=== PATIENT | male | born 1940 | race American Indian/Alaskan Native ===

== ENCOUNTER → 2016-08-19 | Day surgery (SDC) | payer OTHER ==
[2016-07-29 12:37] VITALS: Ht 162.6 cm; Wt 56.8 kg
[~2016-08-19] VITALS: Ht 162.6 cm; Wt 56.8 kg
[~2016-08-19] MED LIST: 500ML BSS 0.3ML EPI 1:1000PF IRRIG ONE; ACETAMINOPHEN 325 MG TAB PO PRN; AMLO-114 PO; AMVISC PLUS 0.8ML SYRINGE INT OCU ONE; ASPI81TA28 PO; ATOR-22 PO; ATROPINE SULFATE 0.1 MG/ML 5ML SYR IV PRN; BSS FLUSH ONE; CARV3.122 PO; EpHEDrine SULFATE INJ 50 MG/ML AMP IV PRN; EpINEphrine INJ 1MG/ML AMP 1 MG/ML AMP ONE; GLIM2TAB2 PO; LACTATED RINGER'S 1000ML 500 ML IV SCH; LIDOCAINE 3.5% OPH GEL PER APPLICATION CHARGE ONE; LIDOCAINE HCL 1% MPF 2 ML VIAL ONE; LOSA100T2 PO; METF-841 PO; MIDAZOLAM HCL 1 MG/ML 2ML VIAL ONE; MULT-506 PO; OCUCOAT 1 ML SOLN IO ONE; PHENYLEPHRINE HCL 10% OP SOLN PER DROP CHARGE OPL SCH; POVIDONE-IODINE OP SOLN 30 ML BTL ONE; PROPARACAINE 0.5% OP SOLN PER DROP CHARGE OPL SCH; SITA50TA3 PO; TAMS0.4C38 PO; TOBRAMYCIN/DEXAMETHASONE OPH OINT PER APPLN CHARGE ONE
[2016-08-19] MEDS: PHENYLEPHRINE HCL 2.5% OP SOLN PER DROP CHARGE OPL SCH ×2 (06:39→06:47)
[2016-08-19] MEDS: TROPICAMIDE 1% OP SOLN PER DROP CHARGE OPL SCH ×2 (06:40→06:48)
[2016-08-19] MEDS: CYCLOPENTOLATE HCL 1% OP SOLN PER DROP CHARGE OPL SCH ×2 (06:41→06:49)
[2016-08-19] MEDS: KETOROLAC 0.5% OP SOLN PER DROP CHARGE OPL SCH ×2 (06:42→06:50)
[2016-08-19] MEDS: GATIFLOXACIN OP SOLN PER DROP CHARGE OPL SCH ×2 (06:43→06:53)
--- NOTE | 2016-08-19 06:55 | History & Physical Bridge - SC ---
H&P Re-Evaluation Bridge Note: I have examined the patient, reviewed the History & Physical and in the interval since the performance of the History & Physical I have noted the following changes of clinical significance: No changes noted
--- NOTE | 2016-08-19 07:22 | Discharge Instructions-SurgCtr ---
Discharge Instructions Date of Service August 19, 2016. Visit Reason for Visit: Cataract Left Eye Discharge Discharge Diagnosis / Problem: cataract Discharge Goals Goal(s): Improve function Medications Stopped Medications Name(s): Metformin stopped for 3 days Activity Recommendations Activity Limitations: per Instructions/Follow-up section Anesthesia . Post Anesthesia Instructions: If you have had General Anesthesia or IV Sedation: * Do not drive today. * Resume driving when surgeon permits. * Do not make important decisions or sign legal documents today. * Call surgeon for: 1. Temperature elevations greater than 101 degrees F. 2. Uncontrollable pain. 3. Excessive bleeding. 4. Persistent nausea and vomiting. 5. Medication intolerance (nausea, vomiting or rash). * For nausea and vomiting use only clear liquids such as: tea, soda, bouillon until nausea subsides, then gradually increase diet as tolerated. * If you have any concerns or questions, call your surgeon's office. If physician is unavailable and it is an emergency, call 911 or go to the nearest emergency room. . Instructions / Follow-Up Instructions / Follow-Up ACTIVITY RECOMMENDATIONS: * No strenuous lifting, jogging or running for 4 days * No swimming or yard work for 1 week. * Limited bending is permitted, such as putting on shoes. RETURN TO SCHOOL/WORK: No work until seen by physician in office. MEDICATIONS: Resume previous medications unless instructed otherwise by your surgeon. This includes eye drops for glaucoma. Zymaxid/Gatifloxacin (sandoval cap) - one drop every 2 hours until bedtime Nevanac/Ilevro/Prolensa/Ketorolac (loera cap) - one drop every 4 hours until bedtime Prednisolone (white/pink cap, SHAKE WELL) - one drop every 2 hours until bedtime Starting tomorrow - all 3 drops every 4 hours until seen in the office Optive drops - as needed for discomfort SPECIAL CARE INSTRUCTIONS: * Wear eyeshield when sleeping, for four nights. * You may wear your own glasses or sunglasses while awake. * You may read or watch TV * You may shower and wash your face, but be gentle around the eye and pat dry. * Blurry vision and mild irritation are normal. * Call office if pain is more severe or vision becomes dark at . FOLLOW UP VISIT: Follow-up with Dr Sanderson tomorrow. Diet Recommendations Home Diet: resume previous diet Procedures Procedures Performed: Left Cataract Phacoemulsification With Intraocular Lens Implant Pending Studies Studies pending at discharge: no Medical Emergencies . Who to Call and When: Medical Emergencies: If at any time you feel your situation is an emergency, please call 911 immediately. . Non-Emergent Contact Non-Emergency issues call your: Rv Detailer . . "Provider Documentation" section prepared by Charli Sanderson. .
--- NOTE | 2016-08-19 07:23 | [facility] Operative Report ---
Operative Report Date of Service August 19, 2016. Operative Report 1. PREOPERATIVE DIAGNOSIS: Cataract of the left eye. 2. POSTOPERATIVE DIAGNOSIS: Same. 3. PROCEDURE: Phacoemulsification with intraocular lens implantation of the left eye. SURGEON: Dr. Charli Sanderson. ANESTHESIA: Topical Lidocaine gel, 1% Non- Preserved intracameral Lidocaine, and monitored intravenous sedation. INDICATIONS FOR THE PROCEDURE: The patient is a 75 - year-old male with a history of cataract of the left eye causing significant visual impairment. The details of the proposed procedure were explained to the patient who asked appropriate questions and following discussion of all risks, benefits and alternatives agreed to have the procedure done. 4. OPERATION AND FINDINGS: DESCRIPTION OF PROCEDURE: After informed consent was obtained, the patient was brought to the Operating Room at the [facility]. The patient was placed in a supine position and then the left eye was prepped and draped in the usual sterile fashion for intraocular surgery. A drop of topical Lidocaine gel was placed in the operative eye. A wire lid speculum was then placed in the fornices. A corneal paracentesis was then created temporally. The Non-Preserved Lidocaine was then instilled into the anterior chamber. The anterior chamber was then pressurized with viscoelastic. A 2.0 mm clear corneal incision was then created temporally. A cystotome was inserted into the anterior chamber and used to create a tear in the anterior lens capsule. This capsular tear was then used to create a small flap and the flap was dragged in a counterclockwise direction in order to create a continuous curvilinear capsulorrhexis. Hydrodissection was accomplished with balanced salt solution. Phacoemulsification of the lens nucleus was then performed in a standard [id number] technique. The phaco time was 38 seconds with an average power of 18 %. The remaining cortical material was removed using irrigation aspiration. The capsular bag was then filled with viscoelastic. A [employer]ch [employer] Lomb MI60L +22.0 diopters lens was then loaded into the injector and injected into the capsular bag. The remaining viscoelastic was removed with the irrigation aspiration handpiece. The wound was hydrated and then checked and found to be watertight. The intraocular pressure was checked and found to be adequate. The wire lid speculum was removed and the patient's face was cleaned and dried. TobraDex ointment was placed in the inferior fornix. The patient was discharged to the Recovery Room having tolerated the procedure well. There were no complications. The patient will be seen tomorrow in the office for follow-up. I attest to the content of the Intraoperative Record and any orders documented therein. Any exceptions are noted below.
[2016-08-19 07:25] VITALS: TEMP 36.3
[2016-08-19 07:48] VITALS: BP 152/75; PULSE 81; O2SAT 98
--- NOTE | 2016-08-19 07:49 | Anesthesia Progress Nt - [facility] ---
Anesthesia Post Op Note Date & Time August 19, 2016 at 07:49 Vital Signs Pain Intensity: 0 Vital Signs Past 12 Hours Date Time Temp Pulse Resp B/P Pulse Ox O2 Delivery O2 Flow Rate FiO2 08/19/16 07:25 36.3 77 16 149/71 100 Room Air 08/19/16 06:26 36.5 78 16 146/68 100 Room Air Notes Mental Status: alert / awake / arousable, participated in evaluation Pt Amnestic to Procedure: Yes Nausea / Vomiting: adequately controlled Pain: adequately controlled Airway Patency, RR, SpO2: stable & adequate BP & HR: stable & adequate Hydration State: stable & adequate Anesthetic Complications: no major complications apparent
== END | disposition home or self-care (01) ==
LOC: X.SURG 06:03
PROVIDERS: ATTEND Ophthalmology
DX: H26.9 Unspecified cataract (principal); I10 Essential (primary) hypertension; I25.10 Atherosclerotic heart disease of native coronary artery without angina pectoris; Z95.1 Presence of aortocoronary bypass graft; E78.5 Hyperlipidemia, unspecified; E11.36 Type 2 diabetes mellitus with diabetic cataract; E03.9 Hypothyroidism, unspecified; Z79.82 Long term (current) use of aspirin; Z86.73 Personal history of transient ischemic attack (TIA), and cerebral infarction without residual deficits; Z88.2 Allergy status to sulfonamides; Z87.891 Personal history of nicotine dependence; Z68.21 Body mass index [BMI] 21.0-21.9, adult; Z83.3 Family history of diabetes mellitus; Z82.49 Family history of ischemic heart disease and other diseases of the circulatory system; Z82.0 Family history of epilepsy and other diseases of the nervous system

== ENCOUNTER 2018-10-25 14:05 | Inpatient (IN) ==
--- NOTE | 2018-10-25 15:16 | XRay Report ---
XR chest 1V portable HISTORY: weakness COMPARISON: Chest 01/07/2018. FINDINGS: The lungs are clear. The heart is normal in size. No pleural effusions. No pneumothorax. Po ststernotomy changes. IMPRESSION: No acute process. Electronically signed by: Elier Lao M.D. 10/25/2018 3:14 PM
[2018-10-25 15:30] LABS: Basophils # (auto) 0.02 K/uL (0-0.2); Basophils % (auto) 0.3 %; Eosinophils % (auto) 2.9 %; Hematocrit (blood only) 22.3 % (42-52); Hemoglobin 7.2 g/dL (14.0-18.0); Immature Granulocytes # (auto) 0.04 K/uL (0.00-0.02); Immature Granulocytes % (auto) 0.6 %; Lymphocytes # (auto) 1.47 K/uL (1.2-3.4); Lymphocytes % (auto) 21.2 %; Mean Corpuscular Hgb Conc 32.3 g/dL (32-36); Mean Corpuscular Volume 87.5 fL (80-100); Mean Platelet Volume 9.4 fL (7.4-10.4); Monocytes # (auto) 0.47 K/uL (0.11-0.59); Monocytes % (auto) 6.8 %; Neutrophils # (auto) 4.73 K/uL (1.4-6.5); Neutrophils % (auto) 68.2 %; Nucleated RBC # (auto) 0.04 K/uL (0-0); Nucleated RBC % (auto) 0.6 %; Platelet Count 284 K/uL (130-400); RDW Coefficient of Variation 19.2 % (11.5-14.5); RDW Standard Deviation 49.1 fL (36.4-46.3); Red Blood Count 2.55 M/uL (4.7-6.1); White Blood Count 6.93 K/uL (4.8-10.8)
[2018-10-25 15:38] LABS: Appearance Urine Cloudy (Clear); Bilirubin Urine Negative (Negative); Blood Urine Negative (Negative); Color Urine Yellow; Glucose Urine UA 3+ (Negative); Ketones Urine Negative (Negative); Leukocyte Esterase Urine Negative (Negative); Nitrite Urine Negative (Negative); Protein Urine Negative (Negative); Specific Gravity Urine 1.013 (1.000-1.030); Urobilinogen Urine Negative (Negative)
[2018-10-25] MEDS ORDERED: SODIUM CHLORIDE 0.9% 250 ML IV PRN ×2 (15:41→19:02)
[2018-10-25 15:53] LABS: Albumin Level 3.9 gm/dl (3.4-5.0); BUN Creatinine Ratio 21.4 (10-20); Calcium 9.5 mg/dl (8.5-10.1); Creatinine Clr Calc Pharmacy 42.8 ml/min; Est GFR (African American) 75.6; Est GFR (Non-African American) 65.2; Magnesium 2.9 mg/dl (1.8-2.4); Potassium 4.1 mmol/L (3.5-5.1)
[2018-10-25 15:54] LABS: Bacteria Urine Negative (Negative); Epithelial Cell Urine 0-5 /lpf (0-5); RBC Urine 0-4 /hpf (0-4); WBC Urine 0-5 /hpf (0-5)
[2018-10-25 16:03] LABS: Albumin Globulin Ratio 1.2 (0.9-2); Bilirubin,Total 0.3 mg/dl (0.2-1); Globulin 3.2 gm/dl (2.5-4.0); Total Protein 7.1 gm/dl (6.4-8.2); Troponin I 0.042 ng/ml (0-0.045)
--- NOTE | 2018-10-25 16:11 | Emergency Department Note ---
Entered by Narda Knapp acting as a scribe for History of Present Illness General Chief complaint: Weakness Stated complaint: WEAKNESS Source: family (son) History of Present Illness Provider complaint: weakness Onset (ago): day(s) 2 Location: left and right Severity: similar to prior episodes Quality: + other (weakness) Associated symptoms: + other (Positive tarry stools, Negative rectal bleeding ); no chest pain and no shortness of breath The patient is a 78 year old male who presents to the Emergency Room with comp laints of weakness that started three days ago. The patient states that he has been feeling weak for the past three days. The patient's son expresses that he is feeling weak in his legs and is unable to go up and down his stairs. The patient reports eating and drinking fine. The patient reports that he is unable to walk these past couple of days. The patient denies syncope, shortness of breath, chest pain or bloody stools. The patient reports taking iron pill supplements. The patient's son reports that this is similar to an incident that happened in January. The patient's son states that in January the patient collapsed at home and when he went to the ER he had a hemoglobin of 4.6. The patient's son reports that at that time the patient received 2-3 units of blood and iron supplements. The patient's son reports that at that time the patient had a colonscopy, scopes and other lab work done however they were unable to determine the cause of why the patient's hemoglobin was low because there was no signs of internal bleeding. The patient's son reports that hours ago they went to [facility] and had blood work done and found that the patient's hemoglobin was 8. The patient's son reports that the patient has traveled to [facility] in the middle april and came back in mid August. Home Medications Home Medications Medication Instructions Recorded Confirmed Type Januvia 100 mg PO QAM 01/07/18 10/25/18 History atorvastatin 20 mg PO QAM 01/07/18 10/25/18 History carbidopa-levodopa [Sinemet] 1 tab PO TID 01/07/18 10/25/18 History carbidopa-levodopa [Sinemet] 1.5 tab PO TID 01/07/18 10/25/18 History carvedilol 6.25 mg PO HS 01/07/18 10/25/18 History carvedilol 12.5 mg PO QAM 01/07/18 10/25/18 History glimepiride 1 mg PO BID 01/07/18 10/25/18 History losartan 25 mg PO QAM 01/07/18 10/25/18 History metformin 1,000 mg PO BID 01/07/18 10/25/18 History multivitamin 1 tab PO QAM 01/07/18 10/25/18 History tamsulosin [Flomax] 0.4 mg PO QAM 01/07/18 10/25/18 History aspirin 81 mg PO QAM 10/25/18 10/25/18 History cholecalciferol (vitamin D3) 2,000 unit PO QAM 10/25/18 10/25/18 History [Vitamin D3] empagliflozin 10 mg PO QAM 10/25/18 10/25/18 History ferrous sulfate 134 mg PO DAILY 10/25/18 10/25/18 History nitroglycerin 0.3 mg SUBLINGUAL QAM PRN 10/25/18 10/25/18 History Allergies Allergy/AdvReac Type Severity Reaction Status Date / Time Sulfa (Sulfonamide Allergy Unknown BLISTERS Verified 10/25/18 14:56 Antibiotics) AND RASH Past Med/Surg History Medical History CARISSA (iron deficiency anemia) (Chronic) Diabetes mellitus, type II (Chronic) CAD (coronary artery disease) (Chronic) GA / demand ischemia related to severe anemia Vascular parkinsonism (Chronic) Hypothyroidism (Chronic) Hypertension (Chronic) Dyslipidemia (Chronic) Surgical History S/P CABG x 3 (Chronic) 2002 Family History Other Cancer Diabetes Heart disease Social History Preferred Language: Maltese Communication Ability: Effective Hat Band Attacher Required: No Beliefs That Will Affect Care: None Current Living Situation: Spouse Feels Safe at Home: Yes Smoking Status: Current every day smoker Tobacco Type: smokeless tobacco ; Hx Alcohol Use: No Hx Substance Use: No Review of Systems See HPI for pertinent positives & negatives. and A total of 10 systems reviewed and were otherwise negative Physical Exam Vital Signs Vital Signs - 24 hr 10/25/18 14:17 10/25/18 15:14 10/25/18 15:18 Temperature 36.5 C Temperature Source Oral Sepsis Recent Fever Within 48 Hours No Sepsis New/Unexplained Change in Mental Status No Sepsis Action Taken by Nursing No Action Required Pulse Rate 86 83 89 Pulse Rate from SpO2 Sensor 83 84 Pulse Rhythm Regular Pulse Strength Normal Respiratory Rate 20 15 20 Respiratory Effort / Characteristics Non-Labored Spontaneous Respiratory Depth Normal Respiratory Pattern Regular Blood Pressure 133/73 118/59 L Blood Pressure Mean 93 78 Blood Pressure Position Sitting Pulse Oximetry 100 100 99 Oxygen Delivery Method Room Air 10/25/18 15:30 10/25/18 16:00 10/25/18 16:30 Temperature Temperature Source Sepsis Recent Fever Within 48 Hours Sepsis New/Unexplained Change in Mental Status Sepsis Action Taken by Nursing Pulse Rate 81 82 88 Pulse Rate from SpO2 Sensor 82 87 Pulse Rhythm Pulse Strength Respiratory Rate 13 18 22 Respiratory Effort / Characteristics Respiratory Depth Respiratory Pattern Blood Pressure 127/50 L 147/62 H Blood Pressure Mean 75 90 Blood Pressure Position Pulse Oximetry 99 99 Oxygen Delivery Method 10/25/18 16:44 10/25/18 17:00 10/25/18 17:02 Temperature 36.5 C 36.5 C Temperature Source Oral Oral Sepsis Recent Fever Within 48 Hours Sepsis New/Unexplained Change in Mental Status Sepsis Action Taken by Nursing Pulse Rate 80 84 85 Pulse Rate from SpO2 Sensor 83 Pulse Rhythm Pulse Strength Respiratory Rate 20 17 21 Respiratory Effort / Characteristics Respiratory Depth Respiratory Pattern Blood Pressure 147/62 H 143/52 H 143/52 H Blood Pressure Mean 90 82 82 Blood Pressure Position Pulse Oximetry 99 100 98 Oxygen Delivery Method 10/25/18 17:17 10/25/18 17:20 10/25/18 17:30 Temperature 36.8 C Temperature Source Oral Sepsis Recent Fever Within 48 Hours Sepsis New/Unexplained Change in Mental Status Sepsis Action Taken by Nursing Pulse Rate 83 84 80 Pulse Rate from SpO2 Sensor 83 82 Pulse Rhythm Pulse Strength Respiratory Rate 18 17 21 Respiratory Effort / Characteristics Respiratory Depth Respiratory Pattern Blood Pressure 142/60 H 142/60 H 157/65 H Blood Pressure Mean 87 87 95 Blood Pressure Position Pulse Oximetry 100 100 Oxygen Delivery Method 10/25/18 17:47 Temperature 36.6 C Temperature Source Oral Sepsis Recent Fever Within 48 Hours Sepsis New/Unexplained Change in Mental Status Sepsis Action Taken by Nursing Pulse Rate 81 Pulse Rate from SpO2 Sensor Pulse Rhythm Pulse Strength Respiratory Rate 18 Respiratory Effort / Characteristics Respiratory Depth Respiratory Pattern Blood Pressure 157/65 H Blood Pressure Mean 95 Blood Pressure Position Pulse Oximetry 99 Oxygen Delivery Method GENERAL: Awake, alert, fatigue-appearing HENT: Normocephalic, atraumatic. EYES: Normal conjunctiva. Sclera non-icteric. NECK: Supple. No nuchal rigidity. RESPIRATORY: Clear to auscultation. No wheezes. Normal respiratory effort. CARDIAC: Normal rate. Normal rhythm. Extremities warm and well perfused. GI: Soft, non-distended. No tenderness to palpation. No rebound or guarding. No masses. RECTAL: Nurse ice delivery driver present melanotic hemoccult. Positive stool MUSCULOSKELETAL: Atraumatic. Chest examination reveals no tenderness LOWER EXTREMITIES: Calves are equal size bilaterally and non-tender. No edema NEURO: Normal sensorium. No sensory or motor deficits noted. No facial droop. SKIN: Warm and dry. No rash or jaundice noted. Course 1424: Past medical records reviewed. The patient was evaluated in room . A complete history and physical exam was performed. 1610: I reassessed and updated the patient. I am waiting for a call from [employer] for a placement. 1620: I reviewed the patient's case with Dr. Ericka Chery PA-C. She will eval uate the patient for further management. Consultations Consultation #1: I reviewed the patient's case with Dr. Ericka Chery PA-C. She will evaluate the patient for further management. Time: 16:20 Medical Decision Making Differential Diagnosis Differential includes acute coronary syndrome, myocardial infarction, CVA, TIA, anemia, infection, pneumonia, UTI, pyelonephritis, poor nutrition, dehydration, electrolyte disturbance,hypoglycemia. Medical Records Attestation: I reviewed the patient's medical records. Home Medications Current Medication List: was personally reviewed by me Laboratory Data Attestation: I reviewed the patient's lab results. Result diagrams: 10/25/18 14:47 10/25/18 14:47 Lab Results 10/25/18 10/25/18 10/25/18 Range/Units 14:47 14:47 14:47 WBC 6.93 (4.8-10.8) K/uL RBC 2.55 L (4.7-6.1) M/uL Hgb 7.2 L (14.0-18.0) g/dL Hct 22.3 L (42-52) % MCV 87.5 (80-100) fL MCH 28.2 (25-34) pg MCHC 32.3 (32-36) g/dL RDW Std Deviation 49.1 H (36.4-46.3) fL RDW Coeff of Melissa 19.2 H (11.5-14.5) % Plt Count 284 (130-400) K/uL MPV 9.4 (7.4-10.4) fL Immature Gran % (Auto) 0.6 % Neut % (Auto) 68.2 % Lymph % (Auto) 21.2 % [place] % (Auto) 6.8 % Eos % (Auto) 2.9 % Baso % (Auto) 0.3 % Immature Gran # (Auto) 0.04 H (0.00-0.02) K/uL Neut # (Auto) 4.73 (1.4-6.5) K/uL Lymph # (Auto) 1.47 (1.2-3.4) K/uL [place] # (Auto) 0.47 (0.11-0.59) K/uL Eos # (Auto) 0.20 (0-0.5) K/uL Baso # (Auto) 0.02 (0-0.2) K/uL Absolute Nucleated RBC 0.04 H (0-0) K/uL Nucleated RBC % (auto) 0.6 % Spherocytes 1+ PT 10.0 (9.0-12.0) Seconds INR 1.0 (0.9-1.1) Sodium 139 (136-145) mmol/L Potassium 4.1 (3.5-5.1) mmol/L Chloride 101 (98-107) mmol/L Carbon Dioxide 26 (21-32) mmol/L Anion Gap 12.0 H (3-11) BUN 23 H (7-18) mg/dl Creatinine 1.07 (0.6-1.4) mg/dl Est Cr Clr Drug Dosing 42.8 ml/min Est GFR ( Amer) 75.6 Est GFR (Non-Af Amer) 65.2 BUN/Creatinine Ratio 21.4 H (10-20) Glucose 183 H (70-99) mg/dl Calcium 9.5 (8.5-10.1) mg/dl Magnesium 2.9 H (1.8-2.4) mg/dl Total Bilirubin 0.3 (0.2-1) mg/dl AST 15 (15-37) U/L ALT 19 (12-78) U/L Alkaline Phosphatase 67 (45-117) U/L Troponin I 0.042 (0-0.045) ng/ml Total Protein 7.1 (6.4-8.2) gm/dl Albumin 3.9 (3.4-5.0) gm/dl Globulin 3.2 (2.5-4.0) gm/dl Albumin/Globulin Ratio 1.2 (0.9-2) TSH 1.270 (0.300-4.500) uIu/ml Urine Color Urine Appearance (Clear) Urine pH (4.5-7.5) Ur Specific [place] (1.000-1.030) Urine Protein (Negative) Urine Glucose (UA) (Negative) Urine Ketones (Negative) Urine Blood (Negative) Urine Nitrite (Negative) Urine Bilirubin (Negative) Urine Urobilinogen (Negative) Ur Leukocyte Esterase (Negative) Urine RBC (0-4) /hpf Urine WBC (0-5) /hpf Ur Epithelial Cells (0-5) /lpf Urine Bacteria (Negative) Blood Type Antibody Screen Crossmatch 10/25/18 10/25/18 Range/Units 14:47 15:20 WBC (4.8-10.8) K/uL RBC (4.7-6.1) M/uL Hgb (14.0-18.0) g/dL Hct (42-52) % MCV (80-100) fL MCH (25-34) pg MCHC (32-36) g/dL RDW Std Deviation (36.4-46.3) fL RDW Coeff of Melissa (11.5-14.5) % Plt Count (130-400) K/uL MPV (7.4-10.4) fL Immature Gran % (Auto) % Neut % (Auto) % Lymph % (Auto) % [place] % (Auto) % Eos % (Auto) % Baso % (Auto) % Immature Gran # (Auto) (0.00-0.02) K/uL Neut # (Auto) (1.4-6.5) K/uL Lymph # (Auto) (1.2-3.4) K/uL [place] # (Auto) (0.11-0.59) K/uL Eos # (Auto) (0-0.5) K/uL Baso # (Auto) (0-0.2) K/uL Absolute Nucleated RBC (0-0) K/uL Nucleated RBC % (auto) % Spherocytes PT (9.0-12.0) Seconds INR (0.9-1.1) Sodium (136-145) mmol/L Potassium (3.5-5.1) mmol/L Chloride (98-107) mmol/L Carbon Dioxide (21-32) mmol/L Anion Gap (3-11) BUN (7-18) mg/dl Creatinine (0.6-1.4) mg/dl Est Cr Clr Drug Dosing ml/min Est GFR ( Amer) Est GFR (Non-Af Amer) BUN/Creatinine Ratio (10-20) Glucose (70-99) mg/dl Calcium (8.5-10.1) mg/dl Magnesium (1.8-2.4) mg/dl Total Bilirubin (0.2-1) mg/dl AST (15-37) U/L ALT (12-78) U/L Alkaline Phosphatase (45-117) U/L Troponin I (0-0.045) ng/ml Total Protein (6.4-8.2) gm/dl Albumin (3.4-5.0) gm/dl Globulin (2.5-4.0) gm/dl Albumin/Globulin Ratio (0.9-2) TSH (0.300-4.500) uIu/ml Urine Color Yellow Urine Appearance Cloudy A (Clear) Urine pH 7.0 (4.5-7.5) Ur Specific [place] 1.013 (1.000-1.030) Urine Protein Negative (Negative) Urine Glucose (UA) 3+ H (Negative) Urine Ketones Negative (Negative) Urine Blood Negative (Negative) Urine Nitrite Negative (Negative) Urine Bilirubin Negative (Negative) Urine Urobilinogen Negative (Negative) Ur Leukocyte Esterase Negative (Negative) Urine RBC 0-4 (0-4) /hpf Urine WBC 0-5 (0-5) /hpf Ur Epithelial Cells 0-5 (0-5) /lpf Urine Bacteria Negative (Negative) Blood Type O Positive Antibody Screen NEGATIVE Crossmatch See Detail Imaging Data Radiologist's Impression: Radiology results as stated below per my review and the radiologist's interpretation: XR chest 1V portable HISTORY: weakness COMPARISON: Chest 01/07/2018. FINDINGS: The lungs are clear. The heart is normal in size. No pleural effusions. No pneumothorax. Poststernotomy changes. IMPRESSION: No acute process. Electronically signed by: Elier Lao M.D. 10/25/2018 3:14 PM ECG Data Attestation: I personally reviewed and interpreted this ECG as follows: Indication: weakness Rate (beats per minute): 93 Rhythm: normal sinus Findings: no PVC, no ST depression and no ST elevation Blood Pressure Blood Pressure Findings: Normal blood pressure MDM Narrative Patient is an 78-year-old gentleman with a history of iron deficiency and GI bleed and anemia as well as CAD hypertension, and diabetes presenting to the emergency department today with a complaint of weakness. Was admitted in December of last year with severe anemia secondary to GI bleed thought to be more likely lower in nature. Evidently had outpatient blood work showing a hemoglo bin of 7.3 and was referred here. Weakness is begun over the past 2 weeks, worse 3 days. Repeat labs including EKG and troponin as well as type and screen were sent. Trop detectable but not elevated. Rectal exam performed. This does show melanotic and Hemoccult positive stools. Does take some iron supplementations at times and denies any blood in his stool but occasional black stools. Hemoglobin was last greater than 12 in August. Denies any significant abdominal pain or fevers. No trauma or syncope reported. Patient reports significant fatigue when trying to walk which for the past 3 days has been able to do his normal daily walk. Given this concern for occult GI bleed again. Given prior work-up lower suspicion this is upper more likely lower. Patient was consented for blood. Given the symptomatic nature he is having an hemoglobin repeat here 7.2 I did order 1 unit of packed red blood cells. Given his new low anemia and symptoms discussed with the [facility] hospitalist for admission. Doubt this represents acute diverticulitis or upper GI bleed. Not having any significant abdominal symptoms. Impression & Plan GI bleed, Weakness, Acute blood loss anemia Critical Care Time Critical Care Time: Yes Total Critical Care Time: 32 Discharge Plan Visit Data Chief Complaint: Weakness Stated Complaint: WEAKNESS ED Provider: Bret Strickland Discharge Problem: GI bleed, Weakness, Acute blood loss anemia Patient Disposition: Being Evaluated by Hospitalist Forms Stand Alone Forms: My [facility] Prescriptions Prescriptions: No Action atorvastatin 20 mg Tablet 20 mg PO QAM RF: 0 glimepiride 1 mg Tablet 1 mg PO BID RF: 0 tamsulosin [Flomax] 0.4 mg Capsule 0.4 mg PO QAM RF: 0 metformin 1,000 mg Tablet 1,000 mg PO BID RF: 0 carbidopa-levodopa [Sinemet] 25-100 mg Tablet 1.5 tab PO TID RF: 0 carbidopa-levodopa [Sinemet] 25-100 mg Tablet 1 tab PO TID RF: 0 Januvia 100 mg Tablet 100 mg PO QAM RF: 0 losartan 25 mg Tablet 25 mg PO QAM RF: 0 multivitamin Tablet 1 tab PO QAM RF: 0 carvedilol 6.25 mg Tablet 6.25 mg PO HS RF: 0 carvedilol 6.25 mg Tablet 12.5 mg PO QAM RF: 0 nitroglycerin 0.3 mg Tablet, Sublingual 0.3 mg sublingual QAM PRN (Reason: chest pain) RF: 0 aspirin 81 mg Tablet,Chewable 81 mg PO QAM RF: 0 cholecalciferol (vitamin D3) [Vitamin D3] 2,000 unit Tablet 2,000 unit PO QAM RF: 0 empagliflozin 10 mg Tablet 10 mg PO QAM RF: 0 ferrous sulfate 134 mg (27 mg iron) Tablet 134 mg PO DAILY RF: 0 Referrals Referrals: Marianela Contreras MD [Primary Care Provider] - Discharge Problem: GI bleed Qualifiers: GI bleed type/associated pathology: unspecified gastrointestinal hemorrhage type Qualified Code(s): K92.2 - Gastrointestinal hemorrhage, unspecified The scribe's documentation has been prepared under my direction and personally reviewed by me in its entirety. I confirm that the note above accurately reflects all work, treatment, procedures, and medical decision making performed by me.
[2018-10-25 16:35] LABS: Spherocytes 1+
--- NOTE | 2018-10-25 17:41 | History & Physical Report ---
Date of Service October 25, 2018 Assessment & Plan (1) Acute blood loss anemia: (2) GI bleed: This is an 78yo M with a PMH of CARISSA, DM II, CAD (s/p CABG), HTN, HLD, vascular parkinsonism and other medical problems listed below who presents with generalized weakness x 4 days and was found to have symptomatic anemia requiring transfusion of prbc. -Hemoglobin 7.2 initially. Type and cross, consented, receiving 1 of 2 units PRBCs -Heme positive rectal exam, history of intermittent melanotic stools -Will monitor H&H every 6 hours, IV Protonix 40 mg BID, routine GI consult, clears for now with NPO after midnight -GI work-up in Dec 2017 with EGD and colonoscopy with H pylori gastritis and small non-bleeding superficial ulcer in rectum. Video capsule endoscopy done as an outpatient without any evidence of bleeding -Holding baby aspirin (3) CARISSA (iron deficiency anemia): Diagnosis of severe CARISSA during December 2017 admission with hemoglobin 4.7 -Underwent heme-onc work-up with normal reticulocyte count, haptoglobin, SPEP -Received IV iron x 2 and transitioned to ferrous sulfate 325 mg TID but patient has only been taking 100 mg daily due to constipation -Check ferritin lab in the morning, consider giving IV iron (4) Generalized weakness: In setting of symptomatic anemia, expect improvement with blood transfusion -PT/OT evaluation and conditioning (5) Diabetes mellitus, type II: A1c 7.9 in August 2018 -Hold home agents -SSI while in-patient -BSG AC HS (6) Hypertension: Normotensive -Continue carvedilol, losartan (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 Cobb -Continue Flomax. Bladder scan PRN DVT Ppx: SCDs in setting of possible GI bleed Code status: FULL per discussion with patient PCP: Ben Dispo: Admitted to telemetry. Discharge planning ordered. Patient seen in collaboration with Dr. St. Please see addendum. History of Present Illness Chief Complaint: generalized weakness Primary Care Provider: Marianela Contreras MD This is an 78yo M with a PMH of CARISSA, DM II, CAD (s/p CABG), HTN, HLD, vascular parkinsonism and other medical problems listed below who presents with generalized weakness x 4 days. Patient was in normal state of health until , when he noticed generalized weakness with any type of ambulation and has been more sedentary for the past few days. Noted lightheadedness and some dizziness yesterday. Has had occasional dark stool but denies any bright red blood per rectum, hematemesis or epistaxis. Has history of profound symptomatic anemia in December 2017 when he presented with hemoglobin 4.7. During admission, received 3 units PRBCs as well as IV Venofer. EGD and colonoscopy performed at that time revealed esophagitis as well as small superficial ulcer in rectum that was nonbleeding. Video capsule endoscopy done as an outpatient without any evidence of bleeding. Pathology report with chronic gastritis and H. pylori infection, which was treated. Colonic polyp revealed tubular adenoma. Was also evaluated in heme onc clinic upon discharge with normal reticulocyte count, haptoglobin and SPEP. Received IV iron once as an outpatient and was then recommended to take ferrous sulfate 325 TID. Patient was experiencing constipation, so he has now been taking ferrous sulfate 100 mg. Currently, patient endorsing generalized weakness. Denies any fever, chills, lightheadedness, visual changes, chest pain, palpitations, shortness of breath, nausea, vomiting, abdominal pain, dysuria, diarrhea or constipation. Takes baby aspirin daily due to history of CAD. No NSAID use. Chews tobacco daily. Allergies Allergy/AdvReac Type Severity Reaction Status Date / Time Sulfa (Sulfonamide Allergy Unknown BLISTERS Verified 10/25/18 14:56 Antibiotics) AND RASH Home Medications Home Medications Medication Instructions Recorded Confirmed Type Januvia 100 mg PO QAM 01/07/18 10/25/18 History atorvastatin 20 mg PO QAM 01/07/18 10/25/18 History carbidopa-levodopa [Sinemet] 1 tab PO TID 01/07/18 10/25/18 History carbidopa-levodopa [Sinemet] 1.5 tab PO TID 01/07/18 10/25/18 History carvedilol 6.25 mg PO HS 01/07/18 10/25/18 History carvedilol 12.5 mg PO QAM 01/07/18 10/25/18 History glimepiride 1 mg PO BID 01/07/18 10/25/18 History losartan 25 mg PO QAM 01/07/18 10/25/18 History metformin 1,000 mg PO BID 01/07/18 10/25/18 History multivitamin 1 tab PO QAM 01/07/18 10/25/18 History tamsulosin [Flomax] 0.4 mg PO QAM 01/07/18 10/25/18 History aspirin 81 mg PO QAM 10/25/18 10/25/18 History cholecalciferol (vitamin D3) 2,000 unit PO QAM 10/25/18 10/25/18 History [Vitamin D3] empagliflozin 10 mg PO QAM 10/25/18 10/25/18 History ferrous sulfate 134 mg PO DAILY 10/25/18 10/25/18 History nitroglycerin 0.3 mg SUBLINGUAL QAM PRN 10/25/18 10/25/18 History Past Med/Surg History Medical History CARISSA (iron deficiency anemia) (Chronic) Diabetes mellitus, type II (Chronic) CAD (coronary artery disease) (Chronic) [place] / demand ischemia related to severe anemia Vascular parkinsonism (Chronic) Hypothyroidism (Chronic) Hypertension (Chronic) Dyslipidemia (Chronic) Surgical History S/P CABG x 3 (Chronic) 2003 Family History Other Cancer Diabetes Heart disease Social History Preferred Language: Monegasque Communication Ability: Effective Investigative Writer Required: No Beliefs That Will Affect Care: None Current Living Situation: Family Other Information That Helps Us Care for You: No Feels Safe at Home: Yes Safety Concerns: Feels Safe At This Time Smoking Status: Former smoker Tobacco Type: smokeless tobacco ; Do You Dip or Chew Tobacco: Yes (Occasional.) ; Hx Alcohol Use: No Hx Substance Use: No Review of Systems Review of Systems: At least ten systems reviewed and negative except as noted in the HPI. Physical Exam Physical Exam: General Appearance: WD/WN, no apparent distress, pale Head: normocephalic, atraumatic Eyes: normal inspection, PERRL, EOMI ENT: hearing grossly normal, pharynx normal (dry mucous membranes) Neck: supple, no JVD, no adenopathy Respiratory/Chest: lungs clear to auscultation. No wheezes, rales or rhonci. No respiratory distress or accessory muscle use Cardiovascular: regular rate, rhythm, no murmur, normal peripheral pulses Abdomen/GI: normal bowel sounds, soft, non-tender to palpation Extremities/Musculoskelatal: normal inspection, no calf tenderness, normal capillary refill, no pedal edema Neurologic/Psych: alert, normal mood/affect, oriented x 3 Skin: pale, warm/dry Results & Data Vital Signs (Past 12 Hours) Vital Signs Temp Pulse Resp BP Pulse Ox 10/25/18 17:17 36.8 C 83 18 142/60 H 100 10/25/18 17:02 36.5 C 85 21 143/52 H 98 10/25/18 16:44 36.5 C 80 20 147/62 H 99 10/25/18 16:00 82 18 127/50 L 99 10/25/18 15:30 81 13 10/25/18 15:18 89 20 99 10/25/18 15:14 83 15 118/59 L 100 10/25/18 14:17 36.5 C 86 20 133/73 100 Laboratory Results Short CBC 10/25/18 Range/Units 14:47 WBC 6.93 (4.8-10.8) K/uL Hgb 7.2 L (14.0-18.0) g/dL Hct 22.3 L (42-52) % Plt Count 284 (130-400) K/uL BMP 10/25/18 14:47 Sodium 139 Potassium 4.1 Chloride 101 Carbon Dioxide 26 BUN 23 H Creatinine 1.07 Glucose 183 H Calcium 9.5 Cardiac Enzymes 10/25/18 Range/Units 14:47 Troponin I 0.042 (0-0.045) ng/ml Liver Function 10/25/18 Range/Units 14:47 Total Bilirubin 0.3 (0.2-1) mg/dl AST 15 (15-37) U/L ALT 19 (12-78) U/L Alkaline Phosphatase 67 (45-117) U/L Albumin 3.9 (3.4-5.0) gm/dl Urine 10/25/18 Range/Units 15:20 Urine Color Yellow Urine Appearance Cloudy A (Clear) Urine pH 7.0 (4.5-7.5) Ur Specific [place] 1.013 (1.000-1.030) Urine Protein Negative (Negative) Urine Glucose (UA) 3+ H (Negative) Diagnostic Findings CXR: IMPRESSION: No acute process. Supervising Physician Co-Signing Physician Notes Patient is an 78-year-old male with history of iron deficiency anemia, GI bleed, diabetes, coronary artery disease, vascular Parkinson's and other problems presents with history of worsening generalized weakness since 4 days duration. Reports transient dizziness yesterday. Also states having dark-colored stools intermittently but currently is on iron supplements. Patient is on aspirin for coronary artery disease. Denies any use of NSAIDs. Please review HPI for complete details of presentation. On exam patient is thin, normocephalic atraumatic, lungs are clear to auscultation, S1-S2, no murmur, abdomen soft n ontender, grossly no focal neurological deficits, no pedal edema. Patient is admitted for management of symptomatic anemia, GI bleed. Hemoglobin noted to be 7.2. He has history of blood transfusions in the past. Hold aspirin for now. Agree with PRBC transfusion, monitor H&H, IV Protonix. N.p.o. after midnight. GI consulted. Check ferritin and consider IV Venofer if needed. Patient currently not taking prescribed dose of iron supplementation secondary to constipation issues. I personally reviewed the record. Patient is interviewed and examined at bedside. Patient's care is coordinated with Ericka Chery PA-C. Please refer to the documentation above for details of patient's presentation and for discussion of other issues.
[2018-10-25] MEDS ORDERED: CARBOHYDRATES FOR HYPOGLYCEMIA PO PRN (19:02)
[2018-10-25] MEDS ORDERED: GLUCAGON FOR INJ 1 MG VIAL SQ PRN (19:02)
[2018-10-25] MEDS ORDERED: GLUCOSE 10 TABS/TUBE PO PRN (19:02)
[2018-10-25] MEDS ORDERED: GLUCOSE 40% GEL 15 GM TUBE PO PRN (19:02)
[2018-10-25] MEDS ORDERED: SODIUM CHLORIDE 0.9% 1000ML 1,000 ML IV SCH (19:02)
[2018-10-25] MEDS ORDERED: DEXTROSE 50% 50 ML SYRINGE IV PRN (19:02)
[2018-10-25] MEDS: CARBIDOPA/LEVODOPA 25/100MG TAB PO SCH (20:01)
[2018-10-25] MEDS: INSULIN ASPART 100 UNITS/ML 3 ML PEN SC SCH (20:02)
[2018-10-25] MEDS ORDERED: FUROSEMIDE 20 MG in SYRINGE 0 ML IV SCH (21:00)
[2018-10-25] MEDS ORDERED: CARVEDILOL 6.25 MG TAB PO SCH (21:00)
[2018-10-25] MEDS ORDERED: CARBIDOPA/LEVODOPA 25/100MG TAB PO SCH (21:00)
[2018-10-25] MEDS ORDERED: PNEUMOCOCCAL POLYSACCHARIDES 25 MCG/0.5 ML VIAL/SYR IM ONE (21:15)
[2018-10-25] MEDS ORDERED: PNEUMOCOCCAL ADMINISTRATION CHARGE ONE (21:15)
[2018-10-25] MEDS: PANTOprazole 40 MG in SYRINGE 0 ML IV SCH (22:52)
[2018-10-26 00:20] LABS: Hematocrit (blood only) 29.6 % (42-52); Hemoglobin 9.9 g/dL (14.0-18.0)
[2018-10-26 07:37] LABS: Hematocrit (blood only) 30.8 % (42-52); Hemoglobin 10.3 g/dL (14.0-18.0); Mean Corpuscular Hgb Conc 33.4 g/dL (32-36); Mean Platelet Volume 9.5 fL (7.4-10.4); Platelet Count 235 K/uL (130-400); RDW Standard Deviation 48.6 fL (36.4-46.3); Red Blood Count 3.54 M/uL (4.7-6.1); White Blood Count 7.08 K/uL (4.8-10.8)
[2018-10-26 08:17] LABS: Albumin Level 3.5 gm/dl (3.4-5.0); BUN Creatinine Ratio 21.3 (10-20); Calcium 8.6 mg/dl (8.5-10.1); Creatinine Clr Calc Pharmacy 49.1 ml/min; Est GFR (African American) 94.5; Est GFR (Non-African American) 81.5; Potassium 3.7 mmol/L (3.5-5.1)
[2018-10-26] MEDS: INSULIN ASPART 100 UNITS/ML 3 ML PEN SC SCH ×3 (08:21→17:23)
[2018-10-26 08:22] LABS: Albumin Globulin Ratio 1.1 (0.9-2); Bilirubin,Total 0.4 mg/dl (0.2-1); Ferritin 17.1 ng/ml (8-388); Globulin 3.1 gm/dl (2.5-4.0); Total Protein 6.6 gm/dl (6.4-8.2)
[2018-10-26] MEDS: CARBIDOPA/LEVODOPA 25/100MG TAB PO SCH ×2 (08:25→16:37)
[2018-10-26] MEDS ORDERED: CARVEDILOL 6.25 MG TAB PO SCH (09:00)
[2018-10-26] MEDS ORDERED: LOSARTAN POTASSIUM 25 MG TAB PO SCH (09:00)
[2018-10-26] MEDS ORDERED: MULTIVITAMIN TAB PO SCH (09:00)
[2018-10-26] MEDS ORDERED: ATORVASTATIN 20 MG TAB PO SCH (09:00)
[2018-10-26] MEDS ORDERED: CARVEDILOL 12.5 MG TAB PO SCH (09:00)
[2018-10-26] MEDS ORDERED: CHOLECALCIFEROL 1,000 UNITS TAB PO SCH (09:00)
[2018-10-26] MEDS ORDERED: TAMSULOSIN HCL 0.4 MG CAP PO SCH (09:00)
--- NOTE | 2018-10-26 09:10 | Gastrointestinal Consultation ---
Date of Consultation October 26, 2018 Assessment & Plan (1) CARISSA (iron deficiency anemia): (2) Melena: Pt is a 78 y/o male seen for symptomatic anemia and melena x 4-5 days. Though no BMs since admitted. He has hx of iron deficiency anemia, is vegetarian. He was taking a lower than recommended dose of iron due to GI set. Hx of esophagitis, gastritis, Hpylori infection, treated, seen at last EGD. + superficial rectal ulcer, non bleeding, at last Colonoscopy. Unremarkable VCE. - Monitor H/H and transfuse prn - PPI IV BID - Check iron profile - Discussed w pt and son (Anuel) possible repeat endoscopic eval given the stool changes suggestive of melena. They are agreeable to start with repeat EGD eval. Pls keep NPO and will plan for EGD today. Can get repeat bx to check for Hpylori eradication during EGD as well. - Eventually may need repeat iron infusion and f/u w Heme/Onc Attg add: I interviewed and examined pt, reviewed chart and labs. Plan EGD today, can consider csocpy if EGD neg. History of Present Illness Reason for Consultation: Symptomatic anemia Requesting Physician: Dr. Jose Hilton Attending Physician: Dr. Anne Lane History of Present Illness Pt is a 78 y/o male w PMHx of DM II, CAD s/p CABG, HTN, hyperlipidemia, vascular Parkinsons, iron deficiency anemia who presented to ED w c/o generalized weakness and fatigue. He also noticed black sticky stools for last 4-5 days. Denies any associated abd pain, n/v, light headedness/dizziness, CP, SOB. Upon evaluation, noted to be anemic w Hgb of 7.2. He was thus admitted for anemia eval and management. Overnigth given 2U PRBC, Hgb up to 10.3 this AM. He was previously admitted December 2017 for profound anemia w Hgb of 4.7. Had EGD/Colonoscopy, VCE eval. EGD showed signs of esophagitis, gastritis, Hpylori positive but reportedly treated. Colonoscopy showed non bleeding rectal ulcer and tubular adenoma polyp. VCE w/o signs of small bowel bleed. He was given iron infusion by Heme/Onc last Fall. Was supposed to be maintained on oral iron. However was getting GI upset with the Ferrous Sulfate 325mg and started to take a lower dose of 100mg daily he obtained from [facility]. He denies any uses of NSAIDs, anticoagulants. He is on ASA 81mg daily. Allergies Allergy/AdvReac Type Severity Reaction Status Date / Time Sulfa (Sulfonamide Allergy Unknown BLISTERS Verified 10/25/18 14:56 Antibiotics) AND RASH Home Medications Home Medications Medication Instructions Recorded Confirmed Type Januvia 100 mg PO QAM 01/07/18 10/25/18 History atorvastatin 20 mg PO QAM 01/07/18 10/25/18 History carbidopa-levodopa [Sinemet] 1 tab PO TID 01/07/18 10/25/18 History carbidopa-levodopa [Sinemet] 1.5 tab PO TID 01/07/18 10/25/18 History carvedilol 6.25 mg PO HS 01/07/18 10/25/18 History carvedilol 12.5 mg PO QAM 01/07/18 10/25/18 History glimepiride 1 mg PO BID 01/07/18 10/25/18 History losartan 25 mg PO QAM 01/07/18 10/25/18 History metformin 1,000 mg PO BID 01/07/18 10/25/18 History multivitamin 1 tab PO QAM 01/07/18 10/25/18 History tamsulosin [Flomax] 0.4 mg PO QAM 01/07/18 10/25/18 History aspirin 81 mg PO QAM 10/25/18 10/25/18 History cholecalciferol (vitamin D3) 2,000 unit PO QAM 10/25/18 10/25/18 History [Vitamin D3] empagliflozin 10 mg PO QAM 10/25/18 10/25/18 History ferrous sulfate 134 mg PO DAILY 10/25/18 10/25/18 History nitroglycerin 0.3 mg SUBLINGUAL QAM PRN 10/25/18 10/25/18 History Patient History Medical History CARISSA (iron deficiency anemia) (Chronic) Diabetes mellitus, type II (Chronic) CAD (coronary artery disease) (Chronic) [place] / demand ischemia related to severe anemia Vascular parkinsonism (Chronic) Hypothyroidism (Chronic) Hypertension (Chronic) Dyslipidemia (Chronic) Surgical History S/P CABG x 3 (Chronic) 2003 Family History Other Cancer Diabetes Heart disease Social History Preferred Language: Arabic Communication Ability: Effective Director Print Required: No Beliefs That Will Affect Care: None Current Living Situation: Family Other Information That Helps Us Care for You: No Feels Safe at Home: Yes Safety Concerns: Feels Safe At This Time Smoking Status: Former smoker Tobacco Type: smokeless tobacco ; Do You Dip or Chew Tobacco: Yes (Occasional.) ; Hx Alcohol Use: No Hx Substance Use: No Review of Systems Review of Systems: All systems reviewed & are unremarkable except as noted in HPI & below Physical Exam Constitutional: + thin, well groomed, cooperative and comfortable Eyes: PERRL, conjunctivae normal, anicteric sclerae ENMT: external ear and nose normal, oropharynx normal Respiratory: normal respiratory effort, lungs clear to auscultation Cardiovascular: RRR, no murmur, no edema Gastrointestinal (Abdomen): normal bowel sounds, soft, nontender, no hepato splenomegaly Skin: no rashes, warm and dry no jaundice no hematomas Neurologic: Motor/Sensory: no asterixis Psychiatric: A+Ox3, euthymic affect Lymphatic: no lymphedema Results & Data Vital Signs (Past 12 Hours) Vital Signs Temp Pulse Pulse Resp BP BP Pulse Ox 10/26/18 07:17 36.5 C 79 18 117/59 L 97 10/26/18 03:53 36.4 C L 79 16 123/67 96 10/26/18 00:00 82 10/25/18 22:37 36.9 C 83 16 110/64 94 10/25/18 21:58 36.9 C 85 16 117/64 96 10/25/18 21:30 81 16 116/64 97
[2018-10-26] MEDS: PANTOprazole 40 MG in SYRINGE 0 ML IV SCH (09:31)
[2018-10-26 10:36] LABS: Iron 20 mcg/dl (35-175); Transferrin 242 mg/dl (200-360); Transferrin Percent Saturation 6 % (20-50)
--- NOTE | 2018-10-26 11:43 | Hospitalist Progress Note ---
Date of Service October 26, 2018 Assessment & Plan (1) Acute blood loss anemia: (2) GI bleed: Per admitting service notes: This is an 78yo M with a PMH of CARISSA, DM II, CAD (s/p CABG), HTN, HLD, vascular parkinsonism and other medical problems listed below who presents with generalized weakness x 4 days and was found to have symptomatic anemia requiring transfusion of prbc. -Hemoglobin 7.2 initially. Type and cross, consented, receiving 1 of 2 units PRBCs -Heme positive rectal exam, history of intermittent melanotic stools -GI work-up in Dec 2017 with EGD and colonoscopy with H pylori gastritis and small non-bleeding superficial ulcer in rectum. Video capsule endoscopy done as an outpatient without any evidence of bleeding -Holding baby aspirin -Patient received 2 units of packed RBCs Hemoglobin improved from 7.2-10.8 Feels improved today as well EGD performed today: Noted erythema in the duodenal area, is performed; no bleeding source identified Discussed with GI Dr. Lane Repeat hemoglobin tomorrow Also discussed with Dr. Contreras, recommend IV Venofer 1 dose while admitted Continue to monitor on telemetry unit (3) CARISSA (iron deficiency anemia): Per admitting service notes: Diagnosis of severe CARISSA during December 2017 admission with hemoglobin 4.7 -Underwent heme-onc work-up with normal reticulocyte count, haptoglobin, SPEP -Received IV iron x 2 and transitioned to ferrous sulfate 325 mg TID but patient has only been taking 100 mg daily due to constipation -1 dose of IV Venofer given after discussion with Dr. 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 Cobb -Continue Flomax. Bladder scan PRN DVT Ppx: SCDs in setting of possible GI bleed Code status: FULL per discussion with patient PCP: Ben Disposition Anticipate discharge to home tomorrow when medically stable and cleared by GI Follow-up with PCP, GI, heme-onc Subjective Follow-up for anemia, possible GI bleed Seen sitting up in bedside chair, doing sudoku Patient is comfortable, not in distress Denies shortness of breath, chest pain, dizziness, palpitations No bowel movements today, no abdominal pain, no nausea Denies other symptoms Review of Systems Review of Systems: All systems reviewed & are unremarkable except as noted in HPI & below Physical Exam Physical Exam: General- oriented x 3, not in distress, speaks in sentences with no effort or accessory muscle use Head- atraumatic Eyes- PERRL, EOMI, anicteric ENT- oropharynx clear Neck- supple, no JVD, no adenopathy, no thyromegaly; carotids +2/2, no bruits appreciated Lungs- clear to auscultation bilaterally, no rales/wheezes Heart- normal rate, regular rhythm; no murmur, no gallop, no rub appreciated Abdomen- normal bowel sounds, nondistended, soft, nontender, no masses or hepatosplenomegaly Extremities- no pretibial edema, no calf tenderness; peripheral pulses intact Neuro- alert, oriented x 3; CN 2-12 grossly intact; motor 5/5 bilaterally;sensation 100% on all extremities; no other gross focal neurologic deficits Skin- warm & dry Results & Data Vital Signs (Past 12 Hours) Vital Signs Temp Pulse Pulse Resp BP Pulse Ox 10/26/18 11:13 36.3 C L 57 L 18 109/59 L 95 10/26/18 07:17 36.5 C 79 18 117/59 L 97 10/26/18 07:15 66 10/26/18 03:53 36.4 C L 79 16 123/67 96 10/26/18 00:00 82
[2018-10-26] MEDS ORDERED: IRON SUCROSE 300 MG in SODIUM CHLORIDE 0.9% 250 ML IV SCH (13:00)
--- NOTE | 2018-10-26 14:37 | Anesthesiology Consultation ---
Date of Service October 26, 2018 Assessment & Plan (1) Encounter for pre-operative examination: Chart Review Chart Review: Acceptable Risk for Surgery and Patient NOT seen in Pre Admission Testing Consults Requested none History Surgery Operation Date: 10/26/18 10:30 Proposed Procedures p Esophagogastroduodenoscopy Dr [address]ingo [address] Height/Weight Height: 5 ft 5 in Weight: 51.3 kg Allergies Allergy/AdvReac Type Severity Reaction Status Date / Time Sulfa (Sulfonamide Allergy Unknown BLISTERS Verified 10/25/18 14:56 Antibiotics) AND RASH Medications Home Medications Medication Instructions Recorded Confirmed Last Taken Januvia 100 mg PO QAM 01/07/18 10/25/18 10/25/18 atorvastatin 20 mg PO QAM 01/07/18 10/25/18 10/25/18 carbidopa-levodopa [Sinemet] 1 tab PO TID 01/07/18 10/25/18 10/25/18 carbidopa-levodopa [Sinemet] 1.5 tab PO TID 01/07/18 10/25/18 10/25/18 carvedilol 6.25 mg PO HS 01/07/18 10/25/18 10/24/18 carvedilol 12.5 mg PO QAM 01/07/18 10/25/18 10/25/18 glimepiride 1 mg PO BID 01/07/18 10/25/18 10/25/18 losartan 25 mg PO QAM 01/07/18 10/25/18 10/25/18 metformin 1,000 mg PO BID 01/07/18 10/25/18 10/25/18 multivitamin 1 tab PO QAM 01/07/18 10/25/18 10/25/18 tamsulosin [Flomax] 0.4 mg PO QAM 01/07/18 10/25/18 10/25/18 aspirin 81 mg PO QAM 10/25/18 10/25/18 10/25/18 cholecalciferol (vitamin D3) 2,000 unit PO QAM 10/25/18 10/25/18 10/25/18 [Vitamin D3] empagliflozin 10 mg PO QAM 10/25/18 10/25/18 10/25/18 ferrous sulfate 134 mg PO DAILY 10/25/18 10/25/18 Unknown nitroglycerin 0.3 mg SUBLINGUAL QAM PRN 10/25/18 10/25/18 Unknown Active Medications Generic Name Dose Route Start Last Admin Trade Name Ector PRN Reason Stop Dose Admin Atorvastatin Calcium 20 mg 10/26/18 09:00 10/26/18 08:24 Lipitor PO 11/25/18 08:59 20 mg QAM KAYLA Administration Carbidopa/Levodopa 1.5 tab 10/25/18 21:00 10/26/18 08:25 Sinemet 25/100 Mg PO 11/24/18 20:59 1.5 tab TID KAYLA Administration Carvedilol 6.25 mg 10/25/18 21:00 10/25/18 20:01 Coreg PO 11/24/18 20:59 6.25 mg HS KAYLA Administration Carvedilol 12.5 mg 10/26/18 09:00 10/26/18 08:24 Coreg PO 11/25/18 08:59 12.5 mg QAM KAYLA Administration Pantoprazole Sodium 40 mg/ 10 mls @ 5 mls/min 10/25/18 21:00 10/26/18 09:31 Syringe IV 11/24/18 20:59 5 mls/min BID@0900,2100 KAYLA Administration Sodium Chloride 1,000 mls @ 50 mls/hr 10/25/18 19:02 10/25/18 23:30 Nss 1000ml IV 10/26/18 15:01 0 mls/hr .Q20H KAYLA Infusion Iron Sucrose 300 mg/ Sodium 265 mls @ 176.667 mls/hr 10/26/18 13:00 10/26/18 13:01 Chloride IV 10/26/18 15:00 176.7 mls/hr TODAY@1300 KAYLA Administration Insulin Aspart 0 units 10/25/18 21:00 10/26/18 12:23 Novolog Flexpen SC 11/24/18 20:59 Not Given ACHS KAYLA Losartan Potassium 25 mg 10/26/18 09:00 10/26/18 08:24 Cozaar PO 11/25/18 08:59 25 mg QAM KAYLA Administration Multivitamins 1 tab 10/26/18 09:00 10/26/18 08:24 Multivitamin Tab PO 11/25/18 08:59 1 tab QAM KAYLA Administration Tamsulosin HCl 0.4 mg 10/26/18 09:00 10/26/18 08:24 Flomax PO 11/25/18 08:59 0.4 mg QAM KAYLA Administration Vitamin D 2,000 units 10/26/18 09:00 10/26/18 08:24 Vitamin D3 PO 11/25/18 08:59 2,000 units QAM KAYLA Administration NPO Date Last Intake of Fluids: 10/26/18 Time Last Intake of Fluids: 12:30 Last Intake of Fluids Comment: sip of water Date Last Intake of Solids: 10/25/18 Time Last Intake of Solids: 23:30 Past Medical History Medical History CARISSA (iron deficiency anemia) (Chronic) Diabetes mellitus, type II (Chronic) CAD (coronary artery disease) (Chronic) [place] / demand ischemia related to severe anemia Vascular parkinsonism (Chronic) Hypothyroidism (Chronic) Hypertension (Chronic) Dyslipidemia (Chronic) Past Family History Family History Other Cancer Diabetes Heart disease Past Surgical History Surgical History S/P CABG x 3 (Chronic) 2002 Social History Smoking Status: Former smoker tobacco type: smokeless tobacco Do You Dip or Chew Tobacco: Yes (Occasional.) Hx Alcohol Use: No alcohol intake frequency: a few times a month Hx Substance Use: No substance use type: does not use Physical Exam Vital Signs Last Vital Signs Temp 36.4 C L 10/26/18 14:18 Pulse 65 10/26/18 14:18 Resp 18 10/26/18 14:18 BP 148/57 H 10/26/18 14:18 Pulse Ox 97 10/26/18 14:18 Testing Laboratory Results 10/26/18 07:19 10/26/18 07:19 PT 10.0 Seconds (9.0-12.0) 10/25/18 14:47 INR 1.0 (0.9-1.1) 10/25/18 14:47 Urine Color Yellow 10/25/18 15:20 Urine Appearance Cloudy (Clear) A 10/25/18 15:20 Urine pH 7.0 (4.5-7.5) 10/25/18 15:20 Ur Specific [place] 1.013 (1.000-1.030) 10/25/18 15:20 Urine Protein Negative (Negative) 10/25/18 15:20 Urine Glucose (UA) 3+ (Negative) H 10/25/18 15:20 Urine Ketones Negative (Negative) 10/25/18 15:20 Urine Nitrite Negative (Negative) 10/25/18 15:20 Ur Leukocyte Esterase Negative (Negative) 10/25/18 15:20 Urine RBC 0-4 /hpf (0-4) 10/25/18 15:20 Urine WBC 0-5 /hpf (0-5) 10/25/18 15:20 Ur Epithelial Cells 0-5 /lpf (0-5) 10/25/18 15:20 Blood Type O Positive 10/25/18 14:47 Antibody Screen NEGATIVE 10/25/18 14:47 10/26/18 10/26/18 11:58 07:27 POC Glucose 126 H 105 H
[2018-10-26] MEDS ORDERED: PROPOFOL IV EMULSION 10 MG/ML 20 ML VIAL IV ONE (15:09)
[2018-10-26] MEDS ORDERED: LIDOCAINE HCL 2% 2 ML VIAL/AMP(20MG/ML) INFIL ONE (15:09)
--- NOTE | 2018-10-26 15:42 | GI REPORT ---
Patient Name: Davy Hines Procedure Date: 10/26/2018 3:13 PM Date of : 1940 Admit Type: Inpatient Age: 78 Gender: Male Attending MD: Anne Lane MD Procedure: Upper GI endoscopy Providers: Anne Lane MD Referring MD: Jose Hilton Indications: Iron deficiency anemia Medicines: See the Anesthesia note for documentation of the administered medications Complications: No immediate complications. Estimated Blood Loss: Estimated blood loss: none. Procedure: Pre-Anesthesia Assessment: - ASA Grade Assessment: III - A patient with severe systemic disease. After obtaining informed consent, the endoscope was passed under direct vision. Throughout the procedure, the patient's blood pressure, pulse, and oxygen saturations were monitored continuously. The Scope was introduced through the mouth, and advanced to the second part of duodenum. The upper GI endoscopy was accomplished without difficulty. The patient tolerated the procedure well. Findings: The GE junction was at 37 cm. There was a moderate ring at the GE junction. The esophagus was otherwise normal. The stomach was normal, without any source of bleeding. Random biopsies done. There was patchy erythema in the duodenal bulb. The duodenum was otherwise normal. Random biopsies done. A TTS dilator was passed through the scope. Dilation with a 15-16.5-18 mm balloon dilator was performed to 18 mm at the gastroesophageal junction. There was an adequate tear which was extended with biopsy forceps. Impression: . Recommendation: - Discharge patient to floor. Adv diet, consider IV iron, diet as tolerated. Ok for d/c if hgb stable in morning. Ej Tucker MD 10/26/2018 3:41:38 PM This report has been signed electronically. Note Initiated On: 10/26/2018 3:13 PM Number of Addenda: 0 I attest to the content of the Intraoperative Record and orders documented therein, exceptions below {[id number]}
[2018-10-26] MEDS ORDERED: ePHEDrine sulfate 50 MG/ML AMP ONE (15:43)
--- NOTE | 2018-10-26 15:47 | Anesthesiology Progress Note ---
Date of Service October 26, 2018 Anesthesia Post Procedure Vital Signs Vital Signs: Temp Pulse Pulse Resp BP BP BP 10/26/18 14:18 36.4 C L 65 18 148/57 H 10/26/18 11:13 36.3 C L 57 L 18 109/59 L 10/26/18 07:17 36.5 C 79 18 117/59 L 10/26/18 07:15 66 10/26/18 03:53 36.4 C L 79 16 123/67 10/26/18 00:00 82 10/25/18 22:37 36.9 C 83 16 110/64 10/25/18 21:58 36.9 C 85 16 117/64 10/25/18 21:30 81 16 116/64 10/25/18 20:57 82 16 136/66 10/25/18 20:28 80 16 132/69 10/25/18 20:12 90 16 157/67 H 10/25/18 19:52 36.5 C 85 16 138/69 10/25/18 19:20 87 10/25/18 19:16 36.7 C 88 20 149/67 H 10/25/18 18:00 82 18 138/53 L 10/25/18 17:47 36.6 C 81 18 157/65 H 10/25/18 17:30 80 21 157/65 H 10/25/18 17:20 84 17 142/60 H 10/25/18 17:17 36.8 C 83 18 142/60 H 10/25/18 17:02 36.5 C 85 21 143/52 H 10/25/18 17:00 84 17 143/52 H 10/25/18 16:44 36.5 C 80 20 147/62 H 10/25/18 16:30 88 22 147/62 H 10/25/18 16:00 82 18 127/50 L Pulse Ox 10/26/18 14:18 97 10/26/18 11:13 95 10/26/18 07:17 97 10/26/18 07:15 10/26/18 03:53 96 10/26/18 00:00 10/25/18 22:37 94 10/25/18 21:58 96 10/25/18 21:30 97 10/25/18 20:57 98 10/25/18 20:28 98 10/25/18 20:12 98 10/25/18 19:52 100 10/25/18 19:20 10/25/18 19:16 99 10/25/18 18:00 100 10/25/18 17:47 99 10/25/18 17:30 10/25/18 17:20 100 10/25/18 17:17 100 10/25/18 17:02 98 10/25/18 17:00 100 10/25/18 16:44 99 10/25/18 16:30 99 10/25/18 16:00 99 Transfer of Care Handoff Completed per policy Notes Mental Status: alert / awake / arousable Patient Amnestic to Procedure: Yes Nausea / Vomiting: adequately controlled Pain: adequately controlled Airway Patency, RR, SpO2: stable & adequate BP & HR: stable & adequate Hydration State: stable & adequate Anesthetic Complications: no major complications apparent
[2018-10-26 17:12] LABS: Hematocrit (blood only) 32.8 % (42-52); Hemoglobin 10.8 g/dL (14.0-18.0)
--- NOTE | 2018-10-26 19:05 | Discharge Summary ---
Date of Service October 26, 2018 Admission HPI Per Admitting Provider This is an 78yo M with a PMH of CARISSA, DM II, CAD (s/p CABG), HTN, HLD, vascular parkinsonism and other medical problems listed below who presents with generalized weakness x 4 days. Patient was in normal state of health until , when he noticed generalized weakness with any type of ambulation and has been more sedentary for the past few days. Noted lightheadedness and some dizziness yesterday. Has had occasional dark stool but denies any bright red blood per rectum, hematemesis or epistaxis. Has history of profound symptomatic anemia in December 2017 when he presented with hemoglobin 4.7. During admission, received 3 units PRBCs as well as IV Venofer. EGD and colonoscopy performed at that time revealed esophagitis as well as small superficial ulcer in rectum that was nonbleeding. Video capsule endoscopy done as an outpatient without any evidence of bleeding. Pathology report with chronic gastritis and H. pylori infection, which was treated. Colonic polyp revealed tubular adenoma. Was also evaluated in heme onc clinic upon discharge with normal reticulocyte count, haptoglobin and SPEP. Received IV iron once as an outpatient and was then recommended to take ferrous sulfate 325 TID. Patient was experiencing constipation, so he has now been taking ferrous sulfate 100 mg. Currently, patient endorsing generalized weakness. Denies any fever, chills, lightheadedness, visual changes, chest pain, palpitations, shortness of breath, nausea, vomiting, abdominal pain, dysuria, diarrhea or constipation. Takes baby aspirin daily due to history of CAD. No NSAID use. Chews tobacco daily. Admission Exam Per Admitting Provider General Appearance: WD/WN, no apparent distress, pale Head: normocephalic, atraumatic Eyes: normal inspection, PERRL, EOMI ENT: hearing grossly normal, pharynx normal (dry mucous membranes) Neck: supple, no JVD, no adenopathy Respiratory/Chest: lungs clear to auscultation. No wheezes, rales or rhonci. No respiratory distress or accessory muscle use Cardiovascular: regular rate, rhythm, no murmur, normal peripheral pulses Abdomen/GI: normal bowel sounds, soft, non-tender to palpation Extremities/Musculoskelatal: normal inspection, no calf tenderness, normal capillary refill, no pedal edema Neurologic/Psych: alert, normal mood/affect, oriented x 3 Skin: pale, warm/dry Principal Diagnosis ANEMIA, IRON DEFICIENCY Discharge Exam General- oriented x 3, not in distress, speaks in sentences with no effort or accessory muscle use Head- atraumatic Eyes- PERRL, EOMI, anicteric ENT- oropharynx clear Neck- supple, no JVD, no adenopathy, no thyromegaly; carotids +2/2, no bruits appreciated Lungs- clear to auscultation bilaterally, no rales/wheezes Heart- normal rate, regular rhythm; no murmur, no gallop, no rub appreciated Abdomen- normal bowel sounds, nondistended, soft, nontender, no masses or hepatosplenomegaly Extremities- no pretibial edema, no calf tenderness; peripheral pulses intact Neuro- alert, oriented x 3; CN 2-12 grossly intact; motor 5/5 b ilaterally;sensation 100% on all extremities; no other gross focal neurologic deficits Skin- warm & dry Discharge Data Allergies Allergy/AdvReac Type Severity Reaction Status Date / Time Sulfa (Sulfonamide Allergy Unknown BLISTERS Verified 10/25/18 14:56 Antibiotics) AND RASH Consultations 10/25/18 16:21 ED Decision to Admit Stat 10/25/18 19:02 Consult Case Management - Discharge Planning Routine 10/26/18 08:00 Consult Gastroenterology Routine Procedures Performed Operation Date: 10/26/18 10:30 Actual ProceduresFindings: The GE junction was at 37 cm. There was a moderate ring at the GE junction. The esophagus was otherwise normal. The stomach was normal, without any source of bleeding. Random biopsies done. There was patchy erythema in the duodenal bulb. The duodenum was otherwise normal. Random biopsies done. A TTS dilator was passed through the scope. Dilation with a 15-16.5-18 mm balloon dilator was performed to 18 mm at the gastroesophageal junction. There was an adequate tear which was extended with biopsy forceps. Impression: . Recommendation: - Discharge patient to floor. Adv diet, consider IV iron, diet as tolerated. Ok for d/c if hgb stable in morning. p EGD Dilatation - [facility] [place] [facility] Course (1) Acute blood loss anemia: (2) GI bleed: Per admitting service notes: This is an 78yo M with a PMH of CARISSA, DM II, CAD (s/p CABG), HTN, HLD, vascular parkinsonism and other medical problems listed below who presents with generalized weakness x 4 days and was found to have symptomatic anemia requiring transfusion of prbc. -Hemoglobin 7.2 initially. Type and cross, consented, receiving 1 of 2 units PRBCs -Heme positive rectal exam, history of intermittent melanotic stools -GI work-up in Dec 2017 with EGD and colonoscopy with H pylori gastritis and small non-bleeding superficial ulcer in rectum. Video capsule endoscopy done as an outpatient without any evidence of bleeding -Holding baby aspirin -Patient received 2 units of packed RBCs Hemoglobin improved from 7.2--> 10.8 Feels improved overall EGD performed: Noted erythema in the duodenal area, is performed; no bleeding source identified Discussed with GI Dr. Lane cleared for d/c repeat CBC on Thursday, HOLD Aspirin for now, ff up with PCP within 1 week, ff up with GI and Hematology as scheduled (3) CARISSA (iron deficiency anemia): Per admitting service notes: Diagnosis of severe CARISSA during December 2017 admission with hemoglobin 4.7 -Underwent heme-onc work-up with normal reticulocyte count, haptoglobin, SPEP -Received IV iron x 2 and transitioned to ferrous sulfate 325 mg TID but patient has only been taking 100 mg daily due to constipation -1 dose of IV Venofer given after discussion with Dr. 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 Cobb -Continue Flomax. Bladder scan PRN Disposition discharge to home Follow-up with PCP in 1 week - scheduling office closed- will call patient Follow-up GI, heme-onc as scheduled Total Time Total Time Spent Total Time Spent (In Minutes): 45 minutes Discharge Plan Discharge Items Patient Disposition: Home - Self-Care Reason For Visit: SYMPTOMATIC ANEMIA Discharge Diagnosis: SYMPTOMATIC ANEMIA Discharge Goals: Diagnostic testing and Therapeutic intervention Activity: As commented below Activity Comment: Resume activity gradually as tolerated, no heavy exertion Lifting: Wait until after follow-up appointment Exercise/Sports: Wait until after follow-up appointment Driving/Machine Use Comment: No driving Non-emergency contact: Primary Care Provider Call non-emergency contact if: you have any medication questions, your symptoms worsen and you have a fever Follow-up/Referrals: Marianela Contreras MD [Primary Care Provider] - Diet: Heart Healthy Other Ambulatory Orders: Complete Blood Count with Diff (Routine) Timeframe: 20181029 Location: Determined by Patient Ordered By: Jose Condon Provider Instructions: Please have CBC drawn on Thursday, October 29, 2018 at [facility]. Please hold aspirin for now. Please contact primary care physician or Dr. Orestes Contreras to determine whether aspirin can be resumed based on CBC result. Call primary care physician or return to the ER immediately if with blood in the stools, black stools, weakness, shortness of breath, chest pain, abdominal pain. Please follow-up with Dr. Marianela Contreras within 1 week. Follow-up with GI clinic and hematology clinic as scheduled. Prescriptions: New pantoprazole 40 mg Tablet,Delayed Release (Dr/Ec) 40 mg PO DAILY 30 Days Qty: 30 RF: 0 Continued atorvastatin 20 mg Tablet 20 mg PO QAM RF: 0 glimepiride 1 mg Tablet 1 mg PO BID RF: 0 tamsulosin [Flomax] 0.4 mg Capsule 0.4 mg PO QAM RF: 0 metformin 1,000 mg Tablet 1,000 mg PO BID RF: 0 carbidopa-levodopa [Sinemet] 25-100 mg Tablet 1.5 tab PO TID RF: 0 carbidopa-levodopa [Sinemet] 25-100 mg Tablet 1 tab PO TID RF: 0 Januvia 100 mg Tablet 100 mg PO QAM RF: 0 losartan 25 mg Tablet 25 mg PO QAM RF: 0 multivitamin Tablet 1 tab PO QAM RF: 0 carvedilol 6.25 mg Tablet 6.25 mg PO HS RF: 0 carvedilol 6.25 mg Tablet 12.5 mg PO QAM RF: 0 nitroglycerin 0.3 mg Tablet, Sublingual 0.3 mg sublingual QAM PRN (Reason: chest pain) RF: 0 cholecalciferol (vitamin D3) [Vitamin D3] 2,000 unit Tablet 2,000 unit PO QAM RF: 0 empagliflozin 10 mg Tablet 10 mg PO QAM RF: 0 ferrous sulfate 134 mg (27 mg iron) Tablet 134 mg PO DAILY RF: 0 Discontinued aspirin 81 mg Tablet,Chewable 81 mg PO QAM RF: 0 Stand-Alone Forms: [facility]/Other Patient Handouts: Anemia, Endoscopy Upper GI Discharge Orders: Discharge Order (Routine); Ordered 10/26/18 Ordered By: Jose Hilton Admission Data Admit Date/Time: 10/25/18 17:16 Attending Provider: Jose Hilton Admit Provider: Abdulkadir St Primary Care Provider: Marianela Contreras Other Providers: Anne Lane Satish K. Service: Telemetry Other Interventions: Discharge Summary Assessment (RN) Last Done: 10/26/18 18:44 DC Date/Time DO NOT enter until pt leaves facility: 10/26/18 19:07
[2018-10-26] MEDS ORDERED: PANTOprazole 40 MG TAB PO SCH (21:00)
== END 2018-10-26 19:07 | disposition home or self-care (01) | DRG 378 ==
LOC: ED 14:05 → 2S 17:16

== ENCOUNTER 2020-06-05 16:55 | Inpatient (IN) ==
--- NOTE | 2020-06-05 17:24 | Emergency Department Note ---
History of Present Illness General Chief complaint: Abnormal Labs/Diagnostic Testing Stated complaint: LOW HEMOGLOBIN LEVELS Time Seen by Provider: 06/05/20 17:09 Source: patient and family Limitations: language barrier History of Present Illness Provider complaint: Weakness Onset (ago): week(s) Location: upper extremity, lower extremity, left and right Severity: severe Quality: + other (Generalized weakness) Exacerbated By: + other (Trying to climb stairs) Associated symptoms: + weakness; no chest pain, no cough, no fever/chills, no n ausea/vomiting and no shortness of breath It is worseThifito is an 79-year-old male with a history of anemia presenting with generalized weakness starting 7 to 8 days ago. He states that he feels weak all over. He when he tries to exert himself. He states he cannot climb the stairs anymore. He has trouble now even just standing up. He was seen by his doctor today who did blood work and told him that his hemoglobin dropped to 6.7. His last hemoglobin was 13.2 in January. He denies any rectal bleeding or melanotic stools. He has had transfusions in the past for anemia. No cause of his anemia has been found despite GI work-up. He denies any headache, chest pain, abdominal pain or urinary symptoms. He denies any fever or cough or cold symptoms. Home Medications Medication Instructions Recorded Confirmed Type Januvia 100 mg PO QAM 01/07/18 06/05/20 History atorvastatin 20 mg PO QAM 01/07/18 06/05/20 History carbidopa-levodopa [Sinemet] 1.5 tab PO TID 01/07/18 06/05/20 History carvedilol 6.25 mg PO BID 01/07/18 06/05/20 History losartan 25 mg PO QAM 01/07/18 06/05/20 History metformin 1,000 mg PO BIDM 01/07/18 06/05/20 History multivitamin 1 tab PO QAM 01/07/18 06/05/20 History cholecalciferol (vitamin D3) 2,000 unit PO QAM 10/25/18 06/05/20 History [Vitamin D3] nitroglycerin 0.3 mg SUBLINGUAL QAM PRN 10/25/18 06/05/20 History empagliflozin [Jardiance] 25 mg PO DAILY 06/05/20 06/05/20 History ferrous sulfate 325 mg PO DAILY 06/05/20 06/05/20 History hydrochlorothiazide 12.5 mg PO DAILY PRN 06/05/20 06/05/20 History trazodone 25 mg PO HS 06/05/20 06/05/20 History Allergies Allergy/AdvReac Type Severity Reaction Status Date / Time Sulfa (Sulfonamide Allergy Unknown BLISTERS Verified 06/05/20 19:05 Antibiotics) AND RASH Past Med/Surg History Medical History (Updated 06/05/20 @ 19:26 by Cory Mantilla MD) CAD (coronary artery disease) [place] / demand ischemia related to severe anemia Diabetes mellitus, type II Dyslipidemia Hypertension Hypothyroidism CARISSA (iron deficiency anemia) Vascular parkinsonism Surgical History S/P CABG x 3 2002 Family History Other Cancer Diabetes Heart disease Social History Smoking Status: Former smoker Hx Alcohol Use: No Hx Substance Use: No Preferred Language: Wolof Communication Ability: Effective Driveway Sealer Required: No Beliefs That Will Affect Care: None Current Living Situation: Family Feels Safe at Home: Yes Assistive Devices: None Review of Systems See HPI for pertinent positives & negatives. and A total of 10 systems reviewed and were otherwise negative Physical Exam Vital Signs Vital Signs - 24 hr 06/05/20 17:04 06/05/20 17:30 06/05/20 17:46 Temperature 35.9 C L Temperature Source Temporal Artery Scan Pulse Rate 82 92 H Pulse Rate [Apical] 92 H Pulse Rhythm Regular Pulse Rhythm [Apical] Regular Pulse Strength [Apical] Normal Respiratory Rate 19 14 14 Respiratory Effort / Characteristics Non-Labored Non-Labored Spontaneous Respiratory Depth Normal Normal Respiratory Pattern Regular Blood Pressure 149/78 H Blood Pressure [Left Arm] 114/49 L Blood Pressure Mean 101 Blood Pressure Mean [Left Arm] 70 Blood Pressure Position Pulse Oximetry 95 99 99 Oxygen Delivery Method Room Air Room Air Room Air Sepsis Recent Fever Within 48 Hours No Sepsis New/Unexplained Change in Mental Status No Sepsis Action Taken by Nursing No Action Required 06/05/20 19:29 06/05/20 19:46 06/05/20 20:01 Temperature 36.6 C 36.6 C 36.5 C Temperature Source Oral Oral Oral Pulse Rate 95 H 74 80 Pulse Rate [Apical] Pulse Rhythm Pulse Rhythm [Apical] Pulse Strength [Apical] Respiratory Rate 18 18 18 Respiratory Effort / Characteristics Respiratory Depth Respiratory Pattern Blood Pressure 113/64 153/52 H 155/54 H Blood Pressure [Left Arm] Blood Pressure Mean 80 85 87 Blood Pressure Mean [Left Arm] Blood Pressure Position Lying Lying Lying Pulse Oximetry 96 99 97 Oxygen Delivery Method Sepsis Recent Fever Within 48 Hours Sepsis New/Unexplained Change in Mental Status Sepsis Action Taken by Nursing 06/05/20 20:17 Temperature 36.5 C Temperature Source Oral Pulse Rate 94 H Pulse Rate [Apical] Pulse Rhythm Pulse Rhythm [Apical] Pulse Strength [Apical] Respiratory Rate 18 Respiratory Effort / Characteristics Respiratory Depth Respiratory Pattern Blood Pressure 138/67 Blood Pressure [Left Arm] Blood Pressure Mean 90 Blood Pressure Mean [Left Arm] Blood Pressure Position Pulse Oximetry 97 Oxygen Delivery Method Sepsis Recent Fever Within 48 Hours Sepsis New/Unexplained Change in Mental Status Sepsis Action Taken by Nursing Constitutional: Vital signs reviewed. Eyes: Pupils are equal round reactive to light. Conjunctiva are noninjected. ENT: Pharynx is clear without erythema or exudate. Mucous membranes are moist. Neck supple without meningeal signs. Respiratory: Clear to auscultation bilaterally. Breath sounds are equal bilaterally. Cardiovascular: Regular rate and rhythm. No rubs or gallops. GI: Soft, nondistended and nontender. Bowel sounds are present. Musculoskeletal: No peripheral edema. No lower extremity tenderness. Integumentary: No cyanosis. or jaundice. Neurological: The patient is awake and alert. Very hard of hearing. Psychiatric: Normal affect. Not anxious appearing. Critical Care Time Critical Care Time: Yes Total Critical Care Time: 35 I have personally spent approximately 35 minutes of critical care time in the direct management of this patient. This includes bedside care, interpretation of diagnostic studies, and testing, discussion with consultants, patient, and family members, and other required patient management activities. These minutes are in excess of all separately billable procedures. Medical Decision Making Differential Diagnosis Iron deficiency anemia, anemia of chronic disease, GI bleed, AVM, diverticulosis Medical Records Attestation: I reviewed the patient's medical records. I did perform a limited focused review of portions of the patient's old chart on the electronic medical record. The patient was admitted in October 2018 for severe anemia. He had endoscopy, colonoscopy and video swallow study which showed a small ulcer in the rectum which was nonbleeding and some esophagitis. Home Medications Current Medication List: was personally reviewed by me Laboratory Data Attestation: I reviewed the patient's lab results. Result diagrams: 06/05/20 17:39 06/05/20 17:39 Lab Results 06/05/20 06/05/20 06/05/20 Range/Units 17:39 17:39 17:39 WBC 11.64 H (4.8-10.8) K/uL RBC 2.41 L (4.7-6.1) M/uL Hgb 6.7 L* (14.0-18.0) g/dL Hct 20.3 L* (42-52) % MCV 84.2 (80-100) fL MCH 27.8 (25-34) pg MCHC 33.0 (32-36) g/dL RDW Std Deviation 44.6 (36.4-46.3) fL RDW Coeff of Melissa 16.2 H (11.5-14.5) % Plt Count 317 (130-400) K/uL MPV 9.4 (7.4-10.4) fL Immature Gran % (Auto) 0.3 % Neut % (Auto) 82.9 % Lymph % (Auto) 11.2 % [place] % (Auto) 5.0 % Eos % (Auto) 0.4 % Baso % (Auto) 0.2 % Neut # (Auto) 9.65 H (1.4-6.5) K/uL Lymph # (Auto) 1.30 (1.2-3.4) K/uL [place] # (Auto) 0.58 (0.11-0.59) K/uL Eos # (Auto) 0.05 (0-0.5) K/uL Baso # (Auto) 0.02 (0-0.2) K/uL Immature Gran # (Auto) 0.04 H (0.00-0.02) K/uL Polychromasia 1+ PT (9.0-12.0) Seconds INR (0.9-1.1) APTT (21.0-31.0) Seconds PTT Ratio Sodium 135 L (136-145) mmol/L Potassium 4.7 (3.5-5.1) mmol/L Chloride 101 (98-107) mmol/L Carbon Dioxide 20 L (21-32) mmol/L Anion Gap 14.0 H (3-11) BUN 36 H (7-18) mg/dl Creatinine 1.09 (0.6-1.4) mg/dl Est Cr Clr Drug Dosing 40.1 ml/min Est GFR ( Amer) 73.4 Est GFR (Non-Af Amer) 63.3 BUN/Creatinine Ratio 32.9 H (10-20) Glucose 211 H (70-99) mg/dl Calcium 9.1 (8.5-10.1) mg/dl Magnesium (1.8-2.4) mg/dl Total Bilirubin 0.2 (0.2-1) mg/dl AST 18 (15-37) U/L ALT 15 (12-78) U/L Alkaline Phosphatase 62 (45-117) U/L Troponin I 0.443 H* (0-0.045) ng/ml Total Protein 6.9 (6.4-8.2) gm/dl Albumin 3.7 (3.4-5.0) gm/dl Globulin 3.2 (2.5-4.0) gm/dl Albumin/Globulin Ratio 1.2 (0.9-2) Urine Color Urine Appearance (Clear) Urine pH (4.5-7.5) Ur Specific Mercer (1.000-1.030) Urine Protein (Negative) Urine Glucose (UA) (Negative) Urine Ketones (Negative) Urine Blood (Negative) Urine Nitrite (Negative) Urine Bilirubin (Negative) Urine Urobilinogen (Negative) Ur Leukocyte Esterase (Negative) COVID-19 Eval Order SARS-CoV-2, RNA, NAAT (NEGATIVE) Blood Type O Positive Antibody Screen NEGATIVE Crossmatch See Detail 06/05/20 06/05/20 06/05/20 Range/Units 17:39 17:39 17:39 WBC (4.8-10.8) K/uL RBC (4.7-6.1) M/uL Hgb (14.0-18.0) g/dL Hct (42-52) % MCV (80-100) fL MCH (25-34) pg MCHC (32-36) g/dL RDW Std Deviation (36.4-46.3) fL RDW Coeff of Melissa (11.5-14.5) % Plt Count (130-400) K/uL MPV (7.4-10.4) fL Immature Gran % (Auto) % Neut % (Auto) % Lymph % (Auto) % [place] % (Auto) % Eos % (Auto) % Baso % (Auto) % Neut # (Auto) (1.4-6.5) K/uL Lymph # (Auto) (1.2-3.4) K/uL [place] # (Auto) (0.11-0.59) K/uL Eos # (Auto) (0-0.5) K/uL Baso # (Auto) (0-0.2) K/uL Immature Gran # (Auto) (0.00-0.02) K/uL Polychromasia PT 10.3 (9.0-12.0) Seconds INR 1.0 (0.9-1.1) APTT 23.7 (21.0-31.0) Seconds PTT Ratio 0.9 Sodium (136-145) mmol/L Potassium (3.5-5.1) mmol/L Chloride (98-107) mmol/L Carbon Dioxide (21-32) mmol/L Anion Gap (3-11) BUN (7-18) mg/dl Creatinine (0.6-1.4) mg/dl Est Cr Clr Drug Dosing ml/min Est GFR ( Amer) Est GFR (Non-Af Amer) BUN/Creatinine Ratio (10-20) Glucose (70-99) mg/dl Calcium (8.5-10.1) mg/dl Magnesium 2.0 (1.8-2.4) mg/dl Total Bilirubin (0.2-1) mg/dl AST (15-37) U/L ALT (12-78) U/L Alkaline Phosphatase (45-117) U/L Troponin I (0-0.045) ng/ml Total Protein (6.4-8.2) gm/dl Albumin (3.4-5.0) gm/dl Globulin (2.5-4.0) gm/dl Albumin/Globulin Ratio (0.9-2) Urine Color Urine Appearance (Clear) Urine pH (4.5-7.5) Ur Specific Mercer (1.000-1.030) Urine Protein (Negative) Urine Glucose (UA) (Negative) Urine Ketones (Negative) Urine Blood (Negative) Urine Nitrite (Negative) Urine Bilirubin (Negative) Urine Urobilinogen (Negative) Ur Leukocyte Esterase (Negative) COVID-19 Eval Order SARS-CoV-2, RNA, NAAT (NEGATIVE) Blood Type Antibody Screen Crossmatch 06/05/20 06/05/20 06/05/20 Range/Units 18:05 18:05 18:50 WBC (4.8-10.8) K/uL RBC (4.7-6.1) M/uL Hgb (14.0-18.0) g/dL Hct (42-52) % MCV (80-100) fL MCH (25-34) pg MCHC (32-36) g/dL RDW Std Deviation (36.4-46.3) fL RDW Coeff of Melissa (11.5-14.5) % Plt Count (130-400) K/uL MPV (7.4-10.4) fL Immature Gran % (Auto) % Neut % (Auto) % Lymph % (Auto) % [place] % (Auto) % Eos % (Auto) % Baso % (Auto) % Neut # (Auto) (1.4-6.5) K/uL Lymph # (Auto) (1.2-3.4) K/uL [place] # (Auto) (0.11-0.59) K/uL Eos # (Auto) (0-0.5) K/uL Baso # (Auto) (0-0.2) K/uL Immature Gran # (Auto) (0.00-0.02) K/uL Polychromasia PT (9.0-12.0) Seconds INR (0.9-1.1) APTT (21.0-31.0) Seconds PTT Ratio Sodium (136-145) mmol/L Potassium (3.5-5.1) mmol/L Chloride (98-107) mmol/L Carbon Dioxide (21-32) mmol/L Anion Gap (3-11) BUN (7-18) mg/dl Creatinine (0.6-1.4) mg/dl Est Cr Clr Drug Dosing ml/min Est GFR ( Amer) Est GFR (Non-Af Amer) BUN/Creatinine Ratio (10-20) Glucose (70-99) mg/dl Calcium (8.5-10.1) mg/dl Magnesium (1.8-2.4) mg/dl Total Bilirubin (0.2-1) mg/dl AST (15-37) U/L ALT (12-78) U/L Alkaline Phosphatase (45-117) U/L Troponin I (0-0.045) ng/ml Total Protein (6.4-8.2) gm/dl Albumin (3.4-5.0) gm/dl Globulin (2.5-4.0) gm/dl Albumin/Globulin Ratio (0.9-2) Urine Color Yellow Urine Appearance Clear (Clear) Urine pH 5.0 (4.5-7.5) Ur Specific Mercer 1.021 (1.000-1.030) Urine Protein Negative (Negative) Urine Glucose (UA) 3+ H (Negative) Urine Ketones 1+ H (Negative) Urine Blood Negative (Negative) Urine Nitrite Negative (Negative) Urine Bilirubin Negative (Negative) Urine Urobilinogen Negative (Negative) Ur Leukocyte Esterase Negative (Negative) COVID-19 Eval Order Covid19 [facility] SARS-CoV-2, RNA, NAAT NEGATIVE (NEGATIVE) Blood Type Antibody Screen Crossmatch Imaging Data Radiologist's Impression: XR chest 1V portable CLINICAL HISTORY: weakness COMPARISON STUDY: Chest radiograph October 25, 2018 per FINDINGS: Median sternotomy wires are noted. Lung volumes are normal. Lungs are clear. There is no pneumothorax or pleural effusion. Cardiac size is normal. Mediastinal contours are normal. There is no evidence for pulmonary edema. IMPRESSION: No acute cardiopulmonary findings. No change in appearance of the chest. ACT 112: Negative or not required by law. Electronically signed by: Raimundo Avina M.D. 06/05/2020 6:28 PM Dictated: 06/05/201826 Transcribed: 06/05/201826 ECG Data Attestation: I personally reviewed and interpreted this ECG as follows: Indication: + weakness Rate (beats per minute): 98 Rhythm: + normal sinus ECG Weidman: + Normal ECG ST segments: + Nonspecific ST abnormalities ECG Findings: no PVCs Comparison ECG Date: from (October 25, 2018) Change: no significant change MDM Narrative I did evaluate the patient as noted above. I did obtain history from the patient as well as his son. The patient is very hard of hearing and has difficulty hearing me even with his hearing aids on. His son was asking him the same questions in his own language and he seemed to understand the questions better. He is presenting with generalized weakness for slightly over a week. He was found to have a hemoglobin of 6.7 today. He was sent here for transfusion and admission. I did obtain informed consent for blood transfusion. I did order 2 units of packed RBCs to be transfused in the ED. IV access was established. I did place an order for continuous cardiac monitoring. The monitor showed normal sinus rhythm at a rate of 98 bpm. I did order and personally review the patient's 12-lead EKG as described above. He has non specific findings which appear to be unchanged from his prior EKG. I did order and personally reviewed the images of the patient's chest x-ray as described above. Chest x-ray is unremarkable. I did order and review the patient's blood work as noted in the electronic medical record. White count is 11.6. Hemoglobin is 6.7. Platelet count is within normal limits. CO2 is 20. Creatinine is 1.01. Troponin is slightly elevated 0.443. I did discuss the test results with patient and his son. Covid testing is negative. Gastroenterology did come to see the patient and will perform EGD tomorrow morning. I did discuss case with the hospitalist and counseling case manager. Impression & Plan Acute blood loss anemia, Generalized weakness, Elevated troponin Discharge Plan Visit Data Chief Complaint: Abnormal Labs/Diagnostic Testing Stated Complaint: LOW HEMOGLOBIN LEVELS ED Provider: Cory Mantilla Discharge Problem: Acute blood loss anemia, Generalized weakness, Elevated troponin Forms Stand Alone Forms: My [facility] Prescriptions Prescriptions: No Action atorvastatin 20 mg Tablet 20 mg PO QAM RF: 0 metformin 1,000 mg Tablet 1,000 mg PO BIDM RF: 0 carbidopa-levodopa [Sinemet] 25-100 mg Tablet 1.5 tab PO TID RF: 0 Januvia 100 mg Tablet 100 mg PO QAM RF: 0 losartan 25 mg Tablet 25 mg PO QAM RF: 0 multivitamin Tablet 1 tab PO QAM RF: 0 carvedilol 6.25 mg Tablet 6.25 mg PO BID RF: 0 nitroglycerin 0.3 mg Tablet, Sublingual 0.3 mg sublingual QAM PRN (Reason: chest pain) RF: 0 cholecalciferol (vitamin D3) [Vitamin D3] 2,000 unit Tablet 2,000 unit PO QAM RF: 0 trazodone 50 mg Tablet 25 mg PO HS RF: 0 ferrous sulfate 325 mg (65 mg iron) Tablet 325 mg PO DAILY RF: 0 hydrochlorothiazide 12.5 mg capsule 12.5 mg PO DAILY PRN (Reason: IF NEEDED) RF: 0 Jardiance 25 mg Tablet 25 mg PO DAILY RF: 0 Referrals Referrals: Marianela Contreras MD [Primary Care Provider] -
[2020-06-05] MEDS ORDERED: SODIUM CHLORIDE 0.9% 250 ML IV PRN ×2 (17:27→21:59)
[2020-06-05 18:00] LABS: Hematocrit (blood only) 20.3 % (42-52); Hemoglobin 6.7 g/dL (14.0-18.0); Mean Corpuscular Hemoglobin 27.8 pg (25-34); Mean Corpuscular Volume 84.2 fL (80-100); Mean Platelet Volume 9.4 fL (7.4-10.4); Platelet Count 317 K/uL (130-400); RDW Coefficient of Variation 16.2 % (11.5-14.5); RDW Standard Deviation 44.6 fL (36.4-46.3); Red Blood Count 2.41 M/uL (4.7-6.1); White Blood Count 11.64 K/uL (4.8-10.8)
--- NOTE | 2020-06-05 18:06 | Gastrointestinal Consultation ---
Date of Consultation June 05, 2020 Assessment & Plan (1) Acute blood loss anemia: Will plan for EGD tomorrow by . Recommend IV BID PPI, IV fluid, blood transfusions. Present on Admission?: Yes Supervising Physician Co-Signing Physician Notes Attg add: I interviewed and examined pt, reviewed chart and labs. Pt with sypmtomatic anemia, s/p EGD + csocpy + VCE in 2018 and EGD in 2019 for CARISSA. Plan to repeat EGD/enteroscopy today. History of Present Illness Reason for Consultation: anemia Requesting Physician: [facility] Attending Physician: [facility] History of Present Illness Mr. Hines is an 79 yr old male pt of Dr. Marianela Contreras with a hx of CAD post CABG in 2002, DM-2, Vascular Parkinsonianism, HTN. He lives with his . He has been progressively more tired, poor appetite, poor exercise tolerance for 8 days. He fell last week which is unusual for him. He was seen by Dr. Pressley in Gastroenterology today and advised to present to the ED for anemia with tentative plan for EGD tomorrow. On arrival, Hb 6.7, BUN is 19, CT is pending. He denies any abd pain or black BMs. Exam w/o any abdominal distention or tenderness. He is mildly hypotensive and HR is 92 (on a beta arturo), but otherwise hemodynamically stable. Most recent EGD in 2019 for CARISSA w/o any evidence of bleeding but with a ring at the GE junction and gastritis. He also underwent EGD and colonoscopy in 2018 with Grade A esophagitis, two polyps, internal hemorrhoids. VCDE at that time w/o any findings. Allergies Allergy/AdvReac Type Severity Reaction Status Date / Time Sulfa (Sulfonamide Allergy Unknown BLISTERS Verified 06/05/20 19:05 Antibiotics) AND RASH Home Medications Medication Instructions Recorded Confirmed Type Januvia 100 mg PO QAM 01/07/18 06/05/20 History atorvastatin 20 mg PO QAM 01/07/18 06/05/20 History carbidopa-levodopa [Sinemet] 1.5 tab PO TID 01/07/18 06/05/20 History carvedilol 6.25 mg PO BID 01/07/18 06/05/20 History losartan 25 mg PO QAM 01/07/18 06/05/20 History metformin 1,000 mg PO BIDM 01/07/18 06/05/20 History multivitamin 1 tab PO QAM 01/07/18 06/05/20 History cholecalciferol (vitamin D3) 2,000 unit PO QAM 10/25/18 06/05/20 History [Vitamin D3] nitroglycerin 0.3 mg SUBLINGUAL QAM PRN 10/25/18 06/05/20 History empagliflozin [Jardiance] 25 mg PO DAILY 06/05/20 06/05/20 History ferrous sulfate 325 mg PO DAILY 06/05/20 06/05/20 History hydrochlorothiazide 12.5 mg PO DAILY PRN 06/05/20 06/05/20 History trazodone 25 mg PO HS 06/05/20 06/05/20 History Patient History Medical History CAD (coronary artery disease) [place] / demand ischemia related to severe anemia Diabetes mellitus, type II Dyslipidemia Hypertension Hypothyroidism CARISSA (iron deficiency anemia) Vascular parkinsonism Surgical History S/P CABG x 3 2002 Family History Other Cancer Diabetes Heart disease Social History Smoking Status: Former smoker Hx Alcohol Use: No Hx Substance Use: No Preferred Language: Kyrgyz Communication Ability: Effective Crane Operator Required: No Beliefs That Will Affect Care: None Current Living Situation: Spouse Other Information That Helps Us Care for You: No Feels Safe at Home: Yes Safety Concerns: Feels Safe At This Time Assistive Devices: None Review of Systems Review of Systems: ROS: Gen: + weakness, a fall last week No fevers or weight loss Eyes: No eye redness, or pain, no recent vision changes Resp: No SOB, no cough Cardio: No palpitations/irregular beats, no chest pain GI: No abdominal pain, + one episode of nausea/vomiting this week which is unusual for him. : Denies pain on urination Skin: No jaundice, itching or new rashes Physical Exam Constitutional: WD/WN, vitals as above Eyes: PERRL, conjunctivae normal, anicteric sclerae ENMT: external ear and nose normal, oropharynx normal Neck: trachea midline, no thyromegaly Respiratory: normal respiratory effort, lungs clear to auscultation Cardiovascular: Rate/Rhythm: regular rate and regular rhythm Extremities: + edema (mild, left lower legg) Gastrointestinal (Abdomen): normal bowel sounds, soft, nontender, no hepatosplenomegaly Musculoskeletal: no cyanosis or clubbing, extremities motor strength 5/5 Skin: no rashes, warm and dry scabs on knees Results & Data ([facility]) Vital Signs (Past 12 Hours) Vital Signs Temp Pulse Pulse Resp BP BP Pulse Ox 06/05/20 17:46 92 H 14 99 06/05/20 17:30 92 H 14 114/49 L 99 06/05/20 17:04 35.9 C L 82 19 149/78 H 95 Laboratory Results WBC 11.6, Hb 6.7, Hct 20 , Plts 317
[2020-06-05 18:07] LABS: Prothrombin Time 10.3 Seconds (9.0-12.0)
[2020-06-05 18:22] LABS: Albumin Level 3.7 gm/dl (3.4-5.0); BUN Creatinine Ratio 32.9 (10-20); Calcium 9.1 mg/dl (8.5-10.1); Creatinine Clr Calc Pharmacy 40.1 ml/min; Est GFR (African American) 73.4; Est GFR (Non-African American) 63.3; Potassium 4.7 mmol/L (3.5-5.1)
[2020-06-05 18:29] LABS: Basophils # (auto) 0.02 K/uL (0-0.2); Basophils % (auto) 0.2 %; Eosinophils # (auto) 0.05 K/uL (0-0.5); Eosinophils % (auto) 0.4 %; Immature Granulocytes # (auto) 0.04 K/uL (0.00-0.02); Immature Granulocytes % (auto) 0.3 %; Lymphocytes % (auto) 11.2 %; Monocytes # (auto) 0.58 K/uL (0.11-0.59); Neutrophils # (auto) 9.65 K/uL (1.4-6.5); Neutrophils % (auto) 82.9 %; Polychromasia 1+
--- NOTE | 2020-06-05 18:29 | XRay Report ---
XR chest 1V portable CLINICAL HISTORY: weakness COMPARISON STUDY: Chest radiograph October 25, 2018 per FINDINGS: Median sternotomy wires are noted. Lung volumes are normal. Lungs are clear. There is no pn eumothorax or pleural effusion. Cardiac size is normal. Mediastinal contours are normal. There is no evidence for pulmonary edema. IMPRESSION: No acute cardiopulmonary findings. No change in appearance of the chest. ACT 112: Negative or not required by law. Electronically signed by: Raimundo Avina M.D. 06/05/2020 6:28 PM
[2020-06-05 18:40] LABS: Albumin Globulin Ratio 1.2 (0.9-2); Bilirubin,Total 0.2 mg/dl (0.2-1); Globulin 3.2 gm/dl (2.5-4.0); Total Protein 6.9 gm/dl (6.4-8.2); Troponin I 0.443 ng/ml (0-0.045)
[2020-06-05 19:32] LABS: Appearance Urine Clear (Clear); Bilirubin Urine Negative (Negative); Blood Urine Negative (Negative); Color Urine Yellow; Glucose Urine UA 3+ (Negative); Ketones Urine 1+ (Negative); Leukocyte Esterase Urine Negative (Negative); Nitrite Urine Negative (Negative); Protein Urine Negative (Negative); Specific Gravity Urine 1.021 (1.000-1.030); Urobilinogen Urine Negative (Negative)
[2020-06-05] MEDS ORDERED: SODIUM CHLORIDE 0.9% 500 ML IV ONE (19:55)
[2020-06-05 20:04] LABS: Partial Thromboplastin Ratio 0.9; Partial Thromboplastin Time 23.7 Seconds (21.0-31.0)
--- NOTE | 2020-06-05 20:26 | History & Physical Report ---
Date of Service June 05, 2020 Assessment & Plan (1) Symptomatic anemia: Hemoglobin drop from baseline Rule out recurrent UGI B History H. 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 ) Follow troponin, Cardiology consult if with progression (Patient known to Dr. Mckeon as per patient family.) Basal insulin, ISS BG goal [id number], carb count coverage from patient eating DVT prophylaxis. SCDs RE possible UGI B Full code as per son. Patient son requesting updates from providers. Mr. Anuel Hines, contact #[phone]. Text document was generated using [employer] voice recognition software. It may contain grammatical or spelling errors. Kindly contact undersigned for clarification of any documentation item in question. . History of Present Illness Chief Complaint: Anemia Primary Care Provider: Marianela Contreras MD History obtained from patient, family, and records. History somewhat limited from patient secondary to mild hearing impairment. 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 pylori as per records, past tobacco abuse. Last confinement October 2018 for UGI B, iron deficiency anemia. Patient presented with hemoglobin of 7.2. EGD showed patchy erythema duodenal bulb. 1 week history of generalized weakness a little imbalance and loss of appetite. Patient without abdominal pain as per son although patient constipated which is unusual for patient. Patient denies black/bloody stools. No chest pain, no S OB, no cough symptoms Patient seen at PCP's office. Outpatient hemoglobin noted to be 6.7. MCV 85.1 Serum iron 50 TIBC 274 Transferrin saturation percent 18 Reticulocyte percent 6.19, absolute reticulocyte 144.2, immature reticulocyte fraction 48.9 Patient directed to ER by PCP. 1 unit packed RBC transfused at the ER. Medical History as above Surgical History : CABG, orthopedic procedure leg Family History : Breast cancer, DM, heart disease Personal/Social history : Past tobacco abuse, occasional EtOH intake, retired businessman, lives with Allergies Allergy/AdvReac Type Severity Reaction Status Date / Time Sulfa (Sulfonamide Allergy Unknown BLISTERS Verified 06/05/20 19:05 Antibiotics) AND RASH Home Medications Medication Instructions Recorded Confirmed Type Januvia 100 mg PO QAM 01/07/18 06/05/20 History atorvastatin 20 mg PO QAM 01/07/18 06/05/20 History carbidopa-levodopa [Sinemet] 1.5 tab PO TID 01/07/18 06/05/20 History carvedilol 6.25 mg PO BID 01/07/18 06/05/20 History losartan 25 mg PO QAM 01/07/18 06/05/20 History metformin 1,000 mg PO BIDM 01/07/18 06/05/20 History multivitamin 1 tab PO QAM 01/07/18 06/05/20 History cholecalciferol (vitamin D3) 2,000 unit PO QAM 10/25/18 06/05/20 History [Vitamin D3] nitroglycerin 0.3 mg SUBLINGUAL QAM PRN 10/25/18 06/05/20 History empagliflozin [Jardiance] 25 mg PO DAILY 06/05/20 06/05/20 History ferrous sulfate 325 mg PO DAILY 06/05/20 06/05/20 History hydrochlorothiazide 12.5 mg PO DAILY PRN 06/05/20 06/05/20 History trazodone 25 mg PO HS 06/05/20 06/05/20 History Past Med/Surg History Medical History (Updated 06/05/20 @ 21:34 by Andi Vernon MD) CAD (coronary artery disease) [place] / demand ischemia related to severe anemia Diabetes mellitus, type II Dyslipidemia Hypertension Hypothyroidism CARISSA (iron deficiency anemia) Vascular parkinsonism Surgical History S/P CABG x 3 2002 Family History Other Cancer Diabetes Heart disease Social History Smoking Status: Former smoker Hx Alcohol Use: No Hx Substance Use: No Preferred Language: [place] Islander Communication Ability: Effective Personnel Generalist Manager Required: No Beliefs That Will Affect Care: None Current Living Situation: Spouse Other Information That Helps Us Care for You: No Feels Safe at Home: Yes Safety Concerns: Feels Safe At This Time Assistive Devices: None Review of Systems Review of Systems: As per HPI, all 10 systems reviewed, all other ROS negative Physical Exam Physical Exam: GENERAL: Comfortable, pleasant, mild hearing impairment, no respiratory distress SKIN: Pallor, warm HEENT: Pale palpebral conjunctivae, no ptosis, dry buccal mucosa NECK : Supple, no tenderness CHEST : Decreased breath sounds, no tenderness HEART : RRR, systolic murmur loudest on the left sternal border ABDOMEN: Some distention, nontender EXTREMITIES : No LE swelling/tenderness, no other conspicuous deformities noted NEUROLOGIC : Coherent, no facial asymmetry, mild hearing impairment, no other gross focality Results & Data Results & Data ([facility]) Vital Signs (Past 12 Hours) Vital Signs Temp Pulse Pulse Resp BP BP Pulse Ox 06/05/20 20:17 36.5 C 94 H 18 138/67 97 06/05/20 20:01 36.5 C 80 18 155/54 H 97 06/05/20 19:46 36.6 C 74 18 153/52 H 99 06/05/20 19:29 36.6 C 95 H 18 113/64 96 06/05/20 17:46 92 H 14 99 06/05/20 17:30 92 H 14 114/49 L 99 06/05/20 17:04 35.9 C L 82 19 149/78 H 95 Laboratory Results Laboratory Results WBC 11.64 K/uL (4.8-10.8) H 06/05/20 17:39 RBC 2.41 M/uL (4.7-6.1) L 06/05/20 17:39 Hgb 6.7 g/dL (14.0-18.0) L* 06/05/20 17:39 Hct 20.3 % (42-52) L* 06/05/20 17:39 MCV 84.2 fL (80-100) 06/05/20 17:39 MCH 27.8 pg (25-34) 06/05/20 17:39 MCHC 33.0 g/dL (32-36) 06/05/20 17:39 RDW Std Deviation 44.6 fL (36.4-46.3) 06/05/20 17:39 RDW Coeff of Melissa 16.2 % (11.5-14.5) H 06/05/20 17:39 Plt Count 317 K/uL (130-400) 06/05/20 17:39 MPV 9.4 fL (7.4-10.4) 06/05/20 17:39 Immature Gran % (Auto) 0.3 % 06/05/20 17:39 Neut % (Auto) 82.9 % 06/05/20 17:39 Lymph % (Auto) 11.2 % 06/05/20 17:39 [place] % (Auto) 5.0 % 06/05/20 17:39 Eos % (Auto) 0.4 % 06/05/20 17:39 Baso % (Auto) 0.2 % 06/05/20 17:39 Neut # (Auto) 9.65 K/uL (1.4-6.5) H 06/05/20 17:39 Lymph # (Auto) 1.30 K/uL (1.2-3.4) 06/05/20 17:39 [place] # (Auto) 0.58 K/uL (0.11-0.59) 06/05/20 17:39 Eos # (Auto) 0.05 K/uL (0-0.5) 06/05/20 17:39 Baso # (Auto) 0.02 K/uL (0-0.2) 06/05/20 17:39 Immature Gran # (Auto) 0.04 K/uL (0.00-0.02) H 06/05/20 17:39 Polychromasia 1+ 06/05/20 17:39 PT 10.3 Seconds (9.0-12.0) 06/05/20 17:39 INR 1.0 (0.9-1.1) 06/05/20 17:39 APTT 23.7 Seconds (21.0-31.0) 06/05/20 17:39 PTT Ratio 0.9 06/05/20 17:39 Sodium 135 mmol/L (136-145) L 06/05/20 17:39 Potassium 4.7 mmol/L (3.5-5.1) 06/05/20 17:39 Chloride 101 mmol/L (98-107) 06/05/20 17:39 Carbon Dioxide 20 mmol/L (21-32) L 06/05/20 17:39 Anion Gap 14.0 (3-11) H 06/05/20 17:39 BUN 36 mg/dl (7-18) H 06/05/20 17:39 Creatinine 1.09 mg/dl (0.6-1.4) 06/05/20 17:39 Est Cr Clr Drug Dosing 40.1 ml/min 06/05/20 17:39 Est GFR ( Amer) 73.4 06/05/20 17:39 Est GFR (Non-Af Amer) 63.3 06/05/20 17:39 BUN/Creatinine Ratio 32.9 (10-20) H 06/05/20 17:39 Glucose 211 mg/dl (70-99) H 06/05/20 17:39 Calcium 9.1 mg/dl (8.5-10.1) 06/05/20 17:39 Magnesium 2.0 mg/dl (1.8-2.4) 06/05/20 17:39 Total Bilirubin 0.2 mg/dl (0.2-1) 06/05/20 17:39 AST 18 U/L (15-37) 06/05/20 17:39 ALT 15 U/L (12-78) 06/05/20 17:39 Alkaline Phosphatase 62 U/L (45-117) 06/05/20 17:39 Troponin I 0.443 ng/ml (0-0.045) H* 06/05/20 17:39 Total Protein 6.9 gm/dl (6.4-8.2) 06/05/20 17:39 Albumin 3.7 gm/dl (3.4-5.0) 06/05/20 17:39 Globulin 3.2 gm/dl (2.5-4.0) 06/05/20 17:39 Albumin/Globulin Ratio 1.2 (0.9-2) 06/05/20 17:39 Urine Color Yellow 06/05/20 18:50 Urine Appearance Clear (Clear) 06/05/20 18:50 Urine pH 5.0 (4.5-7.5) 06/05/20 18:50 Ur Specific [place] 1.021 (1.000-1.030) 06/05/20 18:50 Urine Protein Negative (Negative) 06/05/20 18:50 Urine Glucose (UA) 3+ (Negative) H 06/05/20 18:50 Urine Ketones 1+ (Negative) H 06/05/20 18:50 Urine Blood Negative (Negative) 06/05/20 18:50 Urine Nitrite Negative (Negative) 06/05/20 18:50 Urine Bilirubin Negative (Negative) 06/05/20 18:50 Urine Urobilinogen Negative (Negative) 06/05/20 18:50 Ur Leukocyte Esterase Negative (Negative) 06/05/20 18:50 COVID-19 Eval Order Covid19 [facility] 06/05/20 18:05 SARS-CoV-2, RNA, NAAT NEGATIVE (NEGATIVE) 06/05/20 18:05 Blood Type O Positive 06/05/20 17:39 Antibody Screen NEGATIVE 06/05/20 17:39 Crossmatch See Detail 06/05/20 17:39 Diagnostic Findings Chest x-ray : No acute cardiopulmonary findings. No change in appearance of the chest. EKG as per my interpretation : Rate 100, NSR, normal axis, ST depression lateral leads
[2020-06-05] MEDS ORDERED: GLUCAGON FOR INJ 1 MG VIAL SQ PRN (21:59)
[2020-06-05] MEDS ORDERED: PROMETHAZINE HCL 6.25 MG in SODIUM CHLORIDE 0.9% 50 ML IV PRN (21:59)
[2020-06-05] MEDS ORDERED: DEXTROSE 50% 50 ML SYRINGE IV PRN (21:59)
[2020-06-05] MEDS ORDERED: GLUCOSE 10 TABS/TUBE PO PRN (21:59)
[2020-06-05] MEDS ORDERED: oxyCODONE HCL IR 5 MG TAB (IMMEDIATE RELEASE) PO PRN (21:59)
[2020-06-05] MEDS ORDERED: CARBOHYDRATES FOR HYPOGLYCEMIA PO PRN (21:59)
[2020-06-05] MEDS ORDERED: GLUCOSE 40% GEL 15 GM TUBE PO PRN (21:59)
[2020-06-05] MEDS ORDERED: ACETAMINOPHEN 325 MG TAB PO PRN (21:59)
[2020-06-05] MEDS ORDERED: POLYETHYLENE (MIRALAX) 17 GM PACK PO PRN (21:59)
[2020-06-05] MEDS: PANTOprazole 40 MG in DEXTROSE 5% 100 ML IV SCH (22:31)
[2020-06-05] MEDS: carvediloL 6.25 MG TAB PO SCH (22:38)
[2020-06-05] MEDS: CARBIDOPA/LEVODOPA 25/100MG TAB PO SCH (22:38)
[2020-06-05] MEDS: traZODone HCL 50 MG TAB PO SCH (22:39)
[2020-06-05] MEDS: DOCUSATE SODIUM/SENNA 50/8.6MG TAB PO SCH (22:40)
[2020-06-05] MEDS: INSULIN ASPART 100 UNITS/ML 3 ML PEN SC SCH (22:43)
[2020-06-06] MEDS ORDERED: SODIUM CHLORIDE 0.9% 1000ML 1,000 ML IV SCH
[2020-06-06] MEDS ORDERED: SODIUM CHLORIDE 0.9% 250 ML IV PRN (00:16)
[2020-06-06] MEDS: PANTOprazole 40 MG in DEXTROSE 5% 100 ML IV SCH ×3 (02:42→12:55)
[2020-06-06 07:19] LABS: Basophils # (auto) 0.01 K/uL (0-0.2); Basophils % (auto) 0.1 %; Eosinophils # (auto) 0.08 K/uL (0-0.5); Eosinophils % (auto) 1.1 %; Hematocrit (blood only) 37.1 % (42-52); Hemoglobin 12.4 g/dL (14.0-18.0); Immature Granulocytes # (auto) 0.04 K/uL (0.00-0.02); Immature Granulocytes % (auto) 0.5 %; Lymphocytes # (auto) 0.99 K/uL (1.2-3.4); Lymphocytes % (auto) 13.2 %; Mean Corpuscular Hemoglobin 29.2 pg (25-34); Mean Corpuscular Hgb Conc 33.4 g/dL (32-36); Mean Corpuscular Volume 87.5 fL (80-100); Mean Platelet Volume 9.6 fL (7.4-10.4); Monocytes # (auto) 0.49 K/uL (0.11-0.59); Monocytes % (auto) 6.5 %; Neutrophils # (auto) 5.89 K/uL (1.4-6.5); Neutrophils % (auto) 78.6 %; Platelet Count 245 K/uL (130-400); RDW Coefficient of Variation 15.9 % (11.5-14.5); Red Blood Count 4.24 M/uL (4.7-6.1)
[2020-06-06 07:34] LABS: Calcium 8.4 mg/dl (8.5-10.1); Creatinine Clr Calc Pharmacy 52.7 ml/min; Est GFR (African American) 95.6; Est GFR (Non-African American) 82.5; Potassium 3.3 mmol/L (3.5-5.1); Troponin I 0.981 ng/ml (0-0.045)
--- NOTE | 2020-06-06 07:42 | Communication Note ---
Date of Service: June 06, 2020 79 yo Male admitted with symptomatic anemia ; Possible recurrent GI Bleed hx of previous admissions in 2018 and 2019 with similar scenario had EGD and coloncopy presented with weakness and fatigue HB 6.7 received 3 units of PRBC GI consulted, input appreciated -concern for possible GI bleed Upper vs lower pt in kept NPO, IV protonix gtt scheduled for EGD today elevated troponin : Demand Ischemia e/b +troponin in setting of acute blood loss anemia Troponin 0.443, ECG showed nonspecific T-wave changes when compared to previous. no complain of chest pain or SOB possible cardiac stress due to anemia /demand ischemia correction of anemia : s/p 3 units of PRBC tx , HB improved > 12 will need copyright expert in tele Michaela Schultz MD
[2020-06-06] MEDS: INSULIN ASPART 100 UNITS/ML 3 ML PEN SC SCH ×4 (07:47→21:50)
[2020-06-06] MEDS: CARBIDOPA/LEVODOPA 25/100MG TAB PO SCH ×3 (09:05→20:35)
[2020-06-06] MEDS: ATORVASTATIN 20 MG TAB PO SCH (09:07)
[2020-06-06] MEDS: carvediloL 6.25 MG TAB PO SCH ×2 (09:07→20:36)
[2020-06-06] MEDS: MULTIVITAMIN TAB PO SCH (09:07)
[2020-06-06] MEDS: DOCUSATE SODIUM/SENNA 50/8.6MG TAB PO SCH (09:07)
[2020-06-06] MEDS: LOSARTAN POTASSIUM 25 MG TAB PO SCH (09:08)
--- NOTE | 2020-06-06 10:14 | Anesthesiology Consultation ---
Date of Service June 06, 2020 Assessment & Plan (1) Encounter for pre-operative examination: Chart Review Chart Review: Pending: Refer to Additional Notes / Consult section (await cardiology input prior to procedure due to troponin increase, ECG changes, history) Consults Requested cardiac History Surgery Operation Date: 06/06/20 16:15 Proposed Procedures p Esophagogastroduodenoscopy Dr Dennison - Anne Lane MD Height/Weight Height: 5 ft 5 in Weight: 53.4 kg Allergies Allergy/AdvReac Type Severity Reaction Status Date / Time Sulfa (Sulfonamide Allergy Unknown BLISTERS Verified 06/05/20 19:05 Antibiotics) AND RASH Medications Home Medications Medication Instructions Recorded Confirmed Last Taken Januvia 100 mg PO QAM 01/07/18 06/05/20 06/05/20 atorvastatin 20 mg PO QAM 01/07/18 06/05/20 06/05/20 carbidopa-levodopa [Sinemet] 1.5 tab PO TID 01/07/18 06/05/20 06/05/20 08:00 carvedilol 6.25 mg PO BID 01/07/18 06/05/20 06/05/20 08:00 losartan 25 mg PO QAM 01/07/18 06/05/20 06/05/20 metformin 1,000 mg PO BIDM 01/07/18 06/05/20 06/05/20 08:00 multivitamin 1 tab PO QAM 01/07/18 06/05/20 06/05/20 cholecalciferol (vitamin D3) 2,000 unit PO QAM 10/25/18 06/05/20 06/05/20 [Vitamin D3] nitroglycerin 0.3 mg SUBLINGUAL QAM PRN 10/25/18 06/05/20 Unknown empagliflozin [Jardiance] 25 mg PO DAILY 06/05/20 06/05/20 06/05/20 ferrous sulfate 325 mg PO DAILY 06/05/20 06/05/20 06/05/20 hydrochlorothiazide 12.5 mg PO DAILY PRN 06/05/20 06/05/20 Unknown trazodone 25 mg PO HS 06/05/20 06/05/20 06/04/20 Active Medications Generic Name Dose Route Start Last Admin Trade Name Freq PRN Reason Stop Dose Admin Atorvastatin Calcium 20 mg 06/06/20 09:00 06/06/20 09:07 Atorvastatin 20 Mg Tab PO 07/06/20 08:59 20 mg QAM KAYLA Administration Carbidopa/Levodopa 1.5 tab 06/05/20 21:59 06/06/20 09:05 Carbidopa/Levodopa 25/100mg Tab PO 07/05/20 21:58 1.5 tab TID KAYLA Administration Carvedilol 6.25 mg 06/05/20 21:59 06/06/20 09:07 Carvedilol 6.25 Mg Tab PO 07/05/20 21:58 6.25 mg BID KAYLA Administration Pantoprazole Sodium 40 mg/ 100 mls @ 20 mls/hr 06/05/20 20:37 06/06/20 07:46 Dextrose IV 07/05/20 20:36 8 mg/hr Q5H KAYLA 20 mls/hr Administration 8 MG/HR Sodium Chloride 1,000 mls @ 50 mls/hr 06/06/20 00:00 06/06/20 05:00 Nss 1000ml IV 07/06/20 00:00 50 mls/hr .Q20H KAYLA Administration Insulin Aspart 0 units 06/05/20 21:59 06/06/20 07:47 Insulin Aspart 100 Units/Ml 3 Ml Pen SC 07/05/20 21:58 Not Given ACHS KAYLA Losartan Potassium 25 mg 06/06/20 09:00 06/06/20 09:08 Losartan Potassium 25 Mg Tab PO 07/06/20 08:59 25 mg QAM KAYLA Administration Multivitamins 1 tab 06/06/20 09:00 06/06/20 09:07 Multivitamin Tab PO 07/06/20 08:59 1 tab QAM KAYLA Administration Senna/Docusate Sodium 1 tab 06/05/20 21:59 06/06/20 09:07 Docusate Sodium/Senna 50/8.6mg Tab PO 07/05/20 21:58 1 tab QAM KAYLA Administration Trazodone HCl 25 mg 06/05/20 21:59 06/05/20 22:39 Trazodone Hcl 50 Mg Tab PO 07/05/20 21:58 25 mg HS KAYLA Administration Past Medical History Medical History (Updated 06/06/20 @ 10:16 by Too Corral MD) CAD (coronary artery disease) [place] / demand ischemia related to severe anemia Diabetes mellitus, type II Dyslipidemia Hypertension Hypothyroidism CARISSA (iron deficiency anemia) Vascular parkinsonism Past Family History Family History Other Cancer Diabetes Heart disease Past Surgical History Surgical History S/P CABG x 3 2002 Social History Smoking Status: Former smoker tobacco type: smokeless tobacco Hx Alcohol Use: No alcohol intake frequency: a few times a month Hx Substance Use: No substance use type: does not use Physical Exam Vital Signs Last Vital Signs Temp 36.6 C 06/06/20 05:16 Pulse 86 06/06/20 07:22 Resp 18 06/06/20 07:14 BP 140/59 L 06/06/20 07:14 Pulse Ox 95 06/06/20 07:14 Testing Laboratory Results 06/06/20 06:29 06/06/20 06:29 PT 10.3 Seconds (9.0-12.0) 06/05/20 17:39 INR 1.0 (0.9-1.1) 06/05/20 17:39 APTT 23.7 Seconds (21.0-31.0) 06/05/20 17:39 Urine Color Yellow 06/05/20 18:50 Urine Appearance Clear (Clear) 06/05/20 18:50 Urine pH 5.0 (4.5-7.5) 06/05/20 18:50 Ur Specific [place] 1.021 (1.000-1.030) 06/05/20 18:50 Urine Protein Negative (Negative) 06/05/20 18:50 Urine Glucose (UA) 3+ (Negative) H 06/05/20 18:50 Urine Ketones 1+ (Negative) H 06/05/20 18:50 Urine Nitrite Negative (Negative) 06/05/20 18:50 Ur Leukocyte Esterase Negative (Negative) 06/05/20 18:50 Blood Type O Positive 06/05/20 17:39 Antibody Screen NEGATIVE 06/05/20 17:39 06/06/20 06/06/20 06/05/20 07:32 03:50 22:43 POC Glucose 134 H 124 H 147 H Laboratory Tests 06/05/20 06/06/20 17:39 06:29 Troponin I 0.443 H* 0.981 H* Echocardiogram Date: 01/08/18 EF: 55-60% LV Function: normal Other Findings: + diastolic dysfunction Valvular Disease: + no significant valvular disease
--- NOTE | 2020-06-06 10:54 | Cardiology Consultation ---
Date of Consultation June 06, 2020 Assessment & Plan (1) Encounter for pre-operative examination: Patient is an 79-year-old male with underlying coronary artery disease who presents with profound anemia with elevated troponins consistent with demand based ischemia. EKGs normalized with transfusion. Currently and in past without cardiac complaint notes no anginal symptoms or congestive heart failure. No contraindications to proceeding with endoscopy is planned today Ultimate goal to continue prehospital medical regimen (2) Elevated troponin: Secondary to demand ischemia (3) CARISSA (iron deficiency anemia): Iron studies are not not severely depleted on current lab work (4) S/P CABG x 3: (5) CAD (coronary artery disease): History of Present Illness Reason for Consultation: Preoperative cardiovascular evaluation, elevated troponins, demand based anemia. Requesting Physician: Dr. Corral Attending Physician: Michaela Schultz MD History of Present Illness Patient is an 79-year-old male referred for evaluation of elevated troponins in the setting of profound anemia. His underlying medical history is notable for 1. Ischemic heart disease diagnosed 2002 with severe three-vessel stenosis. 2. Status post coronary bypass grafting, NORMAN graft to LAD, saphenous vein graft to the obtuse marginal, ramus intermedius and a saphenous vein graft to the posterior descending artery. 3. Class 1-2 angina pectoris. 4. Hypertension, controlled. 5. Dyslipidemia. 6. Type 2 diabetes mellitus. 7. Parkinsonism. 8. Internal carotid artery disease. Asymptomatic CINTHIA stenosis. < 50% LICA stenosis 9. Tobacco dependency, smokeless. 10. Anemia, iron deficiency Patient presents this admission having seen primary care physician yesterday complained of marked weakness and fatigue difficulty ambulating. Blood work demonstrated profound anemia and patient was referred for hospitalization. Since arrival he was received packed red cell transfusions with stabilization of hemoglobin. Troponins were elevated on admission and since admission. EKGs initially with nonspecific ST segment changes but EKG on exam today normal. Patient denies any chest pains or shortness of breath. Notes only complaint leg weakness. Notes no fevers chills unexplained infections. Not aware of any overt bleeding. Appetites been generally good though weight trending lower. Notes difficulty with ambulation at times. But no cardiac symptoms. No tachypalpitations syncope or near syncope. Patient with similar hospitalization 2018 with iron deficiency anemia and elevated troponins secondary to demand ischemia Allergies Allergy/AdvReac Type Severity Reaction Status Date / Time Sulfa (Sulfonamide Allergy Unknown BLISTERS Verified 06/05/20 19:05 Antibiotics) AND RASH Home Medications Medication Instructions Recorded Confirmed Type Januvia 100 mg PO QAM 01/07/18 06/05/20 History atorvastatin 20 mg PO QAM 01/07/18 06/05/20 History carbidopa-levodopa [Sinemet] 1.5 tab PO TID 01/07/18 06/05/20 History carvedilol 6.25 mg PO BID 01/07/18 06/05/20 History losartan 25 mg PO QAM 01/07/18 06/05/20 History metformin 1,000 mg PO BIDM 01/07/18 06/05/20 History multivitamin 1 tab PO QAM 01/07/18 06/05/20 History cholecalciferol (vitamin D3) 2,000 unit PO QAM 10/25/18 06/05/20 History [Vitamin D3] nitroglycerin 0.3 mg SUBLINGUAL QAM PRN 10/25/18 06/05/20 History empagliflozin [Jardiance] 25 mg PO DAILY 06/05/20 06/05/20 History ferrous sulfate 325 mg PO DAILY 06/05/20 06/05/20 History hydrochlorothiazide 12.5 mg PO DAILY PRN 06/05/20 06/05/20 History trazodone 25 mg PO HS 06/05/20 06/05/20 History Patient History Medical History CAD (coronary artery disease) CT / demand ischemia related to severe anemia Diabetes mellitus, type II Dyslipidemia Hypertension Hypothyroidism CARISSA (iron deficiency anemia) Vascular parkinsonism Surgical History S/P CABG x 3 2002 Family History Other Cancer Diabetes Heart disease Social History Smoking Status: Former smoker Hx Alcohol Use: No Hx Substance Use: No Preferred Language: Icelandic Communication Ability: Effective [employer] Required: No Beliefs That Will Affect Care: None Current Living Situation: Spouse Other Information That Helps Us Care for You: No Feels Safe at Home: Yes Safety Concerns: Feels Safe At This Time Assistive Devices: None Review of Systems Review of Systems: All systems reviewed & are unremarkable except as noted in HPI & below Physical Exam Constitutional: WD/WN, vitals as above + thin; no acute distress Eyes: PERRL, conjunctivae normal, anicteric sclerae ENMT: external ear and nose normal, oropharynx normal Neck: trachea midline, no thyromegaly Respiratory: normal respiratory effort, lungs clear to auscultation Cardiovascular: Rate/Rhythm: regular rate and regular rhythm Heart Sounds: normal S1 and normal S2; no gallop and no murmur Palpation: normal PMI Vessels: normal carotid upstroke and radial pulses present; no JVD and no carotid bruit Extremities: no edema Gastrointestinal (Abdomen): normal bowel sounds, soft, nontender, no hepatosplenomegaly Musculoskeletal: no cyanosis or clubbing, extremities motor strength 5/5 Skin: no rashes, warm and dry Neurologic: PERRL, EOMI, accommodation nl, no face palsy, no dysarthria Gait: + shuffling gait Psychiatric: A+Ox3, euthymic affect Results & Data ([facility]) Vital Signs (Past 12 Hours) Vital Signs Temp Pulse Pulse Resp BP BP Pulse Ox 06/06/20 07:22 86 06/06/20 07:14 101 H 18 140/59 L 95 06/06/20 05:16 36.6 C 87 18 122/56 L 100 06/06/20 03:40 36.6 C 80 18 120/58 L 98 06/06/20 03:15 36.7 C 80 18 100/52 L 98 06/06/20 03:10 36.9 C 78 20 106/57 L 06/06/20 02:55 36.6 C 76 16 107/59 L 98 06/06/20 02:36 36.6 C 81 18 105/69 99 06/06/20 02:18 36.6 C 76 18 105/57 L 98 06/06/20 01:55 36.7 C 77 20 95/58 L 99 06/06/20 01:18 98 H 06/06/20 00:55 36.6 C 88 18 104/59 L 98 06/06/20 00:30 36.6 C 84 18 104/45 L 100 06/06/20 00:15 37 C 85 18 101/49 L 100 06/05/20 23:51 36.9 C 89 18 109/58 L 94 06/05/20 23:24 36.6 C 93 H 18 125/67 100 Laboratory Results Laboratory Results - last 24 hr 06/05/20 06/05/20 06/05/20 17:39 17:39 17:39 WBC 11.64 H RBC 2.41 L Hgb 6.7 L* Hct 20.3 L* MCV 84.2 MCH 27.8 MCHC 33.0 RDW Std Deviation 44.6 RDW Coeff of Melissa 16.2 H Plt Count 317 MPV 9.4 Immature Gran % (Auto) 0.3 Neut % (Auto) 82.9 Lymph % (Auto) 11.2 [place] % (Auto) 5.0 Eos % (Auto) 0.4 Baso % (Auto) 0.2 Neut # (Auto) 9.65 H Lymph # (Auto) 1.30 [place] # (Auto) 0.58 Eos # (Auto) 0.05 Baso # (Auto) 0.02 Immature Gran # (Auto) 0.04 H Polychromasia 1+ PT INR APTT PTT Ratio Sodium 135 L Potassium 4.7 Chloride 101 Carbon Dioxide 20 L Anion Gap 14.0 H BUN 36 H Creatinine 1.09 Est Cr Clr Drug Dosing 40.1 Est GFR ( Amer) 73.4 Est GFR (Non-Af Amer) 63.3 BUN/Creatinine Ratio 32.9 H Glucose 211 H POC Glucose Calcium 9.1 Magnesium Total Bilirubin 0.2 AST 18 ALT 15 Alkaline Phosphatase 62 Troponin I 0.443 H* Total Protein 6.9 Albumin 3.7 Globulin 3.2 Albumin/Globulin Ratio 1.2 Urine Color Urine Appearance Urine pH Ur Specific [place] Urine Protein Urine Glucose (UA) Urine Ketones Urine Blood Urine Nitrite Urine Bilirubin Urine Urobilinogen Ur Leukocyte Esterase COVID-19 Eval Order SARS-CoV-2, RNA, NAAT Blood Type O Positive Antibody Screen NEGATIVE Crossmatch See Detail 06/05/20 06/05/20 06/05/20 17:39 17:39 17:39 WBC RBC Hgb Hct MCV MCH MCHC RDW Std Deviation RDW Coeff of Melissa Plt Count MPV Immature Gran % (Auto) Neut % (Auto) Lymph % (Auto) [place] % (Auto) Eos % (Auto) Baso % (Auto) Neut # (Auto) Lymph # (Auto) [place] # (Auto) Eos # (Auto) Baso # (Auto) Immature Gran # (Auto) Polychromasia PT 10.3 INR 1.0 APTT 23.7 PTT Ratio 0.9 Sodium Potassium Chloride Carbon Dioxide Anion Gap BUN Creatinine Est Cr Clr Drug Dosing Est GFR ( Amer) Est GFR (Non-Af Amer) BUN/Creatinine Ratio Glucose POC Glucose Calcium Magnesium 2.0 Total Bilirubin AST ALT Alkaline Phosphatase Troponin I Total Protein Albumin Globulin Albumin/Globulin Ratio Urine Color Urine Appearance Urine pH Ur Specific [place] Urine Protein Urine Glucose (UA) Urine Ketones Urine Blood Urine Nitrite Urine Bilirubin Urine Urobilinogen Ur Leukocyte Esterase COVID-19 Eval Order SARS-CoV-2, RNA, NAAT Blood Type Antibody Screen Crossmatch 06/05/20 06/05/20 06/05/20 18:05 18:05 18:50 WBC RBC Hgb Hct MCV MCH MCHC RDW Std Deviation RDW Coeff of Melissa Plt Count MPV Immature Gran % (Auto) Neut % (Auto) Lymph % (Auto) [place] % (Auto) Eos % (Auto) Baso % (Auto) Neut # (Auto) Lymph # (Auto) [place] # (Auto) Eos # (Auto) Baso # (Auto) Immature Gran # (Auto) Polychromasia PT INR APTT PTT Ratio Sodium Potassium Chloride Carbon Dioxide Anion Gap BUN Creatinine Est Cr Clr Drug Dosing Est GFR ( Amer) Est GFR (Non-Af Amer) BUN/Creatinine Ratio Glucose POC Glucose Calcium Magnesium Total Bilirubin AST ALT Alkaline Phosphatase Troponin I Total Protein Albumin Globulin Albumin/Globulin Ratio Urine Color Yellow Urine Appearance Clear Urine pH 5.0 Ur Specific [place] 1.021 Urine Protein Negative Urine Glucose (UA) 3+ H Urine Ketones 1+ H Urine Blood Negative Urine Nitrite Negative Urine Bilirubin Negative Urine Urobilinogen Negative Ur Leukocyte Esterase Negative COVID-19 Eval [facility] SARS-CoV-2, RNA, NAAT NEGATIVE Blood Type Antibody Screen Crossmatch 06/05/20 06/06/20 06/06/20 22:43 03:50 06:29 WBC RBC Hgb Hct MCV MCH MCHC RDW Std Deviation RDW Coeff of Melissa Plt Count MPV Immature Gran % (Auto) Neut % (Auto) Lymph % (Auto) [place] % (Auto) Eos % (Auto) Baso % (Auto) Neut # (Auto) Lymph # (Auto) [place] # (Auto) Eos # (Auto) Baso # (Auto) Immature Gran # (Auto) Polychromasia PT INR APTT PTT Ratio Sodium 140 Potassium 3.3 L D Chloride 108 H Carbon Dioxide 24 Anion Gap 8.0 BUN 26 H Creatinine 0.83 Est Cr Clr Drug Dosing 52.7 Est GFR ( Amer) 95.6 Est GFR (Non-Af Amer) 82.5 BUN/Creatinine Ratio 31.0 H Glucose 138 H POC Glucose 147 H 124 H Calcium 8.4 L Magnesium Total Bilirubin AST ALT Alkaline Phosphatase Troponin I 0.981 H* Total Protein Albumin Globulin Albumin/Globulin Ratio Urine Color Urine Appearance Urine pH Ur Specific [place] Urine Protein Urine Glucose (UA) Urine Ketones Urine Blood Urine Nitrite Urine Bilirubin Urine Urobilinogen Ur Leukocyte Esterase COVID-19 Eval Order SARS-CoV-2, RNA, NAAT Blood Type Antibody Screen Crossmatch 06/06/20 06/06/20 06/06/20 06:29 07:32 11:31 WBC 7.50 RBC 4.24 L Hgb 12.4 L D Hct 37.1 L MCV 87.5 MCH 29.2 MCHC 33.4 RDW Std Deviation 49.0 H RDW Coeff of Melissa 15.9 H Plt Count 245 MPV 9.6 Immature Gran % (Auto) 0.5 Neut % (Auto) 78.6 Lymph % (Auto) 13.2 [place] % (Auto) 6.5 Eos % (Auto) 1.1 Baso % (Auto) 0.1 Neut # (Auto) 5.89 Lymph # (Auto) 0.99 L [place] # (Auto) 0.49 Eos # (Auto) 0.08 Baso # (Auto) 0.01 Immature Gran # (Auto) 0.04 H Polychromasia PT INR APTT PTT Ratio Sodium Potassium Chloride Carbon Dioxide Anion Gap BUN Creatinine Est Cr Clr Drug Dosing Est GFR ( Amer) Est GFR (Non-Af Amer) BUN/Creatinine Ratio Glucose POC Glucose 134 H 126 H Calcium Magnesium Total Bilirubin AST ALT Alkaline Phosphatase Troponin I Total Protein Albumin Globulin Albumin/Globulin Ratio Urine Color Urine Appearance Urine pH Ur Specific [place] Urine Protein Urine Glucose (UA) Urine Ketones Urine Blood Urine Nitrite Urine Bilirubin Urine Urobilinogen Ur Leukocyte Esterase COVID-19 Eval Order SARS-CoV-2, RNA, NAAT Blood Type Antibody Screen Crossmatch 06/06/20 11:54 WBC RBC Hgb 11.9 L Hct 35.4 L MCV MCH MCHC RDW Std Deviation RDW Coeff of Melissa Plt Count MPV Immature Gran % (Auto) Neut % (Auto) Lymph % (Auto) [place] % (Auto) Eos % (Auto) Baso % (Auto) Neut # (Auto) Lymph # (Auto) [place] # (Auto) Eos # (Auto) Baso # (Auto) Immature Gran # (Auto) Polychromasia PT INR APTT PTT Ratio Sodium Potassium Chloride Carbon Dioxide Anion Gap BUN Creatinine Est Cr Clr Drug Dosing Est GFR ( Amer) Est GFR (Non-Af Amer) BUN/Creatinine Ratio Glucose POC Glucose Calcium Magnesium Total Bilirubin AST ALT Alkaline Phosphatase Troponin I Total Protein Albumin Globulin Albumin/Globulin Ratio Urine Color Urine Appearance Urine pH Ur Specific [place] Urine Protein Urine Glucose (UA) Urine Ketones Urine Blood Urine Nitrite Urine Bilirubin Urine Urobilinogen Ur Leukocyte Esterase COVID-19 Eval Order SARS-CoV-2, RNA, NAAT Blood Type Antibody Screen Crossmatch
[2020-06-06 12:11] LABS: Hematocrit (blood only) 35.4 % (42-52); Hemoglobin 11.9 g/dL (14.0-18.0)
[2020-06-06] MEDS: POTASSIUM CHLORIDE / WTR 10 MEQ/100 ML PLCT IV SCH ×2 (12:12→13:32)
--- NOTE | 2020-06-06 13:14 | Hospitalist Progress Note ---
Date of Service June 06, 2020 Assessment & Plan (1) Symptomatic anemia: symptomatic anemia, weakness fatigue for last 1 week, per son patient sustained a fall on May 24, 2020, felt dizzy and lightheaded, Did not receive any medical treatment Presentation hemoglobin was 6.7 status post 3 units of PRBC transfusion, Anemia corrected 12 Patient input from GI, scheduled for EGD and colonoscopy today Preop clearance: Patient has a stable vitals, mild elevation of troponin possible secondary to demand ischemia in the setting of hypotension and anemia No complaint of chest pain, appreciate input per cardiology-has accepted risk for procedure Does not have any contraindication to proceed for anesthesia/EGD and colonoscopy GI and anesthesia team updated History of coronary artery disease: Mild elevation of troponin as documented above, No evidence of ACS, Hold aspirin in the setting of anemia/possible GI bleed Type 2 diabetes: Insulin sliding scale Status: Full code DVT prophylaxis: SCD and teds avoid pharmacological anticoagulation due to anemia/GI bleed Disposition: PT OT eval requested as patient sustained a fall, worsening of weakness and fatigue at home Expected to be discharged home when medically stable Plan of care updated to patient's son Anuel Goel over phone, all questions answered Admission and Anticipated Discharge Date Admission Date: June 05, 2020 Subjective Patient seen at bedside, very pleasant, No evidence of GI bleed overnight, no hematemesis or melena Patient reports of being very hungry requesting for food repeatedly, Counseled that needs to be an empty stomach in order to have the EGD done, Post procedure food will be ordered, Vitals remained stable, no complaint of chest pain no shortness of breath Hemoglobin improved to 12, status post 3 units of PRBC transfusion. Review of Systems Review of Systems: All systems reviewed & are unremarkable except as noted in HPI & below Constitutional: no chills and no weakness Respiratory: no cough and no dyspnea on exertion Cardiovascular: no chest pain, no dyspnea, no syncope and no edema Physical Exam Physical Exam: Physical exam: General: No acute distress, alert awake oriented x3 HEENT: PERRLA, EOMI, Heart: Regular S1-S2, no carotid bruit, no JVD, no lower extremity edema Lungs: Clear to auscultate, no wheeze or rales Abdomen: Soft nontender, no organomegaly Extremity: No cyanosis, no deformity, normal strength 5 out of 5 with upper and lower Neuro: No focal neurological deficit normal speech, normal visual field, Motor strength : normal both upper and lower extremity, sensation intact Psych: Alert awake oriented x3, normal affect Results & Data Results & [facility] ([facility]) Vital Signs (Past 12 Hours) Vital Signs Temp Pulse Pulse Resp BP BP Pulse Ox 06/06/20 12:03 36.5 C 101 H 16 126/52 L 95 06/06/20 07:22 86 06/06/20 07:14 101 H 18 140/59 L 95 06/06/20 05:16 36.6 C 87 18 122/56 L 100 06/06/20 03:40 36.6 C 80 18 120/58 L 98 06/06/20 03:15 36.7 C 80 18 100/52 L 98 06/06/20 03:10 36.9 C 78 20 106/57 L 06/06/20 02:55 36.6 C 76 16 107/59 L 98 06/06/20 02:36 36.6 C 81 18 105/69 99 06/06/20 02:18 36.6 C 76 18 105/57 L 98 06/06/20 01:55 36.7 C 77 20 95/58 L 99 06/06/20 01:18 98 H
[2020-06-06] MEDS ORDERED: PROPOFOL IV EMULSION 10 MG/ML 20 ML VIAL IV ONE (14:18)
[2020-06-06] MEDS ORDERED: LIDOCAINE HCL 2% 2 ML VIAL/AMP(20MG/ML) INFIL ONE (14:18)
--- NOTE | 2020-06-06 15:34 | Communication Note ---
Date of Service: June 06, 2020 Received update from gastroenterology: EGD showed reflux esophagitis, plan for colonoscopy in a.m., Patient can have clear liquid diet, okay to have crackers, N.p.o. past midnight, GI will put order for colonoscopy prep. Michaela Schultz MD
--- NOTE | 2020-06-06 15:52 | GI REPORT ---
Patient Name: Davy Hines Procedure Date: 06/06/2020 2:27 PM Date of : 1940 Admit Type: Inpatient Age: 79 Gender: Male Attending MD: Anne Lane MD Procedure: Upper GI endoscopy Providers: Anne Lane MD Referring MD: Michaela Schultz Indications: Iron deficiency anemia secondary to chronic blood loss Medicines: See the Anesthesia note for documentation of the administered medications Complications: No immediate complications. Estimated Blood Loss: Estimated blood loss: none. Procedure: Pre-Anesthesia Assessment: - ASA Grade Assessment: IV - A patient with severe systemic disease that is a constant threat to life. After obtaining informed consent, the endoscope was passed under direct vision. Throughout the procedure, the patient's blood pressure, pulse, and oxygen saturations were monitored continuously. The Colonoscope was introduced through the mouth, and advanced to the proximal jejunum. The upper GI endoscopy was accomplished without difficulty. The patient tolerated the procedure well. Findings: The Z-line was found 40 cm from the incisors. LA Grade B (one or more mucosal breaks greater than 5 mm, not extending between the tops of two mucosal folds) esophagitis with no bleeding was found. There were several linear erosions extending from the GE junction approximately 10 cm. Biopsies were taken with a cold forceps for histology. A moderate Schatzki ring was found at the gastroesophageal junction. A guidewire was placed and the scope was withdrawn. Dilation was performed with a Savary dilator with no resistance at 15 mm. The stomach was normal. The examined duodenum was normal. The examined jejunum was normal. Impression: - Z-line, 40 cm from the incisors. - LA Grade B reflux esophagitis. Biopsied. - Moderate Schatzki ring. Dilated. - Normal stomach. - Normal examined duodenum. - Normal examined jejunum. Recommendation: - Discharge patient to floor. Consider colonoscopy tomorrow. Anne Lane M.D. Anne Lane MD 06/06/2020 3:51:34 PM This report has been signed electronically. Note Initiated On: 06/06/2020 2:27 PM Number of Addenda: 0 I attest to the content of the Intraoperative Record and orders documented therein, exceptions below {[id number]}
--- NOTE | 2020-06-06 15:55 | Anesthesiology Progress Note ---
Date of Service June 06, 2020 Anesthesia Post Procedure Vital Signs Vital Signs: Temp Pulse Pulse Pulse Resp BP BP 06/06/20 15:45 90 16 99/47 L 06/06/20 15:30 72 18 125/46 L 06/06/20 14:20 36.4 C L 75 16 138/64 06/06/20 12:03 36.5 C 101 H 16 126/52 L 06/06/20 07:22 86 06/06/20 07:14 101 H 18 140/59 L 06/06/20 05:16 36.6 C 87 18 122/56 L 06/06/20 03:40 36.6 C 80 18 120/58 L 06/06/20 03:15 36.7 C 80 18 100/52 L 06/06/20 03:10 36.9 C 78 20 106/57 L 06/06/20 02:55 36.6 C 76 16 107/59 L 06/06/20 02:36 36.6 C 81 18 105/69 06/06/20 02:18 36.6 C 76 18 105/57 L 06/06/20 01:55 36.7 C 77 20 95/58 L 06/06/20 01:18 98 H 06/06/20 00:55 36.6 C 88 18 104/59 L 06/06/20 00:30 36.6 C 84 18 104/45 L 06/06/20 00:15 37 C 85 18 101/49 L 06/05/20 23:51 36.9 C 89 18 109/58 L 06/05/20 23:24 36.6 C 93 H 18 125/67 06/05/20 22:19 102 H 06/05/20 21:13 36.8 C 92 H 18 122/55 L 06/05/20 21:10 91 H 17 06/05/20 21:00 93 H 13 122/55 L 06/05/20 20:50 91 H 15 06/05/20 20:45 91 H 15 121/54 L 06/05/20 20:40 92 H 15 06/05/20 20:31 36.5 C 97 H 18 150/55 H 06/05/20 20:30 131 H 17 150/55 H 06/05/20 20:20 97 H 20 06/05/20 20:17 36.5 C 94 H 18 138/67 06/05/20 20:15 93 H 21 138/67 06/05/20 20:10 96 H 20 131/54 L 06/05/20 20:05 91 H 15 121/53 L 06/05/20 20:01 36.5 C 80 18 155/54 H 06/05/20 20:00 91 H 15 130/55 L 06/05/20 19:55 91 H 16 136/56 L 06/05/20 19:52 96 H 16 06/05/20 19:50 98 H 19 141/56 H 06/05/20 19:49 96 H 19 155/54 H 06/05/20 19:46 36.6 C 106 H 24 153/38 H 06/05/20 19:43 106 H 14 153/52 H 06/05/20 19:40 92 H 15 06/05/20 19:31 101 H 22 113/64 06/05/20 19:30 98 H 23 06/05/20 19:29 36.6 C 95 H 18 113/64 06/05/20 19:26 103 H 19 06/05/20 19:10 06/05/20 19:02 06/05/20 19:00 143/54 H 06/05/20 18:50 97 H 28 H 06/05/20 18:40 91 H 17 06/05/20 18:30 106 H 20 06/05/20 18:20 92 H 20 06/05/20 18:10 91 H 16 06/05/20 18:00 96 H 16 141/55 H 06/05/20 17:46 92 H 14 06/05/20 17:32 98 H 20 114/49 L 06/05/20 17:30 92 H 14 114/49 L 06/05/20 17:04 35.9 C L 82 19 149/78 H Pulse Ox 06/06/20 15:45 98 06/06/20 15:30 97 06/06/20 14:20 75 L 06/06/20 12:03 95 06/06/20 07:22 06/06/20 07:14 95 06/06/20 05:16 100 06/06/20 03:40 98 06/06/20 03:15 98 06/06/20 03:10 06/06/20 02:55 98 06/06/20 02:36 99 03/17/21 02:18 98 06/06/20 01:55 99 06/06/20 01:18 06/06/20 00:55 98 06/06/20 00:30 100 06/06/20 00:15 100 06/05/20 23:51 94 06/05/20 23:24 100 06/05/20 22:19 06/05/20 21:13 96 06/05/20 21:10 100 06/05/20 21:00 99 06/05/20 20:50 100 06/05/20 20:45 100 06/05/20 20:40 100 06/05/20 20:31 97 06/05/20 20:30 100 06/05/20 20:20 99 06/05/20 20:17 97 06/05/20 20:15 99 06/05/20 20:10 98 06/05/20 20:05 98 06/05/20 20:01 97 06/05/20 20:00 98 06/05/20 19:55 98 06/05/20 19:52 06/05/20 19:50 06/05/20 19:49 98 06/05/20 19:46 94 06/05/20 19:43 94 06/05/20 19:40 96 06/05/20 19:31 06/05/20 19:30 06/05/20 19:29 96 06/05/20 19:26 06/05/20 19:10 96 06/05/20 19:02 100 06/05/20 19:00 06/05/20 18:50 100 06/05/20 18:40 100 06/05/20 18:30 06/05/20 18:20 100 06/05/20 18:10 100 06/05/20 18:00 100 06/05/20 17:46 99 06/05/20 17:32 100 06/05/20 17:30 99 06/05/20 17:04 95 Transfer of Care Handoff Completed per policy Notes Mental Status: alert / awake / arousable Patient Amnestic to Procedure: Yes Nausea / Vomiting: adequately controlled Pain: adequately controlled Airway Patency, RR, SpO2: stable & adequate BP & HR: stable & adequate Hydration State: stable & adequate Anesthetic Complications: no major complications apparent and Pt Satisfied with anesthetic care Notes: The patient is awake and alert. He was able to get up to go to the bathroom. The patient did require phenylephrine to maintain his BP during the procedure. His vital signs are stable in recovery.
[2020-06-06] MEDS ORDERED: HALOPERIDOL LACTATE 5 MG/ML 1 ML VIAL IM PRN (17:11)
[2020-06-06] MEDS ORDERED: INSULIN HUMAN REGULAR PER UNIT 4 UNITS in SYRINGE 3.96 ML IV ONE (20:30)
[2020-06-06] MEDS: traZODone HCL 50 MG TAB PO SCH (20:39)
[2020-06-06] MEDS: PANTOprazole 40 MG TAB PO SCH (20:41)
[2020-06-06] MEDS: POLYETHYLENE (MIRALAX) 17 GM PACK PO SCH (20:54)
[2020-06-07] MEDS: POLYETHYLENE (MIRALAX) 17 GM PACK PO SCH (05:11)
--- NOTE | 2020-06-07 05:27 | Electrocardiogram Report ---
Test Reason : Blood Pressure : / mmHG Vent. Rate : 098 BPM Atrial Rate : 098 BPM P-R Int : 170 ms QRS Dur : 078 ms QT Int : 380 ms P-R-T Axes : 045 067 085 degrees QTc Int : 485 ms Normal sinus rhythm Cannot rule out Anterior infarct (cited on or before 05-JUN-2020) Nonspecific T wave abnormality Abnormal ECG When compared with ECG of 25-OCT-2018 14:46, Nonspecific T wave abnormality, worse in Lateral leads Confirmed by Fabrice Canseco ([id number]) on 06/07/2020 5:27:07 AM Referred By: REFERRED SELF Confirmed By:Fabrice Canseco
--- NOTE | 2020-06-07 05:55 | Electrocardiogram Report ---
Test Reason : Blood Pressure : / mmHG Vent. Rate : 073 BPM Atrial Rate : 073 BPM P-R Int : 174 ms QRS Dur : 082 ms QT Int : 414 ms P-R-T Axes : 028 061 080 degrees QTc Int : 456 ms Normal sinus rhythm Normal ECG When compared with ECG of 05-JUN-2020 18:01, No significant change was found Confirmed by Fabrice Canseco ([id number]) on 06/07/2020 5:54:53 AM Referred By: REFERRED SELF Confirmed By:Fabrice Canseco
[2020-06-07 06:28] LABS: Hematocrit (blood only) 34.9 % (42-52); Hemoglobin 11.6 g/dL (14.0-18.0); Mean Corpuscular Hemoglobin 29.1 pg (25-34); Mean Corpuscular Hgb Conc 33.2 g/dL (32-36); Mean Corpuscular Volume 87.5 fL (80-100); Mean Platelet Volume 9.8 fL (7.4-10.4); Platelet Count 246 K/uL (130-400); RDW Coefficient of Variation 15.8 % (11.5-14.5); RDW Standard Deviation 48.8 fL (36.4-46.3); Red Blood Count 3.99 M/uL (4.7-6.1); White Blood Count 8.13 K/uL (4.8-10.8)
[2020-06-07 07:04] LABS: BUN Creatinine Ratio 23.6 (10-20); Calcium 8.1 mg/dl (8.5-10.1); Creatinine Clr Calc Pharmacy 65.3 ml/min; Est GFR (African American) 104.4; Est GFR (Non-African American) 90.1; Magnesium 2.1 mg/dl (1.8-2.4); Potassium 3.6 mmol/L (3.5-5.1)
[2020-06-07] MEDS: INSULIN ASPART 100 UNITS/ML 3 ML PEN SC SCH ×2 (08:33→14:51)
[2020-06-07] MEDS: ATORVASTATIN 20 MG TAB PO SCH (10:56)
[2020-06-07] MEDS: LOSARTAN POTASSIUM 25 MG TAB PO SCH (10:56)
[2020-06-07] MEDS: MULTIVITAMIN TAB PO SCH (10:56)
[2020-06-07] MEDS: carvediloL 6.25 MG TAB PO SCH (10:56)
[2020-06-07] MEDS: PANTOprazole 40 MG TAB PO SCH (10:56)
[2020-06-07] MEDS: CARBIDOPA/LEVODOPA 25/100MG TAB PO SCH (10:57)
[2020-06-07] MEDS: DOCUSATE SODIUM/SENNA 50/8.6MG TAB PO SCH (10:57)
--- NOTE | 2020-06-07 12:14 | Anesthesiology Consultation ---
Date of Service June 07, 2020 Assessment & Plan (1) Encounter for pre-operative examination: Chart Review Chart Review: Acceptable Risk for Surgery and Patient NOT seen in Pre Admission Testing Consults Requested none ASA ASA3 Proposed Anesthesia Anesthesia Type: MAC Risk / Benefits Reviewed With: PT / POA / Parent / Guardian, Accepts Plan and Informed Consent Obtained History Surgery Operation Date: 06/06/20 11:00 Proposed Procedures p Esophagogastroduodenoscopy Dr Juma Lane MD Operation Date: 06/07/20 16:30 Proposed Procedures p Colonoscopy Dr Domingo Lane MD Height/Weight Height: 5 ft 5 in Weight: 53.4 kg Allergies Allergy/AdvReac Type Severity Reaction Status Date / Time Sulfa (Sulfonamide Allergy Unknown BLISTERS Verified 06/05/20 19:05 Antibiotics) AND RASH Medications Home Medications Medication Instructions Recorded Confirmed Last Taken Januvia 100 mg PO QAM 01/07/18 06/05/20 06/05/20 atorvastatin 20 mg PO QAM 01/07/18 06/05/20 06/05/20 carbidopa-levodopa [Sinemet] 1.5 tab PO TID 01/07/18 06/05/20 06/05/20 08:00 carvedilol 6.25 mg PO BID 01/07/18 06/05/20 06/05/20 08:00 losartan 25 mg PO QAM 01/07/18 06/05/20 06/05/20 metformin 1,000 mg PO BIDM 01/07/18 06/05/20 06/05/20 08:00 multivitamin 1 tab PO QAM 01/07/18 06/05/20 06/05/20 cholecalciferol (vitamin D3) 2,000 unit PO QAM 10/25/18 06/05/20 06/05/20 [Vitamin D3] nitroglycerin 0.3 mg SUBLINGUAL QAM PRN 10/25/18 06/05/20 Unknown empagliflozin [Jardiance] 25 mg PO DAILY 06/05/20 06/05/20 06/05/20 ferrous sulfate 325 mg PO DAILY 06/05/20 06/05/20 06/05/20 hydrochlorothiazide 12.5 mg PO DAILY PRN 06/05/20 06/05/20 Unknown trazodone 25 mg PO HS 06/05/20 06/05/20 06/04/20 Active Medications Generic Name Dose Route Start Last Admin Trade Name Ector REYESN Reason Stop Dose Admin Atorvastatin Calcium 20 mg 06/06/20 09:00 06/07/20 10:56 Atorvastatin 20 Mg Tab PO 07/06/20 08:59 Not Given QAM KAYLA Carbidopa/Levodopa 1.5 tab 06/05/20 21:59 06/07/20 10:57 Carbidopa/Levodopa 25/100mg Tab PO 07/05/20 21:58 Not Given TID KAYLA Carvedilol 6.25 mg 06/05/20 21:59 06/07/20 10:56 Carvedilol 6.25 Mg Tab PO 07/05/20 21:58 Not Given BID KAYLA Insulin Aspart 0 units 06/05/20 21:59 06/07/20 08:33 Insulin Aspart 100 Units/Ml 3 Ml Pen SC 07/05/20 21:58 Not Given ACHS KAYLA Losartan Potassium 25 mg 06/06/20 09:00 06/07/20 10:56 Losartan Potassium 25 Mg Tab PO 07/06/20 08:59 Not Given QAM KAYLA Multivitamins 1 tab 06/06/20 09:00 06/07/20 10:56 Multivitamin Tab PO 07/06/20 08:59 Not Given QAM KAYLA Pantoprazole Sodium 40 mg 06/06/20 21:00 06/07/20 10:56 Pantoprazole 40 Mg Tab PO 07/06/20 20:59 Not Given BID KAYLA Senna/Docusate Sodium 1 tab 06/05/20 21:59 06/07/20 10:57 Docusate Sodium/Senna 50/8.6mg Tab PO 07/05/20 21:58 Not Given QAM KAYLA Trazodone HCl 25 mg 06/05/20 21:59 06/06/20 20:39 Trazodone Hcl 50 Mg Tab PO 07/05/20 21:58 25 mg HS KAYLA Administration NPO Date Last Intake of Fluids: 06/06/20 Time Last Intake of Fluids: 23:59 Date Last Intake of Solids: 06/06/20 Time Last Intake of Solids: 17:00 Past Medical History Medical History CAD (coronary artery disease) IN / demand ischemia related to severe anemia Diabetes mellitus, type II Dyslipidemia Hypertension Hypothyroidism CARISSA (iron deficiency anemia) Vascular parkinsonism Exercise / Class Metabolic Activity III < 4 Walking/Shop/Light housework Past Family History Family History Other Cancer Diabetes Heart disease Past Surgical History Surgical History S/P CABG x 3 2002 Past Anesthesia History No Hx of Anesthesia Complications and No Family Hx of Anesthesia Complications History of PONV No Hx of PONV and No Hx of Motion Sickness Social History Smoking Status: Former smoker tobacco type: smokeless tobacco Hx Alcohol Use: No alcohol intake frequency: a few times a month Hx Substance Use: No substance use type: does not use Physical Exam Vital Signs Last Vital Signs Temp 36.5 C 06/07/20 11:51 Pulse 67 06/07/20 11:51 Resp 20 06/07/20 11:51 BP 165/63 H 06/07/20 11:51 Pulse Ox 97 06/07/20 11:51 ENMT Mouth: + edentulous Thyromental Distance: > or= 3.5 Finger Breadths Mallampati Class: II Neck normal visual inspection Respiratory normal respiratory effort Auscultation: lungs clear to auscultation bilaterally Cardiovascular Rate/Rhythm: regular rate and regular rhythm Psychiatric Orientation: alert Testing Laboratory Results 06/07/20 05:41 06/07/20 05:41 PT 10.3 Seconds (9.0-12.0) 06/05/20 17:39 INR 1.0 (0.9-1.1) 06/05/20 17:39 APTT 23.7 Seconds (21.0-31.0) 06/05/20 17:39 Urine Color Yellow 06/05/20 18:50 Urine Appearance Clear (Clear) 06/05/20 18:50 Urine pH 5.0 (4.5-7.5) 06/05/20 18:50 Ur Specific Keavy 1.021 (1.000-1.030) 06/05/20 18:50 Urine Protein Negative (Negative) 06/05/20 18:50 Urine Glucose (UA) 3+ (Negative) H 06/05/20 18:50 Urine Ketones 1+ (Negative) H 06/05/20 18:50 Urine Nitrite Negative (Negative) 06/05/20 18:50 Ur Leukocyte Esterase Negative (Negative) 06/05/20 18:50 Blood Type O Positive 06/05/20 17:39 Antibody Screen NEGATIVE 06/05/20 17:39 06/07/20 06/07/20 11:41 07:45 POC Glucose 141 H 114 H Echocardiogram Date: 01/08/18 EF: 55-60% LV Function: normal Other Findings: + diastolic dysfunction Valvular Disease: + no significant valvular disease
--- NOTE | 2020-06-07 12:40 | History & Physical Bridge Note ---
Date of Service June 07, 2020 History & Physical Bridge Note I have examined the patient, reviewed the History & Physical and in the interval since the performance of the History & Physical I have noted the following changes of clinical significance: no changes noted
[2020-06-07] MEDS ORDERED: PROPOFOL IV EMULSION 10 MG/ML 20 ML VIAL IV ONE (12:55)
--- NOTE | 2020-06-07 13:32 | GI REPORT ---
Patient Name: Davy Hines Procedure Date: 06/07/2020 12:26 PM Date of : 1940 Admit Type: Inpatient Age: 79 Gender: Male Attending MD: Anne Lane MD Procedure: Colonoscopy Providers: Anne Lane MD Referring MD: iMchaela Schultz Indications: Iron deficiency anemia secondary to chronic blood loss Medicines: See the Anesthesia note for documentation of the administered medications Complications: No immediate complications. Estimated Blood Loss: Estimated blood loss: none. Procedure: Pre-Anesthesia Assessment: - ASA Grade Assessment: III - A patient with severe systemic disease. After I obtained informed consent, the scope was passed under direct vision. Throughout the procedure, the patient's blood pressure, pulse, and oxygen saturations were monitored continuously. The Scope was introduced through the anus and advanced to the terminal ileum. The ileum was deeply intubated. Approximatley 25 cm of ileum was examined. The colonoscopy was performed without difficulty. The patient tolerated the procedure well. The quality of the bowel preparation was good. Findings: The perianal and digital rectal examinations were normal. A few small-mouthed diverticula were found in the sigmoid colon. Three sessile polyps were found in the transverse colon. The polyps were 2 to 3 mm in size. These polyps were removed with a cold snare. Resection and retrieval were complete. Hemorrhoids on retroflexion. Prior rectal ulcer has healed. The exam was otherwise without abnormality. Impression: - Diverticulosis in the sigmoid colon. - Three 2 to 3 mm polyps in the transverse colon, removed with a cold snare. Resected and retrieved. - Hemorrrhoids. No source of anemia found. Recommendation: - Discharge patient to home. Diet as tolerated. I suspect his anemia is nutritional and related to GI blood loss from reflux esophagitis. Would defer repeat VCE. Would consider IV iron if ferritin is low; can be given as outpt. Should have periodic monitoring of H/H by PCP. Anne Lane M.D. Anne Lane MD 06/07/2020 1:32:14 PM This report has been signed electronically. Note Initiated On: 06/07/2020 12:26 PM Number of Addenda: 0 I attest to the content of the Intraoperative Record and orders documented therein, exceptions below {[id number]}
--- NOTE | 2020-06-07 13:52 | Anesthesiology Progress Note ---
Date of Service June 07, 2020 Anesthesia Post Procedure Vital Signs Vital Signs: Temp Pulse Pulse Resp BP Pulse Ox 06/07/20 13:38 71 18 140/99 97 06/07/20 13:24 55 L 16 165/63 H 100 06/07/20 11:51 36.5 C 67 20 165/63 H 97 06/07/20 07:48 37.1 C 73 18 130/53 L 95 06/06/20 22:49 36.9 C 82 16 112/54 L 96 06/06/20 15:45 90 16 99/47 L 98 06/06/20 15:30 72 18 125/46 L 97 06/06/20 14:20 36.4 C L 75 16 138/64 75 L Transfer of Care Handoff Completed per policy Notes Mental Status: alert / awake / arousable Patient Amnestic to Procedure: Yes Nausea / Vomiting: adequately controlled Pain: adequately controlled Airway Patency, RR, SpO2: stable & adequate BP & HR: stable & adequate Hydration State: stable & adequate Anesthetic Complications: no major complications apparent
--- NOTE | 2020-06-07 16:02 | Discharge Summary ---
Date of Service June 07, 2020 Admission HPI Per Admitting Provider History obtained from patient, family, and records. History somewhat limited from patient secondary to mild hearing impairment. 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 pylori as per records, past tobacco abuse. Last confinement October 2018 for UGI B, iron deficiency anemia. Patient presented with hemoglobin of 7.2. EGD showed patchy erythema duodenal bulb. 1 week history of generalized weakness a little imbalance and loss of appetite. Patient without abdominal pain as per son although patient constipated which is unusual for patient. Patient denies black/bloody stools. No chest pain, no S OB, no cough symptoms Patient seen at PCP's office. Outpatient hemoglobin noted to be 6.7. MCV 85.1 Serum iron 50 TIBC 274 Transferrin saturation percent 18 Reticulocyte percent 6.19, absolute reticulocyte 144.2, immature reticulocyte fraction 48.9 Patient directed to ER by PCP. 1 unit packed RBC transfused at the ER. Medical History as above Surgical History : CABG, orthopedic procedure leg Family History : Breast cancer, DM, heart disease Personal/Social history : Past tobacco abuse, occasional EtOH intake, retired businessman, lives with Principal Diagnosis Acute Symptomatic anemia Discharge Exam Physical exam: General: No acute distress, alert awake oriented x3 HEENT: PERRLA, EOMI, Heart: Regular S1-S2, no carotid bruit, no JVD, no lower extremity edema Lungs: Clear to auscultate, no wheeze or rales Abdomen: Soft nontender, no organomegaly Extremity: No cyanosis, no deformity, normal strength 5 out of 5 with upper and lower Neuro: No focal neurological deficit normal speech, normal visual field, Motor strength : normal both upper and lower extremity, sensation intact Psych: Alert awake oriented x3, normal affect Discharge Data Allergies Allergy/AdvReac Type Severity Reaction Status Date / Time Sulfa (Sulfonamide Allergy Unknown BLISTERS Verified 06/05/20 19:05 Antibiotics) AND RASH Consultations 06/05/20 19:22 ED Decision to Admit Stat 06/05/20 21:59 Consult Gastroenterology Routine 06/06/20 10:19 Consult Cardiology Routine Procedures Performed Operation Date: 06/06/20 11:00 Actual Procedures p EGD Biopsy Dilatation - Anne Lane MD Operation Date: 06/07/20 16:30 Actual Procedures p Colonoscopy Polypectomy - Anne Lane MD Hospital Course (1) Symptomatic anemia: symptomatic anemia, weakness fatigue for last 1 week, per son patient sustained a fall on May 24, 2020, felt dizzy and lightheaded, Did not receive any medical treatment Presentation hemoglobin was 6.7 status post 3 units of PRBC transfusion, Hemoglobin remained stable 1211 Appreciate input from gastroenterology, status post EGD and colonoscopy during this hospital admission, EGD shows reflux esophagitis, patient is already on Protonix, colonoscopy no evidence of mass or acute bleed. Patient is stable to be discharged home today, will be followed up with hematology oncology for further anemia work-up, hospital follow-up scheduled with family physician in a week, repeat lab work: CBC check with next physician visit History of coronary artery disease: Mild elevation of troponin as documented above, No evidence of ACS, Aspirin discontinued tomorrow anemia work-up is completed Type 2 diabetes: Insulin sliding scale Status: Full code DVT prophylaxis: SCD and teds avoid pharmacological anticoagulation due to anemia/GI bleed Disposition: Patient is discharged home with family support today Plan of care updated to patient's son Anuel Goel over phone, all questions answered Total Time Total Time Spent Total Time Spent (In Minutes): 35 minutes Total Time Includes: Examination of the Patient, Discharge Planning and Medication Reconciliation Discharge Plan Discharge Items Patient Disposition: Home - Self-Care Reason For Visit: ANEMIA GI BLEED Discharge Diagnosis: Acute Symptomatic anemia Activity: Resume your previous activity Non-emergency contact: Primary Care Provider Call non-emergency contact if: you have any medication questions Follow-up/Referrals: Marianela Contreras MD [Primary Care Provider] - 06/12/20 2:00 pm (Date & Time 06/12/2020 2:00 PM Provider Marianela Contreras MD Department General Internal Medicine [facility] ) Orestes Contreras MD [Surgeon] - Diet: Heart Healthy Addtl Attending Provider Instructions: Please take all medications as instructed on discharge list below. Follow up with Hematology Oncology Dr Orestes Contreras for further work up for Anemia Lab work : Complete blood count on next Physician visit on 06/12/20 Please call if you have any questions or problems. You can reach a [facility] hospitalist on duty at [facility] 24 hours a day by calling [phone] [facility] [employer] Provider Instructions: Do not take medications belonging to NSAIDs group -can cause bleeding of stomach and anemia List Of these medications includes but not limited to: Aspirin Diclofenac Ibuprofen, Motrin, Advil Toradol,ketorolac Naproxen, Aleve, Naprosyn You can take Tylenol as needed for pain or fever When buying [id number] pain medications please consult with pharmacy if you are not sure regarding ingredients, as a lot of the pain medications have combination of NSAIDs and Tylenol. Pending Studies at Discharge: No Stand-Alone Forms: My [facility], Smoking Cessation Medications and DC Order Prescriptions: Continued atorvastatin 20 mg Tablet 20 mg PO QAM RF: 0 metformin 1,000 mg Tablet 1,000 mg PO BIDM RF: 0 carbidopa-levodopa [Sinemet] 25-100 mg Tablet 1.5 tab PO TID RF: 0 Januvia 100 mg Tablet 100 mg PO QAM RF: 0 losartan 25 mg Tablet 25 mg PO QAM RF: 0 multivitamin Tablet 1 tab PO QAM RF: 0 carvedilol 6.25 mg Tablet 6.25 mg PO BID RF: 0 nitroglycerin 0.3 mg Tablet, Sublingual 0.3 mg sublingual QAM PRN (Reason: chest pain) RF: 0 cholecalciferol (vitamin D3) [Vitamin D3] 2,000 unit Tablet 2,000 unit PO QAM RF: 0 trazodone 50 mg Tablet 25 mg PO HS RF: 0 ferrous sulfate 325 mg (65 mg iron) Tablet 325 mg PO DAILY RF: 0 hydrochlorothiazide 12.5 mg capsule 12.5 mg PO DAILY PRN (Reason: IF NEEDED) RF: 0 Jardiance 25 mg Tablet 25 mg PO DAILY RF: 0 Discharge Orders: Discharge Order (Routine); Ordered 06/07/20 Ordered By: Michaela Schultz Admission Data Admit Date/Time: 06/05/20 20:29 Attending Provider: Michaela Schultz Admit Provider: Andi Vernon Primary Care Provider: Marianela Contreras Other Providers: Andi Vernon ; Gonzalo Ray ; Gloria Mccall ; Carmela Wilkes ; Key Thompson ; Juan F Alcazar ; Payton Gonzalez ; Anne Lane ; Hayden Chapman ; Lucian Wright ; Sarah Dominguez ; Yamileth Chisholm ; Vanessa Terrazas ; Becky Mann ; Sam Pressley ; Mich Mckeon Other Interventions: Discharge Summary Assessment (RN) Last Done: 06/07/20 14:34
== END 2020-06-07 14:57 | disposition home or self-care (01) | DRG 812 ==
LOC: ED 16:55 → 2N 20:29

== ENCOUNTER 2020-08-23 11:05 | Inpatient (IN) ==
[2020-08-23] MEDS ORDERED: PIPERACILLIN/TAZOBACTAM 4.5 GM/120 ML BAG IV ONE (11:36)
[2020-08-23] MEDS ORDERED: VANCOMYCIN CONSULT ACTIVE PRN ×2 (11:36→20:16)
[2020-08-23] MEDS ORDERED: PIPERACILL/TAZOBAC CONSULT ACTIVE PRN ×2 (11:36→20:16)
[2020-08-23] MEDS ORDERED: SODIUM CHLORIDE 0.9% 1000ML 1,000 ML IV ONE (11:36)
[2020-08-23] MEDS ORDERED: VANCOMYCIN HCL 1,250 MG in SODIUM CHLORIDE 0.9% 500 ML IV ONE (11:36)
--- NOTE | 2020-08-23 11:42 | Communication Note ---
Date of Service: August 23, 2020 This patient was seen in concert with Dr. Coronado and we discussed and agreed upon the history, physical, assessment, and plan. See attending's note for jorge block. Resident Activity Tracking Resident Involvement: Resident Care Provided Care Provided: Adult ED
[2020-08-23] MEDS ORDERED: MoRPHine SULFATE 2 MG/ML CARP IV STA (12:00)
[2020-08-23 12:03] LABS: Basophils # (auto) 0.01 K/uL (0-0.2); Basophils % (auto) 0.1 %; Eosinophils # (auto) 0.03 K/uL (0-0.5); Eosinophils % (auto) 0.2 %; Hematocrit (blood only) 30.2 % (42-52); Hemoglobin 10.2 g/dL (14.0-18.0); Immature Granulocytes # (auto) 0.08 K/uL (0.00-0.02); Immature Granulocytes % (auto) 0.6 %; Lymphocytes # (auto) 0.35 K/uL (1.2-3.4); Lymphocytes % (auto) 2.8 %; Mean Corpuscular Hemoglobin 27.1 pg (25-34); Mean Corpuscular Hgb Conc 33.8 g/dL (32-36); Mean Corpuscular Volume 80.3 fL (80-100); Mean Platelet Volume 8.8 fL (7.4-10.4); Monocytes # (auto) 0.44 K/uL (0.11-0.59); Monocytes % (auto) 3.5 %; Neutrophils # (auto) 11.72 K/uL (1.4-6.5); Neutrophils % (auto) 92.8 %; Platelet Count 398 K/uL (130-400); RDW Coefficient of Variation 15.8 % (11.5-14.5); RDW Standard Deviation 46.5 fL (36.4-46.3); Red Blood Count 3.76 M/uL (4.7-6.1); White Blood Count 12.63 K/uL (4.8-10.8)
--- NOTE | 2020-08-23 12:18 | XRay Report ---
RIGHT FOOT 3 VIEWS CLINICAL HISTORY: Right foot infection. FINDINGS: 3 views of the right foot are compared to study dated 07/07/2020. The skeletal structures ar e osteopenic. Soft tissue edema is seen in the medial forefoot and midfoot with evidence of a cutaneo us ulceration with surrounding subcutaneous gas at the level of the first metatarsophalangeal joint. There are foci of cortical destruction involving the head of the first proximal phalanx and the base of the first distal phalanx that are consistent with osteomyelitis. No similar appearing foci of bony destruction are seen throughout the remainder of the foot. Mild osteoarthritic change is noted at th e first metatarsophalangeal joint. There is a large plantar calcaneal enthesophyte. Advanced atherosc lerotic calcification is noted in the renal arteries. No radiodense foreign body is identified. IMPRESSION: 1. There is evidence of a cutaneous ulceration in the medial forefoot with surrounding cellulitis as above. 2. Findings are consistent with osteomyelitis involving the head of the first proximal phalanx and th e base of the first distal phalanx. This represents a significant change as compared to 07/07/2020. 3. No acute fracture is clearly identified. Electronically signed by: Ariel Astudillo M.D. 08/23/2020 12:16 PM
[2020-08-23 12:20] LABS: Albumin Level 2.7 gm/dl (3.4-5.0); BUN Creatinine Ratio 29.7 (10-20); Calcium 9.1 mg/dl (8.5-10.1); Creatinine Clr Calc Pharmacy 47.3 ml/min; Est GFR (African American) 90.1 ml/min; Est GFR (Non-African American) 77.7 ml/min; Potassium 4.1 mmol/L (3.5-5.1)
[2020-08-23 12:28] LABS: Albumin Globulin Ratio 0.6 (0.9-2); Bilirubin,Total 0.4 mg/dl (0.2-1); C Reactive Protein 18.5 mg/dl (0-0.29); Globulin 4.8 gm/dl (2.5-4.0); Total Protein 7.5 gm/dl (6.4-8.2)
[2020-08-23] MEDS: MoRPHine SULFATE 2 MG/ML CARP IV PRN ×2 (13:27→15:57)
--- NOTE | 2020-08-23 14:28 | Emergency Department Note ---
History of Present Illness General Chief complaint: Toe Injury/Pain Stated complaint: BIG TOE PAIN WITH INFECTION Time Seen by Provider: 08/23/20 11:13 Source: patient Mode of arrival: ambulatory Limitations: no limitations History of Present Illness Provider complaint: Osteomyelitis right great toe This is an 79-year-old male who presents to the ED with a chief complaint of right toe and foot pain. The patient had MRI back on August 14 that showed osteomyelitis. There was a delay in surgery as family requested a second opinion from orthopedics at [facility]. They reportedly recommended surgery as well. The patient was weak today at home and went to the bathroom in his pants. He lives with his elderly . Because of the weakness, the PCP was involved and sent the patient to the ED for evaluation. The son, who is a retired substation engineer from [employer], is in [place] and requested the patient be transf erred to [place]. The PCP felt the patient could be septic and sent the patient here for work-up and transfer. The patient complains of pain in the right foot area. Other than this he has no specific complaints. No nausea vomiting. Home Medications Medication Instructions Recorded Confirmed Type Januvia 100 mg PO QAM 01/07/18 08/23/20 History atorvastatin 20 mg PO QAM 01/07/18 08/23/20 History carbidopa-levodopa [Sinemet] 1.5 tab PO TID 01/07/18 08/23/20 History carvedilol 6.25 mg PO BID 01/07/18 08/23/20 History losartan 25 mg PO QAM 01/07/18 08/23/20 History metformin 1,000 mg PO BIDM 01/07/18 08/23/20 History multivitamin 1 tab PO QAM 01/07/18 08/23/20 History cholecalciferol (vitamin D3) 2,000 unit PO QAM 10/25/18 08/23/20 History [Vitamin D3] nitroglycerin 0.3 mg SUBLINGUAL QAM PRN 10/25/18 08/23/20 History Jardiance 25 mg PO QAM 06/05/20 08/23/20 History ferrous sulfate 325 mg PO BID 06/05/20 08/23/20 History hydrochlorothiazide 12.5 mg PO DAILY PRN 06/05/20 08/23/20 History zolpidem 5 mg PO HS 07/07/20 08/23/20 History Allergies Allergy/AdvReac Type Severity Reaction Status Date / Time Sulfa (Sulfonamide Allergy Unknown BLISTERS Verified 07/07/20 11:47 Antibiotics) AND RASH Past Med/Surg History Medical History (Updated 08/23/20 @ 14:27 by Santiago Coronado DO) CAD (coronary artery disease) NH / demand ischemia related to severe anemia Diabetes mellitus, type II Dyslipidemia Hypertension Hypothyroidism CARISSA (iron deficiency anemia) Vascular parkinsonism Surgical History S/P CABG x 3 2002 Family History Other Cancer Diabetes Heart disease Social History Smoking Status: Unknown if ever smoked Hx Alcohol Use: No Hx Substance Use: No Preferred Language: Ivorian Communication Ability: Unable Script Manager Required: No Beliefs That Will Affect Care: None Current Living Situation: Spouse Feels Safe at Home: Yes Assistive Devices: None Review of Systems A total of 10 systems reviewed and were otherwise negative Physical Exam Vital Signs Vital Signs - 24 hr 08/23/20 11:10 Temperature 37.7 C H Temperature Source Oral Pulse Rate 113 H Pulse Rhythm Regular Pulse Strength Normal Respiratory Rate 23 Respiratory Effort / Characteristics Non-Labored Respiratory Depth Normal Blood Pressure 111/47 L Blood Pressure Mean 68 Blood Pressure Position Sitting Pulse Oximetry 96 Oxygen Delivery Method Room Air Sepsis Recent Fever Within 48 Hours No Sepsis New/Unexplained Change in Mental Status No Sepsis Action Taken by Nursing Physician Notified CONSTITUTIONAL/VITAL SIGNS: Reviewed / noted above. GENERAL: Non-toxic in appearance. INTEGUMENTARY: Warm, dry, and [place]ibert. HEAD: Normocephalic. EYES: without scleral icterus or trauma. ENT/OROPHARYNX: clear and moist. LYMPHADENOPATHY/NECK: Is supple without lymphadenopathy or meningismus. RESPIRATORY: Lungs clear and equal. CARDIOVASCULAR: Regular rate and rhythm. GI/ABDOMEN: Soft and nontender. No organomegaly or pulsatile mass. No rebound or guarding. Normal bowel sounds. EXTREMITIES: Warm and well perfused. There is no open wound to the lateral aspect of the MCP joint with some mild drainage. BACK: No CVA tenderness. NEUROLOGICAL: Intact without focal deficits. PSYCHIATRIC: normal affect. MUSCULOSKELETAL: Normally developed with good muscle tone. TRIAGE NURSING DOCUMENTATION REVIEWED. Course Administered Medications Morphine Sulfate (Morphine Sulfate 2 Mg/Ml Carp) 2 mg IV Q1HWA PRN PRN Reason: pain Stop: 09/06/20 13:11 Last Admin: 08/23/20 13:27 Dose: 2 mg Documented by: [id number] Discontinued Medications Sodium Chloride (Nss 1000ml) 1,000 mls @ 999 mls/hr IV .Q1H1M ONE Stop: 08/23/20 12:36 Last Infusion: 08/23/20 13:09 Dose: 0 mls/hr Documented by: [id number] Admin: 08/23/20 12:09 Dose: 999 mls/hr Documented by: [id number] Vancomycin HCl 1,250 mg/ (Sodium Chloride) 525 mls @ 200 mls/hr IV NOW ONE Stop: 08/23/20 14:13 Last Admin: 08/23/20 13:09 Dose: 200 mls/hr Documented by: [id number] Piperacillin Sod/Tazobactam Sod (Zosyn) 4.5 gm in 120 mls @ 240 mls/hr IV NOW ONE Stop: 08/23/20 12:05 Last Infusion: 08/23/20 13:09 Dose: 0 mls/hr Documented by: [id number] Admin: 08/23/20 12:09 Dose: 240 mls/hr Documented by: [id number] Morphine Sulfate (Morphine Sulfate 2 Mg/Ml Carp) 2 mg IV NOW STA Stop: 08/23/20 12:01 Last Admin: 08/23/20 12:09 Dose: 2 mg Documented by: [id number] Medical Decision Making Differential Diagnosis Differential includes acute coronary syndrome, myocardial infarction, CVA, TIA, anemia, infection, pneumonia, UTI, pyelonephritis, poor nutrition, dehydration, electrolyte disturbance,hypoglycemia. Medical Records Attestation: I reviewed the patient's medical records. Home Medications Current Medication List: was personally reviewed by me Laboratory Data Attestation: I reviewed the patient's lab results. Result diagrams: 08/23/20 11:48 08/23/20 11:48 Lab Results 08/23/20 08/23/20 08/23/20 Range/Units 11:48 11:48 11:48 WBC 12.63 H (4.8-10.8) K/uL RBC 3.76 L (4.7-6.1) M/uL Hgb 10.2 L (14.0-18.0) g/dL Hct 30.2 L (42-52) % MCV 80.3 (80-100) fL MCH 27.1 (25-34) pg MCHC 33.8 (32-36) g/dL RDW Std Deviation 46.5 H (36.4-46.3) fL RDW Coeff of Melissa 15.8 H (11.5-14.5) % Plt Count 398 (130-400) K/uL MPV 8.8 (7.4-10.4) fL Immature Gran % (Auto) 0.6 % Neut % (Auto) 92.8 % Lymph % (Auto) 2.8 % [place] % (Auto) 3.5 % Eos % (Auto) 0.2 % Baso % (Auto) 0.1 % Neut # (Auto) 11.72 H (1.4-6.5) K/uL Lymph # (Auto) 0.35 L (1.2-3.4) K/uL [place] # (Auto) 0.44 (0.11-0.59) K/uL Eos # (Auto) 0.03 (0-0.5) K/uL Baso # (Auto) 0.01 (0-0.2) K/uL Immature Gran # (Auto) 0.08 H (0.00-0.02) K/uL ESR (0-20) mm/hr Sodium 133 L (136-145) mmol/L Potassium 4.1 (3.5-5.1) mmol/L Chloride 101 (98-107) mmol/L Carbon Dioxide 23 (21-32) mmol/L Anion Gap 9.0 (3-11) BUN 27 H (7-18) mg/dl Creatinine 0.92 (0.6-1.4) mg/dl Est Cr Clr Drug Dosing 47.3 ml/min Est GFR ( Amer) 90.1 ml/min Est GFR (Non-Af Amer) 77.7 ml/min BUN/Creatinine Ratio 29.7 H (10-20) Glucose 293 H (70-99) mg/dl Lactate (0.4-2.0) mmol/L Calcium 9.1 (8.5-10.1) mg/dl Total Bilirubin 0.4 (0.2-1) mg/dl AST 15 (15-37) U/L ALT 7 L (12-78) U/L Alkaline Phosphatase 117 (45-117) U/L C-Reactive Protein 18.50 H (0-0.29) mg/dl Total Protein 7.5 (6.4-8.2) gm/dl Albumin 2.7 L (3.4-5.0) gm/dl Globulin 4.8 H (2.5-4.0) gm/dl Albumin/Globulin Ratio 0.6 L (0.9-2) Procalcitonin 1.91 H (0-0.5) ng/ml COVID-19 Eval Order 08/23/20 08/23/20 08/23/20 Range/Units 11:48 12:19 13:25 WBC (4.8-10.8) K/uL RBC (4.7-6.1) M/uL Hgb (14.0-18.0) g/dL Hct (42-52) % MCV (80-100) fL MCH (25-34) pg MCHC (32-36) g/dL RDW Std Deviation (36.4-46.3) fL RDW Coeff of Melissa (11.5-14.5) % Plt Count (130-400) K/uL MPV (7.4-10.4) fL Immature Gran % (Auto) % Neut % (Auto) % Lymph % (Auto) % [place] % (Auto) % Eos % (Auto) % Baso % (Auto) % Neut # (Auto) (1.4-6.5) K/uL Lymph # (Auto) (1.2-3.4) K/uL [place] # (Auto) (0.11-0.59) K/uL Eos # (Auto) (0-0.5) K/uL Baso # (Auto) (0-0.2) K/uL Immature Gran # (Auto) (0.00-0.02) K/uL ESR 89 H (0-20) mm/hr Sodium (136-145) mmol/L Potassium (3.5-5.1) mmol/L Chloride (98-107) mmol/L Carbon Dioxide (21-32) mmol/L Anion Gap (3-11) BUN (7-18) mg/dl Creatinine (0.6-1.4) mg/dl Est Cr Clr Drug Dosing ml/min Est GFR ( Amer) ml/min Est GFR (Non-Af Amer) ml/min BUN/Creatinine Ratio (10-20) Glucose (70-99) mg/dl Lactate 4.6 H* (0.4-2.0) mmol/L Calcium (8.5-10.1) mg/dl Total Bilirubin (0.2-1) mg/dl AST (15-37) U/L ALT (12-78) U/L Alkaline Phosphatase (45-117) U/L C-Reactive Protein (0-0.29) mg/dl Total Protein (6.4-8.2) gm/dl Albumin (3.4-5.0) gm/dl Globulin (2.5-4.0) gm/dl Albumin/Globulin Ratio (0.9-2) Procalcitonin (0-0.5) ng/ml COVID-19 Eval Order Covid19 at [facility] Imaging Data Radiologist's Impression: Foot X-Ray 08/23/20 11:32 RIGHT FOOT 3 VIEWS CLINICAL HISTORY: Right foot infection. FINDINGS: 3 views of the right foot are compared to study dated 07/07/2020. The skeletal structures are osteopenic. Soft tissue edema is seen in the medial forefoot and midfoot with evidence of a cutaneous ulceration with surrounding subcutaneous gas at the level of the first metatarsophalangeal joint. There are foci of cortical destruction involving the head of the first proximal phalanx and the base of the first distal phalanx that are consistent with osteomyelitis. No similar appearing foci of bony destruction are seen throughout the remainder of the foot. Mild osteoarthritic change is noted at the first metatarsophalan geal joint. There is a large plantar calcaneal enthesophyte. Advanced atherosclerotic calcification is noted in the renal arteries. No radiodense foreign body is identified. IMPRESSION: 1. There is evidence of a cutaneous ulceration in the medial forefoot with surrounding cellulitis as above. 2. Findings are consistent with osteomyelitis involving the head of the first proximal phalanx and the base of the first distal phalanx. This represents a significant change as compared to 07/07/2020. 3. No acute fracture is clearly identified. Electronically signed by: Ariel Astudillo M.D. 08/23/2020 12:16 PM MDM Narrative Patient presents with osteomyelitis of right foot as well as generalized weakness. Temperature here today was 37.7. Heart rate was 113. X-ray of the right foot shows osteomyelitis in the area of the first phalanx of the right foot. The patient's white blood cell count was 12.6. His hemoglobin is 10.2. Lactate level was elevated 4.6. BUN is 27. Glucose is 293. CRP is 18.5. ESR is 89. Procalcitonin is 1.9. The patient was treated with IV vancomycin and IV Zosyn. He was given morphine for discomfort as well as a liter of normal saline IV.I did speak with Dr. Dong from [facility] vascular surgery. He accepted transfer the patient. The patient was transported by ambulance. At the time of the call, there were no pending discharges and it is unclear whether the patient's bed will be available for transfer. The patient states that he is hungry. He was fed here. I did speak with the patient's son and updated him on the results and plan. Impression & Plan Osteomyelitis Discharge Plan Visit Data Chief Complaint: Toe Injury/Pain Stated Complaint: BIG TOE PAIN WITH INFECTION ED Provider: Santiago Coronado ED Midlevel Provider: Ferny Garcia Discharge Problem: Osteomyelitis Patient Disposition: Transfer Acute Care Hospital Forms Stand Alone Forms: My [facility] Prescriptions Prescriptions: No Action atorvastatin 20 mg Tablet 20 mg PO QAM RF: 0 metformin 1,000 mg Tablet 1,000 mg PO BIDM RF: 0 carbidopa-levodopa [Sinemet] 25-100 mg Tablet 1.5 tab PO TID RF: 0 Januvia 100 mg Tablet 100 mg PO QAM RF: 0 losartan 25 mg Tablet 25 mg PO QAM RF: 0 multivitamin Tablet 1 tab PO QAM RF: 0 carvedilol 6.25 mg Tablet 6.25 mg PO BID RF: 0 nitroglycerin 0.3 mg Tablet, Sublingual 0.3 mg sublingual QAM PRN (Reason: chest pain) RF: 0 cholecalciferol (vitamin D3) [Vitamin D3] 2,000 unit Tablet 2,000 unit PO QAM RF: 0 ferrous sulfate 325 mg (65 mg iron) Tablet 325 mg PO BID RF: 0 hydrochlorothiazide 12.5 mg capsule 12.5 mg PO DAILY PRN (Reason: IF NEEDED) RF: 0 Jardiance 25 mg Tablet 25 mg PO QAM RF: 0 zolpidem 5 mg tablet 5 mg PO HS RF: 0 Referrals Referrals: Marianela Contreras MD [Primary Care Provider] -
--- NOTE | 2020-08-23 19:55 | Emergency Department Note ---
ED Visit Note This patient was signed out to me at shift change by Dr. Coronado at which time the patient was awaiting transport to [facility]. The patient had been treated with IV antibiotics and was scheduled to have amputation due to osteomyelitis in his right lower extremity on Thursday in [place]. Unfortunately [facility] could not ultimately take the patient tonight due to the lack of inpatient beds. I went and saw the patient and also talked his sinus to his vital signs are stable, he has received IV antibiotics here I talked to the son at length on the phone. And then I called and talked to our [facility] hospitalist. He will be admitted here for further inpatient treatment evaluation and and transfer when a bed becomes available. . : Osteomyelitis Qualifiers: Osteomyelitis type: subacute Osteomyelitis location: foot Laterality: right Qualified Code(s): M86.271 - Subacute osteomyelitis, right ankle and foot
--- NOTE | 2020-08-23 20:00 | History & Physical Report ---
Date of Service August 23, 2020 Assessment & Plan (1) Sepsis: (2) Osteomyelitis of great toe of right foot: This is a 79-year-old male who has significant past medical history of vascular parkinsonism, T2DM, CAD with history of CABG, HTN, HLD, PVD, hypothyroidism, iron deficiency anemia, right diabetic ulcer who presents to ED at the referral of PCP due to concern for sepsis. Of significance patient was seen and evaluated by Dr. Johnson on 08/14 secondary to right great toe ulceration which has been present for approximately 2 months. Ulceration is failed to heal despite local wound care and oral antibiotics. NOLA on 07/19/2020 was significant for mild to moderate PAD bilaterally. X-ray of foot on 08/07 was concerning for great toe osteomyelitis. NM bone scan completed on 08/09/2020 was positive in the right great toe interphalangeal joint corresponding of septic arthritis/osteomyelitis. MRI was obtained on 08/10 which was consistent with osteomyelitis. Plan was for patient undergo right lower extremity angiogram with possible percutaneous revascularization and amputation of the right great toe on 08/27. Pt presents our ED due to concern for sepsis. Patient met sepsis criteria on admission secondary to leukocytosis, tachycardia and lactic acidosis. Blood cultures obtained. He received broad-spectrum IV antibiotics with vancomycin and Zosyn. He received 1 L of IV fluid with improvement of lactic acidosis to 1.6. Plan is for patient to be transferred to tertiary center at [facility] for vascular invention and right great toe amputation. He is established with Dr. Johnson. ESR 89, CRP 18.5, procalcitonin 1.91 Xray: Findings are consistent with osteomyelitis involving the head of the first proximal phalanx and the base of the first distal phalanx. Source: R great toe OM and diabetic ulcer Admit to PCU Continue broad-spectrum IV antibiotics with vancomycin and Zosyn Blood cultures pending Gentle IVF 80 cc/h Wound care and culture Nonweightbearing to right lower extremity, elevate while in bed (3) CAD (coronary artery disease): History of CABG Continue ASA, statin, Coreg, losartan No chest pain or shortness of breath (4) Diabetes mellitus, type II: Last A1c 07/02/2020 6.6 Hold Metformin, Jardiance and Januvia Lantus/NovoLog per protocol Diabetic diet Patient hyperglycemic in ED as he was placed on regular diet Consult lysing pharmacy, appreciate their assistance (5) Hypertension: Blood pressure stable 113/61 Continue Coreg and losartan with parameters (6) Dyslipidemia: Continue statin (7) Hypothyroidism: Continue levothyroxine (8) Vascular parkinsonism: Continue Sinemet (9) DVT prophylaxis: SQ Heparin Q12 Dispo: PCU FULL CODE PCP: Donato Contreras Pt was seen and examined in collaboration with Dr. Yoder, please see addendum History of Present Illness Chief Complaint: Referred by PCP due to concern for sepsis. Primary Care Provider: Marianela Contreras MD This is a 79-year-old male who has significant past medical history of vascular parkinsonism, T2DM, CAD with history of CABG, HTN, HLD, PVD, hypothyroidism, iron deficiency anemia, right diabetic ulcer who presents to ED at the referral of PCP due to concern for sepsis. Of significance patient was seen and evaluated by Dr. Johnson on 08/14 secondary to right great toe ulceration which has been present for approximately 2 months. Ulceration is failed to heal despite local wound care and oral antibiotics. NOLA on 07/19/2020 was significant for mild to moderate PAD bilaterally. X-ray of foot on 08/07 was concerning for great toe osteomyelitis. NM bone scan completed on 08/09/2020 was positive in the right great toe interphalangeal joint corresponding of septic arthritis/osteomyelitis. MRI was obtained on 08/10 which was consistent with osteomyelitis. Plan was for patient undergo right lower extremity angiogram with possible percutaneous revascularization and amputation of the right great toe on 08/27. In ED patient initially met sepsis criteria secondary to leukocytosis, tachycardia and lactic acid greater than 4. He was treated with broad-spectrum IV antibiotics with vancomycin and Zosyn. Blood cultures were obtained. He received 1 L of IV fluid and lactic acid improved to 1.6. Plan was for patient to be transferred down to [place] for vascular intervention and likely amputation of right great toe; however, a bed is currently unavailable therefore he would be admitted for continued IV antibiotics under our care and transferred when bed availability arises. In ED patient complains of right great toe pain but otherwise has no complaints. He denies fever, chills, sweats, lightheadedness, dizziness, chest pain, shortness with, cough, nausea, vomiting, abdominal pain, dysuria, increased urinary frequency or urgency. Per nursing staff he has received multiple rounds of IV morphine without significant relief. Allergies Allergy/AdvReac Type Severity Reaction Status Date / Time Sulfa (Sulfonamide Allergy Unknown BLISTERS Verified 07/07/20 11:47 Antibiotics) AND RASH Home Medications Medication Instructions Recorded Confirmed Type Januvia 100 mg PO QAM 01/07/18 08/23/20 History atorvastatin 20 mg PO QAM 01/07/18 08/23/20 History carbidopa-levodopa [Sinemet] 2 tab PO QID 01/07/18 08/23/20 History carvedilol 6.25 mg PO BID 01/07/18 08/23/20 History losartan 25 mg PO QAM 01/07/18 08/23/20 History metformin 1,000 mg PO BIDM 01/07/18 08/23/20 History multivitamin 1 tab PO QAM 01/07/18 08/23/20 History cholecalciferol (vitamin D3) 2,000 unit PO QAM 10/25/18 08/23/20 History [Vitamin D3] nitroglycerin 0.3 mg SUBLINGUAL QAM PRN 10/25/18 08/23/20 History Jardiance 25 mg PO QAM 06/05/20 08/23/20 History ferrous sulfate 325 mg PO DAILY 06/05/20 08/23/20 History zolpidem 5 mg PO HS PRN 07/07/20 08/23/20 History aspirin 81 mg PO DAILY 08/23/20 08/23/20 History docusate sodium 100 mg PO BID 08/23/20 08/23/20 History furosemide 20 mg PO WE 08/23/20 08/23/20 History gabapentin 100 mg PO TID 08/23/20 08/23/20 History Past Med/Surg History Medical History (Updated 08/25/20 @ 00:05 by Vianca Valdez) CAD (coronary artery disease) [place] / demand ischemia related to severe anemia Dyslipidemia History of Helicobacter pylori infection Hypertension Hypothyroidism CARISSA (iron deficiency anemia) Osteomyelitis Vascular parkinsonism Surgical History S/P CABG x 3 2002 Family History Other Cancer Diabetes Heart disease Social History (Updated 08/23/20 @ 20:22 by Melani Hurst PA-C) Smoking Status: Former smoker Second Hand Exposure: No; Do You Dip or Chew Tobacco: No; Tobacco Cessation Education Requested by Patient: No Hx Alcohol Use: No Hx Substance Use: No Preferred Language: Cameroonian Communication Ability: Effective Communication Ability Comment: HUSLIA Hearing Ability: Hard of Hearing Cookie Mixer Helper Required: No Beliefs That Will Affect Care: None marital status: Current Living Situation: Spouse Other Information That Helps Us Care for You: No Feels Safe at Home: Yes Safety Concerns: Feels Safe At This Time Assistive Devices: Hearing Aid - Bilateral Review of Systems Review of Systems: All systems reviewed & are unremarkable except as noted in HPI & below Physical Exam Physical Exam: Constitutional: Thin, frail, elderly, male, very hard of hearing, vitals as above, NAD, sitting up in bed, pleasant, conversing easily Head: Normocephalic, Atraumatic Eyes: PERRL, conjunctivae normal, anicteric sclerae ENMT: external ear and nose normal, oropharynx normal Neck: trachea midline, no thyromegaly normal visual inspection Respiratory: normal respiratory effort, lungs clear to auscultation except for left lower lobe crackles, no wheeze or rhonchi. Normal insp/exp effort, no accessory muscle use Cardiovascular: RRR, no murmur, no edema, diminished pedal pulses bilaterally, vessels: no JVD or carotid bruit Chest: normal inspection of chest Abdomen: normal bowel sounds, soft, nontender, no hepatosplenomegaly Musculoskeletal: no cyanosis or clubbing, active range of motion x4 Skin: Right great toe plantar ulceration with necrosis, surrounding erythema and edema, warm and dry normal turgor Neurologic: PERRL, EOMI, accommodation nl, no face palsy, no dysarthria CN's II-XI intact bilaterally and moves all extremities Psychiatric: A+Ox3, euthymic affect Lymphatic: no cervical or axillary lymphadenopathy : Normal visual inspection Results & Data Results & Data ([facility]) Vital Signs (Past 12 Hours) Vital Signs Temp Pulse Pulse Resp BP BP Pulse Ox 08/23/20 19:10 97 08/23/20 19:00 94 H 20 113/61 100 08/23/20 18:50 83 19 100 08/23/20 18:45 79 18 118/49 L 99 08/23/20 18:40 78 13 99 08/23/20 18:31 82 24 98 08/23/20 18:30 79 20 119/52 L 99 08/23/20 18:20 82 13 98 08/23/20 18:15 79 15 118/51 L 08/23/20 18:10 78 13 99 08/23/20 18:01 80 17 132/49 L 95 08/23/20 18:00 90 25 H 79 L 08/23/20 17:50 83 15 98 08/23/20 17:45 83 15 118/55 L 97 08/23/20 17:40 82 15 98 08/23/20 17:31 83 14 100 08/23/20 17:30 83 16 113/52 L 99 08/23/20 17:20 84 14 98 08/23/20 17:17 83 14 130/69 98 08/23/20 17:10 83 12 100 08/23/20 17:03 86 15 127/48 L 100 08/23/20 17:01 98 H 24 152/93 H 90 08/23/20 17:00 90 25 H 63 L 08/23/20 16:50 89 16 98 08/23/20 16:45 88 13 116/47 L 99 08/23/20 16:40 85 12 99 08/23/20 16:31 84 16 100 08/23/20 16:30 87 15 115/54 L 08/23/20 16:21 90 16 115/54 L 98 08/23/20 16:20 87 17 115/54 L 99 08/23/20 16:16 89 16 133/51 L 98 08/23/20 16:10 93 H 18 80 L 08/23/20 16:01 19 79 L 08/23/20 16:00 94 H 18 142/67 H 90 08/23/20 15:53 96 H 92 H 14 124/60 124/60 99 08/23/20 15:50 92 H 14 99 08/23/20 15:45 90 13 111/67 98 08/23/20 15:40 84 12 96 08/23/20 15:31 84 11 L 98 08/23/20 15:30 84 11 L 119/48 L 98 08/23/20 15:26 82 11 L 116/48 L 95 08/23/20 15:20 84 10 L 96 08/23/20 15:15 88 12 116/48 L 94 08/23/20 15:10 89 12 94 08/23/20 15:01 88 11 L 95 08/23/20 15:00 89 13 121/49 L 95 08/23/20 14:50 84 11 L 96 08/23/20 14:45 90 12 111/47 L 96 08/23/20 14:40 85 11 L 96 08/23/20 14:31 88 12 95 08/23/20 14:30 96 H 14 118/49 L 95 08/23/20 14:20 86 12 95 08/23/20 14:15 88 14 114/51 L 94 08/23/20 14:10 90 16 90 08/23/20 14:00 93 H 21 106/73 84 L 08/23/20 13:50 88 21 97 08/23/20 13:45 91 H 20 114/47 L 99 08/23/20 13:40 97 H 17 81 L 08/23/20 13:31 92 H 18 96 08/23/20 13:30 93 H 19 96 08/23/20 13:20 99 H 17 99 08/23/20 13:16 96 H 15 113/58 L 08/23/20 13:10 94 H 12 95 08/23/20 13:01 94 H 17 98 08/23/20 13:00 94 H 17 105/52 L 98 08/23/20 12:50 90 15 97 08/23/20 12:45 90 16 114/48 L 94 08/23/20 12:40 87 19 96 08/23/20 12:31 92 H 20 96 08/23/20 12:30 92 H 17 115/48 L 94 08/23/20 12:20 95 H 12 94 08/23/20 12:15 92 H 20 101/38 L 88 L 08/23/20 12:10 99 H 18 90 08/23/20 12:00 96 H 105/51 L 08/23/20 11:50 101 H 20 08/23/20 11:45 103 H 22 99/49 L 08/23/20 11:40 94 H 25 H 08/23/20 11:31 107 H 23 78/36 L 96 08/23/20 11:30 109 H 19 08/23/20 11:20 108 H 95 08/23/20 11:12 113 H 23 111/47 L 97 08/23/20 11:10 37.7 C H 117 H 23 111/37 L 96 Diagnostic Findings Foot X-Ray 08/23/20 11:32 RIGHT FOOT 3 VIEWS CLINICAL HISTORY: Right foot infection. FINDINGS: 3 views of the right foot are compared to study dated 07/07/2020. The skeletal structures are osteopenic. Soft tissue edema is seen in the medial forefoot and midfoot with evidence of a cutaneous ulceration with surrounding subcutaneous gas at the level of the first metatarsophalangeal joint. There are foci of cortical destruction involving the head of the first proximal phalanx and the base of the first distal phalanx that are consistent with osteomyelitis. No similar appearing foci of bony destruction are seen throughout the remainder of the foot. Mild osteoarthritic change is noted at the first metatarsophalangeal joint. There is a large plantar calcaneal enthesophyte. Advanced atherosclerotic calcification is noted in the renal arteries. No radiodense foreign body is identified. IMPRESSION: 1. There is evidence of a cutaneous ulceration in the medial forefoot with surrounding cellulitis as above. 2. Findings are consistent with osteomyelitis involving the head of the first proximal phalanx and the base of the first distal phalanx. This represents a significant change as compared to 07/07/2020. 3. No acute fracture is clearly identified. Electronically signed by: Ariel Astudillo M.D. 08/23/2020 12:16 PM Medications Administered Medication List Morphine Sulfate (Morphine Sulfate 2 Mg/Ml Carp) 2 mg IV Q1HWA PRN PRN Reason: pain Stop: 09/06/20 13:11 Last Admin: 08/23/20 15:57 Dose: 2 mg Documented by: [id number] Admin: 08/23/20 13:27 Dose: 2 mg Documented by: [id number] Discontinued Medications Sodium Chloride (Nss 1000ml) 1,000 mls @ 999 mls/hr IV .Q1H1M ONE Stop: 08/23/20 12:36 Last Infusion: 08/23/20 13:09 Dose: 0 mls/hr Documented by: [id number] Admin: 08/23/20 12:09 Dose: 999 mls/hr Documented by: [id number] Vancomycin HCl 1,250 mg/ (Sodium Chloride) 525 mls @ 200 mls/hr IV NOW ONE Stop: 08/23/20 14:13 Last Infusion: 08/23/20 18:09 Dose: 0 mls/hr Documented by: [id number] Admin: 08/23/20 13:09 Dose: 200 mls/hr Documented by: [id number] Piperacillin Sod/Tazobactam Sod (Zosyn) 4.5 gm in 120 mls @ 240 mls/hr IV NOW ONE Stop: 08/23/20 12:05 Last Infusion: 08/23/20 13:09 Dose: 0 mls/hr Documented by: [id number] Admin: 08/23/20 12:09 Dose: 240 mls/hr Documented by: [id number] Morphine Sulfate (Morphine Sulfate 2 Mg/Ml Carp) 2 mg IV NOW STA Stop: 08/23/20 12:01 Last Admin: 08/23/20 12:09 Dose: 2 mg Documented by: [id number] COVID-19 Results Results COVID-19 Adm Lab Results: RBC 3.62 M/uL (4.7-6.1) L 08/24/20 WBC 10.05 K/uL (4.8-10.8) 08/24/20 Hgb 9.8 g/dL (14.0-18.0) L 08/24/20 Hct 29.6 % (42-52) L 08/24/20 Plt Count 356 K/uL (130-400) 08/24/20 Neutrophils (%) (Auto) 77.6 % 08/24/20 Lymphocytes (%) (Auto) 9.9 % 08/24/20 Monocytes # (Auto) 0.95 K/uL (0.11-0.59) H 08/24/20 Eosinophils # (Auto) 0.23 K/uL (0-0.5) 08/24/20 Immature Granulocyte % (Auto) 0.6 % 08/24/20 Neutrophils # (Auto) 7.81 K/uL (1.4-6.5) H 08/24/20 Lymphocytes # (Auto) 0.99 K/uL (1.2-3.4) L 08/24/20 Monocytes # (Auto) 0.95 K/uL (0.11-0.59) H 08/24/20 Eosinophils # (Auto) 0.23 K/uL (0-0.5) 08/24/20 Basophils # (Auto) 0.01 K/uL (0-0.2) 08/24/20 Immature Granulocyte # (Auto) 0.06 K/uL (0.00-0.02) H 08/24/20 Na 135 mmol/L (136-145) L 08/24/20 K 3.7 mmol/L (3.5-5.1) 08/24/20 Cl 105 mmol/L (98-107) 08/24/20 CO2 24 mmol/L (21-32) 08/24/20 Anion Gap 7.0 (3-11) 08/24/20 BUN 20 mg/dl (7-18) H 08/24/20 Creatinine 0.68 mg/dl (0.6-1.4) 08/24/20 BUN/Creatinine Ratio 29.2 (10-20) H 08/24/20 Glucose Level 144 mg/dl (70-99) H 08/24/20 Ca 8.5 mg/dl (8.5-10.1) 08/24/20 Total Bilirubin 0.3 mg/dl (0.2-1) 08/24/20 AST/SGOT 17 U/L (15-37) 08/24/20 ALT/SGPT < 6 U/L (12-78) L 08/24/20 Alkaline Phosphatase 97 U/L (45-117) 08/24/20 Total Protein 6.8 gm/dl (6.4-8.2) 08/24/20 Albumin 2.2 gm/dl (3.4-5.0) L 08/24/20 Globulin 4.6 gm/dl (2.5-4.0) H 08/24/20 Albumin/Globulin Ratio 0.5 (0.9-2) L 08/24/20 CRP 18.50 mg/dl (0-0.29) H 08/23/20 Procalcitonin 1.91 ng/ml (0-0.5) H 08/23/20 COVID-19 PCR NEGATIVE (Negative) 08/23/20 Chest X-Ray 08/23/20 Code Status & VTE Plan Code Status Full Code VTE Prophylaxis Plan VTE Prophylaxis will be ordered: Yes Supervising Physician Co-Signing Physician Notes 79-year-old male who has significant past medical history of vascular parkinsonism, T2DM, CAD with history of CABG, HTN, HLD, PVD, hypothyroidism, iron deficiency anemia, right diabetic ulcer was sent to the ER from PCP office for possible sepsis. Patient was recently seen and evaluated by Dr. Johnson on 08/14 secondary to right great toe ulceration. Pt failed outpatient therapy with local wound care and oral antibiotics. NOLA on 07/19/2020 was significant for mild to moderate PAD bilaterally. RI was obtained on 08/10 which was consistent with osteomyelitis. Plan was for patient undergo right lower extremity angiogram with possible percutaneous revascularization and amputation of the right great toe on 08/27.Foot xray done in the ER showed findings that are consistent with osteomyelitis involving the head of the first proximal phalanx and the base of the first distal phalanx. This represents a significant change as compared to 07/07/2020. Pt met sepsis criteria on admission with tachycardia, elevated WBC, lactic acid and procalcitonin. Blood cx collected in the ER. Starting on empirical abx with IV vanco and Zosyn. Plan to transfer pt to [place] once a bed is available for surgery with his surgeon in [place]. Repeat lactic acid normalized. continue gentle IV fluid. Will continue monitor closely. MD Beba
[2020-08-23] MEDS ORDERED: POLYETHYLENE (MIRALAX) 17 GM PACK PO PRN (20:16)
[2020-08-23] MEDS ORDERED: GLUCOSE 40% GEL 15 GM TUBE PO PRN (20:16)
[2020-08-23] MEDS ORDERED: CARBOHYDRATES FOR HYPOGLYCEMIA PO PRN (20:16)
[2020-08-23] MEDS ORDERED: ALUMINUM/MAGNESIUM SUSP 30 ML UDC PO PRN (20:16)
[2020-08-23] MEDS ORDERED: ACETAMINOPHEN 325 MG TAB PO PRN (20:16)
[2020-08-23] MEDS ORDERED: DEXTROSE 50% 50 ML SYRINGE IV PRN (20:16)
[2020-08-23] MEDS ORDERED: MAGNESIUM HYDROXIDE SUSP 30 ML UDC PO PRN (20:16)
[2020-08-23] MEDS ORDERED: GLUCAGON FOR INJ 1 MG VIAL SQ PRN (20:16)
[2020-08-23] MEDS ORDERED: GLUCOSE 10 TABS/TUBE PO PRN (20:16)
[2020-08-23] MEDS ORDERED: ONDANSETRON INJ 2 MG/ML 2 ML VIAL IV PRN (20:16)
[2020-08-23] MEDS ORDERED: PHARMACY GLYCEMIC MGMT CONSULT SCH (20:22)
[2020-08-23] MEDS ORDERED: PIPERACILLIN/TAZOBACTAM 3.375 GM in DEXTROSE 5% 100 ML IV STA (20:34)
--- NOTE | 2020-08-23 20:46 | Pharmacy Report ---
Pharmacy Abx Dose Short Note - Date of Service August 23, 2020 - Assessment & Plan Assessment 79 year old M receiving Vancomycin and Zosyn for EMPIRIC (48 hour stop date) treatment of osteomyelitis * PMHx significant for T2DM. * Failed outpatient keflex and doxycycline. * Leukocytosis of 12.6k, febrile, lactate elevated, procal elevated, ESR/CRP elevated. * Cultures pending. Plan Vancomycin * Loading dose: 1250 mg (24 mg/kg) IV x 1 * Maintenance dose: 500 mg IV every 12 hours * Goal AUC/SARBJIT: 400-600 * AUC/SARBJIT is the preferred PK/PD target for vancomycin dosing * Not ordering a trough unless vanc will be extended beyond 48 hours of therapy Zosyn * Received a 4.5 g IV loading dose in ER at ~1200. Will re-load patient with 3.375 g IV x 1 now (~2100). * Then start 3.375 g IV every 8 hours (extended infusion) Pharmacy will continue to follow and will adjust dose/frequency as necessary. Thank you.
[2020-08-23] MEDS: SODIUM CHLORIDE 0.9% 1000ML 1,000 ML IV SCH (20:55)
[2020-08-23] MEDS: oxyCODONE/ACETAMINOPHEN 5mg/325mg TAB PO PRN (20:57)
[2020-08-23] MEDS: GABAPENTIN 100 MG CAP PO SCH (20:58)
[2020-08-23] MEDS: DOCUSATE SODIUM 100 MG CAP PO SCH (20:58)
[2020-08-23] MEDS: HEPARIN SOD 5,000 UNIT/0.5 ML VIAL SQ SCH (20:58)
[2020-08-23] MEDS: CARBIDOPA/LEVODOPA 25/100MG TAB PO SCH (20:59)
[2020-08-23] MEDS: carvediloL 6.25 MG TAB PO SCH (20:59)
--- NOTE | 2020-08-23 21:01 | XRay Report ---
XR chest 1V portable HISTORY: Left lower lobe crackles. COMPARISON: 06/05/2020. FINDINGS: No pneumothorax. No pleural effusions. No new focal lung consolidations to suggest pneumoni a. No evidence for pulmonary edema. The heart is stable in size. There are poststernotomy changes. A few small linear density at the lung bases favor subsegmental atelectasis or scarring. This is simila r to the prior study. IMPRESSION: No significant change compared to the prior study. No acute process. ACT 112: Negative or not required by law. Electronically signed by: Elier Lao M.D. 08/23/2020 9:00 PM
[2020-08-23] MEDS ORDERED: ZOLPIDEM TARTRATE 5 MG TAB PO PRN (21:10)
[2020-08-23] MEDS: INSULIN ASPART 100 UNITS/ML 3 ML PEN SC SCH (21:30)
[2020-08-23] MEDS: INSULIN GLARGINE SOLOSTAR 100 UNITS/ML 3 ML PEN SC SCH (21:30)
[2020-08-24] MEDS: VANCOMYCIN HCL 500 MG in SODIUM CHLORIDE 0.9% 250 ML IV SCH ×2 (00:49→12:19)
[2020-08-24] MEDS: INSULIN ASPART 100 UNITS/ML 3 ML PEN SC SCH ×5 (00:54→17:21)
[2020-08-24] MEDS: PIPERACILLIN/TAZOBACTAM 3.375 GM in DEXTROSE 5% 100 ML IV SCH ×3 (03:14→17:19)
[2020-08-24] MEDS: oxyCODONE/ACETAMINOPHEN 5mg/325mg TAB PO PRN ×3 (03:44→15:02)
[2020-08-24 07:10] LABS: Basophils # (auto) 0.01 K/uL (0-0.2); Basophils % (auto) 0.1 %; Eosinophils # (auto) 0.23 K/uL (0-0.5); Eosinophils % (auto) 2.3 %; Hematocrit (blood only) 29.6 % (42-52); Hemoglobin 9.8 g/dL (14.0-18.0); Immature Granulocytes # (auto) 0.06 K/uL (0.00-0.02); Immature Granulocytes % (auto) 0.6 %; Lymphocytes # (auto) 0.99 K/uL (1.2-3.4); Lymphocytes % (auto) 9.9 %; Mean Corpuscular Hemoglobin 27.1 pg (25-34); Mean Corpuscular Hgb Conc 33.1 g/dL (32-36); Mean Corpuscular Volume 81.8 fL (80-100); Mean Platelet Volume 8.8 fL (7.4-10.4); Monocytes # (auto) 0.95 K/uL (0.11-0.59); Monocytes % (auto) 9.5 %; Neutrophils # (auto) 7.81 K/uL (1.4-6.5); Neutrophils % (auto) 77.6 %; Platelet Count 356 K/uL (130-400); RDW Standard Deviation 48.1 fL (36.4-46.3); Red Blood Count 3.62 M/uL (4.7-6.1); White Blood Count 10.05 K/uL (4.8-10.8)
[2020-08-24 07:43] LABS: Alanine Aminotransferase < 6 U/L (12-78); Albumin Level 2.2 gm/dl (3.4-5.0); Aspartate Aminotransferase 17 U/L (15-37); BUN Creatinine Ratio 29.2 (10-20); Blood Urea Nitrogen 20 mg/dl (7-18); Calcium 8.5 mg/dl (8.5-10.1); Carbon Dioxide 24 mmol/L (21-32); Chloride 105 mmol/L (98-107); Creatinine Clr Calc Pharmacy 63.3 ml/min; Est GFR (African American) 103.8 ml/min; Est GFR (Non-African American) 89.6 ml/min; Glucose 144 mg/dl (70-99); Magnesium 2.3 mg/dl (1.8-2.4); Potassium 3.7 mmol/L (3.5-5.1); Sodium 135 mmol/L (136-145)
[2020-08-24 07:44] LABS: Estimated Average Glucose 192 mg/dl; Hemoglobin A1C 8.3 % (4.5-5.6)
[2020-08-24 07:46] LABS: Albumin Globulin Ratio 0.5 (0.9-2); Alkaline Phosphatase 97 U/L (45-117); Bilirubin,Total 0.3 mg/dl (0.2-1); Globulin 4.6 gm/dl (2.5-4.0); Total Protein 6.8 gm/dl (6.4-8.2)
--- NOTE | 2020-08-24 07:48 | Electrocardiogram Report ---
Test Reason : Blood Pressure : / mmHG Vent. Rate : 111 BPM Atrial Rate : 111 BPM P-R Int : 154 ms QRS Dur : 088 ms QT Int : 336 ms P-R-T Axes : 028 086 074 degrees QTc Int : 456 ms Sinus tachycardia Anteroseptal infarct , age undetermined Abnormal ECG When compared with ECG of 06-JUN-2020 11:25, Vent. rate has increased BY 38 BPM Criteria for Anteroseptal infarct is now Present Confirmed by Hermes Delgado ([id number]) on 08/24/2020 7:48:07 AM Referred By: REFERRED SELF Confirmed By:Hermes Delgado
[2020-08-24] MEDS: INSULIN GLARGINE SOLOSTAR 100 UNITS/ML 3 ML PEN SC SCH (08:00)
[2020-08-24] MEDS: carvediloL 6.25 MG TAB PO SCH (08:03)
[2020-08-24] MEDS: CARBIDOPA/LEVODOPA 25/100MG TAB PO SCH ×3 (08:03→19:24)
[2020-08-24] MEDS: DOCUSATE SODIUM 100 MG CAP PO SCH (08:03)
[2020-08-24] MEDS: GABAPENTIN 100 MG CAP PO SCH ×2 (08:03→17:19)
[2020-08-24] MEDS: HEPARIN SOD 5,000 UNIT/0.5 ML VIAL SQ SCH (08:04)
[2020-08-24] MEDS ORDERED: ASPIRIN 81 MG ECTAB PO SCH (09:00)
[2020-08-24] MEDS ORDERED: MULTIVITAMIN TAB PO SCH (09:00)
[2020-08-24] MEDS ORDERED: ATORVASTATIN 20 MG TAB PO SCH (09:00)
[2020-08-24] MEDS ORDERED: CHOLECALCIFEROL 1,000 UNITS 25 MCG TAB PO SCH (09:00)
[2020-08-24] MEDS ORDERED: LOSARTAN POTASSIUM 25 MG TAB PO SCH (09:00)
[2020-08-24] MEDS ORDERED: FERROUS SULFATE 325 MG TAB PO SCH (09:00)
[2020-08-24] MEDS: HYDROmorphone INJ 0.5 MG/0.5 ML SYR IV PRN ×2 (09:22→13:03)
[2020-08-24] MEDS: SODIUM CHLORIDE 0.9% 1000ML 1,000 ML IV SCH ×2 (09:22→17:28)
--- NOTE | 2020-08-24 09:30 | Pharmacy Report ---
Pharmacy Glycemic Short Note 2 - Date of Service August 24, 2020 - Glycemic Short BSG Results (Last 24 hours): 08/23/20 08/23/20 08/24/20 11:48 20:28 00:48 Glucose 293 H POC Glucose 229 H 172 H 08/24/20 08/24/20 08/24/20 04:06 06:46 07:17 Glucose 144 H POC Glucose 113 H 129 H OUTPATIENT ANTIDIABETIC REGIMEN: * Metformin 1,000mg PO BIDM * Januvia 100 mg daily * A1c = 8.3% on 08/24/20 ASSESSMENT: * 79yo T2DM female with adequate control based on age/co-morbidities per A1c * Pt is maintained on oral antidiabetic agents as an outpatient * Oral agents are not recommended for inpatient use d/t drug interactions, changing PO intake, and difficulty titrating for acute hyper/hypoglycemia. ADA recommends re-initiating outpatient oral agents 1-2 days prior to discharge if/when appropriate if they were held on admission. * Will hold oral agents for admission and utilize SQ basal bolus insulin regimen which is the recommended regimen for inpatient glycemic control. * Will initiate weight based insulin dosing for insulin jeramy patient and titrate based on BSG trends. PLAN FOR INPATIENT GLYCEMIC CONTROL: * Hold outpatient oral diabetes medications * Basal insulin * Lantus 15 units SQ x 1 dose 08/23/20 PM; then * Lantus 7-10 units SQ BID- dose based on BSG * BSG below 180mg/dl --> 7 units * BSG 180mg/dl or above --> 10 units * Bolus insulin * NovoLog per scale ACHS or Q6hrs while NPO * Goal Range: Low 110 mg/dL - High 140 mg/dL * Correction Factor: 30 mg/dL/unit * Nutritional / Prandial insulin per carb ratio of 1 unit per 10 grams CHO consumed PLAN FOR DISCHARGE: * A1c = 8.3% on 08/24/20 * This is in goal range for patient based on age/co-morbidities * No changes needed to outpatient regimen * Support Patient Self-Management * Healthy Lifestyle (diet, exercise, and smoking cessation) * Disease self-management (SMBG) * Prevention of complications (BP, Lipid goals, Immunizations) * Consider outpatient Diabetes Self-Management Education & Support
--- NOTE | 2020-08-24 18:52 | Discharge Summary ---
Date of Service August 24, 2020 Admission HPI Per Admitting Provider This is a 79-year-old male who has significant past medical history of vascular parkinsonism, T2DM, CAD with history of CABG, HTN, HLD, PVD, hypothyroidism, iron deficiency anemia, right diabetic ulcer who presents to ED at the referral of PCP due to concern for sepsis. Of significance patient was seen and evaluated by Dr. Johnson on 08/14 secondary to right great toe ulceration which has been present for approximately 2 months. Ulceration is failed to heal despite local wound care and oral antibiotics. [place] on 07/19/2020 was significant for mild to moderate PAD bilaterally. X-ray of foot on 08/07 was concerning for great toe osteomyelitis. NM bone scan completed on 08/09/2020 was positive in the right great toe interphalangeal joint corresponding of septic arthritis/osteomyelitis. MRI was obtained on 08/10 which was consistent with osteomyelitis. Plan was for patient undergo right lower extremity angiogram with possible percutaneous revascularization and amputation of the right great toe on 08/27. In ED patient initially met sepsis criteria secondary to leukocytosis, tachycardia and lactic acid greater than 4. He was treated with broad-spectrum IV antibiotics with vancomycin and Zosyn. Blood cultures were obtained. He received 1 L of IV fluid and lactic acid improved to 1.6. Plan was for patient to be transferred down to [place] for vascular intervention and likely amputation of right great toe; however, a bed is currently unavailable therefore he would be admitted for continued IV antibiotics under our care and transferred when bed availability arises. In ED patient complains of right gr eat toe pain but otherwise has no complaints. He denies fever, chills, sweats, lightheadedness, dizziness, chest pain, shortness with, cough, nausea, vomiting, abdominal pain, dysuria, increased urinary frequency or urgency. Per nursing staff he has received multiple rounds of IV morphine without significant relief. Admission Exam Per Admitting Provider Constitutional: Thin, frail, elderly, male, very hard of hearing, vitals as above, NAD, sitting up in bed, pleasant, conversing easily Head: Normocephalic, Atraumatic Eyes: PERRL, conjunctivae normal, anicteric sclerae ENMT: external ear and nose normal, oropharynx normal Neck: trachea midline, no thyromegaly normal visual inspection Respiratory: normal respiratory effort, lungs clear to auscultation except for left lower lobe crackles, no wheeze or rhonchi. Normal insp/exp effort, no accessory muscle use Cardiovascular: RRR, no murmur, no edema, diminished pedal pulses bilaterally, vessels: no JVD or carotid bruit Chest: normal inspection of chest Abdomen: normal bowel sounds, soft, nontender, no hepatosplenomegaly Musculoskeletal: no cyanosis or clubbing, active range of motion x4 Skin: Right great toe plantar ulceration with necrosis, surrounding erythema and edema, warm and dry normal turgor Neurologic: PERRL, EOMI, accommodation nl, no face palsy, no dysarthria CN's II-XI intact bilaterally and moves all extremities Psychiatric: A+Ox3, euthymic affect Lymphatic: no cervical or axillary lymphadenopathy : Normal visual inspection Principal Diagnosis (1) Sepsis: (2) Osteomyelitis of great toe of right foot: Discharge Exam General- No acute distress Head- atraumatic Eyes- PERRL, EOMI, ENT- decrease hearing function Neck- supple, no JVD Lungs- clear to auscultation Heart- regular rhythm; no murmur Abdomen- normal bowel sounds, soft, nontender Extremities- no calf tenderness, Right great toe plantar ulceration with necrosis, surrounding erythema and edema, warm and dry normal turgor Neuro- alert, oriented x 3; PERRL, EOMI; no facial palsy; no dysarthria Skin- warm & dry Discharge Data Allergies Allergy/AdvReac Type Severity Reaction Status Date / Time Sulfa (Sulfonamide Allergy Unknown BLISTERS Verified 07/07/20 11:47 Antibiotics) AND RASH Consultations 08/23/20 18:04 ED Decision to Admit Stat Ordered Studies XR chest 1V portable HISTORY: Left lower lobe crackles. COMPARISON: 06/05/2020. FINDINGS: No pneumothorax. No pleural effusions. No new focal lung consolidations to suggest pneumonia. No evidence for pulmonary edema. The heart is stable in size. There are poststernotomy changes. A few small linear density at the lung bases favor subsegmental atelectasis or scarring. This is similar to the prior study. IMPRESSION: No significant change compared to the prior study. No acute process. ACT 112: Negative or not required by law. Electronically signed by: Elier Lao M.D. 08/23/2020 9:00 PM Dictated: 08/23/202058Transcribed: 08/23/202058 RIGHT FOOT 3 VIEWS CLINICAL HISTORY: Right foot infection. FINDINGS: 3 views of the right foot are compared to study dated 07/07/2020. The skeletal structures are osteopenic. Soft tissue edema is seen in the medial forefoot and midfoot with evidence of a cutaneous ulceration with surrounding subcutaneous gas at the level of the first metatarsophalangeal joint. There are foci of cortical destruction involving the head of the first proximal phalanx and the base of the first distal phalanx that are consistent with osteomyelitis. No similar appearing foci of bony destruction are seen throughout the remainder of the foot. Mild osteoarthritic change is noted at the first metatarsophalangeal joint. There is a large plantar calcaneal enthesophyte. Advanced atherosclerotic calcification is noted in the renal arteries. No radiodense foreign body is identified. IMPRESSION: 1. There is evidence of a cutaneous ulceration in the medial forefoot with surrounding cellulitis as above. 2. Findings are consistent with osteomyelitis involving the head of the first proximal phalanx and the base of the first distal phalanx. This represents a significant change as compared to 07/07/2020. 3. No acute fracture is clearly identified. Electronically signed by: Ariel Astudillo M.D. 08/23/2020 12:16 PM Dictated: 08/23/20 1213Transcribed: 08/23/20 1213 Hospital Course (1) Sepsis: (2) Osteomyelitis of great toe of right foot: This is a 79-year-old male who has significant past medical history of vascular parkinsonism, T2DM, CAD with history of CABG, HTN, HLD, PVD, hypothyroidism, iron deficiency anemia, right diabetic ulcer who presents to ED at the referral of PCP due to concern for sepsis. Of significance patient was seen and evaluated by Dr. Johnson on 08/14 secondary to right great toe ulceration which has been present for approximately 2 months. Ulceration is failed to heal despite local wound care and oral antibiotics. [place] on 07/19/2020 was significant for mild to moderate PAD bilaterally. X-ray of foot on 08/07 was concerning for great toe osteomyelitis. NM bone scan completed on 08/09/2020 was positive in the right great toe interphalangeal joint corresponding of septic arthritis/osteomyelitis. MRI was obtained on 08/10 which was consistent with osteomyelitis. Plan was for patient undergo right lower extremity angiogram with possible percutaneous revascularization and amputation of the right great toe on 08/27. Pt presents our ED due to concern for sepsis. Patient met sepsis criteria on admission secondary to leukocytosis, tachycardia and lactic acidosis. ESR 89, CRP 18.5, procalcitonin 1.91, Lactic acid 4.6 on admission He was started on IV antibiotics with vancomycin and Zosyn. He received 1 L of IV fluid with improvement of lactic acidosis to 1.6. Plan was for patient to be transferred to tertiary center at [facility] for vascular invention and right great toe amputation. He is established with Dr. Johnson and case discussed with Dr. Johnson that recommended to continue with the current management with IV abx for a few days and he would plan for surgery possible on Thursday Blood cx no growth so far Xray: Findings are consistent with osteomyelitis involving the head of the first proximal phalanx and the base of the first distal phalanx. Continue IV abx for now with IV zosyn and Vanco daily wound care Nonweightbearing to right lower extremity, elevate while in bed Plan to transfer to [facility] ER physician discussed case with the accepting hospitalist physician on admission Dr. Dong (3) CAD (coronary artery disease): History of CABG Continue ASA, statin, Coreg, losartan No chest pain or shortness of breath (4) Diabetes mellitus, type II: Last A1c 07/02/2020 6.6 Continue to hold Metformin, Jardiance and Januvia On Lantus/NovoLog per protocol Pharmacy on board for glycemic management (5) Hypertension: Blood pressure stable 113/61 Continue Coreg and losartan with parameters (6) Dyslipidemia: Continue statin (7) Hypothyroidism: Continue levothyroxine (8) Vascular parkinsonism: Continue Sinemet (9) DVT prophylaxis: On SQ Heparin Q12 during the hospital course FULL CODE Disposition Will transfer to [facility] Accepting physician Dr. Dong Total Time Total Time Spent Total Time Spent (In Minutes): 40 minutes Total Time Includes: Examination of the Patient, Discharge Planning, Medication Reconciliation, Communication With Other Providers and Other Discharge Plan Discharge Items Patient Disposition: Transfer Acute Care Hospital Reason For Visit: OSTEOMYLETIS OF R FIRST PHALAX SEPSIS Discharge Diagnosis: (1) Sepsis: (2) Osteomyelitis of great toe of right foot: Activity: Resume your previous activity Non-emergency contact: Primary Care Provider Call non-emergency contact if: you have any medication questions and your temperature is above 101 Follow-up/Referrals: Marianela Contreras MD [Primary Care Provider] - Diet: Carb Consistent or DM2 Addtl Attending Provider Instructions: Transfer to [facility] Accepting physician Dr. Dong Please Consult Vascular surgery Dr. Johnson Continue IV morphine for pain as needed during transfer Continue IV antibiotic with Zosyn and Vancomycin for now Pending Studies at Discharge: No Stand-Alone Forms: My [facility] Skilled Items Patient informed of condition?: Yes DNR: No Discharge Level of Care: Other Communicable Disease: No Discharge Prognosis: Stable Lines: Peripheral IV Urinary Catheter: No Medications and DC Order Prescriptions: Continued atorvastatin 20 mg Tablet 20 mg PO QAM RF: 0 metformin 1,000 mg Tablet 1,000 mg PO BIDM RF: 0 carbidopa-levodopa [Sinemet] 25-100 mg Tablet 2 tab PO QID RF: 0 Januvia 100 mg Tablet 100 mg PO QAM RF: 0 losartan 25 mg Tablet 25 mg PO QAM RF: 0 multivitamin Tablet 1 tab PO QAM RF: 0 carvedilol 6.25 mg Tablet 6.25 mg PO BID RF: 0 nitroglycerin 0.3 mg Tablet, Sublingual 0.3 mg sublingual QAM PRN (Reason: chest pain) RF: 0 cholecalciferol (vitamin D3) [Vitamin D3] 2,000 unit Tablet 2,000 unit PO QAM RF: 0 ferrous sulfate 325 mg (65 mg iron) Tablet 325 mg PO DAILY RF: 0 Jardiance 25 mg Tablet 25 mg PO QAM RF: 0 zolpidem 5 mg tablet 5 mg PO HS PRN (Reason: Sleep) RF: 0 furosemide 20 mg Tablet 20 mg PO WE RF: 0 gabapentin 100 mg capsule 100 mg PO TID RF: 0 docusate sodium 100 mg Tablet 100 mg PO BID RF: 0 aspirin [Aspir-81] 81 mg Tablet,Delayed Release (Dr/Ec) 81 mg PO DAILY RF: 0 Discharge Orders: Discharge Order (Routine); Ordered 08/23/20 Ordered By: Andi Mcneil/Other Patient Handouts: Managing Type 2 Diabetes, A1C Admission Data Admit Date/Time: 08/23/20 18:18 Attending Provider: Apple Yoder Admit Provider: Apple Yoder Primary Care Provider: Marianela Contreras Other Providers: Apple Yoder
[2020-08-25] MEDS ORDERED: VANCOMYCIN TROUGH ONE (11:30)
[2020-08-29] MEDS ORDERED: FUROSEMIDE 20 MG TAB PO SCH (09:00)
== END 2020-08-24 20:11 | disposition short-term general hospital (02) | DRG 872 ==
LOC: ED 11:05 → 2S 18:18 → 2N 08-24 11:20
DX: I25.2 Old myocardial infarction; E78.5 Hyperlipidemia, unspecified; I25.10 Atherosclerotic heart disease of native coronary artery without angina pectoris; Z79.84 Long term (current) use of oral hypoglycemic drugs; E03.9 Hypothyroidism, unspecified; E87.2 Acidosis; M86.271 Subacute osteomyelitis, right ankle and foot; Z87.891 Personal history of nicotine dependence; E11.9 Type 2 diabetes mellitus without complications; I10 Essential (primary) hypertension; G21.4 Vascular parkinsonism; A41.9 Sepsis, unspecified organism

== ENCOUNTER 2021-02-08 08:40 | Inpatient (IN) ==
[2021-02-08] MEDS ORDERED: SODIUM CHLORIDE 0.9% 1000ML 1,000 ML IV SCH (09:15)
--- NOTE | 2021-02-08 09:20 | Emergency Department Note ---
Impression & Plan Acute CVA (cerebrovascular accident), AMS (altered mental status), Carotid artery stenosis ED Provider Note NAME: LUIS TONEY AGE: 80 SEX: M : 1940 ARRIVES VIA: Walk-In INFORMANT: Patient, the patient's granddaughter ED PROVIDER(S): Hayden No DO CHIEF COMPLAINT: Altered mental status HPI: The patient is an 80-year-old male who presented to the emergency department with his granddaughter. The patient has been noted to be confused over the last 3 days. His granddaughter states that this is been worsening. T he patient has a history of diabetes. He has never had a stroke. He was not seen by his family doctor for the symptoms. His granddaughter started noticing symptoms on Thursday when he appeared confused and did not know how to take his blood sugar. Normally he would be able to do this. He then started being confused and not recognizing family members. Currently he thinks his granddaughter is actually his daughter. He has been able to ambulate at his baseline. He has had no recent trauma. He has had no nausea or vomiting. According to his granddaughter his blood sugars have been baseline. She states that he is been taking his usual outpatient medication. The patient also uses a walker. 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 He appears to be having some difficulty recognizing how to use his walker. Otherwise his speech appears to be baseline. ROS: See above HPI for pertinent positives & negatives. A total of 10 systems reviewed and were otherwise negative. PAST MEDICAL HISTORY: See Below PAST SURGICAL HISTORY: See Below FAMILY HISTORY: See Below SOCIAL HISTORY: See Below HOME MEDICATIONS: See Below ALLERGIES: See Below VITALS: See Below PHYSICAL EXAMINATION: GENERAL: The patient is awake and alert. He appears comfortable. EYES: The conjunctivae are clear. The pupils are round and reactive. EARS, NOSE, MOUTH AND THROAT: The nose is without any evidence of any deformity. Mucous membranes are moist. Tongue is midline. NECK: The neck is nontender and supple. RESPIRATORY: Normal respiratory effort is noted there is no evidence of wheezing rhonchi or rales CARDIOVASCULAR: Regular rate and rhythm noted there no murmurs rubs or gallops normal S1 normal S2. GASTROINTESTINAL: The abdomen is soft. Abdomen is nontender. MUSCULOSKELETAL/EXTREMITIES: There is no evidence of gross deformity full range of motion is noted in the hips and shoulders. SKIN: Skin was warm and dry. There is no significant pedal edema. NEUROLOGIC: Patient is awake and answers questions through the granddaughter. He does not appear to know the year. He does not appear to know that he is in the emergency department. Strength was symmetric. The patient is able to hold each leg off the bed for greater than 5 seconds. MEDICAL DECISION MAKING: The patient is an 80-year-old male who presented to the emergency department for an evaluation of altered mental status and possible strokelike symptoms. The patient's been having symptoms for approximately 3 days. The patient did not have any focal neurologic deficits. I discussed the patient's laboratory and radiographic studies with him as well as his granddaughter. He does appear to have very significant cerebral and carotid artery disease as well as signs of a possible subacute infarct on CT. I do feel this would explain the patient's symptoms. Because of the symptoms I did discuss the patient's condition with the on-call [facility]. The patient was not made a stroke alert as he was not within 24 hours of his symptoms. He would not be a candidate for TPA as he is not within 3 hours of the onset of symptoms. Triage Nursing notes reviewed. Prior medical records reviewed Vital Signs: reviewed and remarkable for elevated blood pressure. Differential diagnosis: Infection, dehydration, metabolic abnormality, hypo/hyperglycemia, electrolyte disturbance, anemia, hypoxia, cardiac sources, intracerebral event, toxicologic, neurologic, as well as other pathologies. ER treatment provided: See below Diagnostics interpreted by me: ECG: EKG was obtained in the emergency department. My interpretation is normal sinus rhythm at 84 bpm. There was no ectopy. Inferior Q waves were appreciated. This was compared to a tracing from August 232020. No changes were noted. Cardiac Monitoring: An order was placed for continuous cardiac monitoring. The monitor shows a rate of 86 bpm with sinus rhythm. Laboratory studies: As stated above and show below. Imaging studies: See below Consultation(s): I discussed his case with Areli who is on-call for the [facility]. They will evaluate the patient in the emergency department. Past Med/Surg History Medical History CAD (coronary artery disease) [place] / demand ischemia related to severe anemia Dyslipidemia History of Helicobacter pylori infection Hypertension Hypothyroidism CARISSA (iron deficiency anemia) Osteomyelitis Vascular parkinsonism Surgical History S/P CABG x 3 2002 Family History Other Cancer Diabetes Heart disease Social History Smoking Status: Never smoker Second Hand Exposure: No; Hx Alcohol Use: No Hx Substance Use: No Preferred Language: [place] Communication Ability: Effective Hearing Ability: Hard of Hearing [employer] Required: No Beliefs That Will Affect Care: None marital status: Current Living Situation: Spouse Feels Safe at Home: Yes Assistive Devices: Hearing Aid - Bilateral Allergies Allergies Allergy/AdvReac Type Severity Reaction Status Date / Time Sulfa (Sulfonamide Allergy Unknown BLISTERS Verified 09/28/20 07:23 Antibiotics) AND RASH Home Meds Home Medications Medication Instructions Recorded Confirmed atorvastatin 20 mg tablet 20 mg PO QAM 01/07/18 02/08/21 carbidopa 25 mg-levodopa 100 mg 2 tab PO QID 01/07/18 02/08/21 tablet (Sinemet) carvedilol 6.25 mg tablet 6.25 mg PO BID 01/07/18 02/08/21 losartan 25 mg tablet 25 mg PO QAM 01/07/18 02/08/21 sitagliptin 100 mg tablet (Januvia) 100 mg PO QAM 01/07/18 02/08/21 cholecalciferol (vitamin D3) 50 2,000 unit PO QAM 10/25/18 02/08/21 mcg (2,000 unit) tablet (Vitamin D3) nitroglycerin 0.3 mg sublingual 0.3 mg SUBLINGUAL QAM PRN 10/25/18 02/08/21 tablet empagliflozin 25 mg tablet 25 mg PO QAM 06/05/20 02/08/21 (Jardiance) ferrous sulfate 325 mg (65 mg 325 mg PO Q OTHER DAY 06/05/20 02/08/21 iron) tablet zolpidem 5 mg tablet 5 mg PO HS PRN 07/07/20 02/08/21 aspirin 81 mg tablet,delayed 81 mg PO DAILY 08/23/20 02/08/21 release docusate sodium 100 mg tablet 100 mg PO BID 08/23/20 02/08/21 furosemide 20 mg tablet 20 mg PO WE 08/23/20 02/08/21 gabapentin 100 mg capsule 100 mg PO UD 08/23/20 02/08/21 pantoprazole 40 mg tablet,delayed 40 mg PO DAILY 09/27/20 02/08/21 release carvedilol 3.125 mg tablet 3.125 mg PO BID 02/08/21 02/08/21 melatonin 3 mg tablet 3 mg PO HS PRN 02/08/21 02/08/21 trazodone 50 mg tablet 50 mg PO DAILY 02/08/21 02/08/21 Results & Data (ED) Vital Signs Vital Signs - 24 hr 02/08/21 08:52 02/08/21 09:26 02/08/21 09:30 Temperature 36.4 C L Temperature Source Oral Pulse Rate 91 H 92 H 86 Pulse Rate [Apical] Pulse Rate from SpO2 Sensor Pulse Rhythm [Apical] Respiratory Rate 20 18 18 Respiratory Effort / Characteristics Respiratory Depth Blood Pressure 152/65 H Blood Pressure [Left Arm] Blood Pressure Mean 94 Blood Pressure Mean [Left Arm] Pulse Oximetry 100 Oxygen Delivery Method Room Air Sepsis Recent Fever Within 48 Hours No Sepsis New/Unexplained Change in Mental Status No Sepsis Action Taken by Nursing No Action Required 02/08/21 09:40 02/08/21 09:50 02/08/21 11:29 Temperature Temperature Source Pulse Rate 83 83 Pulse Rate [Apical] 86 Pulse Rate from SpO2 Sensor 83 Pulse Rhythm [Apical] Regular Respiratory Rate 22 21 16 Respiratory Effort / Characteristics Non-Labored Respiratory Depth Normal Blood Pressure Blood Pressure [Left Arm] 164/70 H Blood Pressure Mean Blood Pressure Mean [Left Arm] 101 Pulse Oximetry 99 95 Oxygen Delivery Method Room Air Sepsis Recent Fever Within 48 Hours Sepsis New/Unexplained Change in Mental Status Sepsis Action Taken by Skilled Nursing Medications Current Medication List: was personally reviewed by me Laboratory Data Attestation: I reviewed the patient's lab results. Result diagrams: 02/08/21 09:33 02/08/21 09:33 Lab Results 02/08/21 02/08/21 02/08/21 Range/Units 09:00 09:33 09:33 WBC 8.68 (4.8-10.8) K/uL RBC 4.74 (4.7-6.1) M/uL Hgb 13.3 L (14.0-18.0) g/dL Hct 38.6 L (42-52) % MCV 81.4 (80-100) fL MCH 28.1 (25-34) pg MCHC 34.5 (32-36) g/dL RDW Std Deviation 45.7 (36.4-46.3) fL RDW Coeff of Melissa 15.3 H (11.5-14.5) % Plt Count 280 (130-400) K/uL MPV 9.5 (7.4-10.4) fL Immature Gran % (Auto) 0.3 % Neut % (Auto) 72.5 % Lymph % (Auto) 17.9 % Arthur % (Auto) 7.0 % Eos % (Auto) 2.1 % Baso % (Auto) 0.2 % Neut # (Auto) 6.29 (1.4-6.5) K/uL Lymph # (Auto) 1.55 (1.2-3.4) K/uL Arthur # (Auto) 0.61 H (0.11-0.59) K/uL Eos # (Auto) 0.18 (0-0.5) K/uL Baso # (Auto) 0.02 (0-0.2) K/uL Immature Gran # (Auto) 0.03 H (0.00-0.02) K/uL PT 9.9 (9.0-12.0) Seconds INR 1.0 (0.9-1.1) APTT 29.5 (21.0-31.0) Seconds PTT Ratio 1.1 Sodium (136-145) mmol/L Potassium (3.5-5.1) mmol/L Chloride (98-107) mmol/L Carbon Dioxide (21-32) mmol/L Anion Gap (3-11) BUN (7-18) mg/dl Creatinine (0.6-1.4) mg/dl Est Cr Clr Drug Dosing Est GFR ( Amer) ml/min Est GFR (Non-Af Amer) ml/min BUN/Creatinine Ratio (10-20) Glucose (70-99) mg/dl POC Glucose 156 H (70-99) mg/dl Calcium (8.5-10.1) mg/dl Magnesium (1.8-2.4) mg/dl Total Bilirubin (0.2-1) mg/dl AST (15-37) U/L ALT (12-78) U/L Alkaline Phosphatase (45-117) U/L Troponin I (0-0.045) ng/ml Total Protein (6.4-8.2) gm/dl Albumin (3.4-5.0) gm/dl Globulin (2.5-4.0) gm/dl Albumin/Globulin Ratio (0.9-2) 02/08/21 Range/Units 09:33 WBC (4.8-10.8) K/uL RBC (4.7-6.1) M/uL Hgb (14.0-18.0) g/dL Hct (42-52) % MCV (80-100) fL MCH (25-34) pg MCHC (32-36) g/dL RDW Std Deviation (36.4-46.3) fL RDW Coeff of Melissa (11.5-14.5) % Plt Count (130-400) K/uL MPV (7.4-10.4) fL Immature Gran % (Auto) % Neut % (Auto) % Lymph % (Auto) % Arthur % (Auto) % Eos % (Auto) % Baso % (Auto) % Neut # (Auto) (1.4-6.5) K/uL Lymph # (Auto) (1.2-3.4) K/uL Arthur # (Auto) (0.11-0.59) K/uL Eos # (Auto) (0-0.5) K/uL Baso # (Auto) (0-0.2) K/uL Immature Gran # (Auto) (0.00-0.02) K/uL PT (9.0-12.0) Seconds INR (0.9-1.1) APTT (21.0-31.0) Seconds PTT Ratio Sodium 133 L (136-145) mmol/L Potassium 3.7 (3.5-5.1) mmol/L Chloride 98 (98-107) mmol/L Carbon Dioxide 24 (21-32) mmol/L Anion Gap 12.0 H (3-11) BUN 25 H (7-18) mg/dl Creatinine 0.95 (0.6-1.4) mg/dl Est Cr Clr Drug Dosing Not Reportable Est GFR ( Amer) 86.1 ml/min Est GFR (Non-Af Amer) 74.2 ml/min BUN/Creatinine Ratio 26.6 H (10-20) Glucose 158 H (70-99) mg/dl POC Glucose (70-99) mg/dl Calcium 9.4 (8.5-10.1) mg/dl Magnesium 2.0 (1.8-2.4) mg/dl Total Bilirubin 0.3 (0.2-1) mg/dl AST 12 L (15-37) U/L ALT 10 L (12-78) U/L Alkaline Phosphatase 78 (45-117) U/L Troponin I < 0.015 (0-0.045) ng/ml Total Protein 7.9 (6.4-8.2) gm/dl Albumin 3.8 (3.4-5.0) gm/dl Globulin 4.1 H (2.5-4.0) gm/dl Albumin/Globulin Ratio 0.9 (0.9-2) Administered Medications Sodium Chloride (Nss 1000ml) 1,000 mls @ 50 mls/hr IV .Q20H KAYLA Stop: 03/10/21 09:14 Last Admin: 02/08/21 09:42 Dose: 50 mls/hr Documented by: [id number] Discontinued Medications Ioversol (Optiray 320 125ml) 120 ml IV ONCE ONE Stop: 02/08/21 11:09 Last Admin: 02/08/21 11:05 Dose: 120 ml Documented by: [id number] Imaging Data Radiologist's Impression: Chest X-Ray 02/08/21 09:12 XR chest 1V portable HISTORY: Weakness. Stroke Like Symptoms COMPARISON: Chest 08/23/2020. FINDINGS: No pneumothorax. No pleural effusions. There are poststernotomy changes. The cardiac silhouette remains borderline enlarged. No evidence for pulmonary edema. No new focal lung consolidations to suggest pneumonia. IMPRESSION: No significant change compared to the prior study. No acute process. ACT 112: Negative or not required by law. Electronically signed by: Elier Lao M.D. 02/08/2021 10:[address] 02/08/21 09:[address] OF THE BRAIN; CT ANGIOGRAM OF THE BRAIN; CT ANGIOGRAM OF THE NECK CLINICAL HISTORY: Change in mental status. Memory loss. Stroke like symptoms. COMPARISON STUDY: No priors. TECHNIQUE: Unenhanced axial CT scan of the brain is performed. Subsequently, following the IV administration of 112 of Optiray 320, CT angiogram of the head and neck was performed from the aortic arch to the vertex. Images are reviewed in the axial, sagittal, and coronal planes. 3-D MIPS images are created and assessed. IV contrast was administered without complication. All measurements were calculated based on NASCET criteria. A dose lowering technique was utilized adhering to the principles of ALARA. CT DOSE: 1030.94 mGy.cm FINDINGS: Brain parenchyma: There is age-related involutional change noting moderate to advanced subcortical and periventricular microangiopathic disease. There is loss of loera-white matter differentiation within the left posterior temporal lobe consistent with subacute ischemia. There is mild surrounding edema. Foci of bifrontal encephalomalacia are consistent with remote insults. No hemorrhage is identified. There is no midline shift. There is no evidence of enhancing mass lesion on the angiogram phase images. A chronic lacunar infarct is noted in the right basal ganglia. The ventricles, sulci, and cisterns are prominent secondary to involutional change. No extra-axial fluid collection is seen. Thoracic aorta: There is atherosclerotic calcification of the thoracic aorta. Visualized portions of the thoracic aorta are normal in caliber. The aortic arch demonstrates standard 3-vessel anatomy. Right carotid arterial system: The right common carotid artery is widely patent, as is the right internal carotid artery. Atherosclerotic plaque and irregularity is noted in the carotid bulb. There is mild stenosis of the origin of the right external carotid artery. The remainder of the external carotid artery is patent. Left carotid arterial system: There is focal 65% stenosis at the origin of the left common carotid artery, best seen on axial image #33. Atherosclerotic plaque causes less than 50% luminal narrowing of the distal left common carotid artery. There is focal high-grade stenosis with near complete occlusion at the origin of the left external carotid artery seen on axial image #185. The remainder of the left external carotid artery is patent. The left internal carotid artery is schneider nt to the skull base. Vertebral arteries: There is approximately 50% focal stenosis of the right vertebral artery at the level of C2, best seen on image #233. The vertebral a rteries are otherwise patent in the neck noting left-sided dominance. Subclavian arteries: Widely patent bilaterally. Intracranial vasculature: There is atherosclerotic calcification of the cavernous carotid and vertebral arteries. There is a long segment of high-grade stenosis with near complete occlusion of the petrous left internal carotid art jozef at the skull base, best seen on axial image #63. This extends at least 1.7 cm in length. There is also high-grade stenosis of the supraclinoid left internal carotid artery just below the [place], best seen on image #97. The right internal carotid artery is widely patent at the skull base. The left A1 segment is diminutive versus occluded. The anterior cerebral arteries are widely patent, and are supplied via the right-sided circulation. The right middle cerebral artery is widely patent. The left middle cerebral artery also appears patent. The vertebrobasilar system and posterior cerebral arteries are patent. The left vertebral artery is dominant. No aneurysm is seen throughout t he intracranial circulation. Jugular veins: Patent bilaterally. Dural sinuses: Patent. Lung apices: Emphysematous change is suspected. Upper lobe lung parenchyma is otherwise clear as imaged. Soft tissues: Question paralysis of the left vocal cord. The oropharyngeal airway appears widely patent. The thyroid gland is enlarged and heterogeneous. Numerous thyroid nodules measure up to 1.5 cm. The salivary glands are normal in appearance. No cervical lymphadenopathy is seen. Skeletal structures: The skeletal structures are osteopenic. The calvarium appears intact. The cervical spine is maintained noting multilevel spondylosis. No lytic or blastic lesion is seen. Orbits: The bony orbits are intact. Orbital contents are normal as visualized noting bilateral ocular lens implants. Sinuses and mastoids: There is evidence of previous paranasal sinus surgery. There is subtotal opacification of the left maxillary antrum. Mild mucosal thickening is seen in the right maxillary antrum. The remaining paranasal sinuses appear clear. There is a large left mastoid effusion. A small mastoid effusion is seen on the right. There is rightward deviation of the bony nasal septum. IMPRESSION: 1. There is loss of loera-white matter differentiation in the left posterior temporal lobe consistent with subacute ischemia. 2. There is no hemorrhage or midline shift. 3. There is a long segment of high-grade stenosis with near complete occlusion involving the petrous portion of the left internal carotid artery at the skull base. 4. There is also focal high-grade stenosis of the supraclinoid left internal carotid artery just below the [place]. 5. The left A1 segment is diminutive versus occluded. Both anterior cerebral arteries are patent and supplied via the right-sided circulation. 6. There is approximately 65% focal stenosis of the origin of the left common carotid artery. 7. There is high-grade stenosis at the origin of the left external carotid artery. 8. There is approximately 50% focal stenosis of the right vertebral artery at the level of C2. 9. Question paralysis of the left vocal cord. 10. Suspect emphysema. 11. Multinodular thyroid gland as above. This could be further evaluated with a nonemergent thyroid ultrasound if clinically warranted. 12. Additional findings as above. ACT 112: Negative or not required by law. Electronically signed by: Ariel Astudillo M.D. 02/08/2021 11:36 AM Head CTA 02/08/21 09:[address] OF THE BRAIN; CT ANGIOGRAM OF THE BRAIN; CT ANGIOGRAM OF THE NECK CLINICAL HISTORY: Change in mental status. Memory loss. Stroke like symptoms. COMPARISON STUDY: No priors. TECHNIQUE: Unenhanced axial CT scan of the brain is performed. Subsequently, following the IV administration of 112 of Optiray 320, CT angiogram of the head and neck was performed from the aortic arch to the vertex. Images are reviewed in the axial, sagittal, and coronal planes. 3-D MIPS images are created and assessed. IV contrast was administered without complication. All measurements were calculated based on NASCET criteria. A dose lowering technique was utilized adhering to the principles of ALARA. CT DOSE: 1030.94 mGy.cm FINDINGS: Brain parenchyma: There is age-related involutional change noting moderate to advanced subcortical and periventricular microangiopathic disease. There is loss of loera-white matter differentiation within the left posterior temporal lobe consistent with subacute ischemia. There is mild surrounding edema. Foci of bifrontal encephalomalacia are consistent with remote insults. No hemorrhage is identified. There is no midline shift. There is no evidence of enhancing mass lesion on the angiogram phase images. A chronic lacunar infarct is noted in the right basal ganglia. The ventricles, sulci, and cisterns are prominent secondary to involutional change. No extra-axial fluid collection is seen. Thoracic aorta: There is atherosclerotic calcification of the thoracic aorta. Visualized portions of the thoracic aorta are normal in caliber. The aortic arch demonstrates standard 3-vessel anatomy. Right carotid arterial system: The right common carotid artery is widely patent, as is the right internal carotid artery. Atherosclerotic plaque and irregularity is noted in the carotid bulb. There is mild stenosis of the origin of the right external carotid artery. The remainder of the external carotid artery is patent. Left carotid arterial system: There is focal 65% stenosis at the origin of the l eft common carotid artery, best seen on axial image #33. Atherosclerotic plaque causes less than 50% luminal narrowing of the distal left common carotid artery. There is focal high-grade stenosis with near complete occlusion at the origin of the left external carotid artery seen on axial image #185. The remainder of the left external carotid artery is patent. The left internal carotid artery is pa tent to the skull base. Vertebral arteries: There is approximately 50% focal stenosis of the right vertebral artery at the level of C2, best seen on image #233. The vertebral arteries are otherwise patent in the neck noting left-sided dominance. Subclavian arteries: Widely patent bilaterally. Intracranial vasculature: There is atherosclerotic calcification of the cavernous carotid and vertebral arteries. There is a long segment of high-grade stenosis with near complete occlusion of the petrous left internal carotid a rtery at the skull base, best seen on axial image #63. This extends at least 1.7 cm in length. There is also high-grade stenosis of the supraclinoid left internal carotid artery just below the [place], best seen on image #97. The right internal carotid artery is widely patent at the skull base. The left A1 segment is diminutive versus occluded. The anterior cerebral arteries are widely patent, and are supplied via the right-sided circulation. The right middle cerebral artery is widely patent. The left middle cerebral artery also appears patent. The vertebrobasilar system and posterior cerebral arteries are patent. The left vertebral artery is dominant. No aneurysm is seen throughout the intracranial circulation. Jugular veins: Patent bilaterally. Dural sinuses: Patent. Lung apices: Emphysematous change is suspected. Upper lobe lung parenchyma is otherwise clear as imaged. Soft tissues: Question paralysis of the left vocal cord. The oropharyngeal airway appears widely patent. The thyroid gland is enlarged and heterogeneous. Numerous thyroid nodules measure up to 1.5 cm. The salivary glands are normal in appearance. No cervical lymphadenopathy is seen. Skeletal structures: The skeletal structures are osteopenic. The calvarium appears intact. The cervical spine is maintained noting multilevel spondylosis. No lytic or blastic lesion is seen. Orbits: The bony orbits are intact. Orbital contents are normal as visualized noting bilateral ocular lens implants. Sinuses and mastoids: There is evidence of previous paranasal sinus surgery. There is subtotal opacification of the left maxillary antrum. Mild mucosal thickening is seen in the right maxillary antrum. The remaining paranasal sinuse s appear clear. There is a large left mastoid effusion. A small mastoid effusion is seen on the right. There is rightward deviation of the bony nasal septum. IMPRESSION: 1. There is loss of loera-white matter differentiation in the left posterior temporal lobe consistent with subacute ischemia. 2. There is no hemorrhage or midline shift. 3. There is a long segment of high-grade stenosis with near complete occlusion involving the petrous portion of the left internal carotid artery at the skull base. 4. There is also focal high-grade stenosis of the supraclinoid left internal carotid artery just below the [place]. 5. The left A1 segment is diminutive versus occluded. Both anterior cerebral arteries are patent and supplied via the right-sided circulation. 6. There is approximately 65% focal stenosis of the origin of the left common carotid artery. 7. There is high-grade stenosis at the origin of the left external carotid artery. 8. There is approximately 50% focal stenosis of the right vertebral artery at the level of C2. 9. Question paralysis of the left vocal cord. 10. Suspect emphysema. 11. Multinodular thyroid gland as above. This could be further evaluated with a nonemergent thyroid ultrasound if clinically warranted. 12. Additional findings as above. ACT 112: Negative or not required by law. Electronically signed by: Ariel Astudillo M.D. 02/08/2021 11:36 AM Neck CTA 02/08/21 09:[address] OF THE BRAIN; CT ANGIOGRAM OF THE BRAIN; CT ANGIOGRAM OF THE NECK CLINICAL HISTORY: Change in mental status. Memory loss. Stroke like symptoms. COMPARISON STUDY: No priors. TECHNIQUE: Unenhanced axial CT scan of the brain is performed. Subsequently, following the IV administration of 112 of Optiray 320, CT angiogram of the head and neck was performed from the aortic arch to the vertex. Images are reviewed in the axial, sagittal, and coronal planes. 3-D MIPS images are created and assessed. IV contrast was administered without complication. All measurements were calculated based on NASCET criteria. A dose lowering technique was utilized adhering to the principles of ALARA. CT DOSE: 1030.94 mGy.cm FINDINGS: Brain parenchyma: There is age-related involutional change noting moderate to advanced subcortical and periventricular microangiopathic disease. There is loss of loera-white matter differentiation within the left posterior temporal lobe consistent with subacute ischemia. There is mild surrounding edema. Foci of bifrontal encephalomalacia are consistent with remote insults. No hemorrhage is identified. There is no midline shift. There is no evidence of enhancing mass lesion on the angiogram phase images. A chronic lacunar infarct is noted in the right basal ganglia. The ventricles, sulci, and cisterns are prominent secondary to involutional change. No extra-axial fluid collection is seen. Thoracic aorta: There is atherosclerotic calcification of the thoracic aorta. Visualized portions of the thoracic aorta are normal in caliber. The aortic arch demonstrates standard 3-vessel anatomy. Right carotid arterial system: The right common carotid artery is widely patent, as is the right internal carotid artery. Atherosclerotic plaque and irregularity is noted in the carotid bulb. There is mild stenosis of the origin of the right external carotid artery. The remainder of the external carotid artery is patent. Left carotid arterial system: There is focal 65% stenosis at the origin of the left common carotid artery, best seen on axial image #33. Atherosclerotic plaque causes less than 50% luminal narrowing of the distal left common carotid artery. There is focal high-grade stenosis with near complete occlusion at the origin of the left external carotid artery seen on axial image #185. The remainder of the left external carotid artery is patent. The left internal carotid artery is patent to the skull base. Vertebral arteries: There is approximately 50% focal stenosis of the right vertebral artery at the level of C2, best seen on image #233. The vertebral arteries are otherwise patent in the neck noting left-sided dominance. Subclavian arteries: Widely patent bilaterally. Intracranial vasculature: There is atherosclerotic calcification of the cavernous carotid and vertebral arteries. There is a long segment of high-grade stenosis with near complete occlusion of the petrous left internal carotid artery at the skull base, best seen on axial image #63. This extends at least 1.7 cm in length. There is also high-grade stenosis of the supraclinoid left internal carotid artery just below the [place], best seen on image #97. The right internal carotid artery is widely patent at the skull base. The left A1 segment is diminutive versus occluded. The anterior cerebral arteries are widely patent, and are supplied via the right-sided circulation. The right middle cerebral artery is widely patent. The left middle cerebral artery also appears patent. The vertebrobasilar system and posterior cerebral arteries are patent. The left vertebral artery is dominant. No aneurysm is seen throughout the intracranial circulation. Jugular veins: Patent bilaterally. Dural sinuses: Patent. Lung apices: Emphysematous change is suspected. Upper lobe lung parenchyma is otherwise clear as imaged. Soft tissues: Question paralysis of the left vocal cord. The oropharyngeal airway appears widely patent. The thyroid gland is enlarged and heterogeneous. Numerous thyroid nodules measure up to 1.5 cm. The salivary glands are normal in appearance. No cervical lymphadenopathy is seen. Skeletal structures: The skeletal structures are osteopenic. The calvarium appears intact. The cervical spine is maintained noting multilevel spondylosis. No lytic or blastic lesion is seen. Orbits: The bony orbits are intact. Orbital contents are normal as visualized noting bilateral ocular lens implants. Sinuses and mastoids: There is evidence of previous paranasal sinus surgery. There is subtotal opacification of the left maxillary antrum. Mild mucosal thickening is seen in the right maxillary antrum. The remaining paranasal sinu ses appear clear. There is a large left mastoid effusion. A small mastoid effusion is seen on the right. There is rightward deviation of the bony nasal septum. IMPRESSION: 1. There is loss of loera-white matter differentiation in the left posterior temporal lobe consistent with subacute ischemia. 2. There is no hemorrhage or midline shift. 3. There is a long segment of high-grade stenosis with near complete occlusion involving the petrous portion of the left internal carotid artery at the skull base. 4. There is also focal high-grade stenosis of the supraclinoid left internal carotid artery just below the [place]. 5. The left A1 segment is diminutive versus occluded. Both anterior cerebral arteries are patent and supplied via the right-sided circulation. 6. There is approximately 65% focal stenosis of the origin of the left common carotid artery. 7. There is high-grade stenosis at the origin of the left external carotid artery. 8. There is approximately 50% focal stenosis of the right vertebral artery at the level of C2. 9. Question paralysis of the left vocal cord. 10. Suspect emphysema. 11. Multinodular thyroid gland as above. This could be further evaluated with a nonemergent thyroid ultrasound if clinically warranted. 12. Additional findings as above. ACT 112: Negative or not required by law. Electronically signed by: Ariel Astudillo M.D. 02/08/2021 11:36 AM Discharge Plan Visit Data Chief Complaint: Confusion Stated Complaint: RAPID ONSET CONFUSION/DEMNTIA? ED Provider: Hayden No Discharge Problem: Acute CVA (cerebrovascular accident), AMS (altered mental status), Carotid artery stenosis Patient Disposition: Being Evaluated by Hospitalist Forms Stand Alone Forms: My [facility] Prescriptions Prescriptions: No Action atorvastatin 20 mg Tablet 20 mg PO QAM RF: 0 carbidopa-levodopa [Sinemet] 25-100 mg Tablet 2 tab PO QID RF: 0 Januvia 100 mg Tablet 100 mg PO QAM RF: 0 losartan 25 mg Tablet 25 mg PO QAM RF: 0 carvedilol 6.25 mg Tablet 6.25 mg PO BID RF: 0 nitroglycerin 0.3 mg Tablet, Sublingual 0.3 mg sublingual QAM PRN (Reason: chest pain) RF: 0 cholecalciferol (vitamin D3) [Vitamin D3] 2,000 unit Tablet 2,000 unit PO QAM RF: 0 ferrous sulfate 325 mg (65 mg iron) Tablet 325 mg PO Q OTHER DAY RF: 0 Jardiance 25 mg Tablet 25 mg PO QAM RF: 0 trazodone 50 mg tablet 50 mg PO DAILY RF: 0 melatonin 3 mg tablet 3 mg PO HS PRN (Reason: Insomnia) RF: 0 carvedilol 3.125 mg tablet 3.125 mg PO BID RF: 0 zolpidem 5 mg tablet 5 mg PO HS PRN (Reason: Sleep) RF: 0 furosemide 20 mg Tablet 20 mg PO WE RF: 0 gabapentin 100 mg capsule 100 mg PO UD RF: 0 docusate sodium 100 mg Tablet 100 mg PO BID RF: 0 aspirin 81 mg Tablet,Delayed Release (Dr/Ec) 81 mg PO DAILY RF: 0 pantoprazole 40 mg Tablet,Delayed Release (Dr/Ec) 40 mg PO DAILY RF: 0 Referrals Referrals: [facility] [Non-Staff] -
[2021-02-08 10:28] LABS: Basophils # (auto) 0.02 K/uL (0-0.2); Basophils % (auto) 0.2 %; Eosinophils # (auto) 0.18 K/uL (0-0.5); Eosinophils % (auto) 2.1 %; Hematocrit (blood only) 38.6 % (42-52); Hemoglobin 13.3 g/dL (14.0-18.0); Immature Granulocytes # (auto) 0.03 K/uL (0.00-0.02); Immature Granulocytes % (auto) 0.3 %; Lymphocytes # (auto) 1.55 K/uL (1.2-3.4); Lymphocytes % (auto) 17.9 %; Mean Corpuscular Hemoglobin 28.1 pg (25-34); Mean Corpuscular Hgb Conc 34.5 g/dL (32-36); Mean Corpuscular Volume 81.4 fL (80-100); Mean Platelet Volume 9.5 fL (7.4-10.4); Monocytes # (auto) 0.61 K/uL (0.11-0.59); Neutrophils # (auto) 6.29 K/uL (1.4-6.5); Neutrophils % (auto) 72.5 %; Platelet Count 280 K/uL (130-400); RDW Coefficient of Variation 15.3 % (11.5-14.5); RDW Standard Deviation 45.7 fL (36.4-46.3); Red Blood Count 4.74 M/uL (4.7-6.1); White Blood Count 8.68 K/uL (4.8-10.8)
--- NOTE | 2021-02-08 10:33 | XRay Report ---
XR chest 1V portable HISTORY: Weakness. Stroke Like Symptoms COMPARISON: Chest 08/23/2020. FINDINGS: No pneumothorax. No pleural effusions. There are poststernotomy changes. The cardiac silhou ette remains borderline enlarged. No evidence for pulmonary edema. No new focal lung consolidations t o suggest pneumonia. IMPRESSION: No significant change compared to the prior study. No acute process. ACT 112: Negative or not required by law. Electronically signed by: Elier Lao M.D. 02/08/2021 10:31 AM
[2021-02-08 10:42] LABS: Partial Thromboplastin Ratio 1.1; Partial Thromboplastin Time 29.5 Seconds (21.0-31.0); Prothrombin Time 9.9 Seconds (9.0-12.0)
[2021-02-08 10:48] LABS: Alanine Aminotransferase 10 U/L (12-78); Albumin Level 3.8 gm/dl (3.4-5.0); Aspartate Aminotransferase 12 U/L (15-37); BUN Creatinine Ratio 26.6 (10-20); Blood Urea Nitrogen 25 mg/dl (7-18); Calcium 9.4 mg/dl (8.5-10.1); Carbon Dioxide 24 mmol/L (21-32); Chloride 98 mmol/L (98-107); Est GFR (African American) 86.1 ml/min; Est GFR (Non-African American) 74.2 ml/min; Glucose 158 mg/dl (70-99); Potassium 3.7 mmol/L (3.5-5.1); Sodium 133 mmol/L (136-145)
[2021-02-08 10:53] LABS: Albumin Globulin Ratio 0.9 (0.9-2); Alkaline Phosphatase 78 U/L (45-117); Bilirubin,Total 0.3 mg/dl (0.2-1); Globulin 4.1 gm/dl (2.5-4.0); Total Protein 7.9 gm/dl (6.4-8.2); Troponin I < 0.015 ng/ml (0-0.045)
[2021-02-08] MEDS ORDERED: OPTIRAY 320 125ml IV ONE (11:08)
--- NOTE | 2021-02-08 11:38 | CT Scan Report ---
UNENHANCED CT OF THE BRAIN; CT ANGIOGRAM OF THE BRAIN; CT ANGIOGRAM OF THE NECK CLINICAL HISTORY: Change in mental status. Memory loss. Stroke like symptoms. COMPARISON STUDY: No priors. TECHNIQUE: Unenhanced axial CT scan of the brain is performed. Subsequently, following the IV adminis tration of 112 of Optiray 320, CT angiogram of the head and neck was performed from the aortic arch t o the vertex. Images are reviewed in the axial, sagittal, and coronal planes. 3-D MIPS images are cre ated and assessed. IV contrast was administered without complication. All measurements were calculate d based on NASCET criteria. A dose lowering technique was utilized adhering to the principles of ALA RA. CT DOSE: 1030.94 mGy.cm FINDINGS: Brain parenchyma: There is age-related involutional change noting moderate to advanced subcortical an d periventricular microangiopathic disease. There is loss of loera-white matter differentiation within the left posterior temporal lobe consistent with subacute ischemia. There is mild surrounding edema. Foci of bifrontal encephalomalacia are consistent with remote insults. No hemorrhage is identified. There is no midline shift. There is no evidence of enhancing mass lesion on the angiogram phase image s. A chronic lacunar infarct is noted in the right basal ganglia. The ventricles, sulci, and cisterns are prominent secondary to involutional change. No extra-axial fluid collection is seen. Thoracic aorta: There is atherosclerotic calcification of the thoracic aorta. Visualized portions of the thoracic aorta are normal in caliber. The aortic arch demonstrates standard 3-vessel anatomy. Right carotid arterial system: The right common carotid artery is widely patent, as is the right inte rnal carotid artery. Atherosclerotic plaque and irregularity is noted in the carotid bulb. There is m ild stenosis of the origin of the right external carotid artery. The remainder of the external caroti d artery is patent. Left carotid arterial system: There is focal 65% stenosis at the origin of the left common carotid ar david, best seen on axial image #33. Atherosclerotic plaque causes less than 50% luminal narrowing of the distal left common carotid artery. There is focal high-grade stenosis with near complete occlusio n at the origin of the left external carotid artery seen on axial image #185. The remainder of the le ft external carotid artery is patent. The left internal carotid artery is patent to the skull base. Vertebral arteries: There is approximately 50% focal stenosis of the right vertebral artery at the le frances of C2, best seen on image #233. The vertebral arteries are otherwise patent in the neck noting le ft-sided dominance. Subclavian arteries: Widely patent bilaterally. Intracranial vasculature: There is atherosclerotic calcification of the cavernous carotid and vertebr al arteries. There is a long segment of high-grade stenosis with near complete occlusion of the [place] left internal carotid artery at the skull base, best seen on axial image #63. This extends at leas t 1.7 cm in length. There is also high-grade stenosis of the supraclinoid left internal carotid arter y just below the [place], best seen on image #97. The right internal carotid artery is widel y patent at the skull base. The left A1 segment is diminutive versus occluded. The anterior cerebral arteries are widely patent, and are supplied via the right-sided circulation. The right middle cerebr al artery is widely patent. The left middle cerebral artery also appears patent. The vertebrobasilar system and posterior cerebral arteries are patent. The left vertebral artery is dominant. No aneurysm is seen throughout the intracranial circulation. Jugular veins: Patent bilaterally. Dural sinuses: Patent. Lung apices: Emphysematous change is suspected. Upper lobe lung parenchyma is otherwise clear as imag ed. Soft tissues: Question paralysis of the left vocal cord. The oropharyngeal airway appears widely schneider nt. The thyroid gland is enlarged and heterogeneous. Numerous thyroid nodules measure up to 1.5 cm. T he salivary glands are normal in appearance. No cervical lymphadenopathy is seen. Skeletal structures: The skeletal structures are osteopenic. The calvarium appears intact. The cervic al spine is maintained noting multilevel spondylosis. No lytic or blastic lesion is seen. Orbits: The bony orbits are intact. Orbital contents are normal as visualized noting bilateral ocular lens implants. Sinuses and mastoids: There is evidence of previous paranasal sinus surgery. There is subtotal opacif ication of the left maxillary antrum. Mild mucosal thickening is seen in the right maxillary antrum. The remaining paranasal sinuses appear clear. There is a large left mastoid effusion. A small mastoid effusion is seen on the right. There is rightward deviation of the bony nasal septum. IMPRESSION: 1. There is loss of loera-white matter differentiation in the left posterior temporal lobe consistent with subacute ischemia. 2. There is no hemorrhage or midline shift. 3. There is a long segment of high-grade stenosis with near complete occlusion involving the petrous portion of the left internal carotid artery at the skull base. 4. There is also focal high-grade stenosis of the supraclinoid left internal carotid artery just [place]. 5. The left A1 segment is diminutive versus occluded. Both anterior cerebral arteries are patent and supplied via the right-sided circulation. 6. There is approximately 65% focal stenosis of the origin of the left common carotid artery. 7. There is high-grade stenosis at the origin of the left external carotid artery. 8. There is approximately 50% focal stenosis of the right vertebral artery at the level of C2. 9. Question paralysis of the left vocal cord. 10. Suspect emphysema. 11. Multinodular thyroid gland as above. This could be further evaluated with a nonemergent thyroid u ltrasound if clinically warranted. 12. Additional findings as above. ACT 112: Negative or not required by law. Electronically signed by: Ariel Astudillo M.D. 02/08/2021 11:36 AM
--- NOTE | 2021-02-08 13:49 | History & Physical Report ---
Date of Service February 08, 2021 Assessment & Plan (1) Acute CVA (cerebrovascular accident): (2) AMS (altered mental status): Plan: Patient is 80-year-old male with PMH DM II, CAD s/p CABG, vascular parkinsonism, HTN, HLD, PVD s/p partial right foot amputation, iron deficiency anemia secondary to history of GI bleed in past, hypothyroidism presented to ER with complaint of confusion x 3 days. Denies extremity weakness, VAZQUEZ, vision changes, speech changes, facial drooping In ER vitals stable, no leukocytosis, no significant electrolyte abnormality, negative troponin. CTA Head and neck: 1. There is loss of loera-white matter differentiation in the left posterior temporal lobe consistent with subacute ischemia. 2. There is no hemorrhage or midline shift. 3. There is a long segment of high-grade stenosis with near complete occlusion involving the petrous portion of the left internal carotid artery at the skull base. 4. There is also focal high-grade stenosis of the supraclinoid left internal carotid artery just below the north fork of Angela. 5. The left A1 segment is diminutive versus occluded. Both anterior cerebral arteries are patent and supplied via the right-sided circulation. 6. There is approximately 65% focal stenosis of the origin of the left common carotid artery. 7. There is high-grade stenosis at the origin of the left external carotid artery. 8. There is approximately 50% focal stenosis of the right vertebral artery at the level of C2. 9. Question paralysis of the left vocal cord. 10. Suspect emphysema. 11. Multinodular thyroid gland as above. This could be further evaluated with a nonemergent thyroid ultrasound if clinically warranted. -Admit tele to monitor for arrhythmias -Lipid panel, A1c, TSH in am -MRI brain -echo with bubble study -aspiration precautions -PT/OT consult -Continue statin, aspirin -Will hold Ambien currently with confusion -neurology consult (3) CAD (coronary artery disease): Plan: S/P CABG Denies CP, SOB -Continue aspirin, carvedilol, atorvastatin (4) Diabetes mellitus, type II: Plan: A1c: 7.3 on 11/28/2020 -Hold home glycemic agents -NovoLog sliding scale per protocol (5) Hypertension: Plan: Stable -Continue carvedilol (6) Dyslipidemia: Plan: -Continue atorvastatin (7) Vascular parkinsonism: Plan: -Continue carbidopa-levodopa (8) PAD (peripheral artery disease): Plan: H/O partial right foot amputation -Continue aspirin DVT Prophylaxis -Heparin SQ Full Code as per discussion with pt and pt's granddaughter Follows with Dr Marianela Contreras for routine care Pt was seen and care coordinated with Dr Castillo. See addendum History of Present Illness Chief Complaint: Confusion Primary Care Provider: Marianela Contreras MD Patient is 80-year-old male with PMH DM II, CAD s/p CABG, vascular parkinsonism, HTN, HLD, PVD s/p partial right foot amputation, iron deficiency anemia secondary to history of GI bleed in past, hypothyroidism presented to ER with complaint of confusion. Patient speaks Jaylin, granddaughter is serving as political aide. Reports patient lives at home with his and granddaughter. Granddaughter reports Thursday evening patient was having trouble knowing how to use his glucometer which is unusual. Yesterday and today seems to have increased confusion. Patient is having a hard time knowing what to do with food, was unaware of how to use a mask, did not know how to put his hearing aids in. This morning he thought his granddaughter was his daughter. Since being in ER patient now knows who granddaughter is. Denies any known facial droop, speech changes. Patient walks with use of walker and has unsteady gait secondary to his prior partial foot amputation however denies any further noted ambulatory difficulty. Denies patient complaining of headache, dizziness or vision changes. Denies fever/chills, diaphoresis, N/V/D/C, melena, hematochezia, syncope, neck pain, CP, SOB, orthopnea, palpitations, cough, sore throat, choking, otalgia, rhinorrhea, abdominal pain, paresthesias, extremity weakness, extremity edema, rashes, urinary symptoms. In ER vitals stable, no leukocytosis, no significant electrolyte abnormality, negative troponin. CTA head and neck: Loss of loera-white matter differentiation in the left posterior temporal lobe consistent with subacute ischemia, long segment of high-grade stenosis with near complete occlusion involving the petrous portion of the left internal carotid artery at the skull base, focal high-grade stenosis of supraclinoid left internal carotid artery just below north fork of [place] Patient being admitted for further evaluation and treatment. Allergies Allergy/AdvReac Type Severity Reaction Status Date / Time Sulfa (Sulfonamide Allergy Unknown BLISTERS Verified 09/28/20 07:23 Antibiotics) AND RASH Home Medications Medication Instructions Recorded Confirmed Type atorvastatin 20 mg tablet 20 mg PO QAM 01/07/18 02/08/21 History carbidopa 25 mg-levodopa 100 mg 2 tab PO QID 01/07/18 02/08/21 History tablet (Sinemet) sitagliptin 100 mg tablet (Januvia) 100 mg PO QAM 01/07/18 02/08/21 History cholecalciferol (vitamin D3) 50 2,000 unit PO QAM 10/25/18 02/08/21 History mcg (2,000 unit) tablet (Vitamin D3) nitroglycerin 0.3 mg sublingual 0.3 mg SUBLINGUAL QAM PRN 10/25/18 02/08/21 History tablet empagliflozin 25 mg tablet 25 mg PO QAM 06/05/20 02/08/21 History (Jardiance) ferrous sulfate 325 mg (65 mg 325 mg PO Q OTHER DAY 06/05/20 02/08/21 History iron) tablet zolpidem 5 mg tablet 5 mg PO HS PRN 07/07/20 02/08/21 History aspirin 81 mg tablet,delayed 81 mg PO DAILY 08/23/20 02/08/21 History release docusate sodium 100 mg tablet 100 mg PO BID 08/23/20 02/08/21 History gabapentin 100 mg capsule 100 mg PO BID 08/23/20 02/08/21 History carvedilol 3.125 mg tablet 3.125 mg PO BID 02/08/21 02/08/21 History glipizide 2.5 mg tablet, extended 2.5 mg PO UD 02/08/21 02/08/21 History release 24 hr melatonin 3 mg tablet 3 mg PO HS PRN 02/08/21 02/08/21 History omeprazole 40 mg capsule,delayed 40 mg PO BID 02/08/21 02/08/21 History release tramadol 50 mg tablet 50 mg PO Q6H PRN 02/08/21 02/08/21 History trazodone 50 mg tablet 50 mg PO HS PRN 02/08/21 02/08/21 History Past Med/Surg History Medical History (Updated 02/08/21 @ 14:24 by Deanna Simon PA-C) CAD (coronary artery disease) AR / demand ischemia related to severe anemia Diabetes mellitus, type II Dyslipidemia History of Helicobacter pylori infection Hypertension Hypothyroidism CARISSA (iron deficiency anemia) Osteomyelitis PAD (peripheral artery disease) Vascular parkinsonism Surgical History 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 Family History Other Cancer Diabetes Heart disease Social History (Updated 02/08/21 @ 14:20 by Deanna Simon PA-C) Smoking Status: Never smoker Second Hand Exposure: No; Hx Alcohol Use: No Hx Substance Use: No Preferred Language: Jaylin Communication Ability: Effective Hearing Ability: Hard of Hearing Carbonation Tester Required: No Beliefs That Will Affect Care: None marital status: Current Living Situation: Spouse Feels Safe at Home: Yes Assistive Devices: Hearing Aid - Bilateral Review of Systems Review of Systems: All systems reviewed & are unremarkable except as noted in HPI & below Physical Exam Physical Exam: General: no distress, WDWN Head: normocephalic, atraumatic Eyes: PERRL, EOM's intact, conjunctiva non-injected, anicteric ENT: normal inspection external ears, nose, mucous membranes moist Neck: supple, trachea midline Lungs: clear, no respiratory distress, no wheezing/rhonchi/rales CV: RRR, no murmur, no pretibial edema Abd: normal BS, soft, non-tender Ext: no cyanosis, or erythema, R Foot: +distal amputation, site is without erythema or discharge Neuro: alert, oriented to person, EOMs intact. No nystagmus, face is strong and symmetric, hard of hearing, no dysarthria reported, tongue is midline, normal movement, no fasciculations, able to move all extremities, therapeutic support staff strength equal bilaterally Skin: warm, dry Results & Data Results & Data ([facility]) Vital Signs (Past 12 Hours) Vital Signs Temp Pulse Pulse Resp BP BP Pulse Ox 02/08/21 13:00 85 16 146/63 H 97 02/08/21 11:29 86 16 164/70 H 95 02/08/21 09:50 83 21 02/08/21 09:40 83 22 99 02/08/21 09:30 86 18 02/08/21 09:26 92 H 18 02/08/21 08:52 36.4 C L 91 H 20 152/65 H 100 Laboratory Results Short CBC 02/08/21 Range/Units 09:33 WBC 8.68 (4.8-10.8) K/uL Hgb 13.3 L (14.0-18.0) g/dL Hct 38.6 L (42-52) % Plt Count 280 (130-400) K/uL BMP 02/08/21 09:33 Sodium 133 L Potassium 3.7 Chloride 98 Carbon Dioxide 24 BUN 25 H Creatinine 0.95 Glucose 158 H Calcium 9.4 Cardiac Enzymes 02/08/21 Range/Units 09:33 Troponin I < 0.015 (0-0.045) ng/ml Liver Function 02/08/21 Range/Units 09:33 Total Bilirubin 0.3 (0.2-1) mg/dl AST 12 L (15-37) U/L ALT 10 L (12-78) U/L Alkaline Phosphatase 78 (45-117) U/L Albumin 3.8 (3.4-5.0) gm/dl Diagnostic Findings Chest X-Ray 02/08/21 09:12 XR chest 1V portable HISTORY: Weakness. Stroke Like Symptoms COMPARISON: Chest 08/23/2020. FINDINGS: No pneumothorax. No pleural effusions. There are poststernotomy changes. The cardiac silhouette remains borderline enlarged. No evidence for pulmonary edema. No new focal lung consolidations to suggest pneumonia. IMPRESSION: No significant change compared to the prior study. No acute process. ACT 112: Negative or not required by law. Electronically signed by: Elier Lao M.D. 02/08/2021 10:[address] 02/08/21 09:[address] OF THE BRAIN; CT ANGIOGRAM OF THE BRAIN; CT ANGIOGRAM OF THE NECK CLINICAL HISTORY: Change in mental status. Memory loss. Stroke like symptoms. COMPARISON STUDY: No priors. TECHNIQUE: Unenhanced axial CT scan of the brain is performed. Subsequently, following the IV administration of 112 of Optiray 320, CT angiogram of the head and neck was performed from the aortic arch to the vertex. Images are reviewed in the axial, sagittal, and coronal planes. 3-D MIPS images are created and assessed. IV contrast was administered without complication. All measurements were calculated based on NASCET criteria. A dose lowering technique was utilized adhering to the principles of ALARA. CT DOSE: 1030.94 mGy.cm FINDINGS: Brain parenchyma: There is age-related involutional change noting moderate to advanced subcortical and periventricular microangiopathic disease. There is loss of loera-white matter differentiation within the left posterior temporal lobe consistent with subacute ischemia. There is mild surrounding edema. Foci of bifrontal encephalomalacia are consistent with remote insults. No hemorrhage is identified. There is no midline shift. There is no evidence of enhancing mass lesion on the angiogram phase images. A chronic lacunar infarct is noted in the right basal ganglia. The ventricles, sulci, and cisterns are prominent secondary to involutional change. No extra-axial fluid collection is seen. Thoracic aorta: There is atherosclerotic calcification of the thoracic aorta. Visualized portions of the thoracic aorta are normal in caliber. The aortic arch demonstrates standard 3-vessel anatomy. Right carotid arterial system: The right common carotid artery is widely patent, as is the right internal carotid artery. Atherosclerotic plaque and irregularity is noted in the carotid bulb. There is mild stenosis of the origin of the right external carotid artery. The remainder of the external carotid artery is patent. Left carotid arterial system: There is focal 65% stenosis at the origin of the left common carotid artery, best seen on axial image #33. Atherosclerotic plaque causes less than 50% luminal narrowing of the distal left common carotid artery. There is focal high-grade stenosis with near complete occlusion at the origin of the left external carotid artery seen on axial image #185. The remainder of the left external carotid artery is patent. The left internal carotid artery is patent to the skull base. Vertebral arteries: There is approximately 50% focal stenosis of the right vertebral artery at the level of C2, best seen on image #233. The vertebral arteries are otherwise patent in the neck noting left-sided dominance. Subclavian arteries: Widely patent bilaterally. Intracranial vasculature: There is atherosclerotic calcification of the cavernous carotid and vertebral arteries. There is a long segment of high-grade stenosis with near complete occlusion of the petrous left internal carotid artery at the skull base, best seen on axial image #63. This extends at least 1.7 cm in length. There is also high-grade stenosis of the supraclinoid left internal carotid artery just below the north fork of Angela, best seen on image #97. The right internal carotid artery is widely patent at the skull base. The left A1 segment is diminutive versus occluded. The anterior cerebral arteries are widely patent, and are supplied via the right-sided circulation. The right middle cerebral artery is widely patent. The left middle cerebral artery also appears patent. The vertebrobasilar system and posterior cerebral arteries are patent. The left vertebral artery is dominant. No aneurysm is seen throughout the intracranial circulation. Jugular veins: Patent bilaterally. Dural sinuses: Patent. Lung apices: Emphysematous change is suspected. Upper lobe lung parenchyma is otherwise clear as imaged. Soft tissues: Question paralysis of the left vocal cord. The oropharyngeal airway appears widely patent. The thyroid gland is enlarged and heterogeneous. Numerous thyroid nodules measure up to 1.5 cm. The salivary glands are normal in appearance. No cervical lymphadenopathy is seen. Skeletal structures: The skeletal structures are osteopenic. The calvarium appears intact. The cervical spine is maintained noting multilevel spondylosis. No lytic or blastic lesion is seen. Orbits: The bony orbits are intact. Orbital contents are normal as visualized noting bilateral ocular lens implants. Sinuses and mastoids: There is evidence of previous paranasal sinus surgery. There is subtotal opacification of the left maxillary antrum. Mild mucosal thickening is seen in the right maxillary antrum. The remaining paranasal sinuses appear clear. There is a large left mastoid effusion. A small mastoid effusion is seen on the right. There is rightward deviation of the bony nasal septum. IMPRESSION: 1. There is loss of loera-white matter differentiation in the left posterior temporal lobe consistent with subacute ischemia. 2. There is no hemorrhage or midline shift. 3. There is a long segment of high-grade stenosis with near complete occlusion involving the petrous portion of the left internal carotid artery at the skull base. 4. There is also focal high-grade stenosis of the supraclinoid left internal carotid artery just below the north fork of Angela. 5. The left A1 segment is diminutive versus occluded. Both anterior cerebral arteries are patent and supplied via the right-sided circulation. 6. There is approximately 65% focal stenosis of the origin of the left common carotid artery. 7. There is high-grade stenosis at the origin of the left external carotid artery. 8. There is approximately 50% focal stenosis of the right vertebral artery at the level of C2. 9. Question paralysis of the left vocal cord. 10. Suspect emphysema. 11. Multinodular thyroid gland as above. This could be further evaluated with a nonemergent thyroid ultrasound if clinically warranted. 12. Additional findings as above. ACT 112: Negative or not required by law. Electronically signed by: Ariel Astudillo M.D. 02/08/2021 11:36 AM Head CTA 02/08/21 09:[address] OF THE BRAIN; CT ANGIOGRAM OF THE BRAIN; CT ANGIOGRAM OF THE NECK CLINICAL HISTORY: Change in mental status. Memory loss. Stroke like symptoms. COMPARISON STUDY: No priors. TECHNIQUE: Unenhanced axial CT scan of the brain is performed. Subsequently, following the IV administration of 112 of Optiray 320, CT angiogram of the head and neck was performed from the aortic arch to the vertex. Images are reviewed in the axial, sagittal, and coronal planes. 3-D MIPS images are created and assessed. IV contrast was administered without complication. All measurements were calculated based on NASCET criteria. A dose lowering technique was utilized adhering to the principles of ALARA. CT DOSE: 1030.94 mGy.cm FINDINGS: Brain parenchyma: There is age-related involutional change noting moderate to advanced subcortical and periventricular microangiopathic disease. There is loss of loera-white matter differentiation within the left posterior temporal lobe consistent with subacute ischemia. There is mild surrounding edema. Foci of bifrontal encephalomalacia are consistent with remote insults. No hemorrhage is identified. There is no midline shift. There is no evidence of enhancing mass lesion on the angiogram phase images. A chronic lacunar infarct is noted in the right basal ganglia. The ventricles, sulci, and cisterns are prominent secondary to involutional change. No extra-axial fluid collection is seen. Thoracic aorta: There is atherosclerotic calcification of the thoracic aorta. Visualized portions of the thoracic aorta are normal in caliber. The aortic arch demonstrates standard 3-vessel anatomy. Right carotid arterial system: The right common carotid artery is widely patent, as is the right internal carotid artery. Atherosclerotic plaque and irregularity is noted in the carotid bulb. There is mild stenosis of the origin of the right external carotid artery. The remainder of the external carotid artery is patent. Left carotid arterial system: There is focal 65% stenosis at the origin of the left common carotid artery, best seen on axial image #33. Atherosclerotic plaque causes less than 50% luminal narrowing of the distal left common carotid artery. There is focal high-grade stenosis with near complete occlusion at the origin of the left external carotid artery seen on axial image #185. The remainder of the left external carotid artery is patent. The left internal carotid artery is patent to the skull base. Vertebral arteries: There is approximately 50% focal stenosis of the right v ertebral artery at the level of C2, best seen on image #233. The vertebral arteries are otherwise patent in the neck noting left-sided dominance. Subclavian arteries: Widely patent bilaterally. Intracranial vasculature: There is atherosclerotic calcification of the cavernous carotid and vertebral arteries. There is a long segment of high-grade stenosis with near complete occlusion of the petrous left internal carotid artery at the skull base, best seen on axial image #63. This extends at least 1.7 cm in length. There is also high-grade stenosis of the supraclinoid left internal carotid artery just below the north fork of [place], best seen on image #97. The right internal carotid artery is widely patent at the skull base. The left A1 segment is diminutive versus occluded. The anterior cerebral arteries are widely patent, and are supplied via the right-sided circulation. The right middle cerebral artery is widely patent. The left middle cerebral artery also appears patent. The vertebrobasilar system and posterior cerebral arteries are patent. The left vertebral artery is dominant. No aneurysm is seen throughout the intracranial circulation. Jugular veins: Patent bilaterally. Dural sinuses: Patent. Lung apices: Emphysematous change is suspected. Upper lobe lung parenchyma is otherwise clear as imaged. Soft tissues: Question paralysis of the left vocal cord. The oropharyngeal airway appears widely patent. The thyroid gland is enlarged and heterogeneous. Numerous thyroid nodules measure up to 1.5 cm. The salivary glands are normal in appearance. No cervical lymphadenopathy is seen. Skeletal structures: The skeletal structures are osteopenic. The calvarium appears intact. The cervical spine is maintained noting multilevel spondylosis. No lytic or blastic lesion is seen. Orbits: The bony orbits are intact. Orbital contents are normal as visualized noting bilateral ocular lens implants. Sinuses and mastoids: There is evidence of previous paranasal sinus surgery. There is subtotal opacification of the left maxillary antrum. Mild mucosal thickening is seen in the right maxillary antrum. The remaining paranasal sinuses appear clear. There is a large left mastoid effusion. A small mastoid effusion is seen on the right. There is rightward deviation of the bony nasal septum. IMPRESSION: 1. There is loss of loera-white matter differentiation in the left posterior temporal lobe consistent with subacute ischemia. 2. There is no hemorrhage or midline shift. 3. There is a long segment of high-grade stenosis with near complete occlusion involving the petrous portion of the left internal carotid artery at the skull base. 4. There is also focal high-grade stenosis of the supraclinoid left internal carotid artery just below the north fork of Angela. 5. The left A1 segment is diminutive versus occluded. Both anterior cerebral arteries are patent and supplied via the right-sided circulation. 6. There is approximately 65% focal stenosis of the origin of the left common carotid artery. 7. There is high-grade stenosis at the origin of the left external carotid artery. 8. There is approximately 50% focal stenosis of the right vertebral artery at the level of C2. 9. Question paralysis of the left vocal cord. 10. Suspect emphysema. 11. Multinodular thyroid gland as above. This could be further evaluated with a nonemergent thyroid ultrasound if clinically warranted. 12. Additional findings as above. ACT 112: Negative or not required by law. Electronically signed by: Ariel Astudillo M.D. 02/08/2021 11:36 AM Neck CTA 02/08/21 09:[address] OF THE BRAIN; CT ANGIOGRAM OF THE BRAIN; CT ANGIOGRAM OF THE NECK CLINICAL HISTORY: Change in mental status. Memory loss. Stroke like symptoms. COMPARISON STUDY: No priors. TECHNIQUE: Unenhanced axial CT scan of the brain is performed. Subsequently, following the IV administration of 112 of Optiray 320, CT angiogram of the head and neck was performed from the aortic arch to the vertex. Images are reviewed in the axial, sagittal, and coronal planes. 3-D MIPS images are created and assessed. IV contrast was administered without complication. All measurements were calculated based on NASCET criteria. A dose lowering technique was utilized adhering to the principles of ALARA. CT DOSE: 1030.94 mGy.cm FINDINGS: Brain parenchyma: There is age-related involutional change noting moderate to advanced subcortical and periventricular microangiopathic disease. There is loss of loera-white matter differentiation within the left posterior temporal lobe consistent with subacute ischemia. There is mild surrounding edema. Foci of bifrontal encephalomalacia are consistent with remote insults. No hemorrhage is identified. There is no midline shift. There is no evidence of enhancing mass lesion on the angiogram phase images. A chronic lacunar infarct is noted in the right basal ganglia. The ventricles, sulci, and cisterns are prominent secondary to involutional change. No extra-axial fluid collection is seen. Thoracic aorta: There is atherosclerotic calcification of the thoracic aorta. Visualized portions of the thoracic aorta are normal in caliber. The aortic arch demonstrates standard 3-vessel anatomy. Right carotid arterial system: The right common carotid artery is widely patent, as is the right internal carotid artery. Atherosclerotic plaque and irregularity is noted in the carotid bulb. There is mild stenosis of the origin of the right external carotid artery. The remainder of the external carotid artery is patent. Left carotid arterial system: There is focal 65% stenosis at the origin of the left common carotid artery, best seen on axial image #33. Atherosclerotic plaque causes less than 50% luminal narrowing of the distal left common carotid artery. There is focal high-grade stenosis with near complete occlusion at the origin of the left external carotid artery seen on axial image #185. The remainder of the left external carotid artery is patent. The left internal carotid artery is patent to the skull base. Vertebral arteries: There is approximately 50% focal stenosis of the right vertebral artery at the level of C2, best seen on image #233. The vertebral arteries are otherwise patent in the neck noting left-sided dominance. Subclavian arteries: Widely patent bilaterally. Intracranial vasculature: There is atherosclerotic calcification of the cavernous carotid and vertebral arteries. There is a long segment of high-grade stenosis with near complete occlusion of the petrous left internal carotid artery at the skull base, best seen on axial image #63. This extends at least 1.7 cm in length. There is also high-grade stenosis of the supraclinoid left internal carotid artery just below the [place] fork of [place], best seen on image #97. The right internal carotid artery is widely patent at the skull base. The left A1 segment is diminutive versus occluded. The anterior cerebral arteries are widely patent, and are supplied via the right-sided circulation. The right middle cerebral artery is widely patent. The left middle cerebral artery also appears patent. The vertebrobasilar system and posterior cerebral arteries are patent. The left vertebral artery is dominant. No aneurysm is seen throughout the intracranial circulation. Jugular veins: Patent bilaterally. Dural sinuses: Patent. Lung apices: Emphysematous change is suspected. Upper lobe lung parenchyma is otherwise clear as imaged. Soft tissues: Question paralysis of the left vocal cord. The oropharyngeal airway appears widely patent. The thyroid gland is enlarged and heterogeneous. Numerous thyroid nodules measure up to 1.5 cm. The salivary glands are normal in appearance. No cervical lymphadenopathy is seen. Skeletal structures: The skeletal structures are osteopenic. The calvarium appears intact. The cervical spine is maintained noting multilevel spondylosis. No lytic or blastic lesion is seen. Orbits: The bony orbits are intact. Orbital contents are normal as visualized noting bilateral ocular lens implants. Sinuses and mastoids: There is evidence of previous paranasal sinus surgery. There is subtotal opacification of the left maxillary antrum. Mild mucosal thickening is seen in the right maxillary antrum. The remaining paranasal sinuses appear clear. There is a large left mastoid effusion. A small mastoid effusion is seen on the right. There is rightward deviation of the bony nasal septum. IMPRESSION: 1. There is loss of loera-white matter differentiation in the left posterior temporal lobe consistent with subacute ischemia. 2. There is no hemorrhage or midline shift. 3. There is a long segment of high-grade stenosis with near complete occlusion involving the petrous portion of the left internal carotid artery at the skull base. 4. There is also focal high-grade stenosis of the supraclinoid left internal carotid artery just below the north fork of [place]. 5. The left A1 segment is diminutive versus occluded. Both anterior cerebral arteries are patent and supplied via the right-sided circulation. 6. There is approximately 65% focal stenosis of the origin of the left common carotid artery. 7. There is high-grade stenosis at the origin of the left external carotid artery. 8. There is approximately 50% focal stenosis of the right vertebral artery at the level of C2. 9. Question paralysis of the left vocal cord. 10. Suspect emphysema. 11. Multinodular thyroid gland as above. This could be further evaluated with a nonemergent thyroid ultrasound if clinically warranted. 12. Additional findings as above. ACT 112: Negative or not required by law. Electronically signed by: Ariel Astudillo M.D. 02/08/2021 11:36 AM Supervising Physician Co-Signing Physician Notes Pt is a 80 y/o M with hx of DMII, R partial toes amputation with hx of osteomyelitis, PAD, hypothyroidism, vascular parkinsonism, iron def, HTN, CAD s/p CABG admitted for confusion for 3 days. Pt speaks Jaylin. History was obtained with help from pts grand daughter Exam: -NAD -Cardiac: normal S1/S2, no mumur -Lungs: CTA -Abd: ND, NT, normal NS -Neuro: CN II-XII intact, normal strength of b/l extremities -Skin: R foot wound: healing well, no erythema or drainage -Psych: followed command well but appeared confused A/P: AMS: - 2/2 CVA - CTA head and neck: high grade stenosis of L internal & External carotid artery. No hemorrhage - will echo with bubble study and MRI Brain - pt had been having symptoms for 3 days - already on statin - will get neurology and neurosurgery input ---- likely need to be on aspirin and Plavix & increase in statin dose -NPO until neuro assessment then will do bedside swallow eval by nurse -will continue to monitor BP - will check UA also Other plans agree with Deanna Simon PA-C (1) AMS (altered mental status) Altered mental status type: unspecified Qualified Code(s): R41.82 - Altered mental status, unspecified
[2021-02-08] MEDS ORDERED: ASPIRIN 81 MG CHEW PO ONE (13:53)
[2021-02-08 17:53] LABS: Appearance Urine Clear (Clear); Bacteria Urine Automated Negative (Negative); Bilirubin Urine Negative (Negative); Blood Urine Negative (Negative); Cast Urine Automated 0 /lpf (0-5); Color Urine Yellow; Epithelial Cell Urine Auto 0-5 /lpf (0-5); Glucose Urine UA 3+ (Negative); Ketones Urine Negative (Negative); Leukocyte Esterase Urine Negative (Negative); Nitrite Urine Negative (Negative); Protein Urine 1+ (Negative); RBC Urine Automated 0-4 /hpf (0-4); Specific Gravity Urine 1.032 (1.000-1.030); Urobilinogen Urine Negative (Negative); WBC Urine Automated 0 /hpf (0-5); pH Urine 6.5 (4.5-7.5)
--- NOTE | 2021-02-08 18:39 | Electrocardiogram Report ---
Test Reason : Blood Pressure : / mmHG Vent. Rate : 084 BPM Atrial Rate : 084 BPM P-R Int : 164 ms QRS Dur : 080 ms QT Int : 382 ms P-R-T Axes : 025 021 065 degrees QTc Int : 451 ms Normal sinus rhythm Left atrial enlargement Possible Old Inferior infarct Abnormal ECG When compared with ECG of 23-AUG-2020 11:13, Criteria for Anteroseptal infarct are no longer Present Criteria for Inferior infarct is now Present Confirmed by Hermes Delgado ([id number]) on 02/08/2021 6:39:03 PM Referred By: Marianela Contreras Confirmed By:Hermes Delgado
[2021-02-08] MEDS ORDERED: PHARMACIST DISCHARGE MED REC CONSULT PRN (22:44)
[2021-02-08] MEDS ORDERED: MELATONIN 3 MG TAB PO PRN (22:44)
[2021-02-08] MEDS ORDERED: CARBOHYDRATES FOR HYPOGLYCEMIA PO PRN (22:44)
[2021-02-08] MEDS ORDERED: ACETAMINOPHEN 325 MG TAB PO PRN (22:44)
[2021-02-08] MEDS ORDERED: NITROGLYCERIN 0.3 MG/1 TAB 100 TAB BTL SL PRN (22:44)
[2021-02-08] MEDS ORDERED: GLUCOSE 40% GEL 15 GM TUBE PO PRN (22:44)
[2021-02-08] MEDS ORDERED: GLUCAGON FOR INJ 1 MG VIAL SQ PRN (22:44)
[2021-02-08] MEDS ORDERED: GLUCOSE 10 TABS/TUBE PO PRN (22:44)
[2021-02-08] MEDS ORDERED: DEXTROSE 50% 50 ML SYRINGE IV PRN (22:44)
[2021-02-08] MEDS ORDERED: POLYETHYLENE (MIRALAX) 17 GM PACK PO PRN (22:44)
[2021-02-08] MEDS ORDERED: traZODone HCL 50 MG TAB PO PRN (22:44)
[2021-02-08] MEDS ORDERED: NITROGLYCERIN SL 0.4 MG/TAB TAB SL PRN ×2 (23:24→23:27)
[2021-02-08] MEDS: DOCUSATE SODIUM 100 MG CAP PO SCH (23:52)
[2021-02-08] MEDS: PANTOprazole 40 MG TAB PO SCH (23:53)
[2021-02-08] MEDS: carvediloL 3.125 MG TAB PO SCH (23:53)
[2021-02-08] MEDS: GABAPENTIN 100 MG CAP PO SCH (23:53)
[2021-02-08] MEDS: CARBIDOPA/LEVODOPA 25/100MG TAB PO SCH (23:55)
[2021-02-08] MEDS: HEPARIN SOD 5,000 UNIT/0.5 ML VIAL SQ SCH (23:55)
[2021-02-08] MEDS: INSULIN ASPART 100 UNITS/ML 3 ML PEN SC SCH (23:56)
[2021-02-09 06:08] LABS: Basophils # (auto) 0.02 K/uL (0-0.2); Basophils % (auto) 0.3 %; Eosinophils # (auto) 0.33 K/uL (0-0.5); Eosinophils % (auto) 4.4 %; Hematocrit (blood only) 35.9 % (42-52); Hemoglobin 12.3 g/dL (14.0-18.0); Immature Granulocytes # (auto) 0.02 K/uL (0.00-0.02); Immature Granulocytes % (auto) 0.3 %; Lymphocytes # (auto) 1.32 K/uL (1.2-3.4); Lymphocytes % (auto) 17.7 %; Mean Corpuscular Hemoglobin 27.8 pg (25-34); Mean Corpuscular Hgb Conc 34.3 g/dL (32-36); Mean Platelet Volume 9.3 fL (7.4-10.4); Monocytes # (auto) 0.75 K/uL (0.11-0.59); Monocytes % (auto) 10.1 %; Neutrophils # (auto) 5.02 K/uL (1.4-6.5); Neutrophils % (auto) 67.2 %; Platelet Count 255 K/uL (130-400); RDW Coefficient of Variation 15.1 % (11.5-14.5); Red Blood Count 4.43 M/uL (4.7-6.1); White Blood Count 7.46 K/uL (4.8-10.8)
[2021-02-09 07:47] LABS: Estimated Average Glucose 166 mg/dl; Hemoglobin A1C 7.4 % (4.5-5.6)
[2021-02-09] MEDS: GABAPENTIN 100 MG CAP PO SCH ×2 (07:52→20:47)
[2021-02-09] MEDS: PANTOprazole 40 MG TAB PO SCH ×2 (07:52→20:47)
[2021-02-09] MEDS: HEPARIN SOD 5,000 UNIT/0.5 ML VIAL SQ SCH ×2 (07:52→20:48)
[2021-02-09] MEDS: DOCUSATE SODIUM 100 MG CAP PO SCH ×2 (07:52→20:47)
[2021-02-09] MEDS: CHOLECALCIFEROL 1,000 UNITS 25 MCG TAB PO SCH (07:52)
[2021-02-09] MEDS: CARBIDOPA/LEVODOPA 25/100MG TAB PO SCH ×4 (07:52→20:47)
[2021-02-09] MEDS: carvediloL 3.125 MG TAB PO SCH ×2 (07:52→20:47)
[2021-02-09 09:01] LABS: BUN Creatinine Ratio 29.2 (10-20); Calcium 8.9 mg/dl (8.5-10.1); Creatinine Clr Calc Pharmacy 47.9 ml/min; Est GFR (Non-African American) 81.9 ml/min; Potassium 3.8 mmol/L (3.5-5.1)
[2021-02-09] MEDS: ATORVASTATIN 20 MG TAB PO SCH (09:07)
[2021-02-09] MEDS: ASPIRIN 81 MG ECTAB PO SCH (09:07)
[2021-02-09] MEDS: INSULIN ASPART 100 UNITS/ML 3 ML PEN SC SCH ×4 (09:07→20:47)
[2021-02-09 09:10] LABS: Thyroid Stimulating Hormone 0.636 uIu/ml (0.300-4.500)
[2021-02-09] MEDS ORDERED: PHARMACY GLYCEMIC MGMT CONSULT PRN (10:15)
--- NOTE | 2021-02-09 11:33 | Magnetic Resonance Report ---
MR brain wo con CLINICAL HISTORY: stroke TECHNIQUE: Multiplanar and multisequence MR images of the brain were obtained without intravenous con trast. Comparison: Comparison is made to MRI brain 01/09/2018 FINDINGS: Focal restricted diffusion is seen in the left temporal occipital lobes with associated edema. Foci o f T2 and FLAIR hyperintensity are noted in the paraventricular areas consistent with chronic small ve ssel ischemic disease. Ex vacuo ventriculomegaly and sulcal enlargement is noted compatible with diff use encephalomalacia. No extra axial fluid collections are seen. There are no masses, mass effect, or midline shift. The corpus callosum, pituitary gland, and cerebellar tonsils appear grossly unremark able. Flow voids of the major intracranial arterial vessels are identified. The imaged portions of the para nasal sinuses, mastoid air cells, and orbits are unremarkable. IMPRESSION: Findings are compatible with subacute infarct in the left temporal and temporo-occipital region in th is patient with occlusion of the left internal carotid artery.. ACT 112: Negative or not required by law. Electronically signed by: Wayne Clifton M.D. 02/09/2021 11:32 AM
[2021-02-09] MEDS: INSULIN GLARGINE SOLOSTAR 100 UNITS/ML 3 ML PEN SC SCH ×2 (13:03→20:48)
--- NOTE | 2021-02-09 13:04 | Communication Note ---
Date of Service: February 09, 2021 Davy Hines is 80 years old right-handed and has limited conversational ability in Arabic but fortunately his son was present in the room when I visited and the history was well outlined in chart having been obtained with the aid of translation by his daughter Is a man with dyslipidemia, hypertension, type 2 diabetes, diabetic polyneuropathy, peripheral arterial disease status post amputation of the right toes within the past year, carotid artery stenosis, periodic anemia due to blood loss requiring transfusions, prior small vessel ischemic disease in the brain, and what is been called vascular parkinsonism responsive to carbidopa L-dopa at a dosage of 2 of the 25/100 tablets 4 times a day and followed by Dr. Lupe Moore Home medications include aspirin atorvastatin, carbidopa L-dopa, cholecalciferol, docusate, ferrous sulfate, gabapentin under milligrams twice a day, glipizide, Januvia, Jardiance, melatonin, nitroglycerin, omeprazole, tramadol, trazodone and zolpidem He claims allergies to sulfa Family history is noncontributory or is as outlined on his admission history and physical Social history reveals him to be have several children and grandchildren non-smoker minimal consumer of ethanol Systems review could not be obtained directly from the patient but according to family members his health has been stable following his series of amputations done over the past year by the vascular surgery department in [place] and he was functionally doing better with increasing time until the onset of his c urrent issue of confusion word finding problems that prompted admission. There are apparently no new symptoms referable to HEENT, cardiovascular pulmonary gastrointestinal genitourinary musculoskeletal dermatologic or hematologic systems otherwise In this setting done 3 days ago he became confused unable to work his glucometer to comprehend simple devices of were easy for him in the past and he had some naming difficulties. His son was apparently called and advice was given to continue to observe him but the confusion did not clear and after 3 days he was brought to the hospital, CAT scan showed evidence for what appears to be a left temporal parietal infarction and CT angiography studies have shown a 65% stenosis of the left internal carotid artery at its bifurcation and a very high-grade segment of stenosis involving the distal portions of the internal carotid throughout the siphon and extending into the proximal middle cerebral distribution. The external carotid is restenosed on the same side there are some minor changes in the right internal carotid and vertebral systems otherwise He was started on aspirin and I have suggested we add Plavix for 21 days. He does have a GI bleeding history and antiplatelet drugs are going to have to be used cautiously in this setting and from brief duration of time He is going to be seen by vascular surgery although the lesion in the internal carotid bifurcation in my opinion is probably nothing they are going to address and intracranial lesion is something that probably not approachable through standard vascular surgical techniques and even if it were would be something to be deferred for about 6 weeks in the setting of acute CVA An MRI is pending Exam reveals a blood pressure 160/72 pulse 84 respirations are 18 he is afebrile his O2 saturations are 97%. He is awake alert cooperative has difficulty with Arabic and fortunately I was able to have his son engage in conversation and establish that are definite memory issues and some word finding issues but there is no articulatory disturbance field cut facial asymmetry loss of facial sensation drift pronation sign tremor tics or choreiform activity and lower extremity function appears to be normal allowing for the amputation of the great toes and the presence of neuropathy with areflexia at the ankles and knees and minor distal weakness. I really could not get an adequate sensory examination again because of the language issues but he seemed to withdraw to noxious stimulation and seemed to indicate he felt to tuning fork overall not sure how reliable this was This man with multiple vascular risk factors now has had a left middle cerebral artery distribution infarction involving the temporal lobe and probably the parietal lobe with an aphasia that is difficult to classify due to the language differences but according to his son would fit criteria for a "receptive" aphasia perhaps with some memory alterations This occurs in the setting of a significant high-grade stenosis of the left carotid artery intracranially and was probably due to atheromatous emboli originating in the areas of stenosis I do not think vascular surgery will have much to offer but we are going to consult them at the request of the family We will go with dual antiplatelet therapy as described above for 21 days He will probably be discharged today as I think his overall status motor echols would not require hospitalization and I think speech therapy could be arranged on an outpatient basis He will need to follow-up with Dr. Lupe Moore or Lupe Robbins PA-C in about 3 to 4 weeks at that point I would suggest he be converted over to Plavix rather than aspirin as this is less likely to produce direct GI mucosal irritation if indeed that is the source of his recurrent GI bleeding over the years I have reviewed my feelings and opinions with patient's son and Dr. Murguia and I anticipate he will be discharged either today or tomorrow I will check back with computer and may make a bedside visit tomorrow if indeed he still in the hospital I will review the MRI when it is completed Yaniv Marion MD The above note was generated utilizing voice recognition technology and may have punctuation errors in spelling errors pronoun usage errors and syntax errors
--- NOTE | 2021-02-09 13:33 | Pharmacy Report ---
Pharmacy Glycemic Short Note 2 - Date of Service February 09, 2021 - Glycemic Short BSG Results (Last 24 hours): 02/08/21 02/09/21 02/09/21 23:47 05:51 08:59 Glucose 220 H POC Glucose 137 H 339 H* 02/09/21 02/09/21 02/09/21 09:01 09:04 12:25 Glucose POC Glucose 270 H 295 H 231 H OUTPATIENT ANTIDIABETIC REGIMEN: * Jardiance 25mg PO Daily * Glipizide 2.5mg PO twice weekly ASSESSMENT: * 80 year old male admitted with CVA, hyperglycemic, on orals antidiabetic medications only at home * Oral agents are not recommended for inpatient use d/t drug interactions, changing PO intake, and difficulty titrating for acute hyper/hypoglycemia. ADA recommends re-initiating outpatient oral agents 1-2 days prior to discharge if/when appropriate if they were held on admission. * Will hold oral agents for admission and utilize SQ basal bolus insulin regimen which is the recommended regimen for inpatient glycemic control. * Will initiate weight based insulin dosing for insulin jeramy patient and titrate based on BSG trends. PLAN FOR INPATIENT GLYCEMIC CONTROL: * Hold outpatient oral diabetes medications * Basal insulin * Lantus 10 units SQ Daily starting now * 10 units HS for BSG > 180mg/dl * Bolus insulin * NovoLog per scale ACHS or Q6hrs while NPO * Goal Range: Low 110 mg/dL - High 140 mg/dL * Correction Factor: 30 mg/dL/unit * Nutritional / Prandial insulin per carb ratio of 1 unit per 10 grams CHO consumed PLAN FOR DISCHARGE: * A1c 7.4% acceptable for patient age and comorbidities, no changes required on discharge.
--- NOTE | 2021-02-09 17:29 | Hospitalist Progress Note ---
Date of Service February 09, 2021 Assessment & Plan (1) Acute CVA (cerebrovascular accident): (2) AMS (altered mental status): Plan: Patient is 80-year-old male with PMH DM II, CAD s/p CABG, vascular parkinsonism, HTN, HLD, PVD s/p partial right foot amputation, iron deficiency anemia secondary to history of GI bleed in past, hypothyroidism presented to ER with complaint of confusion x 3 days. Denies extremity weakness, VAZQUEZ, vision changes, speech changes, facial drooping Subacute CVA Left internal carotid artery Occlusion --MRI Brain:Findings are compatible with subacute infarct in the left temporal and temporo-occipital region in this patient with occlusion of the left internal carotid artery. --Head/Neck CTA:There is loss of loera-white matter differentiation in the left posterior temporal lobe consistent with subacute ischemia. There is no hemorrhage or midline shift. There is a long segment of high-grade stenosis with near complete occlusion involving the petrous portion of the left internal carotid artery at the skull base. There is also focal high-grade stenosis of the supraclinoid left internal carotid artery just below the [place]. The left A1 segment is diminutive versus occluded. Both anterior cerebral arteries are patent and supplied via the right-sided circulation. There is approximately 65% focal stenosis of the origin of the left common carotid artery. There is high-grade stenosis at the origin of the left external carotid artery. There is approximately 50% focal stenosis of the right vertebral artery at the level of C2. -ECHO: Normal left ventricle size with mild concentric LVH. EF 60 to 65%. No segmental left ventricular wall motion abnormality. Grade 1 diastolic dysfunction. Aortic valve sclerosis without significant valvular stenosis - LDL:23 -Continue aspirin, Plavix, statin Plan to continue dual antiplatelet therapy for 21 days and then transition to Plavix. PT/OT speech eval Continue Neuro Checks Appreciate neurology input Vascular Surgery consulted as well as per patient's family request. Aspiration/Fall precautions (3) CAD (coronary artery disease): Plan: S/P CABG Continue aspirin, carvedilol, atorvastatin (4) Diabetes mellitus, type II: Plan: A1c: 7.3 on 11/28/2020 -NovoLog sliding scale per protocol Glycemic pharmacy consulted (5) Hypertension: Plan: Continue carvedilol (6) Dyslipidemia: Plan: Continue atorvastatin (7) Vascular parkinsonism: Plan: Continue carbidopa-levodopa (8) PAD (peripheral artery disease): Plan: H/O partial right foot amputation Continue aspirin, statin DVT Px Heparin SQ Code Status Full Code Admission and Anticipated Discharge Date Admission Date: February 08, 2021 Subjective Patient is seen and examined at bedside States having issues with memory since 3-4 days Denies any weakness, numbness, facial droop or dysphagia Also denies any chest pain, dyspnea, dizziness, nausea, abd pain Discussed with Patient's son in detail Offers no other complaints Review of Systems Review of Systems: All systems reviewed & are unremarkable except as noted in Subjective Physical Exam Physical Exam: Physical Exam: Vitals signs as noted above General Appearance:Thin, frail, no apparent distress Head: normocephalic, Atraumatic Eyes: normal inspection, EOMI Neck: supple, Trachea midline Respiratory/Chest: Normal breath sounds, CTA Cardiovascular: S1, S2, No murmur Abdomen/GI:Soft, Non tender, Bowel sounds present Extremities/Musculoskeletal:normal inspection, no edema, Right forefoot s/p amputation Neurologic/Psych:AAO, grossly no focal neurological deficits Skin: normal color, warm Results & Data Results & Data ([facility]) Vital Signs (Past 12 Hours) Vital Signs Temp Pulse Pulse Resp BP Pulse Ox Pulse Ox 02/09/21 16:50 36.6 C 92 H 20 147/64 H 92 02/09/21 16:00 100 02/09/21 15:00 92 H 02/09/21 13:49 100 02/09/21 13:00 36.7 C 81 20 141/58 H 100 02/09/21 07:51 36.6 C 84 18 168/72 H 02/09/21 07:00 83 Laboratory Results Short CBC 02/09/21 Range/Units 05:51 WBC 7.46 (4.8-10.8) K/uL Hgb 12.3 L (14.0-18.0) g/dL Hct 35.9 L (42-52) % Plt Count 255 (130-400) K/uL BMP 02/09/21 05:51 Sodium 134 L Potassium 3.8 Chloride 98 Carbon Dioxide 25 BUN 24 H Creatinine 0.83 Glucose 220 H Calcium 8.9 Urine 02/08/21 Range/Units 17:20 Urine Color Yellow Urine Appearance Clear (Clear) Urine pH 6.5 (4.5-7.5) Ur Specific [place] 1.032 H (1.000-1.030) Urine Protein 1+ H (Negative) Urine Glucose (UA) 3+ H (Negative) (1) AMS (altered mental status) Altered mental status type: unspecified Qualified Code(s): R41.82 - Altered mental status, unspecified
[2021-02-09] MEDS: CLOPIDOGREL BISULFATE 75 MG TAB PO SCH (18:00)
[2021-02-09] MEDS ORDERED: INSULIN HUMAN REGULAR IV BOLUS 3 UNITS in SYRINGE 0 ML IV ONE (18:00)
[2021-02-10 08:36] LABS: BUN Creatinine Ratio 26.4 (10-20); Calcium 9.2 mg/dl (8.5-10.1); Creatinine Clr Calc Pharmacy 51.7 ml/min; Est GFR (African American) 93.6 ml/min; Est GFR (Non-African American) 80.8 ml/min; Potassium 3.8 mmol/L (3.5-5.1)
[2021-02-10] MEDS: INSULIN ASPART 100 UNITS/ML 3 ML PEN SC SCH ×4 (08:48→20:36)
[2021-02-10] MEDS: INSULIN GLARGINE SOLOSTAR 100 UNITS/ML 3 ML PEN SC SCH ×2 (08:49→20:36)
[2021-02-10] MEDS: GABAPENTIN 100 MG CAP PO SCH ×2 (08:50→20:35)
[2021-02-10] MEDS: ASPIRIN 81 MG ECTAB PO SCH (08:50)
[2021-02-10] MEDS: CLOPIDOGREL BISULFATE 75 MG TAB PO SCH (08:51)
[2021-02-10] MEDS: carvediloL 3.125 MG TAB PO SCH (08:51)
[2021-02-10] MEDS: DOCUSATE SODIUM 100 MG CAP PO SCH ×2 (08:51→20:35)
[2021-02-10] MEDS: ATORVASTATIN 20 MG TAB PO SCH (08:51)
[2021-02-10] MEDS: CHOLECALCIFEROL 1,000 UNITS 25 MCG TAB PO SCH (08:51)
[2021-02-10] MEDS: HEPARIN SOD 5,000 UNIT/0.5 ML VIAL SQ SCH ×2 (08:51→20:36)
[2021-02-10] MEDS: PANTOprazole 40 MG TAB PO SCH ×2 (08:51→20:35)
[2021-02-10] MEDS: CARBIDOPA/LEVODOPA 25/100MG TAB PO SCH ×4 (08:51→20:35)
[2021-02-10] MEDS ORDERED: FERROUS SULFATE 325 MG TAB PO SCH (09:00)
--- NOTE | 2021-02-10 11:06 | Communication Note ---
Date of Service: February 10, 2021 I have reviewed the MRI report on Mr. Hines and it confirms the presence of a left temporal parietal infarction although the MRI report shows occipital which would be compatible with a distal posterior left MCA distribution infarction and the MRI does not show significant flow in the left internal carotid but the CT angiogram indicates a very high grade stenosis with reduced flow so I would believe the CTA for the MRI. This is an intracranial process and I do not feel it is all amenable to vascular surgical intervention and even an endovascular technique at this point with a sizable infarction my opinion would not be indicated but we need to hear what vascular surgery would have to say My recommendations remain as previously. Permissive hypertension, dual antiplatelet treatment for 21 days, follow-up with Dr. Lupe Moore his regular neurologist who sees him for vascular parkinsonism in about 3 to 4 weeks or with Lupe Robbins PA-C in our office, speech therapy, likely outpatient continued therapy and if stable discharge you today or tomorrow I did not see the patient but am reviewing the chart by computer Yaniv Marion MD
[2021-02-10] MEDS ORDERED: INSULIN HUMAN REGULAR IV BOLUS 3 UNITS in SYRINGE 0 ML IV ONE (11:30)
--- NOTE | 2021-02-10 15:24 | Pharmacy Report ---
Pharmacy Glycemic Short Note 2 - Date of Service February 10, 2021 - Glycemic Short BSG Results (Last 24 hours): 02/09/21 02/09/21 02/09/21 16:35 16:38 20:21 Glucose POC Glucose 356 H* 344 H* 119 H 02/09/21 02/10/21 02/10/21 23:41 07:26 07:30 Glucose 246 H POC Glucose 112 H 226 H 02/10/21 02/10/21 11:26 11:27 Glucose POC Glucose 344 H* 343 H* OUTPATIENT ANTIDIABETIC REGIMEN: * Jardiance 25mg PO Daily * Glipizide 2.5mg PO twice weekly ASSESSMENT: 02/10/21 * Patient received 38 units insulin yesterday, 10 units basal * Patient's blood sugar elevated to 344mg/dl yesterday prior to dinner, corrected with 3 units IV insulin; this happened again today prior to lunch, pt given 3 units IV insulin * RN reports patient constantly eating and she is trying to cover carb intake * Tighten CR/CF, increase Lantus 02/09/21 * 80 year old male admitted with CVA, hyperglycemic, on orals antidiabetic medications only at home * Oral agents are not recommended for inpatient use d/t drug interactions, changing PO intake, and difficulty titrating for acute hyper/hypoglycemia. ADA recommends re-initiating outpatient oral agents 1-2 days prior to discharge if/when appropriate if they were held on admission. * Will hold oral agents for admission and utilize SQ basal bolus insulin regimen which is the recommended regimen for inpatient glycemic control. * Will initiate weight based insulin dosing for insulin jeramy patient and titrate based on BSG trends. PLAN FOR INPATIENT GLYCEMIC CONTROL: * Hold outpatient oral diabetes medications * Basal insulin * Lantus 10 units SQ Daily * 10 units HS for BSG > 110mg/dl * Bolus insulin * NovoLog per scale ACHS or Q6hrs while NPO * Goal Range: Low 110 mg/dL - High 140 mg/dL * Correction Factor: 20 mg/dL/unit * Nutritional / Prandial insulin per carb ratio of 1 unit per 6 grams CHO consumed PLAN FOR DISCHARGE: * A1c 7.4% acceptable for patient age and comorbidities, no changes required on discharge.
[2021-02-10] MEDS ORDERED: INSULIN HUMAN REGULAR IV BOLUS 2 UNITS in SYRINGE 0 ML IV ONE (17:30)
--- NOTE | 2021-02-10 18:34 | Hospitalist Progress Note ---
Date of Service February 10, 2021 Assessment & Plan (1) Acute CVA (cerebrovascular accident): (2) AMS (altered mental status): Plan: Patient is 80-year-old male with PMH DM II, CAD s/p CABG, vascular parkinsonism, HTN, HLD, PVD s/p partial right foot amputation, iron deficiency anemia secondary to history of GI bleed in past, hypothyroidism presented to ER with complaint of confusion x 3 days. Denies extremity weakness, VAZQUEZ, vision changes, speech changes, facial drooping Subacute CVA Left internal carotid artery Occlusion --MRI Brain:Findings are compatible with subacute infarct in the left temporal and temporo-occipital region in this patient with occlusion of the left internal carotid artery. --Head/Neck CTA:There is loss of loera-white matter differentiation in the left posterior temporal lobe consistent with subacute ischemia. There is no hemorrhage or midline shift. There is a long segment of high-grade stenosis with near complete occlusion involving the petrous portion of the left internal carotid artery at the skull base. There is also focal high-grade stenosis of the supraclinoid left internal carotid artery just below the [place]. The left A1 segment is diminutive versus occluded. Both anterior cerebral arteries are patent and supplied via the right-sided circulation. There is approximately 65% focal stenosis of the origin of the left common carotid artery. There is high-grade stenosis at the origin of the left external carotid artery. There is approximately 50% focal stenosis of the right vertebral artery at the level of C2. -ECHO: Normal left ventricle size with mild concentric LVH. EF 60 to 65%. No segmental left ventricular wall motion abnormality. Grade 1 diastolic dysfunction. Aortic valve sclerosis without significant valvular stenosis - LDL:23 -Continue aspirin, Plavix, statin Plan to continue dual antiplatelet therapy for 21 days and then transition to Plavix. PT/OT speech eval Continue Neuro Checks Appreciate neurology input Vascular Surgery consulted as well as per patient's family request. Aspiration/Fall precautions Plan to discharge to rehab facility as able Needs follow-up with neurology upon discharge (3) CAD (coronary artery disease): Plan: S/P CABG Continue aspirin, carvedilol, atorvastatin (4) Diabetes mellitus, type II: Plan: A1c: 7.3 on 11/28/2020 -NovoLog sliding scale per protocol Glycemic pharmacy consulted (5) Hypertension: Plan: Continue carvedilol (6) Dyslipidemia: Plan: Continue atorvastatin (7) Vascular parkinsonism: Plan: Continue carbidopa-levodopa (8) PAD (peripheral artery disease): Plan: H/O partial right foot amputation Continue aspirin, statin DVT Px Heparin SQ Code Status Full Code Disposition Rehab as able Case management to help with discharge planning Admission and Anticipated Discharge Date Admission Date: February 08, 2021 Subjective Patient is seen and examined at bedside States feeling well today Eager to get discharged Denies any focal weakness Memory seems to be slowly improving Blood pressure elevated this morning Denies any chest pain, dyspnea, dizziness, nausea, abd pain Updated patient's son over the phone Review of Systems Review of Systems: All systems reviewed & are unremarkable except as noted in Subjective Physical Exam Physical Exam: Physical Exam: Vitals signs as noted above General Appearance:Thin, frail, no apparent distress Head: normocephalic, Atraumatic Eyes: normal inspection, EOMI Neck: supple, Trachea midline Respiratory/Chest: Normal breath sounds, CTA Cardiovascular: S1, S2, No murmur Abdomen/GI:Soft, Non tender, Bowel sounds present Extremities/Musculoskeletal:normal inspection, no edema, Right forefoot s/p amputation Neurologic/Psych:AAO, grossly no focal neurological deficits Skin: normal color, warm Results & Data Results & Data ([facility]) Vital Signs (Past 12 Hours) Vital Signs Temp Pulse Pulse Resp BP BP Pulse Ox 02/10/21 15:36 36.7 C 68 20 132/55 L 93 02/10/21 13:40 36.7 C 81 20 158/81 H 97 02/10/21 08:59 36.4 C L 82 18 180/73 H 99 02/10/21 07:00 82 Laboratory Results [facility] 02/10/21 07:26 Sodium 138 Potassium 3.8 Chloride 104 Carbon Dioxide 25 BUN 23 H Creatinine 0.86 Glucose 246 H Calcium 9.2 (1) AMS (altered mental status) Altered mental status type: unspecified Qualified Code(s): R41.82 - Altered mental status, unspecified
[2021-02-10] MEDS: carvediloL 6.25 MG TAB PO SCH (20:35)
[2021-02-11 06:57] LABS: Hematocrit (blood only) 36.1 % (42-52); Hemoglobin 12.7 g/dL (14.0-18.0); Mean Corpuscular Hemoglobin 28.6 pg (25-34); Mean Corpuscular Hgb Conc 35.2 g/dL (32-36); Mean Corpuscular Volume 81.3 fL (80-100); Mean Platelet Volume 9.4 fL (7.4-10.4); Platelet Count 265 K/uL (130-400); RDW Coefficient of Variation 15.3 % (11.5-14.5); RDW Standard Deviation 45.5 fL (36.4-46.3); Red Blood Count 4.44 M/uL (4.7-6.1); White Blood Count 8.16 K/uL (4.8-10.8)
[2021-02-11 07:31] LABS: BUN Creatinine Ratio 28.8 (10-20); Calcium 9.4 mg/dl (8.5-10.1); Creatinine Clr Calc Pharmacy 46.7 ml/min; Est GFR (African American) 93.2 ml/min; Est GFR (Non-African American) 80.4 ml/min; Potassium 3.9 mmol/L (3.5-5.1)
[2021-02-11] MEDS: INSULIN ASPART 100 UNITS/ML 3 ML PEN SC SCH ×2 (08:47→12:29)
[2021-02-11] MEDS: GABAPENTIN 100 MG CAP PO SCH (08:56)
[2021-02-11] MEDS: PANTOprazole 40 MG TAB PO SCH (08:56)
[2021-02-11] MEDS: CARBIDOPA/LEVODOPA 25/100MG TAB PO SCH ×2 (08:56→12:32)
[2021-02-11] MEDS: HEPARIN SOD 5,000 UNIT/0.5 ML VIAL SQ SCH (08:57)
[2021-02-11] MEDS: ASPIRIN 81 MG ECTAB PO SCH (08:58)
[2021-02-11] MEDS: CLOPIDOGREL BISULFATE 75 MG TAB PO SCH (08:58)
[2021-02-11] MEDS: CHOLECALCIFEROL 1,000 UNITS 25 MCG TAB PO SCH (08:58)
[2021-02-11] MEDS: ATORVASTATIN 20 MG TAB PO SCH (08:58)
[2021-02-11] MEDS: carvediloL 6.25 MG TAB PO SCH (08:59)
[2021-02-11] MEDS: DOCUSATE SODIUM 100 MG CAP PO SCH (08:59)
[2021-02-11] MEDS ORDERED: INSULIN GLARGINE SOLOSTAR 100 UNITS/ML 3 ML PEN SC SCH (09:00)
--- NOTE | 2021-02-11 09:29 | Consultation ---
Date of Consultation February 11, 2021 Assessment & Plan (1) Carotid artery stenosis: Pt with subacute L hemispheric CVA and preocclusive vs occlusive lesion in distal portions of his ICA and mild stenosis of proximal ICA. Pt himself states he does not want any surgery. Pt's imaging reviewed by Dr Szymanski, does not recommend vascular surgical intervention at this time. Dr Szymanski also discussed this with pt's son, Anuel, by phone today. He understands and is agreeable to medical management. Patient was seen, examined, and chart reviewed. Agree with exam and treatment plan of the Vascular PA. Laterality: unspecified laterality Qualified Code(s): I65.29 - Occlusion and stenosis of unspecified carotid artery History of Present Illness Reason for Consultation: L ICA stenosis Attending Physician: Abdulkadir St MD History of Present Illness 80 yo m with hx of DMII, HTN, dyslipidemia, PAD, CAD, parkinsonism, anemia, and GI bleed, admitted with acute/subacute L hemispheric CVA, seen in consultation today for distal L ICA stenosis. Pt is a poor historian d/t [place] and only speaks [place] moderately well. Pt denies any complaints at this time, wishes me to speak with his son, Anuel, for information. Denies VAZQUEZ, fever, chest pain, SOB, abd pain, N/V, rest pain, extermity weakness, other complaints. CTA neck demonstrates long area of near occlusion vs occlusion of distal L ICA in supraclinoid and petrous portions. L ICA at bulb approx 60% stenosis. Allergies Allergy/AdvReac Type Severity Reaction Status Date / Time Sulfa (Sulfonamide Allergy Unknown BLISTERS Verified 09/28/20 07:23 Antibiotics) AND RASH Home Medications Medication Instructions Recorded Confirmed Type atorvastatin 20 mg tablet 20 mg PO QAM 01/07/18 02/08/21 History carbidopa 25 mg-levodopa 100 mg 2 tab PO QID 01/07/18 02/08/21 History tablet (Sinemet) sitagliptin 100 mg tablet (Januvia) 100 mg PO QAM 01/07/18 02/08/21 History cholecalciferol (vitamin D3) 50 2,000 unit PO QAM 10/25/18 02/08/21 History mcg (2,000 unit) tablet (Vitamin D3) nitroglycerin 0.3 mg sublingual 0.3 mg SUBLINGUAL QAM PRN 10/25/18 02/08/21 History tablet empagliflozin 25 mg tablet 25 mg PO QAM 06/05/20 02/08/21 History (Jardiance) ferrous sulfate 325 mg (65 mg 325 mg PO Q OTHER DAY 06/05/20 02/08/21 History iron) tablet zolpidem 5 mg tablet 5 mg PO HS PRN 07/07/20 02/08/21 History aspirin 81 mg tablet,delayed 81 mg PO DAILY 08/23/20 02/08/21 History release docusate sodium 100 mg tablet 100 mg PO BID 08/23/20 02/08/21 History gabapentin 100 mg capsule 100 mg PO BID 08/23/20 02/08/21 History glipizide 2.5 mg tablet, extended 2.5 mg PO UD 02/08/21 02/08/21 History release 24 hr melatonin 3 mg tablet 3 mg PO HS PRN 02/08/21 02/08/21 History tramadol 50 mg tablet 50 mg PO Q6H PRN 02/08/21 02/08/21 History trazodone 50 mg tablet 50 mg PO HS PRN 02/08/21 02/08/21 History carvedilol 3.125 mg tablet 6.25 mg PO BID #0 tab 02/11/21 02/08/21 Rx clopidogrel 75 mg tablet 75 mg PO QAM #30 tab 02/11/21 Rx pantoprazole 40 mg tablet,delayed 40 mg PO BID #60 tab 02/11/21 Rx release Patient History Medical History CAD (coronary artery disease) PA / demand ischemia related to severe anemia Diabetes mellitus, type II Dyslipidemia History of Helicobacter pylori infection Hypertension Hypothyroidism CARISSA (iron deficiency anemia) Osteomyelitis PAD (peripheral artery disease) Vascular parkinsonism Surgical History 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 Family History Other Cancer Diabetes Heart disease Social History Smoking Status: Former smoker Smoking End Date: 2017; Second Hand Exposure: No; Do You Dip or Chew Tobacco: No; Tobacco Cessation Education Requested by Patient: No Hx Alcohol Use: Yes Alcohol type: beer, wine, hard liquor and other Hx Substance Use: No Preferred Language: Jaylin Communication Ability: Effective Communication Tools: IPad and Language Line Kitchen Steward/Stewardess Hearing Ability: Hard of Hearing Kitchen Steward/Stewardess Required: Yes Beliefs That Will Affect Care: None marital status: Current Living Situation: Spouse and Family How many Children do You have: 3 Other Information That Helps Us Care for You: No Feels Safe at Home: Yes Safety Concerns: Feels Safe At This Time Assistive Devices: Walker Review of Systems Review of Systems: All systems reviewed & are unremarkable except as noted in HPI & below Physical Exam Constitutional: WD/WN, vitals as above + thin and comfortable; not in distress ENMT: Ears: + hearing impairment Neck: trachea midline Respiratory: normal respiratory effort Auscultation: lungs clear to auscultation bilaterally and + diminished lung sounds Cardiovascular: Rate/Rhythm: regular rate and regular rhythm Vessels: + abnormal peripheral pulses (nonpalpable) Extremities: normal capillary refill; no edema Gastrointestinal (Abdomen): Inspection/Auscultation: abdomen normal to inspection; abdomen not distended Percussion/Palpation: abdomen soft; abdomen nontender Musculoskeletal: no cyanosis or clubbing, extremities motor strength 5/5 Skin: no rashes, warm and dry Neurologic: moves all extremities and awake; no focal motor deficits Psychiatric: Orientation: alert, oriented to person, oriented to place and cooperative; + not oriented to time Eye Contact: good eye contact Results & Data ([facility]) Vital Signs (Past 12 Hours) Vital Signs Temp Pulse Pulse Resp BP BP Pulse Ox 02/11/21 08:27 36.7 C 66 18 151/80 H 94 02/11/21 07:35 80 02/11/21 04:10 36.7 C 74 16 135/61 93 02/11/21 00:10 99 H 02/11/21 00:08 36.6 C 92 H 18 125/55 L 95
--- NOTE | 2021-02-11 12:23 | Hospitalist Progress Note ---
Date of Service February 11, 2021 Assessment & Plan (1) Acute CVA (cerebrovascular accident): (2) AMS (altered mental status): Plan: Patient is 80-year-old male with PMH DM II, CAD s/p CABG, vascular parkinsonism, HTN, HLD, PVD s/p partial right foot amputation, iron deficiency anemia secondary to history of GI bleed in past, hypothyroidism presented to ER with complaint of confusion x 3 days. Denies extremity weakness, VAZQUEZ, vision changes, speech changes, facial drooping Subacute CVA Left internal carotid artery Occlusion --MRI Brain:Findings are compatible with subacute infarct in the left temporal and temporo-occipital region in this patient with occlusion of the left internal carotid artery. --Head/Neck CTA:There is loss of loera-white matter differentiation in the left posterior temporal lobe consistent with subacute ischemia. There is no hemorrhage or midline shift. There is a long segment of high-grade stenosis with near complete occlusion involving the petrous portion of the left internal carotid artery at the skull base. There is also focal high-grade stenosis of the supraclinoid left internal carotid artery just below the [place]. The left A1 segment is diminutive versus occluded. Both anterior cerebral arteries are patent and supplied via the right-sided circulation. There is approximately 65% focal stenosis of the origin of the left common carotid artery. There is high-grade stenosis at the origin of the left external carotid artery. There is approximately 50% focal stenosis of the right vertebral artery at the level of C2. -ECHO: Normal left ventricle size with mild concentric LVH. EF 60 to 65%. No segmental left ventricular wall motion abnormality. Grade 1 diastolic dysfunction. Aortic valve sclerosis without significant valvular stenosis - LDL:23 -Continue aspirin, Plavix, statin Plan to continue dual antiplatelet therapy for 21 days and then transition to Plavix. Continue continue Lipitor 20 mg daily:No plan to increase it to high intensity daily given age greater than 80 years, total cholesterol less than 150 and LDL 23. PT/OT speech eval Continue Neuro Checks Appreciate neurology input Vascular Surgery consulted as well as per patient's family request. Aspiration/Fall precautions Plan to discharge to rehab facility today Needs follow-up with neurology upon discharge (3) CAD (coronary artery disease): Plan: S/P CABG Continue aspirin, carvedilol, atorvastatin (4) Diabetes mellitus, type II: Plan: A1c: 7.3 on 11/28/2020 -NovoLog sliding scale per protocol Glycemic pharmacy consulted (5) Hypertension: Plan: Continue carvedilol Increased Carvedilol to 6.25mg BID for better BP control (6) Dyslipidemia: Plan: Continue atorvastatin 20mg daily (7) Vascular parkinsonism: Plan: Continue carbidopa-levodopa (8) PAD (peripheral artery disease): Plan: H/O partial right foot amputation Continue aspirin, statin DVT Px Heparin SQ Code Status Full Code Disposition Acute Rehab today Admission and Anticipated Discharge Date Admission Date: February 08, 2021 Subjective Patient is seen and examined at bedside States feeling well today Eager to get discharged Denies any focal weakness Memory seems to be slowly improving Blood pressure elevated this morning Denies any chest pain, dyspnea, dizziness, nausea, abd pain Updated patient's son over the phone Review of Systems Review of Systems: All systems reviewed & are unremarkable except as noted in Subjective Physical Exam Physical Exam: Physical Exam: Vitals signs as noted above General Appearance:Thin, frail, no apparent distress Head: normocephalic, Atraumatic Eyes: normal inspection, EOMI Neck: supple, Trachea midline Respiratory/Chest: Normal breath sounds, CTA Cardiovascular: S1, S2, No murmur Abdomen/GI:Soft, Non tender, Bowel sounds present Extremities/Musculoskeletal:normal inspection, no edema, Right forefoot s/p amputation Neurologic/Psych:AAO, grossly no focal neurological deficits Skin: normal color, warm Results & Data Results & Data ([facility]) Vital Signs (Past 12 Hours) Vital Signs Temp Pulse Pulse Resp BP BP Pulse Ox 02/11/21 11:58 36.9 C 83 19 133/74 96 02/11/21 08:27 36.7 C 66 18 151/80 H 94 02/11/21 07:35 80 02/11/21 04:10 36.7 C 74 16 135/61 93 Laboratory Results Short CBC 02/11/21 Range/Units 06:11 WBC 8.16 (4.8-10.8) K/uL Hgb 12.7 L (14.0-18.0) g/dL Hct 36.1 L (42-52) % Plt Count 265 (130-400) K/uL BMP 02/11/21 06:11 Sodium 140 Potassium 3.9 Chloride 105 Carbon Dioxide 26 BUN 25 H Creatinine 0.87 Glucose 192 H Calcium 9.4 (1) AMS (altered mental status) Altered mental status type: unspecified Qualified Code(s): R41.82 - Altered mental status, unspecified
--- NOTE | 2021-02-11 12:39 | Discharge Summary ---
Date of Service February 11, 2021 Admission HPI Per Admitting Provider Patient is 80-year-old male with PMH DM II, CAD s/p CABG, vascular parkinsonism, HTN, HLD, PVD s/p partial right foot amputation, iron deficiency anemia secondary to history of GI bleed in past, hypothyroidism presented to ER with complaint of confusion. Patient speaks Jaylin, granddaughter is serving as videotape operator. Reports patient lives at home with his and granddaughter. Granddaughter reports Thursday evening patient was having trouble knowing how to use his glucometer which is unusual. Yesterday and today seems to have increased confusion. Patient is having a hard time knowing what to do with fo od, was unaware of how to use a mask, did not know how to put his hearing aids in. This morning he thought his granddaughter was his daughter. Since being in ER patient now knows who granddaughter is. Denies any known facial droop, speech changes. Patient walks with use of walker and has unsteady gait secondary to his prior partial foot amputation however denies any further noted ambulatory difficulty. Denies patient complaining of headache, dizziness or vision changes. Denies fever/chills, diaphoresis, N/V/D/C, melena, hematochezia, syncope, neck pain, CP, SOB, orthopnea, palpitations, cough, sore throat, choking, otalgia, rhinorrhea, abdominal pain, paresthesias, extremity weakness, extremity edema, rashes, urinary symptoms. In ER vitals stable, no leukocytosis, no significant electrolyte abnormality, negative troponin. CTA head and neck: Loss of loera-white matter differentiation in the left posterior temporal lobe consistent with subacute ischemia, long segment of high-grade stenosis with near complete occlusion involving the petrous portion of the left internal carotid artery at the skull base, focal high-grade stenosis of supraclinoid left internal carotid artery just below [place] of [place] Patient being admitted for further evaluation and treatment. Admission Exam Per Admitting Provider General: no distress, WDWN Head: normocephalic, atraumatic Eyes: PERRL, EOM's intact, conjunctiva non-injected, anicteric ENT: normal inspection external ears, nose, mucous membranes moist Neck: supple, trachea midline Lungs: clear, no respiratory distress, no wheezing/rhonchi/rales CV: RRR, no murmur, no pretibial edema Abd: normal BS, soft, non-tender Ext: no cyanosis, or erythema, R Foot: +distal amputation, site is without erythema or discharge Neuro: alert, oriented to person, EOMs intact. No nystagmus, face is strong and symmetric, hard of hearing, no dysarthria reported, tongue is midline, normal movement, no fasciculations, able to move all extremities, wellness manager strength equal bilaterally Skin: warm, dry Principal Diagnosis Subacute Cerebrovascular Accident Hypertension Diabetes mellitus Dyslipidemia Vascular Parkinson's Peripheral vascular disease Coronary artery disease S/P CABG Discharge Data Allergies Allergy/AdvReac Type Severity Reaction Status Date / Time Sulfa (Sulfonamide Allergy Unknown BLISTERS Verified 09/28/20 07:23 Antibiotics) AND RASH Consultations 02/08/21 12:28 ED Decision to Admit Stat 02/08/21 22:44 Consult Neurology Routine 02/09/21 11:01 Consult Vascular Surgery Routine Ordered Studies 02/08/21 09:12 CT angio head w con Stat CT angio neck with con Stat CT head/brain wo con Stat 02/09/21 22:44 MR brain wo con Routine Hospital Course (1) Acute CVA (cerebrovascular accident): (2) AMS (altered mental status): Patient is 80-year-old male with PMH DM II, CAD s/p CABG, vascular parkinsonism, HTN, HLD, PVD s/p partial right foot amputation, iron deficiency anemia secondary to history of GI bleed in past, hypothyroidism presented to ER with complaint of confusion x 3 days. Denies extremity weakness, VAZQUEZ, vision changes, speech changes, facial drooping Subacute CVA Left internal carotid artery Occlusion --MRI Brain:Findings are compatible with subacute infarct in the left temporal and temporo-occipital region in this patient with occlusion of the left internal carotid artery. --Head/Neck CTA:There is loss of loera-white matter differentiation in the left posterior temporal lobe consistent with subacute ischemia. There is no hemorrhage or midline shift. There is a long segment of high-grade stenosis with near complete occlusion involving the petrous portion of the left internal carotid artery at the skull base. There is also focal high-grade stenosis of the supraclinoid left internal carotid artery just below the [place] of [place]. The left A1 segment is diminutive versus occluded. Both anterior cerebral arteries are patent and supplied via the right-sided circulation. There is approximately 65% focal stenosis of the origin of the left common carotid artery. There is high-grade stenosis at the origin of the left external carotid artery. There is approximately 50% focal stenosis of the right vertebral artery at the level of C2. -ECHO: Normal left ventricle size with mild concentric LVH. EF 60 to 65%. No segmental left ventricular wall motion abnormality. Grade 1 diastolic dysfunction. Aortic valve sclerosis without significant valvular stenosis - LDL:23 -Continue aspirin, Plavix, statin Plan to continue dual antiplatelet therapy for 21 days and then transition to Plavix. Continue continue Lipitor 20 mg daily:No plan to increase it to high intensity daily given age greater than 80 years, total cholesterol less than 150 and LDL 23. PT/OT speech eval Continue Neuro Checks Appreciate neurology input Vascular Surgery consulted as well as per patient's family request. Aspiration/Fall precautions Plan to discharge to rehab facility today Needs follow-up with neurology upon discharge (3) CAD (coronary artery disease): S/P CABG Continue aspirin, carvedilol, atorvastatin (4) Diabetes mellitus, type II: A1c: 7.3 on 11/28/2020 -NovoLog sliding scale per protocol Glycemic pharmacy consulted (5) Hypertension: Continue carvedilol Increased Carvedilol to 6.25mg BID for better BP control (6) Dyslipidemia: Continue atorvastatin 20mg daily (7) Vascular parkinsonism: Continue carbidopa-levodopa (8) PAD (peripheral artery disease): H/O partial right foot amputation Continue aspirin, statin DVT Px Heparin SQ Code Status Full Code Disposition Acute Rehab today Total Time Total Time Spent Total Time Spent (In Minutes): 45 minutes Discharge Plan Discharge Items Patient Disposition: Transfer Inpatient Rehab Fac Reason For Visit: STROKE Discharge Diagnosis: Subacute Cerebrovascular Accident Hypertension Diabetes mellitus Dyslipidemia Vascular Parkinson's Peripheral vascular disease Coronary artery disease S/P CABG Activity: Per Instructions section Exercise/Sports: Gradually increase as tolerated Non-emergency contact: Primary Care Provider and Neurologist Call non-emergency contact if: you have any medication questions, your symptoms worsen, your pain is concerning for you and you have a fever Follow-up/Referrals: Marianela Contreras MD [Primary Care Provider] - Diet: Carb Consistent or DM2, Heart Healthy and Vegetarian (Lacto-Ovo) Addtl Attending Provider Instructions: Follow-up with your primary care physician Dr. Marianela Contreras in 1 week upon discharge from rehab facility Follow-up with your neurologist Dr. Marion/Lupe Robbins PA-C in 3 to 4 weeks as recommended Consider following with your vascular surgeon Dr. Rodriguez as advised to discuss options for considering any angioplasty. ---Continue aspirin 81 mg daily, Plavix 75 mg daily for 18 more days and then transition to Plavix 75 mg daily for lifelong. --- Your omeprazole is changed to Protonix 40 mg twice a day ( given interaction with Plavix with omeprazole.) --- Your carvedilol is increased to 6.25 mg twice a day for better control of your blood pressure. Further adjustment of your medications as prior physician. Seek immediate medical attention if your symptoms reoccur or worsen Please take all medications as instructed on discharge list below. Please call if you have any questions or problems. You can reach a [facility] hospitalist on duty at [facility] 24 hours a day by calling [phone] Risk Factors for Stroke: You can reduce your chances of stroke by working with your medical provider to adopt a healthy lifestyle. Some specific ways to lower your chance of stroke are: * If you are a smoker, now is the time to stop smoking cigarettes * If you are diabetic, improve the control of your blood sugars * Avoid excessive amounts of alcohol * Control high blood pressure * Lose weight if you are overweight * Be sure to lead an active lifestyle * Eat a healthy diet low in salt, cholesterol and fat You should know about other risk factors for stroke that you are unable to control. These include: * Age 55 years or older * Male gender * Certain racial groups: , or / * Family History of Stroke, Mini stroke or Heart Attack * Sickle Cell Disease Follow Up: It is important for you to keep your follow up appointments with your medical provider. Who to Call and When: Medical Emergencies: Call 911 immediately if you experience any of the following warning signs and symptoms of Stroke: * Sudden numbness or weakness of the face, arm or leg, especially on one side of the body * Sudden confusion, trouble speaking or understanding * Sudden trouble seeing in one or both eyes * Sudden trouble walking, dizziness, loss of balance or coordination * Sudden severe headache with no cause Do not delay calling 911 if you experience any warning signs or symptoms of a stroke. Delay in seeking medical attention may affect what treatments can be given to you. . Pending Studies at Discharge: No Stand-Alone Forms: Medications to Prevent Stroke, [facility] Skilled Items Patient informed of condition?: Yes DNR: No Discharge Level of Care: Acute rehab Communicable Disease: No Discharge Prognosis: Stable Lines: Peripheral IV Urinary Catheter: No Medications and DC Order Prescriptions: New clopidogrel 75 mg Tablet 75 mg PO QAM Qty: 30 RF: 1 pantoprazole 40 mg Tablet,Delayed Release (Dr/Ec) 40 mg PO BID Qty: 60 RF: 1 Continued atorvastatin 20 mg Tablet 20 mg PO QAM RF: 0 carbidopa-levodopa [Sinemet] 25-100 mg Tablet 2 tab PO QID RF: 0 Januvia 100 mg Tablet 100 mg PO QAM RF: 0 nitroglycerin 0.3 mg Tablet, Sublingual 0.3 mg sublingual QAM PRN (Reason: chest pain) RF: 0 cholecalciferol (vitamin D3) [Vitamin D3] 2,000 unit Tablet 2,000 unit PO QAM RF: 0 ferrous sulfate 325 mg (65 mg iron) Tablet 325 mg PO Q OTHER DAY RF: 0 Jardiance 25 mg Tablet 25 mg PO QAM RF: 0 trazodone 50 mg tablet 50 mg PO HS PRN (Reason: Sleep) RF: 0 melatonin 3 mg tablet 3 mg PO HS PRN (Reason: Insomnia) RF: 0 glipizide 2.5 mg tablet extended release 24 hr 2.5 mg PO UD RF: 0 tramadol 50 mg tablet 50 mg PO Q6H PRN (Reason: Severe Pain (Scale Score 7-10)) RF: 0 zolpidem 5 mg tablet 5 mg PO HS PRN (Reason: Sleep) RF: 0 gabapentin 100 mg capsule 100 mg PO BID RF: 0 docusate sodium 100 mg Tablet 100 mg PO BID RF: 0 aspirin 81 mg Tablet,Delayed Release (Dr/Ec) 81 mg PO DAILY RF: 0 Changed carvedilol 3.125 mg tablet 6.25 mg PO BID Qty: 0 RF: 0 Discontinued omeprazole 40 mg Capsule,Delayed Release(Dr/Ec) 40 mg PO BID RF: 0 Discharge Orders: Discharge Order (Routine); Ordered 02/11/21 Ordered By: Abdulkadir Mcneil/Other Patient Handouts: A1C, High Blood Sugar (Hyperglycemia), Hypoglycemia (Low Blood Sugar), Managing Type 2 Diabetes Admission Data Admit Date/Time: 02/08/21 13:47 Attending Provider: Abdulkadir St Admit Provider: Zachariah Castillo Primary Care Provider: Marianela Contreras Other Providers: Zachariah Castillo ; Yaniv Marion ; Tuan Szymanski ; [place], [place] ; [facility]
--- NOTE | 2021-02-20 06:56 | Coding Query ---
CODING QUERY To promote full compliance with coding requirements relating to patient care, provider participation is requested in all cases of director of diagnostic imaging uncertainty. Please assist us with the question(s) below: Coding Question(s): Pt admitted with confusion, aphasia. Dx'd with left MCA embolic stroke (dr Marion's 02/09 note) . 02/09 Neuro note mentions LMCA due to emboli from left carotic artery stenosis. Seeking to clarify the relationship between the stroke and carotid artery stenosis. Please check below the phrase that describes the left carotid artery stenosis & stroke . Thanks for your help! Scotty Franco V[employer]SEL [employer] [facility] Physician's Response(s): The Carotid Artery Occlusion was responsible for the Left MCA stroke The Carotid Artery Occlusion was not responsible for the Left MCA stroke Cannot Clinically Correlate if the Carotid Artery Occlusion was responsible for the Left MCA stroke ____X___ Other: Please document: The Carotid Artery Occlusion was likely responsible for the Left MCA stroke Principal Diagnosis: "that condition established after study, to be chiefly responsible for occasioning the admission of the patient to the hospital for care." Co-Existing Principal Diagnosis: "when two or more diagnoses equally meet the criteria for principal diagnosis as determined by the circumstances of admission, diagnostic work up, and/or therapy provided, and the Alphabetic Index, Tabular List, or another coding guideline does not provide sequencing direction, any one of the diagnoses may be sequenced first." "When the physician has documented what appears to be a current diagnosis in the body of the record, but has not included the diagnosis in the final diagnostic statement, the physician should be asked whether the diagnosis should be added." (Source Coding [facility] 2 QTR90. p3-4) [place]
== END 2021-02-11 14:15 | DRG 64 ==
LOC: ED 08:40 → EDINP 13:47 → SUATTDRO 13:47 → EDINP 21:49 → 2N 22:08

== ENCOUNTER 2021-02-14 09:10 | Inpatient (IN) ==
[2021-02-14] MEDS ORDERED: SODIUM CHLORIDE 0.9% 250 ML IV PRN (09:34)
--- NOTE | 2021-02-14 09:39 | Emergency Department Note ---
Impression & Plan GI bleed, Acute blood loss anemia, Symptomatic anemia ED Provider Note NAME: LUIS TONEY AGE: 80 SEX: M : 1940 ARRIVES VIA: Ambulance INFORMANT: Patient ED PROVIDER(S): Ferny Shen DO CHIEF COMPLAINT: Dark stools hgb 5 HPI: Patient is an 80-year-old male with a past medical history of CVA, hypertension, hyperlipidemia, diabetes, CVA and GI bleed that presents the ER for dark tarry stools per [facility]. Hemoglobin was 5 this morning. He denies any headache or change in vision. No chest pain or shortness of breath. No belly pain, nausea, vomiting, or diarrhea. No dysuria, urgency, or frequency. No other exacerbating or remitting factors. He does take Plavix. Patient was transferred there secondary to a stroke has had dark stools. He used to understand Macedonian but has not understood Macedonian since the stroke and they have been unable to communicate him via forensic psychologist either. He has been having black stools the entire time that has been here. ROS: See above HPI for pertinent positives & negatives. A total of 10 systems reviewed and were otherwise negative. PAST MEDICAL HISTORY:See Below PAST SURGICAL HISTORY:See Below FAMILY HISTORY:See Below SOCIAL HISTORY:See Below HOME MEDICATIONS:See Below ALLERGIES:See Below VITALS:See Below PHYSICAL EXAMINATION: GENERAL: Sitting up in bed, alert, disheveled, chronically ill-appearing EYE EXAM: normal conjunctiva. OROPHARYNX: no exudate, no erythema, lips, buccal mucosa, and tongue normal and mucous membranes are moist NECK: supple, no nuchal rigidity, no adenopathy, non-tender LUNGS: Clear to auscultation. Normal chest wall mechanics HEART: no murmurs, S1 normal and S2 normal ABDOMEN: abdomen soft, non-tender, normo-active bowel sounds, no masses, no rebound or guarding. UPPER EXTREMITIES: upper extremities are grossly normal. LOWER EXTREMITIES: No pitting edema. NEURO EXAM: Normal sensorium, cranial nerves II-XII grossly intact, normal speech, no gross weakness of arms, no gross weakness of legs. MEDICAL DECISION MAKING: Patient is an 80-year-old male who presents the ER from [facility] he was discharged from here on the has been there since then. He was discharged with a hemoglobin of 12. They have noticed black tarry stools since he has been there. He has been taking Plavix but they held it this morning. Hemoglobin has been trending down from 12-7 and then this morning till 5. I sent him over. He denies all complaints but does not want to be asked any additional questions. He was agreeable to getting blood. Did discuss with his son Anuel who was in agreement and gave verbal consent. IV was established blood work was obtained. Labs show leukocytosis of 12,000. Hemoglobin of 6.3. BMP with an elevated BUN at 45. Glucose was elevated at 385. Patient was given 6 units IV insulin. LFTs bilirubin was unremarkable. Troponin was negative. EKG with some subtle changes. ST segment elevations were unchanged from previous. He has no chest pain or shortness of breath. You favor this is all from symptomatic anemia. He was typed and crossed and given 2 units PRBCs while in the ER. CT abdomen pelvis was unremarkable. He was discussed with Dr. Carballo and admitted for further work-up. Triage Nursing notes reviewed. Limited review of prior medical records performed Vital Signs: reviewed and remarkable for HTN and tachy Differential diagnosis: Differential diagnosis includes etiologies such as diverticulitis, diverticulosis, AVM, coagulopathy, colitis, inflammatory bowel disease, malignancy, Isha-Pretty tear, esophagitis, peptic ulcer disease, variceal bleed, gastritis, epistaxis, fissure, hemorrhoids, as well as others were entertained. ER treatment provided: See below Diagnostics interpreted by me: ECG: Sinus tachycardia rate of 110 Normal axis Inferior Q waves ST segment elevation in lead III and aVF ST depressions in the high lateral leads Septal Q waves Nonspecific ST wave changes in the septal leads In comparison to August 2020 ST depressions in the high lateral leads are new but the elevations are unchanged Cardiac Monitoring: An order was placed for continuous cardiac monitoring. The monitor shows a rate of 100 with sinus rhythm. Laboratory studies: As stated above and show below. Imaging studies: CT abdomen pelvis is unremarkable Consultation(s): Discussed with Dr. 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 Family History Other Cancer Diabetes Heart disease Social History Smoking Status: Unknown if ever smoked Second Hand Exposure: No; Hx Alcohol Use: Yes Alcohol type: beer, wine, hard liquor and other Hx Substance Use: No Preferred Language: Jaylin Communication Ability: Effective Communication Tools: IPad and Language Line Cleaning Professional Hearing Ability: Hard of Hearing Cleaning Professional Required: Yes Beliefs That Will Affect Care: None marital status: Current Living Situation: Spouse and Family How many Children do You have: 3 Feels Safe at Home: Yes Assistive Devices: Walker Allergies Allergies Allergy/AdvReac Type Severity Reaction Status Date / Time Sulfa (Sulfonamide Allergy Unknown BLISTERS Verified 02/14/21 10:08 Antibiotics) AND RASH Home Meds Home Medications Medication Instructions Recorded Confirmed atorvastatin 20 mg tablet 20 mg PO QAM 01/07/18 02/14/21 carbidopa 25 mg-levodopa 100 mg 2 tab PO QID 01/07/18 02/14/21 tablet (Sinemet) cholecalciferol (vitamin D3) 50 2,000 unit PO QAM 10/25/18 02/14/21 mcg (2,000 unit) tablet (Vitamin D3) nitroglycerin 0.3 mg sublingual 0.3 mg SUBLINGUAL QAM PRN 10/25/18 02/14/21 tablet empagliflozin 25 mg tablet 25 mg PO QAM 06/05/20 02/14/21 (Jardiance) ferrous sulfate 325 mg (65 mg 325 mg PO Q2D 06/05/20 02/14/21 iron) tablet zolpidem 5 mg tablet 5 mg PO HS PRN 07/07/20 02/14/21 docusate sodium 100 mg tablet 100 mg PO BID 08/23/20 02/14/21 gabapentin 100 mg capsule 100 mg PO BID 08/23/20 02/14/21 glipizide 2.5 mg tablet, extended 2.5 mg PO UD 02/08/21 02/14/21 release 24 hr melatonin 3 mg tablet 3 mg PO HS PRN 02/08/21 02/14/21 tramadol 50 mg tablet 50 mg PO Q6H PRN 02/08/21 02/14/21 trazodone 50 mg tablet 50 mg PO HS PRN 02/08/21 02/14/21 carvedilol 6.25 mg tablet 6.25 mg PO BID 02/14/21 02/14/21 insulin regular human 100 unit/mL 1 sliding scale dose SUBCUT ACHS 02/14/21 02/14/21 injection solution (Humulin R Regular U-100 Insulin) Previous Rx's Medication Instructions Recorded clopidogrel 75 mg tablet 75 mg PO QAM #30 tab 02/11/21 pantoprazole 40 mg tablet,delayed 40 mg PO BID #60 tab 02/11/21 release Results & Data (ED) Vital Signs Vital Signs - 24 hr 02/14/21 09:22 02/14/21 09:43 02/14/21 12:19 Temperature 36.5 C 36.9 C Temperature Source Oral Oral Pulse Rate 100 H 107 H Respiratory Rate 18 19 Blood Pressure 158/57 H 135/55 L Blood Pressure Mean 90 81 Pulse Oximetry 98 98 100 Oxygen Delivery Method Room Air Room Air Sepsis Recent Fever Within 48 Hours No Sepsis New/Unexplained Change in Mental Status No Sepsis Action Taken by Nursing No Action Required 02/14/21 12:40 02/14/21 12:55 02/14/21 13:25 Temperature 36.4 C L 36.7 C 36.8 C Temperature Source Oral Oral Oral Pulse Rate 108 H 103 H 102 H Respiratory Rate 24 18 20 Blood Pressure 139/43 L 114/52 L 123/55 L Blood Pressure Mean 75 72 77 Pulse Oximetry 100 95 100 Oxygen Delivery Method Sepsis Recent Fever Within 48 Hours Sepsis New/Unexplained Change in Mental Status Sepsis Action Taken by Nursing Laboratory Data Result diagrams: 02/14/21 09:39 02/14/21 09:39 Lab Results 02/14/21 02/14/21 02/14/21 Range/Units 09:39 09:39 09:39 WBC 12.04 H (4.8-10.8) K/uL RBC 2.25 L (4.7-6.1) M/uL Hgb 6.3 L* (14.0-18.0) g/dL Hct 18.7 L* (42-52) % MCV 83.1 (80-100) fL MCH 28.0 (25-34) pg MCHC 33.7 (32-36) g/dL RDW Std Deviation 46.3 (36.4-46.3) fL RDW Coeff of Melissa 15.5 H (11.5-14.5) % Plt Count 272 (130-400) K/uL MPV 9.5 (7.4-10.4) fL Immature Gran % (Auto) 0.8 % Neut % (Auto) 79.4 % Lymph % (Auto) 11.5 % Anderson % (Auto) 6.6 % Eos % (Auto) 1.5 % Baso % (Auto) 0.2 % Neut # (Auto) 9.55 H (1.4-6.5) K/uL Lymph # (Auto) 1.39 (1.2-3.4) K/uL Anderson # (Auto) 0.80 H (0.11-0.59) K/uL Eos # (Auto) 0.18 (0-0.5) K/uL Baso # (Auto) 0.02 (0-0.2) K/uL Immature Gran # (Auto) 0.10 H (0.00-0.02) K/uL Absolute Nucleated RBC 0.04 H (0-0) K/uL Nucleated RBC % (auto) 0.4 % Polychromasia 1+ PT (9.0-12.0) Seconds INR (0.9-1.1) APTT (21.0-31.0) Seconds PTT Ratio Sodium 137 (136-145) mmol/L Potassium 4.9 (3.5-5.1) mmol/L Chloride 105 (98-107) mmol/L Carbon Dioxide 21 (21-32) mmol/L Anion Gap 11.0 (3-11) BUN 45 H (7-18) mg/dl Creatinine 0.93 (0.6-1.4) mg/dl Est Cr Clr Drug Dosing Not Reportable Est GFR ( Amer) 88.3 ml/min Est GFR (Non-Af Amer) 76.2 ml/min BUN/Creatinine Ratio 47.8 H (10-20) Glucose 385 H* (70-99) mg/dl POC Glucose (70-99) mg/dl Calcium 8.3 L (8.5-10.1) mg/dl Total Bilirubin 0.1 L (0.2-1) mg/dl AST 13 L (15-37) U/L ALT 15 (12-78) U/L Alkaline Phosphatase 104 (45-117) U/L Troponin I < 0.015 (0-0.045) ng/ml Total Protein 6.3 L (6.4-8.2) gm/dl Albumin 2.7 L (3.4-5.0) gm/dl Globulin 3.6 (2.5-4.0) gm/dl Albumin/Globulin Ratio 0.7 L (0.9-2) Beta-Hydroxybutyric Acd 2.47 (0.2-2.81) mg/dl SARS-CoV-2, RNA, NAAT (NEGATIVE) Blood Type O Positive Antibody Screen NEGATIVE Crossmatch See Detail 02/14/21 02/14/21 02/14/21 Range/Units 09:39 09:39 09:40 WBC (4.8-10.8) K/uL RBC (4.7-6.1) M/uL Hgb (14.0-18.0) g/dL Hct (42-52) % MCV (80-100) fL MCH (25-34) pg MCHC (32-36) g/dL RDW Std Deviation (36.4-46.3) fL RDW Coeff of Melissa (11.5-14.5) % Plt Count (130-400) K/uL MPV (7.4-10.4) fL Immature Gran % (Auto) % Neut % (Auto) % Lymph % (Auto) % Anderson % (Auto) % Eos % (Auto) % Baso % (Auto) % Neut # (Auto) (1.4-6.5) K/uL Lymph # (Auto) (1.2-3.4) K/uL Anderson # (Auto) (0.11-0.59) K/uL Eos # (Auto) (0-0.5) K/uL Baso # (Auto) (0-0.2) K/uL Immature Gran # (Auto) (0.00-0.02) K/uL Absolute Nucleated RBC (0-0) K/uL Nucleated RBC % (auto) % Polychromasia PT 9.8 (9.0-12.0) Seconds INR 1.0 (0.9-1.1) APTT 24.7 (21.0-31.0) Seconds PTT Ratio 0.9 Sodium Cancelled (136-145) mmol/L Potassium Cancelled (3.5-5.1) mmol/L Chloride Cancelled (98-107) mmol/L Carbon Dioxide Cancelled (21-32) mmol/L Anion Gap Cancelled (3-11) BUN Cancelled (7-18) mg/dl Creatinine Cancelled (0.6-1.4) mg/dl Est Cr Clr Drug Dosing Cancelled Est GFR ( Amer) Cancelled ml/min Est GFR (Non-Af Amer) Cancelled ml/min BUN/Creatinine Ratio Cancelled (10-20) Glucose Cancelled (70-99) mg/dl POC Glucose (70-99) mg/dl Calcium Cancelled (8.5-10.1) mg/dl Total Bilirubin Cancelled (0.2-1) mg/dl AST Cancelled (15-37) U/L ALT Cancelled (12-78) U/L Alkaline Phosphatase Cancelled (45-117) U/L Troponin I (0-0.045) ng/ml Total Protein Cancelled (6.4-8.2) gm/dl Albumin Cancelled (3.4-5.0) gm/dl Globulin Cancelled (2.5-4.0) gm/dl Albumin/Globulin Ratio Cancelled (0.9-2) Beta-Hydroxybutyric Acd (0.2-2.81) mg/dl SARS-CoV-2, RNA, NAAT NEGATIVE (NEGATIVE) Blood Type Antibody Screen Crossmatch 02/14/21 Range/Units 12:29 WBC (4.8-10.8) K/uL RBC (4.7-6.1) M/uL Hgb (14.0-18.0) g/dL Hct (42-52) % MCV (80-100) fL MCH (25-34) pg MCHC (32-36) g/dL RDW Std Deviation (36.4-46.3) fL RDW Coeff of Melissa (11.5-14.5) % Plt Count (130-400) K/uL MPV (7.4-10.4) fL Immature Gran % (Auto) % Neut % (Auto) % Lymph % (Auto) % Anderson % (Auto) % Eos % (Auto) % Baso % (Auto) % Neut # (Auto) (1.4-6.5) K/uL Lymph # (Auto) (1.2-3.4) K/uL Anderson # (Auto) (0.11-0.59) K/uL Eos # (Auto) (0-0.5) K/uL Baso # (Auto) (0-0.2) K/uL Immature Gran # (Auto) (0.00-0.02) K/uL Absolute Nucleated RBC (0-0) K/uL Nucleated RBC % (auto) % Polychromasia PT (9.0-12.0) Seconds INR (0.9-1.1) APTT (21.0-31.0) Seconds PTT Ratio Sodium (136-145) mmol/L Potassium (3.5-5.1) mmol/L Chloride (98-107) mmol/L Carbon Dioxide (21-32) mmol/L Anion Gap (3-11) BUN (7-18) mg/dl Creatinine (0.6-1.4) mg/dl Est Cr Clr Drug Dosing Est GFR ( Amer) ml/min Est GFR (Non-Af Amer) ml/min BUN/Creatinine Ratio (10-20) Glucose (70-99) mg/dl POC Glucose 455 H* (70-99) mg/dl Calcium (8.5-10.1) mg/dl Total Bilirubin (0.2-1) mg/dl AST (15-37) U/L ALT (12-78) U/L Alkaline Phosphatase (45-117) U/L Troponin I (0-0.045) ng/ml Total Protein (6.4-8.2) gm/dl Albumin (3.4-5.0) gm/dl Globulin (2.5-4.0) gm/dl Albumin/Globulin Ratio (0.9-2) Beta-Hydroxybutyric Acd (0.2-2.81) mg/dl SARS-CoV-2, RNA, NAAT (NEGATIVE) Blood Type Antibody Screen Crossmatch Administered Medications Insulin Human Regular 250 (units/ Sodium Chloride) 250 mls @ 2.1 mls/hr IV .Q24H KAYLA; Protocol Stop: 03/16/21 12:44 Last Admin: 02/14/21 13:32 Dose: 2.1 units/hr, 2.1 mls/hr Documented by: [id number] Cosigned by: [id number] Discontinued Medications Pantoprazole Sodium (Protonix Bolus/Drip) 0 mls @ 1 mls/hr IV ONE STA Stop: 02/14/21 09:45 Last Infusion: 02/14/21 11:50 Dose: 0 mls/hr Documented by: [id number] Admin: 02/14/21 11:40 Dose: 1 mls/hr Documented by: [id number] Pantoprazole Sodium 40 mg/ (Dextrose) 100 mls @ 20 mls/hr IV Q5H [facility] Stop: 03/16/21 09:59 Last Admin: 02/14/21 11:40 Dose: 8 mg/hr, 20 mls/hr Documented by: [id number] Pantoprazole Sodium 80 mg/ (Dextrose) 120 mls @ 400 mls/hr IV NOW ONE Stop: 02/14/21 10:01 Last Infusion: 02/14/21 10:53 Dose: 0 mls/hr Documented by: [id number] Admin: 02/14/21 10:12 Dose: 400 mls/hr Documented by: [id number] Insulin Human Regular (Novolin-R Insulin Per Unit Charge) 6 units IV NOW STA Stop: 02/14/21 10:44 Last Admin: 02/14/21 11:11 Dose: 6 units Documented by: [id number] Cosigned by: [id number] Insulin Human Regular (Novolin-R Bolus From Bag) 2 units IV ONE ONE Stop: 02/14/21 12:46 Last Admin: 02/14/21 13:33 Dose: 2 units Documented by: [id number] Cosigned by: [id number] Imaging Data Radiologist's Impression: Abdomen/Pelvis CT 02/14/21 09:45 CT OF THE ABDOMEN AND PELVIS WITHOUT CONTRAST CLINICAL HISTORY: Abdominal pain. COMPARISON STUDY: CT of the abdomen and pelvis January 07, 2018. TECHNIQUE: Axial images of the abdomen and pelvis were obtained without IV contrast. Images were reviewed in the axial, sagittal, and coronal planes. Automated exposure control was utilized for the study. A dose lowering technique was utilized adhering to the principles of ALARA. FINDINGS: Lung bases are unremarkable. No pneumatosis, free air or portal venous gas is present. 3 mm calculus within the upper pole of the left kidney is noted. There are no ureteral calculi. There is no hydronephrosis. Hypodense lesion within the midpole the right kidney is suboptimally assessed on this unenhanced exam but measures water attenuation and favors a cyst. Unenhanced images of the liver, spleen, adrenal glands and pancreas are unremarkable. There is moderate plaque of the abdominal aorta and branch vessels. There is no evidence for a bowel obstruction. The appendix is normal. No ascites or lymphadenopathy is present. No acute fracture or suspicious lesion is identified within the v isualized skeletal structures. IMPRESSION: 1. 3 mm left renal calculus. No ureteral calculi or hydronephrosis. 2. No acute process within the abdomen or pelvis on unenhanced exam. 3. No bowel obstruction. Normal appendix. ACT 112: Negative or not required by law. Electronically signed by: Raimundo Avina M.D. 02/14/2021 12:24 PM Discharge Plan Visit Data Chief Complaint: GI Bleed ED Provider: Ferny Shen Discharge Problem: GI bleed, Acute blood loss anemia, Symptomatic anemia Forms Stand Alone Forms: My [facility] [employer] Prescriptions Prescriptions: No Action atorvastatin 20 mg Tablet 20 mg PO QAM RF: 0 carbidopa-levodopa [Sinemet] 25-100 mg Tablet 2 tab PO QID RF: 0 nitroglycerin 0.3 mg Tablet, Sublingual 0.3 mg sublingual QAM PRN (Reason: chest pain) RF: 0 cholecalciferol (vitamin D3) [Vitamin D3] 2,000 unit Tablet 2,000 unit PO QAM RF: 0 ferrous sulfate 325 mg (65 mg iron) Tablet 325 mg PO Q2D RF: 0 Jardiance 25 mg Tablet 25 mg PO QAM RF: 0 trazodone 50 mg tablet 50 mg PO HS PRN (Reason: Sleep) RF: 0 melatonin 3 mg tablet 3 mg PO HS PRN (Reason: Insomnia) RF: 0 glipizide 2.5 mg tablet extended release 24 hr 2.5 mg PO UD RF: 0 tramadol 50 mg tablet 50 mg PO Q6H PRN (Reason: Severe Pain (Scale Score 7-10)) RF: 0 clopidogrel 75 mg Tablet 75 mg PO QAM Qty: 30 RF: 1 pantoprazole 40 mg Tablet,Delayed Release (Dr/Ec) 40 mg PO BID Qty: 60 RF: 1 carvedilol 6.25 mg tablet 6.25 mg PO BID RF: 0 Humulin R Regular U-100 Insuln 100 unit/mL Solution 1 sliding scale dose SUBCUT ACHS RF: 0 zolpidem 5 mg tablet 5 mg PO HS PRN (Reason: Sleep) RF: 0 gabapentin 100 mg capsule 100 mg PO BID RF: 0 docusate sodium 100 mg Tablet 100 mg PO BID RF: 0 Referrals Referrals: Marianela Contreras MD [Physician] - Discharge Problem: GI bleed Qualifiers: GI bleed type/associated pathology: unspecified gastrointestinal hemorrhage type Qualified Code(s): K92.2 - Gastrointestinal hemorrhage, unspecified
[2021-02-14] MEDS ORDERED: PANTOPRAZOLE BOLUS/DRIP 1 EA IV STA (09:44)
[2021-02-14] MEDS ORDERED: PANTOprazole 80 MG in DEXTROSE 5% 100 ML IV ONE (09:44)
[2021-02-14 09:55] LABS: Hematocrit (blood only) 18.7 % (42-52); Hemoglobin 6.3 g/dL (14.0-18.0); Mean Corpuscular Hgb Conc 33.7 g/dL (32-36); Mean Corpuscular Volume 83.1 fL (80-100); Mean Platelet Volume 9.5 fL (7.4-10.4); Nucleated RBC # (auto) 0.04 K/uL (0-0); Nucleated RBC % (auto) 0.4 %; Platelet Count 272 K/uL (130-400); RDW Coefficient of Variation 15.5 % (11.5-14.5); RDW Standard Deviation 46.3 fL (36.4-46.3); Red Blood Count 2.25 M/uL (4.7-6.1); White Blood Count 12.04 K/uL (4.8-10.8)
[2021-02-14] MEDS ORDERED: PANTOprazole 40 MG in DEXTROSE 5% 100 ML IV SCH (10:00)
[2021-02-14 10:04] LABS: Partial Thromboplastin Ratio 0.9; Partial Thromboplastin Time 24.7 Seconds (21.0-31.0); Prothrombin Time 9.8 Seconds (9.0-12.0)
[2021-02-14 10:08] LABS: Basophils # (auto) 0.02 K/uL (0-0.2); Basophils % (auto) 0.2 %; Eosinophils # (auto) 0.18 K/uL (0-0.5); Eosinophils % (auto) 1.5 %; Immature Granulocytes % (auto) 0.8 %; Lymphocytes # (auto) 1.39 K/uL (1.2-3.4); Lymphocytes % (auto) 11.5 %; Monocytes % (auto) 6.6 %; Neutrophils # (auto) 9.55 K/uL (1.4-6.5); Neutrophils % (auto) 79.4 %; Polychromasia 1+
[2021-02-14 10:35] LABS: Alanine Aminotransferase 15 U/L (12-78); Albumin Globulin Ratio 0.7 (0.9-2); Albumin Level 2.7 gm/dl (3.4-5.0); Alkaline Phosphatase 104 U/L (45-117); Aspartate Aminotransferase 13 U/L (15-37); BUN Creatinine Ratio 47.8 (10-20); Bilirubin,Total 0.1 mg/dl (0.2-1); Blood Urea Nitrogen 45 mg/dl (7-18); Calcium 8.3 mg/dl (8.5-10.1); Carbon Dioxide 21 mmol/L (21-32); Chloride 105 mmol/L (98-107); Est GFR (African American) 88.3 ml/min; Est GFR (Non-African American) 76.2 ml/min; Globulin 3.6 gm/dl (2.5-4.0); Glucose 385 mg/dl (70-99); Potassium 4.9 mmol/L (3.5-5.1); Sodium 137 mmol/L (136-145); Total Protein 6.3 gm/dl (6.4-8.2); Troponin I < 0.015 ng/ml (0-0.045)
[2021-02-14] MEDS ORDERED: NovoLIN-R INSULIN PER UNIT CHARGE IV STA (10:43)
[2021-02-14 10:45] LABS: Beta-Hydroxybutyrate 2.47 mg/dl (0.2-2.81)
[2021-02-14] MEDS ORDERED: PHARMACY GLYCEMIC MGMT CONSULT PRN (12:03)
--- NOTE | 2021-02-14 12:26 | CT Scan Report ---
CT OF THE ABDOMEN AND PELVIS WITHOUT CONTRAST CLINICAL HISTORY: Abdominal pain. COMPARISON STUDY: CT of the abdomen and pelvis January 07, 2018. TECHNIQUE: Axial images of the abdomen and pelvis were obtained without IV contrast. Images were revi ewed in the axial, sagittal, and coronal planes. Automated exposure control was utilized for the gisella dy. A dose lowering technique was utilized adhering to the principles of ALARA. FINDINGS: Lung bases are unremarkable. No pneumatosis, free air or portal venous gas is present. 3 mm calculus within the upper pole of the left kidney is noted. There are no ureteral calculi. There is no hydronephrosis. Hypodense lesion within the midpole the right kidney is suboptimally assessed on t his unenhanced exam but measures water attenuation and favors a cyst. Unenhanced images of the liver, spleen, adrenal glands and pancreas are unremarkable. There is moderate plaque of the abdominal aort a and branch vessels. There is no evidence for a bowel obstruction. The appendix is normal. No ascite s or lymphadenopathy is present. No acute fracture or suspicious lesion is identified within the visu alized skeletal structures. IMPRESSION: 1. 3 mm left renal calculus. No ureteral calculi or hydronephrosis. 2. No acute process within the abdomen or pelvis on unenhanced exam. 3. No bowel obstruction. Normal appendix. ACT 112: Negative or not required by law. Electronically signed by: Raimundo Avina M.D. 02/14/2021 12:24 PM
[2021-02-14] MEDS ORDERED: INSULIN ASPART 100 UNITS/ML 3 ML PEN SC SCH ×2 (12:30)
[2021-02-14] MEDS ORDERED: GLUCOSE 10 TABS/TUBE PO PRN (12:30)
[2021-02-14] MEDS ORDERED: DEXTROSE 50% 50 ML SYRINGE IV PRN (12:30)
[2021-02-14] MEDS ORDERED: CARBOHYDRATES FOR HYPOGLYCEMIA PO PRN (12:30)
[2021-02-14] MEDS ORDERED: GLUCOSE 40% GEL 15 GM TUBE PO PRN (12:30)
[2021-02-14] MEDS ORDERED: GLUCAGON FOR INJ 1 MG VIAL IM PRN (12:30)
--- NOTE | 2021-02-14 12:34 | Electrocardiogram Report ---
Test Reason : Blood Pressure : / mmHG Vent. Rate : 111 BPM Atrial Rate : 111 BPM P-R Int : 174 ms QRS Dur : 082 ms QT Int : 342 ms P-R-T Axes : 025 066 098 degrees QTc Int : 465 ms Sinus tachycardia Nonspecific ST abnormality Abnormal ECG When compared with ECG of 08-FEB-2021 09:19, Criteria for Inferior infarct are no longer Present ST now depressed in Anterior leads Nonspecific T wave abnormality, improved in Lateral leads Confirmed by Ney Morales ([id number]) on 02/14/2021 12:33:43 PM Referred By: [facility] Confirmed By:Andrea Morales
[2021-02-14] MEDS ORDERED: INSULIN PROTOCOL GOAL RANGE ONE (12:40)
[2021-02-14] MEDS ORDERED: STAT IV Infusion **Titration per Protocol STA (12:40)
[2021-02-14] MEDS ORDERED: SEVERE STRESS LEVEL ONE (12:40)
[2021-02-14] MEDS ORDERED: NovoLIN-R BOLUS FROM BAG IV ONE (12:45)
[2021-02-14] MEDS ORDERED: INSULIN REGULAR 250 UNITS in SODIUM CHLORIDE 0.9% 247.5 ML IV SCH (12:45)
--- NOTE | 2021-02-14 12:52 | History & Physical Report ---
Date of Service February 14, 2021 Assessment & Plan (1) Acute on chronic anemia: Plan: -Patient presents with hemoglobin of 5 per outpatient labs, dark stools -Hemoglobin 6.3 in the ED -Concern for GI bleed -FOBT ordered -Patient started on IV Protonix, PRBCs ordered in the ED, IV fluids -Hold aspirin and Plavix for now -NPO -GI consulted (2) Diabetes mellitus, type II: Plan: -Patient hyperglycemic in the ED, blood glucose over 400 -Glycemic pharmacy consulted, started on IV insulin -Hemoglobin A1c from earlier of this month, 7.2% (3) History of CVA (cerebrovascular accident): Plan: Recently admitted for subacute CVA, also was found to have left internal carotid artery occlusion -No vascular procedure recommended at the time, and also patient was not interested in any surgery -Patient was discharged on aspirin, Plavix, statin -At this point we will hold aspirin and Plavix due to anemia / concern for GI bleed Chronic conditions: CAD s/p CABG PAD HTN HLD - cont. carvedilol, atorvastatin - for now holding ASA, plavix d/t GI bleed Vascular parkinsonism - carbidopa-levodopa DVT ppx: SCDs History of Present Illness Chief Complaint: Dark stools, Hgb 5 (from [facility]) Primary Care Provider: [facility] Patient is an 80 y/o M w/ DM II, CAD s/p CABG, vascular parkinsonism, HTN, HLD, PVD s/p partial right foot amputation, iron deficiency anemia secondary to history of GI bleed in past, hypothyroidism who presents from [facility] due to dark stools and hemoglobin of 5. Patient was recently admitted to [facility], between February 08 - February 11. At that time he presented with strokelike symptoms/subacute CVA, and also was found to have distal left internal carotid artery occlusion, and was evaluated by vascular surgery. No procedure was recommended at that time. He was discharged on aspirin and Plavix for 21 days, and statin. Plan was to continue with Plavix after that indefinitely. Patient was then discharged to [facility]. Patient is a poor historian, and his primary language is Jaylin, does not speak much Turkish. Per report, he has been having some dark stools at [facility], today they brought him in for evaluation after finding hemoglobin being low, 5. Patient however has no complaints. In the emergency room , hemoglobin was found to be 6.3. Patient was started on IV Protonix, IV fluids, and PRBCs were also ordered. He was also found hyperglycemic and received IV insulin. CT abdomen pelvis unremarkable. FOBT ordered. ED provider notified patient's son over the phone. Used screen door maker services, patient was only complaining about being hungry, and weak. No other complaints. No abdominal pain, chest pain shortness of breath, dizziness or lightheadedness. Patient not very cooperative, he is anxious, asking about his son and . Allergies Allergy/AdvReac Type Severity Reaction Status Date / Time Sulfa (Sulfonamide Allergy Unknown BLISTERS Verified 02/14/21 10:08 Antibiotics) AND RASH Home Medications Medication Instructions Recorded Confirmed Type atorvastatin 20 mg tablet 20 mg PO QAM 01/07/18 02/14/21 History carbidopa 25 mg-levodopa 100 mg 2 tab PO QID 01/07/18 02/14/21 History tablet (Sinemet) cholecalciferol (vitamin D3) 50 2,000 unit PO QAM 10/25/18 02/14/21 History mcg (2,000 unit) tablet (Vitamin D3) nitroglycerin 0.3 mg sublingual 0.3 mg SUBLINGUAL QAM PRN 10/25/18 02/14/21 History tablet empagliflozin 25 mg tablet 25 mg PO QAM 06/05/20 02/14/21 History (Jardiance) ferrous sulfate 325 mg (65 mg 325 mg PO Q2D 06/05/20 02/14/21 History iron) tablet zolpidem 5 mg tablet 5 mg PO HS PRN 07/07/20 02/14/21 History docusate sodium 100 mg tablet 100 mg PO BID 08/23/20 02/14/21 History gabapentin 100 mg capsule 100 mg PO BID 08/23/20 02/14/21 History glipizide 2.5 mg tablet, extended 2.5 mg PO UD 02/08/21 02/14/21 History release 24 hr melatonin 3 mg tablet 3 mg PO HS PRN 02/08/21 02/14/21 History tramadol 50 mg tablet 50 mg PO Q6H PRN 02/08/21 02/14/21 History trazodone 50 mg tablet 50 mg PO HS PRN 02/08/21 02/14/21 History clopidogrel 75 mg tablet 75 mg PO QAM #30 tab 02/11/21 02/14/21 Rx pantoprazole 40 mg tablet,delayed 40 mg PO BID #60 tab 02/11/21 02/14/21 Rx release carvedilol 6.25 mg tablet 6.25 mg PO BID 02/14/21 02/14/21 History insulin regular human 100 unit/mL 1 sliding scale dose SUBCUT ACHS 02/14/21 02/14/21 History injection solution (Humulin R Regular U-100 Insulin) Past Med/Surg History Medical History CAD (coronary artery disease) DE / demand ischemia related to severe anemia Diabetes mellitus, type II Dyslipidemia History of CVA (cerebrovascular accident) History of Helicobacter pylori infection Hypertension Hypothyroidism CARISSA (iron deficiency anemia) Osteomyelitis PAD (peripheral artery disease) Vascular parkinsonism Surgical History 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 Family History Other Cancer Diabetes Heart disease Social History Smoking Status: Unknown if ever smoked Second Hand Exposure: No; Hx Alcohol Use: Yes Alcohol type: beer, wine, hard liquor and other Hx Substance Use: No Preferred Language: Jaylin Communication Ability: Effective Communication Tools: Facial Expression, Physical Gestures and Lip Movement/Reading Hearing Ability: Hard of Hearing Pocket Builder Required: Yes Beliefs That Will Affect Care: None marital status: Current Living Situation: Spouse and Family How many Children do You have: 3 Feels Safe at Home: Yes Assistive Devices: Denture - Upper and Denture - Lower Review of Systems Constitutional: no fever and no chills Eyes: no problem reported Ear, Nose, Mouth, Throat: no problem reported Respiratory: no cough and no dyspnea Cardiovascular: no chest pain and no palpitations Gastrointestinal: + melena; no abdominal pain Genitourinary: no problem reported Musculoskeletal: no problem reported Integumentary: no problem reported Neurologic: no problem reported Psychiatric: no problem reported Endocrine: no problem reported Hematologic / Lymphatic: no problem reported Allergy / Immunological: no problem reported Physical Exam Constitutional: WD/WN, vitals as above Eyes: PERRL, conjunctivae normal, anicteric sclerae ENMT: external ear and nose normal, oropharynx normal Neck: trachea midline, no thyromegaly Respiratory: normal respiratory effort, lungs clear to auscultation Cardiovascular: RRR, no murmur, no edema (mild tachycardia HR 100s) Chest (Breasts): Chest: normal inspection of chest Gastrointestinal (Abdomen): Inspection/Auscultation: abdomen normal to inspection and normal bowel sounds; abdomen not distended Percussion/Palpation: abdomen soft; abdomen nontender and abdomen not rigid Musculoskeletal: no cyanosis or clubbing, extremities motor strength 5/5 Skin: no rashes, warm and dry Neurologic: PERRL, EOMI, accommodation nl, no face palsy, no dysarthria Psychiatric: Orientation: alert and oriented x 3 Affect: + anxious affect Results & Data Results & Data ([facility]) Vital Signs (Past 12 Hours) Vital Signs Temp Pulse Resp BP Pulse Ox 02/14/21 12:40 36.4 C L 108 H 24 139/43 L 100 02/14/21 12:19 36.9 C 107 H 19 135/55 L 100 02/14/21 09:43 98 02/14/21 09:22 36.5 C 100 H 18 158/57 H 98 Laboratory Results 02/14/21 02/14/21 02/14/21 Range/Units 12:29 09:40 09:39 WBC (4.8-10.8) K/uL RBC (4.7-6.1) M/uL Hgb (14.0-18.0) g/dL Hct (42-52) % MCV (80-100) fL MCH (25-34) pg MCHC (32-36) g/dL RDW Std Deviation (36.4-46.3) fL RDW Coeff of Melissa (11.5-14.5) % Plt Count (130-400) K/uL MPV (7.4-10.4) fL Immature Gran % (Auto) % Neut % (Auto) % Lymph % (Auto) % Door % (Auto) % Eos % (Auto) % Baso % (Auto) % Neut # (Auto) (1.4-6.5) K/uL Lymph # (Auto) (1.2-3.4) K/uL Door # (Auto) (0.11-0.59) K/uL Eos # (Auto) (0-0.5) K/uL Baso # (Auto) (0-0.2) K/uL Immature Gran # (Auto) (0.00-0.02) K/uL Absolute Nucleated RBC (0-0) K/uL Nucleated RBC % (auto) % Polychromasia PT (9.0-12.0) Seconds INR (0.9-1.1) APTT (21.0-31.0) Seconds PTT Ratio Sodium Cancelled (136-145) mmol/L Potassium Cancelled (3.5-5.1) mmol/L Chloride Cancelled (98-107) mmol/L Carbon Dioxide Cancelled (21-32) mmol/L Anion Gap Cancelled (3-11) BUN Cancelled (7-18) mg/dl Creatinine Cancelled (0.6-1.4) mg/dl Est Cr Clr Drug Dosing Cancelled Est GFR ( Amer) Cancelled ml/min Est GFR (Non-Af Amer) Cancelled ml/min BUN/Creatinine Ratio Cancelled (10-20) Glucose Cancelled (70-99) mg/dl POC Glucose 455 H* (70-99) mg/dl Calcium Cancelled (8.5-10.1) mg/dl Total Bilirubin Cancelled (0.2-1) mg/dl AST Cancelled (15-37) U/L ALT Cancelled (12-78) U/L Alkaline Phosphatase Cancelled (45-117) U/L Troponin I (0-0.045) ng/ml Total Protein Cancelled (6.4-8.2) gm/dl Albumin Cancelled (3.4-5.0) gm/dl Globulin Cancelled (2.5-4.0) gm/dl Albumin/Globulin Ratio Cancelled (0.9-2) Beta-Hydroxybutyric Acd (0.2-2.81) mg/dl SARS-CoV-2, RNA, NAAT NEGATIVE (NEGATIVE) Blood Type Antibody Screen Crossmatch 02/14/21 02/14/21 02/14/21 Range/Units 09:39 09:39 09:39 WBC 12.04 H (4.8-10.8) K/uL RBC 2.25 L (4.7-6.1) M/uL Hgb 6.3 L* (14.0-18.0) g/dL Hct 18.7 L* (42-52) % MCV 83.1 (80-100) fL MCH 28.0 (25-34) pg MCHC 33.7 (32-36) g/dL RDW Std Deviation 46.3 (36.4-46.3) fL RDW Coeff of Melissa 15.5 H (11.5-14.5) % Plt Count 272 (130-400) K/uL MPV 9.5 (7.4-10.4) fL Immature Gran % (Auto) 0.8 % Neut % (Auto) 79.4 % Lymph % (Auto) 11.5 % Door % (Auto) 6.6 % Eos % (Auto) 1.5 % Baso % (Auto) 0.2 % Neut # (Auto) 9.55 H (1.4-6.5) K/uL Lymph # (Auto) 1.39 (1.2-3.4) K/uL Door # (Auto) 0.80 H (0.11-0.59) K/uL Eos # (Auto) 0.18 (0-0.5) K/uL Baso # (Auto) 0.02 (0-0.2) K/uL Immature Gran # (Auto) 0.10 H (0.00-0.02) K/uL Absolute Nucleated RBC 0.04 H (0-0) K/uL Nucleated RBC % (auto) 0.4 % Polychromasia 1+ PT 9.8 (9.0-12.0) Seconds INR 1.0 (0.9-1.1) APTT 24.7 (21.0-31.0) Seconds PTT Ratio 0.9 Sodium (136-145) mmol/L Potassium (3.5-5.1) mmol/L Chloride (98-107) mmol/L Carbon Dioxide (21-32) mmol/L Anion Gap (3-11) BUN (7-18) mg/dl Creatinine (0.6-1.4) mg/dl Est Cr Clr Drug Dosing Est GFR ( Amer) ml/min Est GFR (Non-Af Amer) ml/min BUN/Creatinine Ratio (10-20) Glucose (70-99) mg/dl POC Glucose (70-99) mg/dl Calcium (8.5-10.1) mg/dl Total Bilirubin (0.2-1) mg/dl AST (15-37) U/L ALT (12-78) U/L Alkaline Phosphatase (45-117) U/L Troponin I (0-0.045) ng/ml Total Protein (6.4-8.2) gm/dl Albumin (3.4-5.0) gm/dl Globulin (2.5-4.0) gm/dl Albumin/Globulin Ratio (0.9-2) Beta-Hydroxybutyric Acd (0.2-2.81) mg/dl SARS-CoV-2, RNA, NAAT (NEGATIVE) Blood Type O Positive Antibody Screen NEGATIVE Crossmatch See Detail 02/14/21 Range/Units 09:39 WBC (4.8-10.8) K/uL RBC (4.7-6.1) M/uL Hgb (14.0-18.0) g/dL Hct (42-52) % MCV (80-100) fL MCH (25-34) pg MCHC (32-36) g/dL RDW Std Deviation (36.4-46.3) fL RDW Coeff of Melissa (11.5-14.5) % Plt Count (130-400) K/uL MPV (7.4-10.4) fL Immature Gran % (Auto) % Neut % (Auto) % Lymph % (Auto) % Door % (Auto) % Eos % (Auto) % Baso % (Auto) % Neut # (Auto) (1.4-6.5) K/uL Lymph # (Auto) (1.2-3.4) K/uL Door # (Auto) (0.11-0.59) K/uL Eos # (Auto) (0-0.5) K/uL Baso # (Auto) (0-0.2) K/uL Immature Gran # (Auto) (0.00-0.02) K/uL Absolute Nucleated RBC (0-0) K/uL Nucleated RBC % (auto) % Polychromasia PT (9.0-12.0) Seconds INR (0.9-1.1) APTT (21.0-31.0) Seconds PTT Ratio Sodium 137 (136-145) mmol/L Potassium 4.9 (3.5-5.1) mmol/L Chloride 105 (98-107) mmol/L Carbon Dioxide 21 (21-32) mmol/L Anion Gap 11.0 (3-11) BUN 45 H (7-18) mg/dl Creatinine 0.93 (0.6-1.4) mg/dl Est Cr Clr Drug Dosing Not Reportable Est GFR ( Amer) 88.3 ml/min Est GFR (Non-Af Amer) 76.2 ml/min BUN/Creatinine Ratio 47.8 H (10-20) Glucose 385 H* (70-99) mg/dl POC Glucose (70-99) mg/dl Calcium 8.3 L (8.5-10.1) mg/dl Total Bilirubin 0.1 L (0.2-1) mg/dl AST 13 L (15-37) U/L ALT 15 (12-78) U/L Alkaline Phosphatase 104 (45-117) U/L Troponin I < 0.015 (0-0.045) ng/ml Total Protein 6.3 L (6.4-8.2) gm/dl Albumin 2.7 L (3.4-5.0) gm/dl Globulin 3.6 (2.5-4.0) gm/dl Albumin/Globulin Ratio 0.7 L (0.9-2) Beta-Hydroxybutyric Acd 2.47 (0.2-2.81) mg/dl SARS-CoV-2, RNA, NAAT (NEGATIVE) Blood Type Antibody Screen Crossmatch
[2021-02-14] MEDS ORDERED: LANTUS PER UNIT CHARGE SQ ONE (14:30)
--- NOTE | 2021-02-14 14:32 | Pharmacy Report ---
Pharmacy Glycemic Short Note 2 - Date of Service February 14, 2021 - Glycemic Short BSG Results (Last 24 hours): 02/14/21 02/14/21 02/14/21 09:39 09:39 12:29 Glucose 385 H* Cancelled POC Glucose 455 H* OUTPATIENT ANTIDIABETIC REGIMEN: * Humulin R ACHS SSI * Glipizide 2.5 mg UD - 2x per week * Jardiance 25 mg PO daily * HbA1c: 7.4% (02/09/21) ASSESSMENT: * KENRICK is a 80 year old male presented to ED with dark stools/concern for GI bleed * BSG on admission was 385 mg/dL, was given 6 unit IV insulin bolus by ED provider at that time * Pharmacy consulted around lunchtime, follow-up BSG of 455 mg/dL * Contacted hospitalist and agreed on initiation of insulin infusion as safest option to decrease BSGs * Patient recently admitted following CVA -> will utilize prior BSG data to guide initial dosing PLAN FOR INPATIENT GLYCEMIC CONTROL: * Hold outpatient oral diabetes medications * Basal insulin * Lantus 15 units SC x 1 (will give 75% of full weight-based stress of 2 do sing in light of NPO status) * Bolus insulin * NovoLog per scale ACHS to cover carbs while on insulin infusion PLAN FOR DISCHARGE: * Okay to resume home regimen at discharge
[2021-02-14] MEDS: PANTOprazole 40 MG in DEXTROSE 5% 100 ML IV SCH ×2 (15:31→20:32)
[2021-02-14] MEDS ORDERED: PNEUMOCOCCAL POLYSACCHARIDES 25 MCG/0.5 ML VIAL/SYR IM ONE (15:59)
[2021-02-14] MEDS ORDERED: INFLUENZA VACCINE HIGH DOSE PF 65+ 0.7 ML SYR IM ONE (15:59)
[2021-02-14] MEDS: INSULIN ASPART 100 UNITS/ML 3 ML PEN SC SCH ×2 (17:21→21:13)
[2021-02-14 21:30] LABS: BUN Creatinine Ratio 41.5 (10-20); Blood Urea Nitrogen 36 mg/dl (7-18); Carbon Dioxide 20 mmol/L (21-32); Chloride 111 mmol/L (98-107); Est GFR (African American) 93.6 ml/min; Est GFR (Non-African American) 80.8 ml/min; Glucose 203 mg/dl (70-99); Potassium 3.8 mmol/L (3.5-5.1); Sodium 141 mmol/L (136-145)
[2021-02-14] MEDS ORDERED: MELATONIN 3 MG TAB PO PRN (21:50)
[2021-02-14] MEDS: carvediloL 6.25 MG TAB PO SCH (23:10)
[2021-02-15] MEDS: INSULIN ASPART 100 UNITS/ML 3 ML PEN SC SCH ×6 (00:22→20:16)
[2021-02-15] MEDS: PANTOprazole 40 MG in DEXTROSE 5% 100 ML IV SCH ×5 (01:36→19:43)
[2021-02-15 01:53] LABS: Hematocrit (blood only) 28.3 % (42-52); Hemoglobin 9.7 g/dL (14.0-18.0)
--- NOTE | 2021-02-15 07:47 | Electrocardiogram Report ---
Test Reason : Blood Pressure : / mmHG Vent. Rate : 110 BPM Atrial Rate : 110 BPM P-R Int : 172 ms QRS Dur : 084 ms QT Int : 350 ms P-R-T Axes : 023 061 101 degrees QTc Int : 473 ms Sinus tachycardia Nonspecific ST abnormality Abnormal ECG When compared with ECG of 14-FEB-2021 09:27, No significant change was found Confirmed by Ney Morales ([id number]) on 02/15/2021 7:47:21 AM Referred By: [facility] Confirmed By:Andrea Morales
[2021-02-15] MEDS: carvediloL 6.25 MG TAB PO SCH ×2 (08:03→20:13)
[2021-02-15] MEDS: CARBIDOPA/LEVODOPA 25/100MG TAB PO SCH ×4 (08:03→20:12)
[2021-02-15] MEDS: ATORVASTATIN 20 MG TAB PO SCH (08:03)
[2021-02-15 08:22] LABS: Hematocrit (blood only) 28.1 % (42-52); Hemoglobin 9.8 g/dL (14.0-18.0); Mean Corpuscular Hemoglobin 29.8 pg (25-34); Mean Corpuscular Hgb Conc 34.9 g/dL (32-36); Mean Corpuscular Volume 85.4 fL (80-100); Mean Platelet Volume 9.6 fL (7.4-10.4); Nucleated RBC # (auto) 0.05 K/uL (0-0); Nucleated RBC % (auto) 0.6 %; Platelet Count 230 K/uL (130-400); RDW Coefficient of Variation 15.1 % (11.5-14.5); RDW Standard Deviation 47.1 fL (36.4-46.3); Red Blood Count 3.29 M/uL (4.7-6.1); White Blood Count 8.84 K/uL (4.8-10.8)
[2021-02-15 09:04] LABS: BUN Creatinine Ratio 40.7 (10-20); Blood Urea Nitrogen 24 mg/dl (7-18); Calcium 8.1 mg/dl (8.5-10.1); Carbon Dioxide 24 mmol/L (21-32); Chloride 108 mmol/L (98-107); Est GFR (Non-African American) 94.9 ml/min; Glucose 147 mg/dl (70-99); Magnesium 2.3 mg/dl (1.8-2.4); Phosphorus 4.1 mg/dl (2.5-4.9); Potassium 3.5 mmol/L (3.5-5.1); Sodium 140 mmol/L (136-145)
--- NOTE | 2021-02-15 09:50 | Hospitalist Progress Note ---
Date of Service February 15, 2021 Assessment & Plan (1) Acute on chronic anemia: Plan: -Patient presents with hemoglobin of 5 per outpatient labs, dark stools -Hemoglobin 6.3 in the ED -Received 2 units of packed RBCs, currently hemoglobin stable -Concern for GI bleed -FOBT ordered -Patient started on IV Protonix, PRBCs ordered in the ED, IV fluids -Hold aspirin and Plavix on admission - we will restart Plavix -GI consulted -currently no plan for procedure, patient is hemodynamically stable, hemoglobin stable. No signs of GI bleed at this time. Patient had recent endoscopies. (2) Diabetes mellitus, type II: Plan: -Patient hyperglycemic in the ED, blood glucose over 400 -Glycemic pharmacy consulted, started on IV insulin -Hemoglobin A1c from earlier of this month, 7.2% (3) History of CVA (cerebrovascular accident): Plan: Recently admitted for subacute CVA, also was found to have left internal carotid artery occlusion -No vascular procedure recommended at the time, and also patient was not interested in any surgery -Patient was discharged on aspirin, Plavix, statin -Held aspirin and Plavix due to anemia / concern for GI bleed on admission -Patient hemodynamically stable, hemoglobin stable, will restart Plavix at this time, continue to closely monitor Chronic conditions: CAD s/p CABG PAD HTN HLD - cont. carvedilol, atorvastatin - holding ASA, plavix d/t GI bleed on admission, restarted plavix Vascular parkinsonism - carbidopa-levodopa DVT ppx: SCDs Admission and Anticipated Discharge Date Admission Date: February 14, 2021 Subjective Patient seen in follow-up of anemia, GI bleed Received 2 units of packed RBCs on admission, responded well, hemoglobin stable overnight Started on IV insulin on admission due to hyperglycemia, now off IV heparin Seen by GI this AM - at this point stable, no signs of GI bleed - no plan fo endoscopy a this time Pt has no complaints - no chest pain, shortness of breath, dizziness, lig htheadedness, abdominal pain. Review of Systems Review of Systems: All systems reviewed & are unremarkable except as noted in Subjective Physical Exam Physical Exam: Constitutional:L WD/WN, thin male i n NAD Eyes: PERRL, EOMI, conju nctivae normal, an icteric sclerae ENMT: external ear and n ose normal, oropha rynx normal Neck: trachea midline, n o thyromegaly Respiratory: normal respiratory effort, lungs edith ar to auscultation Cardiovascular:L RRR, no murmur, no edema (mild tachy cardia HR 100s) Chest (Breasts): Chest: normal insp ection of chest Gastrointestinal ( Abdomen): Inspection/Auscult ation: abdomen nor mal to inspection and normal bowel s ounds; abdomen not distended Percus sage/Palpation: ab domen soft; abdome n nontender and ab domen not rigid Musculoskeletal: extremities motor strength 5/5, move s extremities Skin: no rashes, warm an d dry Neurologic: PERRL, EOMI, no fa ce palsy, no dysar thria, moves extre mities Psychiatric: Orientation: alert and oriented x 3 Affect: + anxious affect Results & Data Results & Data ([facility]) Vital Signs (Past 12 Hours) Vital Signs Temp Pulse Pulse Resp BP Pulse Ox 02/15/21 08:00 78 02/15/21 07:57 36.9 C 77 16 169/63 H 95 02/15/21 06:36 99 H 02/14/21 23:17 36.4 C L 88 18 125/71 100 Laboratory Results 02/15/21 02/15/21 02/15/21 Range/Units 07:52 07:52 07:36 WBC 8.84 (4.8-10.8) K/uL RBC 3.29 L (4.7-6.1) M/uL Hgb 9.8 L (14.0-18.0) g/dL Hct 28.1 L (42-52) % MCV 85.4 (80-100) fL MCH 29.8 (25-34) pg MCHC 34.9 (32-36) g/dL RDW Std Deviation 47.1 H (36.4-46.3) fL RDW Coeff of Melissa 15.1 H (11.5-14.5) % Plt Count 230 (130-400) K/uL MPV 9.6 (7.4-10.4) fL Immature Gran % (Auto) % Neut % (Auto) % Lymph % (Auto) % [place] % (Auto) % Eos % (Auto) % Baso % (Auto) % Neut # (Auto) (1.4-6.5) K/uL Lymph # (Auto) (1.2-3.4) K/uL [place] # (Auto) (0.11-0.59) K/uL Eos # (Auto) (0-0.5) K/uL Baso # (Auto) (0-0.2) K/uL Immature Gran # (Auto) (0.00-0.02) K/uL Absolute Nucleated RBC 0.05 H (0-0) K/uL Nucleated RBC % (auto) 0.6 % Polychromasia PT (9.0-12.0) Seconds INR (0.9-1.1) APTT (21.0-31.0) Seconds PTT Ratio Sodium 140 (136-145) mmol/L Potassium 3.5 (3.5-5.1) mmol/L Chloride 108 H (98-107) mmol/L Carbon Dioxide 24 (21-32) mmol/L Anion Gap 9.0 (3-11) BUN 24 H (7-18) mg/dl Creatinine 0.58 L (0.6-1.4) mg/dl Est Cr Clr Drug Dosing Not Reportable Est GFR ( Amer) 110.0 ml/min Est GFR (Non-Af Amer) 94.9 ml/min BUN/Creatinine Ratio 40.7 H (10-20) Glucose 147 H (70-99) mg/dl POC Glucose 106 H (70-99) mg/dl Calcium 8.1 L (8.5-10.1) mg/dl Phosphorus 4.1 (2.5-4.9) mg/dl Magnesium 2.3 (1.8-2.4) mg/dl Total Bilirubin (0.2-1) mg/dl AST (15-37) U/L ALT (12-78) U/L Alkaline Phosphatase (45-117) U/L Troponin I (0-0.045) ng/ml Total Protein (6.4-8.2) gm/dl Albumin (3.4-5.0) gm/dl Globulin (2.5-4.0) gm/dl Albumin/Globulin Ratio (0.9-2) Beta-Hydroxybutyric Acd (0.2-2.81) mg/dl SARS-CoV-2, RNA, NAAT (NEGATIVE) Blood Type Antibody Screen Crossmatch 02/15/21 02/15/21 02/15/21 Range/Units 04:12 00:54 00:20 WBC (4.8-10.8) K/uL RBC (4.7-6.1) M/uL Hgb 9.7 L D (14.0-18.0) g/dL Hct 28.3 L (42-52) % MCV (80-100) fL MCH (25-34) pg MCHC (32-36) g/dL RDW Std Deviation (36.4-46.3) fL RDW Coeff of Melissa (11.5-14.5) % Plt Count (130-400) K/uL MPV (7.4-10.4) fL Immature Gran % (Auto) % Neut % (Auto) % Lymph % (Auto) % [place] % (Auto) % Eos % (Auto) % Baso % (Auto) % Neut # (Auto) (1.4-6.5) K/uL Lymph # (Auto) (1.2-3.4) K/uL [place] # (Auto) (0.11-0.59) K/uL Eos # (Auto) (0-0.5) K/uL Baso # (Auto) (0-0.2) K/uL Immature Gran # (Auto) (0.00-0.02) K/uL Absolute Nucleated RBC (0-0) K/uL Nucleated RBC % (auto) % Polychromasia PT (9.0-12.0) Seconds INR (0.9-1.1) APTT (21.0-31.0) Seconds PTT Ratio Sodium (136-145) mmol/L Potassium (3.5-5.1) mmol/L Chloride (98-107) mmol/L Carbon Dioxide (21-32) mmol/L Anion Gap (3-11) BUN (7-18) mg/dl Creatinine (0.6-1.4) mg/dl Est Cr Clr Drug Dosing Est GFR ( Amer) ml/min Est GFR (Non-Af Amer) ml/min BUN/Creatinine Ratio (10-20) Glucose (70-99) mg/dl POC Glucose 120 H 85 (70-99) mg/dl Calcium (8.5-10.1) mg/dl Phosphorus (2.5-4.9) mg/dl Magnesium (1.8-2.4) mg/dl Total Bilirubin (0.2-1) mg/dl AST (15-37) U/L ALT (12-78) U/L Alkaline Phosphatase (45-117) U/L Troponin I (0-0.045) ng/ml Total Protein (6.4-8.2) gm/dl Albumin (3.4-5.0) gm/dl Globulin (2.5-4.0) gm/dl Albumin/Globulin Ratio (0.9-2) Beta-Hydroxybutyric Acd (0.2-2.81) mg/dl SARS-CoV-2, RNA, NAAT (NEGATIVE) Blood Type Antibody Screen Crossmatch 02/14/21 02/14/21 02/14/21 Range/Units 23:13 22:05 21:10 WBC (4.8-10.8) K/uL RBC (4.7-6.1) M/uL Hgb (14.0-18.0) g/dL Hct (42-52) % MCV (80-100) fL MCH (25-34) pg MCHC (32-36) g/dL RDW Std Deviation (36.4-46.3) fL RDW Coeff of Melissa (11.5-14.5) % Plt Count (130-400) K/uL MPV (7.4-10.4) fL Immature Gran % (Auto) % Neut % (Auto) % Lymph % (Auto) % [place] % (Auto) % Eos % (Auto) % Baso % (Auto) % Neut # (Auto) (1.4-6.5) K/uL Lymph # (Auto) (1.2-3.4) K/uL [place] # (Auto) (0.11-0.59) K/uL Eos # (Auto) (0-0.5) K/uL Baso # (Auto) (0-0.2) K/uL Immature Gran # (Auto) (0.00-0.02) K/uL Absolute Nucleated RBC (0-0) K/uL Nucleated RBC % (auto) % Polychromasia PT (9.0-12.0) Seconds INR (0.9-1.1) APTT (21.0-31.0) Seconds PTT Ratio Sodium (136-145) mmol/L Potassium (3.5-5.1) mmol/L Chloride (98-107) mmol/L Carbon Dioxide (21-32) mmol/L Anion Gap (3-11) BUN (7-18) mg/dl Creatinine (0.6-1.4) mg/dl Est Cr Clr Drug Dosing Est GFR ( Amer) ml/min Est GFR (Non-Af Amer) ml/min BUN/Creatinine Ratio (10-20) Glucose (70-99) mg/dl POC Glucose 85 121 H 177 H (70-99) mg/dl Calcium (8.5-10.1) mg/dl Phosphorus (2.5-4.9) mg/dl Magnesium (1.8-2.4) mg/dl Total Bilirubin (0.2-1) mg/dl AST (15-37) U/L ALT (12-78) U/L Alkaline Phosphatase (45-117) U/L Troponin I (0-0.045) ng/ml Total Protein (6.4-8.2) gm/dl Albumin (3.4-5.0) gm/dl Globulin (2.5-4.0) gm/dl Albumin/Globulin Ratio (0.9-2) Beta-Hydroxybutyric Acd (0.2-2.81) mg/dl SARS-CoV-2, RNA, NAAT (NEGATIVE) Blood Type Antibody Screen Crossmatch 02/14/21 02/14/21 02/14/21 Range/Units 20:39 20:02 18:55 WBC (4.8-10.8) K/uL RBC (4.7-6.1) M/uL Hgb (14.0-18.0) g/dL Hct (42-52) % MCV (80-100) fL MCH (25-34) pg MCHC (32-36) g/dL RDW Std Deviation (36.4-46.3) fL RDW Coeff of Melissa (11.5-14.5) % Plt Count (130-400) K/uL MPV (7.4-10.4) fL Immature Gran % (Auto) % Neut % (Auto) % Lymph % (Auto) % [place] % (Auto) % Eos % (Auto) % Baso % (Auto) % Neut # (Auto) (1.4-6.5) K/uL Lymph # (Auto) (1.2-3.4) K/uL [place] # (Auto) (0.11-0.59) K/uL Eos # (Auto) (0-0.5) K/uL Baso # (Auto) (0-0.2) K/uL Immature Gran # (Auto) (0.00-0.02) K/uL Absolute Nucleated RBC (0-0) K/uL Nucleated RBC % (auto) % Polychromasia PT (9.0-12.0) Seconds INR (0.9-1.1) APTT (21.0-31.0) Seconds PTT Ratio Sodium 141 (136-145) mmol/L Potassium 3.8 D (3.5-5.1) mmol/L Chloride 111 H (98-107) mmol/L Carbon Dioxide 20 L (21-32) mmol/L Anion Gap 11.0 (3-11) BUN 36 H (7-18) mg/dl Creatinine 0.86 (0.6-1.4) mg/dl Est Cr Clr Drug Dosing Not Reportable Est GFR ( Amer) 93.6 ml/min Est GFR (Non-Af Amer) 80.8 ml/min BUN/Creatinine Ratio 41.5 H (10-20) Glucose 203 H (70-99) mg/dl POC Glucose 252 H 216 H (70-99) mg/dl Calcium 8.0 L (8.5-10.1) mg/dl Phosphorus (2.5-4.9) mg/dl Magnesium (1.8-2.4) mg/dl Total Bilirubin (0.2-1) mg/dl AST (15-37) U/L ALT (12-78) U/L Alkaline Phosphatase (45-117) U/L Troponin I (0-0.045) ng/ml Total Protein (6.4-8.2) gm/dl Albumin (3.4-5.0) gm/dl Globulin (2.5-4.0) gm/dl Albumin/Globulin Ratio (0.9-2) Beta-Hydroxybutyric Acd (0.2-2.81) mg/dl SARS-CoV-2, RNA, NAAT (NEGATIVE) Blood Type Antibody Screen Crossmatch 02/14/21 02/14/21 02/14/21 Range/Units 17:53 17:02 16:01 WBC (4.8-10.8) K/uL RBC (4.7-6.1) M/uL Hgb (14.0-18.0) g/dL Hct (42-52) % MCV (80-100) fL MCH (25-34) pg MCHC (32-36) g/dL RDW Std Deviation (36.4-46.3) fL RDW Coeff of Melissa (11.5-14.5) % Plt Count (130-400) K/uL MPV (7.4-10.4) fL Immature Gran % (Auto) % Neut % (Auto) % Lymph % (Auto) % [place] % (Auto) % Eos % (Auto) % Baso % (Auto) % Neut # (Auto) (1.4-6.5) K/uL Lymph # (Auto) (1.2-3.4) K/uL [place] # (Auto) (0.11-0.59) K/uL Eos # (Auto) (0-0.5) K/uL Baso # (Auto) (0-0.2) K/uL Immature Gran # (Auto) (0.00-0.02) K/uL Absolute Nucleated RBC (0-0) K/uL Nucleated RBC % (auto) % Polychromasia PT (9.0-12.0) Seconds INR (0.9-1.1) APTT (21.0-31.0) Seconds PTT Ratio Sodium (136-145) mmol/L Potassium (3.5-5.1) mmol/L Chloride (98-107) mmol/L Carbon Dioxide (21-32) mmol/L Anion Gap (3-11) BUN (7-18) mg/dl Creatinine (0.6-1.4) mg/dl Est Cr Clr Drug Dosing Est GFR ( Amer) ml/min Est GFR (Non-Af Amer) ml/min BUN/Creatinine Ratio (10-20) Glucose (70-99) mg/dl POC Glucose 186 H 228 H 312 H* (70-99) mg/dl Calcium (8.5-10.1) mg/dl Phosphorus (2.5-4.9) mg/dl Magnesium (1.8-2.4) mg/dl Total Bilirubin (0.2-1) mg/dl AST (15-37) U/L ALT (12-78) U/L Alkaline Phosphatase (45-117) U/L Troponin I (0-0.045) ng/ml Total Protein (6.4-8.2) gm/dl Albumin (3.4-5.0) gm/dl Globulin (2.5-4.0) gm/dl Albumin/Globulin Ratio (0.9-2) Beta-Hydroxybutyric Acd (0.2-2.81) mg/dl SARS-CoV-2, RNA, NAAT (NEGATIVE) Blood Type Antibody Screen Crossmatch 02/14/21 02/14/21 02/14/21 Range/Units 15:03 12:29 09:40 WBC (4.8-10.8) K/uL RBC (4.7-6.1) M/uL Hgb (14.0-18.0) g/dL Hct (42-52) % MCV (80-100) fL MCH (25-34) pg MCHC (32-36) g/dL RDW Std Deviation (36.4-46.3) fL RDW Coeff of Melissa (11.5-14.5) % Plt Count (130-400) K/uL MPV (7.4-10.4) fL Immature Gran % (Auto) % Neut % (Auto) % Lymph % (Auto) % [place] % (Auto) % Eos % (Auto) % Baso % (Auto) % Neut # (Auto) (1.4-6.5) K/uL Lymph # (Auto) (1.2-3.4) K/uL [place] # (Auto) (0.11-0.59) K/uL Eos # (Auto) (0-0.5) K/uL Baso # (Auto) (0-0.2) K/uL Immature Gran # (Auto) (0.00-0.02) K/uL Absolute Nucleated RBC (0-0) K/uL Nucleated RBC % (auto) % Polychromasia PT (9.0-12.0) Seconds INR (0.9-1.1) APTT (21.0-31.0) Seconds PTT Ratio Sodium (136-145) mmol/L Potassium (3.5-5.1) mmol/L Chloride (98-107) mmol/L Carbon Dioxide (21-32) mmol/L Anion Gap (3-11) BUN (7-18) mg/dl Creatinine (0.6-1.4) mg/dl Est Cr Clr Drug Dosing Est GFR ( Amer) ml/min Est GFR (Non-Af Amer) ml/min BUN/Creatinine Ratio (10-20) Glucose (70-99) mg/dl POC Glucose 338 H* 455 H* (70-99) mg/dl Calcium (8.5-10.1) mg/dl Phosphorus (2.5-4.9) mg/dl Magnesium (1.8-2.4) mg/dl Total Bilirubin (0.2-1) mg/dl AST (15-37) U/L ALT (12-78) U/L Alkaline Phosphatase (45-117) U/L Troponin I (0-0.045) ng/ml Total Protein (6.4-8.2) gm/dl Albumin (3.4-5.0) gm/dl Globulin (2.5-4.0) gm/dl Albumin/Globulin Ratio (0.9-2) Beta-Hydroxybutyric Acd (0.2-2.81) mg/dl SARS-CoV-2, RNA, NAAT NEGATIVE (NEGATIVE) Blood Type Antibody Screen Crossmatch 02/14/21 02/14/21 02/14/21 Range/Units 09:39 09:39 09:39 WBC 12.04 H (4.8-10.8) K/uL RBC 2.25 L (4.7-6.1) M/uL Hgb 6.3 L* (14.0-18.0) g/dL Hct 18.7 L* (42-52) % MCV 83.1 (80-100) fL MCH 28.0 (25-34) pg MCHC 33.7 (32-36) g/dL RDW Std Deviation 46.3 (36.4-46.3) fL RDW Coeff of Melissa 15.5 H (11.5-14.5) % Plt Count 272 (130-400) K/uL MPV 9.5 (7.4-10.4) fL Immature Gran % (Auto) 0.8 % Neut % (Auto) 79.4 % Lymph % (Auto) 11.5 % [place] % (Auto) 6.6 % Eos % (Auto) 1.5 % Baso % (Auto) 0.2 % Neut # (Auto) 9.55 H (1.4-6.5) K/uL Lymph # (Auto) 1.39 (1.2-3.4) K/uL [place] # (Auto) 0.80 H (0.11-0.59) K/uL Eos # (Auto) 0.18 (0-0.5) K/uL Baso # (Auto) 0.02 (0-0.2) K/uL Immature Gran # (Auto) 0.10 H (0.00-0.02) K/uL Absolute Nucleated RBC 0.04 H (0-0) K/uL Nucleated RBC % (auto) 0.4 % Polychromasia 1+ PT 9.8 (9.0-12.0) Seconds INR 1.0 (0.9-1.1) APTT 24.7 (21.0-31.0) Seconds PTT Ratio 0.9 Sodium Cancelled (136-145) mmol/L Potassium Cancelled (3.5-5.1) mmol/L Chloride Cancelled (98-107) mmol/L Carbon Dioxide Cancelled (21-32) mmol/L Anion Gap Cancelled (3-11) BUN Cancelled (7-18) mg/dl Creatinine Cancelled (0.6-1.4) mg/dl Est Cr Clr Drug Dosing Cancelled Est GFR ( Amer) Cancelled ml/min Est GFR (Non-Af Amer) Cancelled ml/min BUN/Creatinine Ratio Cancelled (10-20) Glucose Cancelled (70-99) mg/dl POC Glucose (70-99) mg/dl Calcium Cancelled (8.5-10.1) mg/dl Phosphorus (2.5-4.9) mg/dl Magnesium (1.8-2.4) mg/dl Total Bilirubin Cancelled (0.2-1) mg/dl AST Cancelled (15-37) U/L ALT Cancelled (12-78) U/L Alkaline Phosphatase Cancelled (45-117) U/L Troponin I (0-0.045) ng/ml Total Protein Cancelled (6.4-8.2) gm/dl Albumin Cancelled (3.4-5.0) gm/dl Globulin Cancelled (2.5-4.0) gm/dl Albumin/Globulin Ratio Cancelled (0.9-2) Beta-Hydroxybutyric Acd (0.2-2.81) mg/dl SARS-CoV-2, RNA, NAAT (NEGATIVE) Blood Type Antibody Screen Crossmatch 02/14/21 02/14/21 Range/Units 09:39 09:39 WBC (4.8-10.8) K/uL RBC (4.7-6.1) M/uL Hgb (14.0-18.0) g/dL Hct (42-52) % MCV (80-100) fL MCH (25-34) pg MCHC (32-36) g/dL RDW Std Deviation (36.4-46.3) fL RDW Coeff of Melissa (11.5-14.5) % Plt Count (130-400) K/uL MPV (7.4-10.4) fL Immature Gran % (Auto) % Neut % (Auto) % Lymph % (Auto) % [place] % (Auto) % Eos % (Auto) % Baso % (Auto) % Neut # (Auto) (1.4-6.5) K/uL Lymph # (Auto) (1.2-3.4) K/uL [place] # (Auto) (0.11-0.59) K/uL Eos # (Auto) (0-0.5) K/uL Baso # (Auto) (0-0.2) K/uL Immature Gran # (Auto) (0.00-0.02) K/uL Absolute Nucleated RBC (0-0) K/uL Nucleated RBC % (auto) % Polychromasia PT (9.0-12.0) Seconds INR (0.9-1.1) APTT (21.0-31.0) Seconds PTT Ratio Sodium 137 (136-145) mmol/L Potassium 4.9 (3.5-5.1) mmol/L Chloride 105 (98-107) mmol/L Carbon Dioxide 21 (21-32) mmol/L Anion Gap 11.0 (3-11) BUN 45 H (7-18) mg/dl Creatinine 0.93 (0.6-1.4) mg/dl Est Cr Clr Drug Dosing Not Reportable Est GFR ( Amer) 88.3 ml/min Est GFR (Non-Af Amer) 76.2 ml/min BUN/Creatinine Ratio 47.8 H (10-20) Glucose 385 H* (70-99) mg/dl POC Glucose (70-99) mg/dl Calcium 8.3 L (8.5-10.1) mg/dl Phosphorus (2.5-4.9) mg/dl Magnesium (1.8-2.4) mg/dl Total Bilirubin 0.1 L (0.2-1) mg/dl AST 13 L (15-37) U/L ALT 15 (12-78) U/L Alkaline Phosphatase 104 (45-117) U/L Troponin I < 0.015 (0-0.045) ng/ml Total Protein 6.3 L (6.4-8.2) gm/dl Albumin 2.7 L (3.4-5.0) gm/dl Globulin 3.6 (2.5-4.0) gm/dl Albumin/Globulin Ratio 0.7 L (0.9-2) Beta-Hydroxybutyric Acd 2.47 (0.2-2.81) mg/dl SARS-CoV-2, RNA, NAAT (NEGATIVE) Blood Type O Positive Antibody Screen NEGATIVE Crossmatch See Detail Medications Administered Current Inpatient Medications Atorvastatin Calcium (Atorvastatin 20 Mg Tab) 20 mg PO QAM KAYLA Stop: 03/17/21 08:59 Last Admin: 02/15/21 08:03 Dose: 20 mg Documented by: Carbidopa/Levodopa (Carbidopa/Levodopa 25/100mg Tab) 2 tab PO QID KAYLA Stop: 03/17/21 08:59 Last Admin: 02/15/21 08:03 Dose: 2 tab Documented by: Carvedilol (Carvedilol 6.25 Mg Tab) 6.25 mg PO BID KAYLA Stop: 03/16/21 21:59 Last Admin: 02/15/21 08:03 Dose: 6.25 mg Documented by: Dextrose (Dextrose 50% 50 Ml Syringe) 25 - 50 ml IV UD PRN; Protocol PRN Reason: Hypoglycemia Protocol Stop: 03/16/21 12:29 Glucagon (Glucagon For Inj 1 Mg Vial) 1 mg IM UD PRN; Protocol PRN Reason: Hypoglycemia Protocol Stop: 03/16/21 12:29 Glucose (Glucose 40% Gel 15 Gm Tube) 15 - 30 gm PO UD PRN; Protocol PRN Reason: Hypoglycemia Protocol Stop: 03/16/21 12:29 Glucose (Glucose 10 Tabs/Tube) 4 - 8 tabs PO UD PRN; Protocol PRN Reason: Hypoglycemia Protocol Stop: 03/16/21 12:29 Pantoprazole Sodium 40 mg/ (Dextrose) 100 mls @ 20 mls/hr IV Q5H KAYLA Stop: 03/16/21 13:59 Last Admin: 02/15/21 06:23 Dose: 8 mg/hr, 20 mls/hr Documented by: Insulin Aspart (Insulin Aspart 100 Units/Ml 3 Ml Pen) 0 units SC Q4 KAYLA; Protocol Stop: 03/17/21 00:00 Last Admin: 02/15/21 08:02 Dose: Not Given Documented by: Melatonin (Melatonin 3 Mg Tab) 3 mg PO HS PRN PRN Reason: Insomnia Stop: 03/16/21 21:49 Miscellaneous (Carbohydrates For Hypoglycemia ) 15 - 30 gm PO UD PRN PRN Reason: Hypoglycemia Treatment Stop: 03/16/21 12:29 Miscellaneous Information (Pharmacy Glycemic Mgmt Consult) 1 ea N/A UD PRN PRN Reason: Consult Stop: 03/16/21 12:02
[2021-02-15] MEDS ORDERED: POTASSIUM CHLORIDE CRTAB 20 MEQ TABCR PO STA (09:53)
--- NOTE | 2021-02-15 10:04 | Pharmacy Report ---
Pharmacy Glycemic Short Note 2 - Date of Service February 15, 2021 - Glycemic Short BSG Results (Last 24 hours): 02/14/21 02/14/21 02/14/21 09:39 09:39 12:29 Glucose 385 H* Cancelled POC Glucose 455 H* 02/14/21 02/14/21 02/14/21 15:03 16:01 17:02 Glucose POC Glucose 338 H* 312 H* 228 H 02/14/21 02/14/21 02/14/21 17:53 18:55 20:02 Glucose POC Glucose 186 H 216 H 252 H 02/14/21 02/14/21 02/14/21 20:39 21:10 22:05 Glucose 203 H POC Glucose 177 H 121 H 02/14/21 02/15/21 02/15/21 23:13 00:20 04:12 Glucose POC Glucose 85 85 120 H 02/15/21 02/15/21 07:36 07:52 Glucose 147 H POC Glucose 106 H OUTPATIENT ANTIDIABETIC REGIMEN: * Humulin R ACHS SSI * Glipizide 2.5 mg UD - 2x per week * Jardiance 25 mg PO daily * HbA1c: 7.4% (02/09/21) ASSESSMENT: 02/15 * BSGs trended down nicely yesterday with insulin infusion, transitioned off last evening * Patient remains on Protonix gtt (in dextrose) * Diet advanced from NPO to T2DM diet * Will increase basal insulin slightly today given increase in diet * During past admission, patient required tighter Novolog parameters, but was also likely basal deficient * Will watch closely and adjust as needed 02/14 * CA is a 80 year old male presented to ED with dark stools/concern for GI bleed * BSG on admission was 385 mg/dL, was given 6 unit IV insulin bolus by ED provider at that time * Pharmacy consulted around lunchtime, follow-up BSG of 455 mg/dL * Contacted hospitalist and agreed on initiation of insulin infusion as safest option to decrease BSGs * Patient recently admitted following CVA -> will utilize prior BSG data to guide initial dosing PLAN FOR INPATIENT GLYCEMIC CONTROL: * Hold outpatient oral diabetes medications * Basal insulin - increase * Lantus 20 units SC today * Bolus insulin - tighten * NovoLog per scale ACHS or q6h while NPO * Goal BSG Range: Low 110 mg/dL, High 140 mg/dL * Correction Factor: 30 mg/dL/unit * INS:Carbohydrate ratio = 10 g/unit PLAN FOR DISCHARGE: * Okay to resume home regimen at discharge
--- NOTE | 2021-02-15 12:20 | Gastrointestinal Consultation ---
Date of Consultation February 15, 2021 Assessment & Plan (1) Symptomatic anemia: (2) GI bleed: Pt is a 80 y/o male seen for anemia and dark stools. Appropriate response of blood ct since PRBC transfusion. Abd exam benign and pt hasn't had anymore signs of GI bleeding such as BRBPR or melena since admission. - Start diet - Monitor blood ct and transfuse prn - No indication for repeat endoscopic eval at this time - PPI BID - Discussed w hospitalist to review w Neuro whether pt should be on both Plavix and ASA for hx of CVA - GI to sign off; pls recall prn Supervising Physician Co-Signing Physician Notes I have personally seen and examined the patient with GABRIELLE Edwards. Her note reflects my exam and findings. I agree with her impression and plan. Had recent bidirectional endoscopy. Patient should stay on PPI as outpatient. Lucian Wright M.D. History of Present Illness Reason for Consultation: GI bleed, anemia Requesting Physician: Dr. Chintan Rodriguez Attending Physician: Dr. Lucian Wright History of Present Illness Patient is an 80 y/o male w PMHx as noted below who was brought to hospital from [facility] rehab for evaluation of anemia and dark stools. Pt w hx of CVA, L carotid occlusion on Plavix and ASA. Hgb on presentation was 6, received 2U PRBC, w appropriate response of Hgb up to 9. He denies any more signs of dark stools or rectal bleeding confirmed by nurse. He denies abd pain, n/v, asking for food CT abd/pelvis w/o contrast unremarkable. Previous EGD and colonoscopy from this year reviewed - esophagitis, gastritis, int hemorrhoids, diverticulo sis Allergies Allergy/AdvReac Type Severity Reaction Status Date / Time Sulfa (Sulfonamide Allergy Unknown BLISTERS Verified 02/14/21 10:08 Antibiotics) AND RASH Home Medications Medication Instructions Recorded Confirmed Type atorvastatin 20 mg tablet 20 mg PO QAM 01/07/18 02/14/21 History carbidopa 25 mg-levodopa 100 mg 2 tab PO QID 01/07/18 02/14/21 History tablet (Sinemet) cholecalciferol (vitamin D3) 50 2,000 unit PO QAM 10/25/18 02/14/21 History mcg (2,000 unit) tablet (Vitamin D3) nitroglycerin 0.3 mg sublingual 0.3 mg SUBLINGUAL QAM PRN 10/25/18 02/14/21 History tablet empagliflozin 25 mg tablet 25 mg PO QAM 06/05/20 02/14/21 History (Jardiance) ferrous sulfate 325 mg (65 mg 325 mg PO Q2D 06/05/20 02/14/21 History iron) tablet zolpidem 5 mg tablet 5 mg PO HS PRN 07/07/20 02/14/21 History docusate sodium 100 mg tablet 100 mg PO BID 08/23/20 02/14/21 History gabapentin 100 mg capsule 100 mg PO BID 08/23/20 02/14/21 History glipizide 2.5 mg tablet, extended 2.5 mg PO UD 02/08/21 02/14/21 History release 24 hr melatonin 3 mg tablet 3 mg PO HS PRN 02/08/21 02/14/21 History tramadol 50 mg tablet 50 mg PO Q6H PRN 02/08/21 02/14/21 History trazodone 50 mg tablet 50 mg PO HS PRN 02/08/21 02/14/21 History clopidogrel 75 mg tablet 75 mg PO QAM #30 tab 02/11/21 02/14/21 Rx pantoprazole 40 mg tablet,delayed 40 mg PO BID #60 tab 02/11/21 02/14/21 Rx release carvedilol 6.25 mg tablet 6.25 mg PO BID 02/14/21 02/14/21 History insulin regular human 100 unit/mL 1 sliding scale dose SUBCUT ACHS 02/14/21 02/14/21 History injection solution (Humulin R Regular U-100 Insulin) Patient History Medical History CAD (coronary artery disease) SD / demand ischemia related to severe anemia Diabetes mellitus, type II Dyslipidemia History of CVA (cerebrovascular accident) History of Helicobacter pylori infection Hypertension Hypothyroidism CARISSA (iron deficiency anemia) Osteomyelitis PAD (peripheral artery disease) Vascular parkinsonism Surgical History 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 Family History Other Cancer Diabetes Heart disease Social History Smoking Status: Unknown if ever smoked Second Hand Exposure: No; Hx Alcohol Use: Yes Alcohol type: beer, wine, hard liquor and other Hx Substance Use: No Preferred Language: Jaylin Communication Ability: Effective Communication Tools: Other Hearing Ability: Hard of Hearing Bar Attendant Required: Yes Beliefs That Will Affect Care: None marital status: Current Living Situation: Spouse and Family How many Children do You have: 3 Feels Safe at Home: Yes Assistive Devices: Walker Review of Systems Review of Systems: All systems reviewed & are unremarkable except as noted in HPI & below Physical Exam Constitutional: WD/WN, vitals as above well groomed, cooperative and comfortable Eyes: PERRL, conjunctivae normal, anicteric sclerae ENMT: external ear and nose normal, oropharynx normal Respiratory: normal respiratory effort, lungs clear to auscultation Cardiovascular: RRR, no murmur, no edema Gastrointestinal (Abdomen): normal bowel sounds, soft, nontender, no hepatosplenomegaly Skin: no rashes, warm and dry no jaundice Psychiatric: A+Ox3, euthymic affect Lymphatic: no lymphedema Results & Data ([facility]) Vital Signs (Past 12 Hours) Vital Signs Temp Pulse Pulse Resp BP Pulse Ox 02/15/21 11:48 36.5 C 83 22 195/79 H 93 02/15/21 08:00 78 02/15/21 07:57 36.9 C 77 16 169/63 H 95 02/15/21 06:36 99 H (1) GI bleed GI bleed type/associated pathology: unspecified gastrointestinal hemorrhage type Qualified Code(s): K92.2 - Gastrointestinal hemorrhage, unspecified
[2021-02-15] MEDS ORDERED: INSULIN GLARGINE SOLOSTAR 100 UNITS/ML 3 ML PEN SC ONE (14:00)
[2021-02-15] MEDS ORDERED: INSULIN GLARGINE SOLOSTAR 100 UNITS/ML 3 ML PEN SC SCH (16:30)
[2021-02-15] MEDS: CLOPIDOGREL BISULFATE 75 MG TAB PO SCH (17:01)
[2021-02-15 21:36] LABS: Hematocrit (blood only) 26.6 % (42-52)
[2021-02-16] MEDS: INSULIN ASPART 100 UNITS/ML 3 ML PEN SC SCH ×6 (00:23→20:22)
[2021-02-16] MEDS: PANTOprazole 40 MG in DEXTROSE 5% 100 ML IV SCH ×3 (00:26→11:52)
[2021-02-16 07:24] LABS: Hematocrit (blood only) 26.5 % (42-52)
[2021-02-16 07:40] LABS: BUN Creatinine Ratio 28.9 (10-20); Blood Urea Nitrogen 21 mg/dl (7-18); Calcium 8.9 mg/dl (8.5-10.1); Carbon Dioxide 24 mmol/L (21-32); Chloride 107 mmol/L (98-107); Est GFR (African American) 99.6 ml/min; Est GFR (Non-African American) 85.9 ml/min; Glucose 139 mg/dl (70-99); Magnesium 2.2 mg/dl (1.8-2.4); Sodium 137 mmol/L (136-145)
[2021-02-16 07:41] LABS: Phosphorus 4.1 mg/dl (2.5-4.9)
[2021-02-16] MEDS: carvediloL 6.25 MG TAB PO SCH ×2 (08:51→20:22)
[2021-02-16] MEDS: CLOPIDOGREL BISULFATE 75 MG TAB PO SCH (08:51)
[2021-02-16] MEDS: ATORVASTATIN 20 MG TAB PO SCH (08:51)
[2021-02-16] MEDS: CARBIDOPA/LEVODOPA 25/100MG TAB PO SCH ×4 (08:51→20:21)
[2021-02-16] MEDS ORDERED: INSULIN GLARGINE SOLOSTAR 100 UNITS/ML 3 ML PEN SC ONE (09:00)
--- NOTE | 2021-02-16 09:22 | Pharmacy Report ---
Pharmacy Glycemic Short Note 2 - Date of Service February 16, 2021 - Glycemic Short BSG Results (Last 24 hours): 02/15/21 02/15/21 02/15/21 11:22 16:24 16:25 Glucose POC Glucose 146 H 306 H* 311 H* 02/15/21 02/16/21 02/16/21 20:10 00:14 04:00 Glucose POC Glucose 226 H 172 H 112 H 02/16/21 02/16/21 06:45 07:26 Glucose 139 H POC Glucose 173 H OUTPATIENT ANTIDIABETIC REGIMEN: * Humulin R ACHS SSI * Glipizide 2.5 mg UD - 2x per week * Jardiance 25 mg PO daily * HbA1c: 7.4% (02/09/21) ASSESSMENT: 02/16/21 * BSGs yeterday were 106-146-306/311-226 and overnight were 172-112 mg/dL. Fasting this AM was 176 mg/dL. * Continue with Lantus 20 units daily. Patient was trending towards higher Lantus requirements last visit. Overnight checks for conservative management. * Continue Novolog ... patient does have tendency to eat uncovered snacks. May require tightening as the day goes on. 02/15 * BSGs trended down nicely yesterday with insulin infusion, transitioned off last evening * Patient remains on Protonix gtt (in dextrose) * Diet advanced from NPO to T2DM diet * Will increase basal insulin slightly today given increase in diet * During past admission, patient required tighter Novolog parameters, but was also likely basal deficient * Will watch closely and adjust as needed 02/14 * CA is a 80 year old male presented to ED with dark stools/concern for GI bleed * BSG on admission was 385 mg/dL, was given 6 unit IV insulin bolus by ED provider at that time * Pharmacy consulted around lunchtime, follow-up BSG of 455 mg/dL * Contacted hospitalist and agreed on initiation of insulin infusion as safest option to decrease BSGs * Patient recently admitted following CVA -> will utilize prior BSG data to guide initial dosing PLAN FOR INPATIENT GLYCEMIC CONTROL: * Hold outpatient oral diabetes medications * Basal insulin * Lantus 20 units SC today * Bolus insulin - tighten * NovoLog per scale ACHS or q6h while NPO * Goal BSG Range: Low 110 mg/dL, High 140 mg/dL * Correction Factor: 25 mg/dL/unit * INS:Carbohydrate ratio = 7 g/unit PLAN FOR DISCHARGE: * Okay to resume home regimen at discharge
[2021-02-16] MEDS: PANTOprazole 40 MG TAB PO SCH ×2 (12:40→20:21)
[2021-02-16] MEDS: SUCRALFATE 1 GM/10 ML UDC PO SCH ×3 (12:40→20:21)
[2021-02-16 19:06] LABS: Hemoglobin 8.8 g/dL (14.0-18.0)
[2021-02-17] MEDS: INSULIN ASPART 100 UNITS/ML 3 ML PEN SC SCH ×4 (00:01→12:18)
[2021-02-17] MEDS ORDERED: LORazepam 0.25 MG/0.5 ML VIAL IV STA (02:52)
--- NOTE | 2021-02-17 05:57 | Hospitalist Progress Note ---
Date of Service February 16, 2021 Assessment & Plan (1) Acute on chronic anemia: Plan: Acute on chronic anemia, secondary to chronic GI bleed, and antiplatelet therapy -Patient presents with hemoglobin of 5 per outpatient labs, dark stools -Hemoglobin 6.3 in the ED -CT abdomen pelvis unremarkable -Received 2 units of packed RBCs, currently hemoglobin stable, Hgb 9.0 -Concern for GI bleed -FOBT positive -Held aspirin and Plavix on admission - restarted Plavix, cont. to closely monitor -GI consulted -currently no plan for procedure, patient is hemodynamically stable, hemoglobin stable. No signs of GI bleed at this time. Patient had recent endoscopies, which showed esophagitis, gastritis, hemorrhoids, diverticulosis -Continue PPI, add sucralfate (2) Diabetes mellitus, type II: Plan: -Patient hyperglycemic in the ED, blood glucose over 400 -Glycemic pharmacy consulted, required IV insulin on admission -Hemoglobin A1c from earlier of this month, 7.2% (3) History of CVA (cerebrovascular accident): Plan: Recently admitted for subacute CVA, also was found to have left internal carotid artery occlusion -No vascular procedure recommended at the time, and also patient was not interested in any surgery -Patient was discharged on aspirin, Plavix, statin -Held aspirin and Plavix due to anemia / concern for GI bleed on admission -Patient hemodynamically stable, hemoglobin stable, restarted Plavix, continue to closely monitor Chronic conditions: CAD s/p CABG PAD HTN HLD - cont. carvedilol, atorvastatin - holding ASA, plavix d/t GI bleed on admission, restarted plavix Vascular parkinsonism - carbidopa-levodopa DVT ppx: SCDs Admission and Anticipated Discharge Date Admission Date: February 14, 2021 Subjective Patient seen in follow-up of anemia, GI bleed Received 2 units of packed RBCs on admission, responded well Patient had blood tinged stool overnight, FOBT positive Hemoglobin 9.0 this morning He was started on Plavix yesterday Hemodynamically stable, and has no complaints Son at the bedside updated. Patient very cooperative with help of the son, now less anxious. Seen by GI yesterday - no plan fo endoscopy a this time Pt denies chest pain, shortness of breath, dizziness, lightheadedness, abdominal pain. Review of Systems Review of Systems: All systems reviewed & are unremarkable except as noted in Subjective Physical Exam Physical Exam: Constitutional:L WD/WN, thin male i n NAD Eyes: PERRL, EOMI, conju nctivae normal, an icteric sclerae ENMT: external ear and n ose normal, oropha rynx normal Neck: trachea midline, n o thyromegaly Respiratory: normal respiratory effort, lungs edith ar to auscultation Cardiovascular:L RRR, no murmur, no edema (mild tachy cardia HR 100s) Chest (Breasts): Chest: normal insp ection of chest Gastrointestinal ( Abdomen): Inspection/Auscult ation: abdomen nor mal to inspection and normal bowel s ounds; abdomen not distended Percus sage/Palpation: ab domen soft; abdome n nontender and ab domen not rigid Musculoskeletal: extremities motor strength 5/5, move s extremities Skin: no rashes, warm an d dry Neurologic: PERRL, EOMI, no fa ce palsy, no dysar thria, moves extre mities Psychiatric: Orientation: alert and oriented x 3 Affect: + anxious affect Results & Data Results & Data ([facility]) Vital Signs (Past 12 Hours) Vital Signs Temp Pulse Pulse Pulse Resp BP Pulse Ox 02/16/21 22:00 83 02/16/21 20:19 89 130/61 02/16/21 19:38 36.3 C L 93 H 16 129/67 99 Laboratory Results 02/17/21 02/16/21 02/16/21 Range/Units 03:23 23:57 20:15 Hgb (14.0-18.0) g/dL Hct (42-52) % Sodium (136-145) mmol/L Potassium (3.5-5.1) mmol/L Chloride (98-107) mmol/L Carbon Dioxide (21-32) mmol/L Anion Gap (3-11) BUN (7-18) mg/dl Creatinine (0.6-1.4) mg/dl Est Cr Clr Drug Dosing Est GFR ( Amer) ml/min Est GFR (Non-Af Amer) ml/min BUN/Creatinine Ratio (10-20) Glucose (70-99) mg/dl POC Glucose 212 H 95 83 (70-99) mg/dl Calcium (8.5-10.1) mg/dl Phosphorus (2.5-4.9) mg/dl Magnesium (1.8-2.4) mg/dl 02/16/21 02/16/21 02/16/21 Range/Units 18:53 16:16 11:36 Hgb 8.8 L (14.0-18.0) g/dL Hct 26.0 L (42-52) % Sodium (136-145) mmol/L Potassium (3.5-5.1) mmol/L Chloride (98-107) mmol/L Carbon Dioxide (21-32) mmol/L Anion Gap (3-11) BUN (7-18) mg/dl Creatinine (0.6-1.4) mg/dl Est Cr Clr Drug Dosing Est GFR ( Amer) ml/min Est GFR (Non-Af Amer) ml/min BUN/Creatinine Ratio (10-20) Glucose (70-99) mg/dl POC Glucose 198 H 215 H (70-99) mg/dl Calcium (8.5-10.1) mg/dl Phosphorus (2.5-4.9) mg/dl Magnesium (1.8-2.4) mg/dl 02/16/21 02/16/21 02/16/21 Range/Units 07:26 06:45 06:45 Hgb 9.0 L (14.0-18.0) g/dL Hct 26.5 L (42-52) % Sodium 137 (136-145) mmol/L Potassium 4.0 (3.5-5.1) mmol/L Chloride 107 (98-107) mmol/L Carbon Dioxide 24 (21-32) mmol/L Anion Gap 6.0 (3-11) BUN 21 H (7-18) mg/dl Creatinine 0.74 (0.6-1.4) mg/dl Est Cr Clr Drug Dosing Not Reportable Est GFR ( Amer) 99.6 ml/min Est GFR (Non-Af Amer) 85.9 ml/min BUN/Creatinine Ratio 28.9 H (10-20) Glucose 139 H (70-99) mg/dl POC Glucose 173 H (70-99) mg/dl Calcium 8.9 (8.5-10.1) mg/dl Phosphorus 4.1 (2.5-4.9) mg/dl Magnesium 2.2 (1.8-2.4) mg/dl Medications Administered Current Inpatient Medications Atorvastatin Calcium (Atorvastatin 20 Mg Tab) 20 mg PO QAM [facility] Stop: 03/17/21 08:59 Last Admin: 02/16/21 08:51 Dose: 20 mg Documented by: Carbidopa/Levodopa (Carbidopa/Levodopa 25/100mg Tab) 2 tab PO QID [facility] Stop: 03/17/21 08:59 Last Admin: 02/16/21 20:21 Dose: 2 tab Documented by: Carvedilol (Carvedilol 6.25 Mg Tab) 6.25 mg PO BID [facility] Stop: 03/16/21 21:59 Last Admin: 02/16/21 20:22 Dose: 6.25 mg Documented by: Clopidogrel Bisulfate (Clopidogrel Bisulfate 75 Mg Tab) 75 mg PO QAM [facility] Stop: 03/17/21 15:59 Last Admin: 02/16/21 08:51 Dose: 75 mg Documented by: Dextrose (Dextrose 50% 50 Ml Syringe) 25 - 50 ml IV UD PRN; Protocol PRN Reason: Hypoglycemia Protocol Stop: 03/16/21 12:29 Glucagon (Glucagon For Inj 1 Mg Vial) 1 mg IM UD PRN; Protocol PRN Reason: Hypoglycemia Protocol Stop: 03/16/21 12:29 Glucose (Glucose 40% Gel 15 Gm Tube) 15 - 30 gm PO UD PRN; Protocol PRN Reason: Hypoglycemia Protocol Stop: 03/16/21 12:29 Glucose (Glucose 10 Tabs/Tube) 4 - 8 tabs PO UD PRN; Protocol PRN Reason: Hypoglycemia Protocol Stop: 03/16/21 12:29 Insulin Aspart (Insulin Aspart 100 Units/Ml 3 Ml Pen) 0 units SC ACHS [facility]; Protocol Stop: 03/17/21 00:00 Last Admin: 02/16/21 20:22 Dose: Not Given Documented by: Insulin Aspart (Insulin Aspart 100 Units/Ml 3 Ml Pen) 0 units SC 0000,0400 [facility]; Protocol Stop: 03/19/21 00:00 Last Admin: 02/17/21 03:27 Dose: 7 units Documented by: Melatonin (Melatonin 3 Mg Tab) 3 mg PO HS PRN PRN Reason: Insomnia Stop: 03/16/21 21:49 Last Admin: 02/15/21 20:12 Dose: 3 mg Documented by: Miscellaneous (Carbohydrates For Hypoglycemia ) 15 - 30 gm PO UD PRN PRN Reason: Hypoglycemia Treatment Stop: 03/16/21 12:29 Miscellaneous Information (Pharmacy Glycemic Mgmt Consult) 1 ea N/A UD PRN PRN Reason: Consult Stop: 03/16/21 12:02 Pantoprazole Sodium (Pantoprazole 40 Mg Tab) 40 mg PO BID [facility] Stop: 03/18/21 11:29 Last Admin: 02/16/21 20:21 Dose: 40 mg Documented by: Sucralfate (Sucralfate 1 Gm/10 Ml [facility]) 1 gm PO QID [facility] Stop: 03/18/21 12:59 Last Admin: 02/16/21 20:21 Dose: 1 gm Documented by:
[2021-02-17 07:42] LABS: Hematocrit (blood only) 26.3 % (42-52); Hemoglobin 8.9 g/dL (14.0-18.0)
--- NOTE | 2021-02-17 07:50 | Hospitalist Progress Note ---
Date of Service February 17, 2021 Assessment & Plan (1) Acute on chronic anemia: Plan: Acute on chronic anemia, secondary to chronic GI bleed, and antiplatelet therapy -Patient presents with hemoglobin of 5 per outpatient labs, dark stools -Hemoglobin 6.3 in the ED -CT abdomen pelvis unremarkable -Received 2 units of packed RBCs, currently hemoglobin stable, Hgb ~ 9 -Concern for GI bleed -FOBT positive -Held aspirin and Plavix on admission - restarted Plavix, cont. to closely monitor -GI consulted -currently no plan for procedure, patient is hemodynamically stable, hemoglobin stable. No signs of GI bleed at this time. Patient had recent endoscopies, which showed esophagitis, gastritis, hemorrhoids, diverticulosis -Continue PPI, add sucralfate Recommend to recheck H&H within 1 week. Recommend to monitor stools at home for any signs of bleeding. (2) Diabetes mellitus, type II: Plan: -Patient hyperglycemic in the ED, blood glucose over 400 -Glycemic pharmacy consulted, required IV insulin on admission -Hemoglobin A1c from earlier of this month, 7.2% (3) History of CVA (cerebrovascular accident): Plan: Recently admitted for subacute CVA, also was found to have left internal carotid artery occlusion -No vascular procedure recommended at the time, and also patient was not interested in any surgery -Patient was discharged on aspirin, Plavix, statin -Held aspirin and Plavix due to anemia / concern for GI bleed on admission -Patient hemodynamically stable, hemoglobin stable, restarted Plavix, continue to closely monitor Chronic conditions: CAD s/p CABG PAD HTN HLD - cont. carvedilol, atorvastatin - holding ASA, plavix d/t GI bleed on admission, restarted plavix Vascular parkinsonism - carbidopa-levodopa DVT ppx: SCDs Admission and Anticipated Discharge Date Admission Date: February 14, 2021 Subjective Patient seen in follow-up of anemia, GI bleed Received 2 units of packed RBCs on admission, responded well Patient had blood tinged stool overnight, FOBT positive Hemoglobin 8.9 this morning, stable Plavix was resumed Hemodynamically stable, and has no complaints Son at the bedside yesterday and updated. Also now updated over the phone. Seen by GI - no plan for endoscopy a this time Pt denies chest pain, shortness of breath, dizziness, lightheadedness, abdominal pain. Review of Systems Review of Systems: All systems reviewed & are unremarkable except as noted in Subjective Physical Exam Physical Exam: Constitutional:L WD/WN, thin male i n NAD Eyes: PERRL, EOMI, conju nctivae normal, an icteric sclerae ENMT: external ear and n ose normal, oropha rynx normal Neck: trachea midline, n o thyromegaly Respiratory: normal respiratory effort, lungs edith ar to auscultation Cardiovascular:L RRR, no murmur, no edema Chest (Breasts): Chest: normal insp ection of chest Gastrointestinal ( Abdomen): Inspection/Auscult ation: abdomen nor mal to inspection and normal bowel s ounds; abdomen not distended Percus sage/Palpation: ab domen soft; abdome n nontender and ab domen not rigid Musculoskeletal: extremities motor strength 5/5, move s extremities Skin: no rashes, warm an d dry Neurologic: PERRL, EOMI, no fa ce palsy, no dysar thria, moves extre mities Psychiatric: Orientation: alert and oriented x 3 Affect: + anxious affect Results & Data Results & Data ([facility]) Vital Signs (Past 12 Hours) Vital Signs Temp Pulse Pulse Pulse Resp BP Pulse Ox 02/17/21 07:26 82 02/17/21 02:27 36.4 C L 105 H 119/66 02/17/21 00:07 36.7 C 80 16 130/64 99 02/16/21 22:00 83 02/16/21 20:19 89 130/61 Laboratory Results 02/17/21 02/17/21 02/17/21 Range/Units 08:16 07:24 07:19 Hgb 8.9 L (14.0-18.0) g/dL Hct 26.3 L (42-52) % Sodium (136-145) mmol/L Potassium Pending Chloride (98-107) mmol/L Carbon Dioxide (21-32) mmol/L Anion Gap (3-11) BUN (7-18) mg/dl Creatinine (0.6-1.4) mg/dl Est Cr Clr Drug Dosing Est GFR ( Amer) ml/min Est GFR (Non-Af Amer) ml/min BUN/Creatinine Ratio (10-20) Glucose (70-99) mg/dl POC Glucose 136 H (70-99) mg/dl Calcium (8.5-10.1) mg/dl 02/17/21 02/17/21 02/16/21 Range/Units 07:19 03:23 23:57 Hgb (14.0-18.0) g/dL Hct (42-52) % Sodium 138 (136-145) mmol/L Potassium Pending Chloride 106 (98-107) mmol/L Carbon Dioxide 25 (21-32) mmol/L Anion Gap 7.0 (3-11) BUN 14 (7-18) mg/dl Creatinine 0.65 (0.6-1.4) mg/dl Est Cr Clr Drug Dosing Not Reportable Est GFR ( Amer) 105.0 ml/min Est GFR (Non-Af Amer) 90.6 ml/min BUN/Creatinine Ratio 21.5 H (10-20) Glucose 126 H (70-99) mg/dl POC Glucose 212 H 95 (70-99) mg/dl Calcium 8.6 (8.5-10.1) mg/dl 02/16/21 02/16/21 02/16/21 Range/Units 20:15 18:53 16:16 Hgb 8.8 L (14.0-18.0) g/dL Hct 26.0 L (42-52) % Sodium (136-145) mmol/L Potassium Chloride (98-107) mmol/L Carbon Dioxide (21-32) mmol/L Anion Gap (3-11) BUN (7-18) mg/dl Creatinine (0.6-1.4) mg/dl Est Cr Clr Drug Dosing Est GFR ( Amer) ml/min Est GFR (Non-Af Amer) ml/min BUN/Creatinine Ratio (10-20) Glucose (70-99) mg/dl POC Glucose 83 198 H (70-99) mg/dl Calcium (8.5-10.1) mg/dl 02/16/21 Range/Units 11:36 Hgb (14.0-18.0) g/dL Hct (42-52) % Sodium (136-145) mmol/L Potassium Chloride (98-107) mmol/L Carbon Dioxide (21-32) mmol/L Anion Gap (3-11) BUN (7-18) mg/dl Creatinine (0.6-1.4) mg/dl Est Cr Clr Drug Dosing Est GFR ( Amer) ml/min Est GFR (Non-Af Amer) ml/min BUN/Creatinine Ratio (10-20) Glucose (70-99) mg/dl POC Glucose 215 H (70-99) mg/dl Calcium (8.5-10.1) mg/dl Medications Administered Current Inpatient Medications Atorvastatin Calcium (Atorvastatin 20 Mg Tab) 20 mg PO QAM [facility] Stop: 03/17/21 08:59 Last Admin: 02/16/21 08:51 Dose: 20 mg Documented by: Carbidopa/Levodopa (Carbidopa/Levodopa 25/100mg Tab) 2 tab PO QID [facility] Stop: 03/17/21 08:59 Last Admin: 02/16/21 20:21 Dose: 2 tab Documented by: Carvedilol (Carvedilol 6.25 Mg Tab) 6.25 mg PO BID [facility] Stop: 03/16/21 21:59 Last Admin: 02/16/21 20:22 Dose: 6.25 mg Documented by: Clopidogrel Bisulfate (Clopidogrel Bisulfate 75 Mg Tab) [facility] Stop: 03/17/21 15:59 Last Admin: 02/16/21 08:51 Dose: 75 mg Documented by: Dextrose (Dextrose 50% 50 Ml Syringe) 25 - 50 ml IV UD PRN; Protocol PRN Reason: Hypoglycemia Protocol Stop: 03/16/21 12:29 Glucagon (Glucagon For Inj 1 Mg Vial) 1 mg IM UD PRN; Protocol PRN Reason: Hypoglycemia Protocol Stop: 03/16/21 12:29 Glucose (Glucose 40% Gel 15 Gm Tube) 15 - 30 gm PO UD PRN; Protocol PRN Reason: Hypoglycemia Protocol Stop: 03/16/21 12:29 Glucose (Glucose 10 Tabs/Tube) 4 - 8 tabs PO UD PRN; Protocol PRN Reason: Hypoglycemia Protocol Stop: 03/16/21 12:29 Insulin Aspart (Insulin Aspart 100 Units/Ml 3 Ml Pen) 0 units SC ACHS [facility]; Protocol Stop: 03/17/21 00:00 Last Admin: 02/16/21 20:22 Dose: Not Given Documented by: Insulin Aspart (Insulin Aspart 100 Units/Ml 3 Ml Pen) 0 units SC 0000,0400 [facility]; Protocol Stop: 03/19/21 00:00 Last Admin: 02/17/21 03:27 Dose: 7 units Documented by: Insulin Glargine (Insulin Glargine Solostar 100 Units/Ml 3 Ml Pen) 25 units SC ONE ONE Stop: 02/17/21 09:01 Melatonin (Melatonin 3 Mg Tab) 3 mg PO HS PRN PRN Reason: Insomnia Stop: 03/16/21 21:49 Last Admin: 02/15/21 20:12 Dose: 3 mg Documented by: Miscellaneous (Carbohydrates For Hypoglycemia ) 15 - 30 gm PO UD PRN PRN Reason: Hypoglycemia Treatment Stop: 03/16/21 12:29 Miscellaneous Information (Pharmacy Glycemic Mgmt Consult) 1 ea N/A UD PRN PRN Reason: Consult Stop: 03/16/21 12:02 Pantoprazole Sodium (Pantoprazole 40 Mg Tab) 40 mg PO BID [facility] Stop: 03/18/21 11:29 Last Admin: 02/16/21 20:21 Dose: 40 mg Documented by: Sucralfate (Sucralfate 1 Gm/10 Ml Udc) 1 gm PO QID [facility] Stop: 03/18/21 12:59 Last Admin: 02/16/21 20:21 Dose: 1 gm Documented by:
[2021-02-17 08:05] LABS: BUN Creatinine Ratio 21.5 (10-20); Blood Urea Nitrogen 14 mg/dl (7-18); Calcium 8.6 mg/dl (8.5-10.1); Carbon Dioxide 25 mmol/L (21-32); Chloride 106 mmol/L (98-107); Est GFR (Non-African American) 90.6 ml/min; Glucose 126 mg/dl (70-99); Sodium 138 mmol/L (136-145)
--- NOTE | 2021-02-17 08:58 | Pharmacy Report ---
Pharmacy Glycemic Short Note 2 - Date of Service February 17, 2021 - Glycemic Short BSG Results (Last 24 hours): 02/16/21 02/16/21 02/16/21 11:36 16:16 20:15 Glucose POC Glucose 215 H 198 H 83 02/16/21 02/17/21 02/17/21 23:57 03:23 07:19 Glucose 126 H POC Glucose 95 212 H 02/17/21 07:24 Glucose POC Glucose 136 H OUTPATIENT ANTIDIABETIC REGIMEN: * Humulin R ACHS SSI * Glipizide 2.5 mg UD - 2x per week * Jardiance 25 mg PO daily * HbA1c: 7.4% (02/09/21) ASSESSMENT: 02/17/21 * BSGs yeterday were [phone] and overnight were 95-212 mg/dL. Fasting this AM was 136 mg/dL. * Patient received 38 units of insulin yesterday with 20 units of basal and 18 units of bolus. Patient received 7 units of Novolog at 0200 yesterday. * Increase Lantus by 20% to 25 units daily especially since received 7 additional units overnight. * Continue Novolog ... patient does have tendency to eat uncovered snacks. May require tightening as the day goes on. 02/16/21 * BSGs yeterday were 106-146-306/311-226 and overnight were 172-112 mg/dL. Fasting this AM was 176 mg/dL. * Continue with Lantus 20 units daily. Patient was trending towards higher Lantus requirements last visit. Overnight checks for conservative management. * Continue Novolog ... patient does have tendency to eat uncovered snacks. May require tightening as the day goes on. 02/15 * BSGs trended down nicely yesterday with insulin infusion, transitioned off last evening * Patient remains on Protonix gtt (in dextrose) * Diet advanced from NPO to T2DM diet * Will increase basal insulin slightly today given increase in diet * During past admission, patient required tighter Novolog parameters, but was also likely basal deficient * Will watch closely and adjust as needed 02/14 * CA is a 80 year old male presented to ED with dark stools/concern for GI bleed * BSG on admission was 385 mg/dL, was given 6 unit IV insulin bolus by ED provider at that time * Pharmacy consulted around lunchtime, follow-up BSG of 455 mg/dL * Contacted hospitalist and agreed on initiation of insulin infusion as safest option to decrease BSGs * Patient recently admitted following CVA -> will utilize prior BSG data to guide initial dosing PLAN FOR INPATIENT GLYCEMIC CONTROL: * Hold outpatient oral diabetes medications * Basal insulin * Lantus 25 units SC daily * Bolus insulin * NovoLog per scale ACHS or q6h while NPO * Goal BSG Range: Low 110 mg/dL, High 140 mg/dL * Correction Factor: 25 mg/dL/unit * INS:Carbohydrate ratio = 8 g/unit PLAN FOR DISCHARGE: * Okay to resume home regimen at discharge
[2021-02-17] MEDS ORDERED: INSULIN GLARGINE SOLOSTAR 100 UNITS/ML 3 ML PEN SC ONE (09:00)
[2021-02-17] MEDS: carvediloL 6.25 MG TAB PO SCH (09:04)
[2021-02-17] MEDS: PANTOprazole 40 MG TAB PO SCH (09:04)
[2021-02-17] MEDS: CLOPIDOGREL BISULFATE 75 MG TAB PO SCH (09:04)
[2021-02-17] MEDS: CARBIDOPA/LEVODOPA 25/100MG TAB PO SCH ×2 (09:05→12:19)
[2021-02-17] MEDS: SUCRALFATE 1 GM/10 ML UDC PO SCH ×2 (09:05→12:19)
[2021-02-17] MEDS: ATORVASTATIN 20 MG TAB PO SCH (09:05)
[2021-02-17 12:15] VITALS: BP 167/76; PULSE 106; TEMP 98.6; O2SAT 96
--- NOTE | 2021-02-17 12:25 | Discharge Summary ---
Date of Service February 17, 2021 Admission HPI Per Admitting Provider Patient is an 80 y/o M w/ DM II, CAD s/p CABG, vascular parkinsonism, HTN, HLD, PVD s/p partial right foot amputation, iron deficiency anemia secondary to history of GI bleed in past, hypothyroidism who presents from [facility] due to dark stools and hemoglobin of 5. Patient was recently admitted to [facility], between February 08 - February 11. At that time he presented with strokelike symptoms/subacute CVA, and also was found to have distal left internal carotid artery occlusion, and was evaluated by vascular surgery. No procedure was recommended at that time. He was discharged on aspirin and Plavix for 21 days, and statin. Plan was to continue with Plavix after that indefinitely. Patient was then discharged to [facility]. Patient is a poor historian, and his primary language is Jaylin, does not speak much Polish. Per report, he has been having some dark stools at [facility], today they brought him in for evaluation after finding hemoglobin being low, 5. Patient however has no complaints. In the emergency room , hemoglobin was found to be 6.3. Patient was started on IV Protonix, IV fluids, and PRBCs were also ordered. He was also found hyperglycemic and received IV insulin. CT abdomen pelvis unremarkable. FOBT ordered. ED provider notified patient's son over the phone. Used lsat instructor services, patient was only complaining about being hungry, and weak. No other complaints. No abdominal pain, chest pain shortness of breath, dizziness or lightheadedness. Patient not very cooperative, he is anxious, asking about his son and . Admission Exam Per Admitting Provider General: no distress, WDWN Head: normocephalic, atraumatic Eyes: PERRL, EOM's intact, conjunctiva non-injected, anicteric ENT: normal inspection external ears, nose, mucous membranes moist Neck: supple, trachea midline Lungs: clear, no respiratory distress, no wheezing/rhonchi/rales CV: RRR, no murmur, no pretibial edema Abd: normal BS, soft, non-tender Ext: no cyanosis, or erythema, R Foot: +distal amputation, site is without erythema or discharge Neuro: alert, oriented to person, EOMs intact. No nystagmus, face is strong and symmetric, hard of hearing, no dysarthria reported, tongue is midline, normal movement, no fasciculations, able to move all extremities, nursing service director strength equal bilaterally Skin: warm, dry Principal Diagnosis Acute on chronic anemia, secondary to chronic GI bleed, and antiplatelet therapy hx of esophagitis, gastritis, hemorrhoids, diverticulosis Diabetes mellitus, type II, with hyperglycemia History of CVA (recent), left internal carotid artery occlusion CAD s/p CABG PAD Discharge Exam Constitutional: WD/WN, thin male in NAD Eyes: PERRL, EOMI, conjunctivae normal, anicteric sclerae ENMT: external ear and nose normal, oropharynx normal Neck: trachea midline, no thyromegaly Respiratory: normal respiratory effort, lungs clear to auscultation Cardiovascular: RRR, no murmur, no edema Chest (Breasts): Chest: normal inspection of chest Gastrointestinal (Abdomen): Inspection/Auscultation: abdomen normal to inspection and normal bowel sounds; abdomen not distended Percussion/Palpation: abdomen soft; abdomen nontender and abdomen not rigid Musculoskeletal: extremities motor strength 5/5, moves extremities Skin: no rashes, warm and dry Neurologic: PERRL, EOMI, no face palsy, no dysarthria, moves extremities Psychiatric: Orientation: alert and oriented x 3 Affect: + anxious affect Discharge Data Allergies Allergy/AdvReac Type Severity Reaction Status Date / Time Sulfa (Sulfonamide Allergy Unknown BLISTERS Verified 02/14/21 10:08 Antibiotics) AND RASH Consultations 02/14/21 11:38 ED Decision to Admit Stat 02/14/21 12:01 Consult Gastroenterology Routine Ordered Studies 02/14/21 09:45 CT abd pelvis wo con Stat IMPRESSION: 1. 3 mm left renal calculus. No ureteral calculi or hydronephrosis. 2. No acute process within the abdomen or pelvis on unenhanced exam. 3. No bowel obstruction. Normal appendix. Hospital Course (1) Acute on chronic anemia: Acute on chronic anemia, secondary to chronic GI bleed, and antiplatelet therapy -Patient presents with hemoglobin of 5 per outpatient labs, dark stools -Hemoglobin 6.3 in the ED -CT abdomen pelvis unremarkable -Received 2 units of packed RBCs, currently hemoglobin stable, Hgb ~ 9 -Concern for GI bleed -FOBT positive -Held aspirin and Plavix on admission - restarted Plavix, cont. to closely monitor -GI consulted -currently no plan for procedure, patient is hemodynamically stable, hemoglobin stable. No signs of GI bleed at this time. Patient had recent endoscopies, which showed esophagitis, gastritis, hemorrhoids, diverticulosis -Continue PPI, add sucralfate Recommend to recheck H&H within 1 week. Recommend to monitor stools at home for any signs of bleeding. (2) Diabetes mellitus, type II: -Patient hyperglycemic in the ED, blood glucose over 400 -Glycemic pharmacy consulted, required IV insulin on admission -Hemoglobin A1c from earlier of this month, 7.2% -Resume home medications on discharge (3) History of CVA (cerebrovascular accident): Recently admitted for subacute CVA, also was found to have left internal carotid artery occlusion -No vascular procedure recommended at the time, and also patient was not interested in any surgery -Patient was discharged on aspirin, Plavix, statin -Held aspirin and Plavix due to anemia / concern for GI bleed on admission -Patient hemodynamically stable, hemoglobin stable, restarted Plavix, continue to closely monitor Chronic conditions: CAD s/p CABG PAD HTN HLD - cont. carvedilol, atorvastatin - holding ASA, plavix d/t GI bleed on admission, restarted plavix Vascular parkinsonism - carbidopa-levodopa Total Time Total Time Spent Total Time Spent (In Minutes): 50 Discharge Plan Discharge Items Patient Disposition: Home - Home Health Services Reason For Visit: ANEMIA, GI BLEED Discharge Diagnosis: Acute on chronic anemia, secondary to chronic GI bleed, and antiplatelet therapy hx of esophagitis, gastritis, hemorrhoids, diverticulosis Diabetes mellitus, type II, with hyperglycemia History of CVA (recent), left internal carotid artery occlusion CAD s/p CABG PAD Activity: Per Instructions section Non-emergency contact: Primary Care Provider and Food Server Call non-emergency contact if: you have any medication questions and your symptoms worsen Follow-up/Referrals: PCP,NO [Primary Care Provider] - Diet: Carb Consistent or DM2 and Heart Healthy Addtl Attending Provider Instructions: Follow up with your primary care doctor, within 1 week. It is recommended that you will have your blood count (hemoglobin) checked within 1 week. Continue to take Plavix, do not take aspirin at this point. Make sure to take pantoprazole twice a day. In addition, take sucralfate 4 times a day, preferably before meals. Monitor your stools for any signs of bleed. Pending Studies at Discharge: No Stand-Alone Forms: [facility], Smoking Cessation Medications and DC Order Prescriptions: New sucralfate 100 mg/mL Suspension 1 g PO QID Qty: 400 RF: 0 Continued atorvastatin 20 mg Tablet 20 mg PO QAM RF: 0 carbidopa-levodopa [Sinemet] 25-100 mg Tablet 2 tab PO QID RF: 0 nitroglycerin 0.3 mg Tablet, Sublingual 0.3 mg sublingual QAM PRN (Reason: chest pain) RF: 0 cholecalciferol (vitamin D3) [Vitamin D3] 2,000 unit Tablet 2,000 unit PO QAM RF: 0 ferrous sulfate 325 mg (65 mg iron) Tablet 325 mg PO Q2D RF: 0 Jardiance 25 mg Tablet 25 mg PO QAM RF: 0 trazodone 50 mg tablet 50 mg PO HS PRN (Reason: Sleep) RF: 0 melatonin 3 mg tablet 3 mg PO HS PRN (Reason: Insomnia) RF: 0 glipizide 2.5 mg tablet extended release 24 hr 2.5 mg PO UD RF: 0 tramadol 50 mg tablet 50 mg PO Q6H PRN (Reason: Severe Pain (Scale Score 7-10)) RF: 0 clopidogrel 75 mg Tablet 75 mg PO QAM Qty: 30 RF: 1 pantoprazole 40 mg Tablet,Delayed Release (Dr/Ec) 40 mg PO BID Qty: 60 RF: 1 carvedilol 6.25 mg tablet 6.25 mg PO BID RF: 0 Humulin R Regular U-100 Insuln 100 unit/mL Solution 1 sliding scale dose SUBCUT ACHS RF: 0 zolpidem 5 mg tablet 5 mg PO HS PRN (Reason: Sleep) RF: 0 gabapentin 100 mg capsule 100 mg PO BID RF: 0 docusate sodium 100 mg Tablet 100 mg PO BID RF: 0 Discharge Orders: Discharge Order (Routine); Ordered 02/17/21 Ordered By: Chintan Rodriguez Admission Data Admit Date/Time: 02/14/21 13:34 Attending Provider: Chintan Rodriguez Admit Provider: Chintan Rodriguez Primary Care Provider: PCP,NO Other Providers: Chintan Rodriguez ; Irineo Mcgovern Other Interventions: Discharge Summary Assessment (RN) Last Done: 02/17/21 11:52
[2021-02-18] MEDS ORDERED: INSULIN GLARGINE SOLOSTAR 100 UNITS/ML 3 ML PEN SC SCH (09:00)
== END 2021-02-17 14:25 | disposition home health service (06) | DRG 812 ==
LOC: ED 09:10 → 2S 13:34